=== PATIENT | male | born 1940 | race Two or more races ===

== ENCOUNTER 2018-06-25 01:53 | Inpatient (IN) | payer MEDICARE, BC ==
[~2018-06-25] VITALS: Ht 182.9 cm; Wt 141.5 kg
[2018-06-25] VITALS (30 sets, daily range): BP systolic 115–180; BP diastolic 64–97; PULSE 54–66; RESP 0–22; Ht 182.9 cm; Wt 141.5 kg
[2018-06-25] MEDS ORDERED: PROPOFOL 100 ML IV STA (02:12)
[2018-06-25] MEDS ORDERED: PROPOFOL 100 ML ONE (02:12)
[2018-06-25] MEDS ORDERED: VECURONIUM 100 MG in DEXTROSE 5% 100 ML IV ONE (02:12)
[2018-06-25] MEDS ORDERED: SODIUM CHLORIDE 0.9% 500 ML BAG IV* STA (02:12)
[2018-06-25] MEDS ORDERED: OCULAR LUBRICANT 3.5 GM OPH OINT BOTH EYES ONE (02:30)
[2018-06-25] MEDS ORDERED: NORepinephrine 8MG/250 ML (PMX 250 ML IV SCH (03:00)
[2018-06-25] MEDS ORDERED: SOD CHLORIDE 0.9% 1,000 ML IV ONE (03:00)
[2018-06-25] MEDS ORDERED: ACCU-CHEK XX SCH ×2 (04:30→06:00)
[2018-06-25] MEDS ORDERED: ACETAMINOPHEN 650MG/20.3ML CUP PO PRN (04:30)
[2018-06-25] MEDS ORDERED: MEPERIDINE 25 MG INJ IV PRN ×2 (04:30)
[2018-06-25] MEDS ORDERED: ACETAMINOPHEN 650 MG SUPP PR PRN (04:30)
[2018-06-25] MEDS ORDERED: DEXTROSE 50% 50 ML SYRINGE IV PRN ×4 (04:30→06:00)
[2018-06-25] MEDS ORDERED: IODIXANOL LOCM 100 ML BTL ONE (04:51)
[2018-06-25] MEDS ORDERED: SOD CHLORIDE 0.9% 100 ML ONE (04:51)
[2018-06-25] MEDS ORDERED: SOD CHLORIDE 0.9% 500 ML IV ONE (05:00)
--- NOTE | 2018-06-25 05:40 | ERD ---
ER Documentation Chief Complaint Chief Complaint MARY ANN,from home,initially c/o SOB,arrived as cardiac arrest HPI This is a very pleasant 78-year-old male initially brought in by rescue 90 from shortness of breath and chest pain. Upon arrival telemetric, the patient is 20 started in cardiac arrest. History is limited EMS run sheet as of the patient's been complaining of progressive shortness of breath and he refused BiPAP on r oute. After speaking with the family, the patient does have a history of hypertension but no previous cardiac stenting ROS All systems reviewed and are negative except as per history of present illness. Allergies Allergies: Coded Allergies: Unknown: Unable to obtain (Unverified , 06/25/18) Physical Exam Vitals Vital Signs Date Temp Pulse Resp B/P (MAP) Pulse Ox O2 O2 Flow FiO2 Time Delivery Rate 06/25/18 99.4 99 18 192/115 99 02:12 (140) Physical Exam Const: No acute distress Head: Atraumatic Eyes: Normal Conjunctiva ENT: Normal External Ears, Nose and Mouth. Neck: Full range of motion. No meningismus. Resp: Clear to auscultation bilaterally Cardio: Regular rate and rhythm, no murmurs Abd: Soft, non tender, non distended. Normal bowel sounds Skin: No petechiae or rashes Back: No midline or flank tenderness Ext: No cyanosis, or edema Neur: Obtunded Result Diagram: 06/25/18 0210 06/25/18 0210 Results 24 hrs Laboratory Tests Test 06/25/18 02:05 06/25/18 02:10 06/25/18 02:12 06/25/18 03:20 Bedside Glucose 268 mg/dL White Blood 20.8 10^3/ul Count Red Blood Count 5.41 10^6/ul Hemoglobin 15.1 g/dl Hematocrit 50.4 % Mean 93.2 fl Corpuscular Volume Mean 27.9 pg Corpuscular Hemoglobin Mean 30.0 g/dl Corpuscular Hemoglobin Conc ent Red Cell 14.4 % Distribution Width Platelet Count 244 10^3/UL Mean Platelet 11.6 fl Volume Immature 0.700 % Granulocytes % Neutrophils % 59.3 % Lymphocytes % 30.8 % Monocytes % 6.9 % Eosinophils % 1.8 % Basophils % 0.5 % Nucleated Red 0.0 /100WBC Blood Cells % Immature 0.140 10^3/ul Granulocytes # Neutrophils # 12.3 10^3/ul Lymphocytes # 6.4 10^3/ul Monocytes # 1.4 10^3/ul Eosinophils # 0.4 10^3/ul Basophils # 0.1 10^3/ul Nucleated Red 0.0 10^3/ul Blood Cells # Prothrombin 13.5 Sec Time Prothrombin 1.1 Time Ratio INR 1.02 International Normalized Rati o Activated 28.1 Sec Partial Thrombo plast Time Sodium Level 141 mmol/L Potassium Level 5.5 mmol/L Chloride Level 102 mmol/L Carbon Dioxide 23 mmol/L Level Anion Gap 16 Blood Urea 20 mg/dl Nitrogen Creatinine 1.41 mg/dl Est Glomerular mL/min Filtrat Rate mL/min Glucose Level 292 mg/dl Calcium Level 9.1 mg/dl Phosphorus 5.4 mg/dl Level Magnesium Level 2.0 mg/dl Total Bilirubin 0.3 mg/dl Direct 0.00 mg/dl Bilirubin Indirect 0.3 mg/dl Bilirubin Aspartate Amino 57 IU/L Transf (AST/SGO T) Alanine 42 IU/L Aminotransferas e (ALT/SGPT) Alkaline 78 IU/L Phosphatase Troponin I < 0.012 ng/ml Total Protein 7.7 g/dl Albumin 4.2 g/dl Globulin 3.50 g/dl Albumin/Globuli 1.20 n Ratio Blood Gas Blood arterial Specimen Source Arterial Blood 06/25/2018 3:02: Date Drawn 21 AM Arterial Blood 7.229 pH (Temp corrected ) Arterial Blood 60.7 mmhg pCO2 (Temp correct) Arterial Blood 145.2 mmHG pO2 (Temp corrected ) Arterial Blood 24.8 mmol/L HCO3 Arterial Blood -3.8 mmol/L Base Excess Arterial Blood 98.0 mmHG Oxygen Saturati on Darío Test ACCEPTAB Arterial Blood Right Radial Gas Puncture Site Arterial 0.3 % Blood Carboxyhe moglobin Arterial Blood 0.2 % Methemoglobin Blood Gas A-a 507.1 mmHg O2 Differential Oxyhemoglobin 97.5 % Percent Blood Gas 37.0 C Temperature Blood Gas 18.0 Respiration Rate Blood Gas 18 Actual Respiration Rat e Blood Gas VENT - AC Modality FiO2 100.0 % Blood Gas Tidal 650.0 mL Volume Blood Gas Low 5.0 cmH2O PEEP Setting Blood Gas 36.0 Inspiratory Pressure Blood Gas Drew ZAMBRANO MD Critical Value Read Back Blood Gas AA Notified Whom Blood Gas 06/25/2018 3:16: Notified Time 25 AM Urine Color YELLOW Urine Clarity SLIGHTLY CLOUDY Urine pH 6.0 Urine Specific 1.012 [place] Urine Ketones NEGATIVE mg/dL Urine Nitrite NEGATIVE mg/dL Urine Bilirubin NEGATIVE mg/dL Urine NEGATIVE mg/dL Urobilinogen Urine Leukocyte NEGATIVE Caroline/ul Esterase Urine 3 /HPF Microscopic RBC Urine 3 /HPF Microscopic WBC Urine Bacteria FEW /HPF Urine NEGATIVE mg/dL Hemoglobin Urine Glucose 1+ mg/dL Urine Total 3+ mg/dl Protein Current Medications Medications Dose Sig/[place] Start Time Status Last (Trade) Ordered Route PRN Stop Time Admin Dose Reason Admin Propofol 100 ml @ ud STK-MED 06/25/18 DC ONCE .ROUTE 02:12 06/25/18 02:13 Sodium 500 ml ONCE STAT 06/25/18 DC Chloride IV* 02:12 (NS) 06/25/18 02:18 Propofol 100 ml @ ONCE STAT 06/25/18 4.5 mls/hr IV 02:12 06/26/18 00:25 Eye 1 applic ONCE ONCE 06/25/18 DC Lubricant BOTH EYES 02:30 (Akwa Oint) 06/25/18 02:31 Vecuronium 100 ml @ 9 Q11H7M ONCE 06/25/18 06/25/18 Adrian 100 mls/hr IV 02:12 03:11 mg/ Dextrose 06/25/18 13:18 Sodium 1,000 ml @ Q1H ONCE 06/25/18 DC Chloride 1,000 mls/hr IV 03:00 06/25/18 03:59 250 ml @ TITRATE IV 06/25/18 06/25/18 Norepinephrin 1.875 mls/ 03:00 03:13 e hr Procedures/MDM EKG: Rate/Rhythm: [Normal Sinus Rhythm] QRS, ST, T-waves: Hyper acute T waves noted in V1 and V2 V3 V4 Impression: [No evidence of ischemia or arrhythmia] Chest X-ray 1V Interpreted by me: Soft Tissue: No acute abnormalities Bones: No acute abnormalities Mediastinum/Cardiac Silhouette/Lungs: ET tube and central line in good position Emergency department course: Patient was immediately started on ACLS. He was immediately intubated. Central line was placed. Intraosseous line was also p laced. He came back after ACLS. Started on hypothermia protocol. by Dr. interventional cardiology was called. He feels the patient was likely primarily respiratory noncardiac and will see the patient in the morning. Accepting Care Team: Current data and ongoing care discussed at time of admission. Primary: Dr. Vargas Consultin AM Outstanding Data: none Critical Care: Time: 45 minutes, independent of any separately billable procedural time Treatments/Evaluations: Close monitoring and treatment of unstable vital signs, cardiorespiratory, and neurologic status, while maintaining tight balance of fluid, respiratory, and cardiac interventions. Central Line Placement by me: Patient consented, sterilely draped, full prep, gown, glove, mask, time out performed. Anesthesia: 1% lidocaine locally Location: Left subclavian Device: Multiple lumen Technique: Seldinger technique. Secured with suture. Results: Venous return from all ports with easy saline flush. No complications. [XOXOXO]Guide wire retrieved and disposed of. [Chest X-ray 1V Interpreted by me: Central line in SVC, Normal soft tissue, No evidence of pneumothorax.] Endotracheal Intubation by me: Pre assessment performed. See preceding note for details. Pre-oxygenation performed with 100% oxygen RSI: Performed w/o complication or hypoxic events. Medications as ordered. Blade: [Mac 4] ET Tube: 8 cm Depth: 22 cm at the lip Intubation confirmed by colorimetric CO2, equal breath sounds, quiet over the stomach. Chest X-ray 1V Interpreted by me: 2 cm above the german ET tube. Normal soft tissue, No pneumothorax. Departure Diagnosis: Primary Impression: Cardiac arrest Condition: Critical ARABELLA ZAMBRANO Jun 25, 2018 05:40
[2018-06-25] MEDS ORDERED: ARTIFICIAL TEARS 15 ML OPH BOTH EYES SCH (06:00)
[2018-06-25] MEDS ORDERED: INSULIN HUMAN REGULAR 100 UNIT in SOD CHLORIDE 0.9% 99 ML IV SCH (06:00)
[2018-06-25] MEDS ORDERED: OCULAR LUBRICANT 3.5 GM OPH OINT BOTH EYES SCH (06:00)
[2018-06-25] MEDS: SOD CHLORIDE 0.9% 1,000 ML IV SCH ×2 (06:43→21:00)
--- NOTE | 2018-06-25 06:46 | HP ---
Date/Time of Note Date/Time of Note DATE: 06/25/18 TIME: 06:32 Assessment/Plan VTE Prophylaxis SCD applied (from Nsg): Yes Pharmacological prophylaxis: NA/contraindicated Pharm contraindication: low risk/ambulating Lines/Catheters IV Catheter Type (from Nrsg): Saline Lock Assessment/Plan Hospital Course This is a 78-year-old male being admitted to the ICU floor for: #1 cardiopulmonary arrest: Apparently was in PEA rhythm, will need to locate the rhythm strips to fully assess. Possibly respiratory in nature. At the current time as patient was not showing to be displaying any purposeful behavior will be initiated on hypothermia protocol once he obtains a CT of the brain and CT of the chest. Serial ABGs, CBC BMPs, serial troponins. IV fluid hydration. Consult cardiology. #2 Acute ventilatory dependent respiratory failure: hypercapnic on abg post ROSC. Vent management, serial ABGs. #3 hypertension: We will need to confirm patient's home medications with the family in the a.m. #4 abnormal chest x-ray: Questionable densities on x-ray however given patient's cardiac arrest/CPR this could an aspiration event. At the current time though given patient's condition we will start the patient on broad-spectrum antibiotics. #5 leukocytosis: Possibly secondary to underlying pneumonia versus secondary to stress reaction. Broad-spectrum antibiotics. #6 morbid obesity: We will check hemoglobin A1c, lipid panel, TSH #7 Acute kidney injury: Unknown baseline creatinine, monitor renal function. Avoid toxic agents. #8 hyperglycemia: We will check hemoglobin A1c, insulin GGT per hypothermia protocol. #9 DVT GI prophylaxis: SCDs, Protonix Further treatment strategy will be initiated as per the clinical course Greater than 45 minutes of critical care time was spent on the care and management of this patient. Result Diagram: 06/25/1820906/25/18 021 Results 24hrs Laboratory Tests Test 06/25/18 02:05 06/25/18 02:10 06/25/18 02:12 06/25/18 03:20 Bedside Glucose 268 H White Blood 20.8 H Count Red Blood Count 5.41 Hemoglobin 15.1 Hematocrit 50.4 Mean Corpuscular 93.2 Volume Mean Corpuscular 27.9 L Hemoglobin Mean Corpuscular 30.0 L Hemoglobin Noris nt Red Cell 14.4 Distribution Width Platelet Count 244 Mean Platelet 11.6 H Volume Immature 0.700 H Granulocytes % Neutrophils % 59.3 Lymphocytes % 30.8 Monocytes % 6.9 Eosinophils % 1.8 Basophils % 0.5 Nucleated Red 0.0 Blood Cells % Immature 0.140 H Granulocytes # Neutrophils # 12.3 H Lymphocytes # 6.4 H Monocytes # 1.4 H Eosinophils # 0.4 Basophils # 0.1 Nucleated Red 0.0 Blood Cells # Prothrombin Time 13.5 Prothrombin Time 1.1 Ratio INR 1.02 International Normalized Ratio Activated 28.1 Partial Thrombop last Time Sodium Level 141 Potassium Level 5.5 H Chloride Level 102 Carbon Dioxide 23 Level Anion Gap 16 H Blood Urea 20 Nitrogen Creatinine 1.41 H Est Glomerular Filtrat Rate mL/min Glucose Level 292 H Calcium Level 9.1 Phosphorus Level 5.4 H Magnesium Level 2.0 Total Bilirubin 0.3 Direct Bilirubin 0.00 Indirect 0.3 Bilirubin Aspartate Amino 57 H Transf (AST/SGOT ) Alanine 42 Aminotransferase (ALT/SGPT) Alkaline 78 Phosphatase Troponin I < 0.012 Total Protein 7.7 Albumin 4.2 Globulin 3.50 H Albumin/Globulin 1.20 Ratio Blood Gas Blood arterial Specimen Source Arterial Blood 06/25/2018 3:02: Date Drawn 21 AM Arterial Blood 7.229 *L pH (Temp corrected) Arterial Blood 60.7 H pCO2 (Temp correct) Arterial Blood 145.2 H pO2 (Temp corrected) Arterial Blood 24.8 HCO3 Arterial Blood -3.8 L Base Excess Arterial Blood 98.0 Oxygen Saturatio n Darío Test ACCEPTAB Arterial Blood Right Radial Gas Puncture Site Arterial 0.3 Blood Carboxyhem oglobin Arterial Blood 0.2 Methemoglobin Blood Gas A-a O2 507.1 H Differential Oxyhemoglobin 97.5 Percent Blood Gas 37.0 Temperature Blood Gas 18.0 Respiration Rate Blood Gas Actual 18 Respiration Rate Blood Gas VENT - AC Modality FiO2 100.0 Blood Gas Tidal 650.0 Volume Blood Gas Low 5.0 PEEP Setting Blood Gas 36.0 Inspiratory Pressure Blood Gas Drew ZAMBRANO MD Critical Value Read Back Blood Gas AA Notified Whom Blood Gas 06/25/2018 3:16: Notified Time 25 AM Urine Color YELLOW Urine Clarity SLIGHTLY CLOUDY A Urine pH 6.0 Urine Specific 1.012 [place] Urine Ketones NEGATIVE Urine Nitrite NEGATIVE Urine Bilirubin NEGATIVE Urine NEGATIVE Urobilinogen Urine Leukocyte NEGATIVE Esterase Urine 3 Microscopic RBC Urine 3 Microscopic WBC Urine Bacteria FEW A Urine Hemoglobin NEGATIVE Urine Glucose 1+ H Urine Total 3+ H Protein HPI/ROS Admit Date/Time Admit Date/Time Jun 25, 2018 at 04:04 Hx of Present Illness Chief complaint: Shortness of breath The following history was obtained from the ED physician documentation as well as from the RN as the patient is currently intubated unable to provide history. This is a 78-year-old male initially brought in by rescue 90 from shortness of breath and chest pain. Patient was noted to be in respiratory distress in the ambulance however patient refused BiPAP. Upon arrival to the ED the patient was noted to be in cardiac arrest. Patient had a high grade chest compressions performed in the ER with a possible rhythm of PEA however no medications were given apparently prior to the return of spontaneous circulation. Patient was not displaying any purposeful movements after rosc. patient at the current time is being prepared for hypothermia protocol which will be fully initiated once he obtains a CT of the brain and CTA of the chest. Apparently as per the ED physician the family stated that he had history of hypertension however I was not able to get in touch with family myself. Allergies: Unable to obtain Medications: Unknown ROS Subjective hx not possible: pt critical (Intubated) PMH/Family/Social Past Medical History Hypertension?, Unable to obtain given clinical condition Medications Current Medications Propofol 100 ml @ 4.5 mls/hr ONCE STAT IV ; Start 06/25/18 at 02:12; Stop 06/26/18 at 00:25 Vecuronium [place] 100 mg/ Dextrose 100 ml @ 9 mls/hr Q11H7M ONCE IV Last administered on 06/25/18at 03:11; Admin Dose 9 MLS/HR; Start 06/25/18 at 02:12; Stop 06/25/18 at 13:18 Norepinephrine 250 ml @ 1.875 mls/ hr TITRATE IV Last administered on 06/25/18at 03:13; Admin Dose 3.75 MLS/HR; Start 06/25/18 at 03:00 Sodium Chloride 1,000 ml @ 80 mls/hr [id number] IV ; Start 06/25/18 at 04:14 Acetaminophen (Tylenol Supp) 650 mg Q4H PRN ME TEMP > 37C; Start 06/25/18 at 04:30 Acetaminophen (Tylenol Liquid) 650 mg Q4H PRN PO TEMP > 37C; Start 06/25/18 at 04:30 Acetaminophen (Tylenol Supp) 500 mg Q6H ME ; Start 06/26/18 at 04:30 Acetaminophen (Tylenol Liquid) 500 mg Q6H PO ; Start 06/26/18 at 04:30 Meperidine HCl (Demerol) 12.5 mg Q4H PRN IV POST OPERATIVE SHIVERING; Start 06/25/18 at 04:30 Meperidine HCl (Demerol) 25 mg Q4H PRN IV POST OPERATIVE SHIVERING; Start 06/25/18 at 04:30 Eye Lubricant (Akwa Oint) 1 applic Q6 BOTH EYES ; Start 06/25/18 at 06:00 Eye Lubricant (Artificial Tears Oph) 2 drop Q6 BOTH EYES ; Start 06/25/18 at 06:00 Diagnostic Test (Pha) (Accu-Chek) 1 ea Q1H XX ; Start 06/25/18 at 04:30 Miscellaneous Information (* Miscellaneous Pharmacy Order) Treatment of Hypoglycemia: 1.BG 51... Per protocol XX ; Start 06/25/18 at 04:30 Dextrose (D50w Syringe) 25 ml Q15M PRN IV .DECREASED GLUCOSE; Start 06/25/18 at 04:30 Dextrose (D50w Syringe) 50 ml Q15M PRN IV .DECREASED GLUCOSE; Start 06/25/18 at 04:30 Diagnostic Test (Pha) (Accu-Chek) 1 ea Q1H XX ; Start 06/25/18 at 06:00 Insulin Human Regular 100 unit/ Sodium Chloride 100 ml @ 0 mls/hr PER PROTOCOL I V ; Start 06/25/18 at 06:00 Miscellaneous Information (* Miscellaneous Pharmacy Order) Treatment of Hypoglycemia: 1.BG 51... Per protocol XX ; Start 06/25/18 at 06:00 Dextrose (D50w Syringe) 25 ml Q15M PRN IV .DECREASED GLUCOSE; Start 06/25/18 at 06:00 Dextrose (D50w Syringe) 50 ml Q15M PRN IV .DECREASED GLUCOSE; Start 06/25/18 at 06:00 Coded Allergies: Unknown: Unable to obtain (Unverified , 06/25/18) Past Surgical History Unable to obtain given clinical condition Family History Significant Family History: other (Unable to obtain given clinical condition) Social History Unable to obtain given clinical condition Smoking Status: Never smoker Exam/Review of Systems Vital Signs Vitals Vital Signs Date Temp Pulse Resp B/P (MAP) Pulse Ox O2 O2 Flow FiO2 Time Delivery Rate 06/25/18 58 22 100 80 05:05 06/25/18 98.5 141/90 BIPAP 04:25 (107) Exam Exam General: Currently intubated, currently sedated, pupils sluggish bilaterally HEENT: . Pupils sluggish bilaterally, nasal packing in place in the left n ostril secondary to blood secondary to traumatic NG tube placement attempt, patient currently intubated with ET tube draining mild amount of scant blood Neck: Supple with full range of motion. No rigidity or meningismus Chest: Nontender Lungs: Clear to auscultation bilaterally no crackles rales or wheezing Heart: Normal S1-S2, Regular rhythm and rate. No murmur, S3, or S4 Abdomen: Obese, soft , nontender, nondistended , bowel sounds are present. No guarding no rebound tenderness , No masses or organomegaly. No costovertebral temporal angle mass Extremities: Normal to inspection, no edema no cyanosis Neurologic: Intubated, currently sedated prior to intubation. Patient was not displaying any purposeful movements. Additional Comments PROCEDURE: XR Chest. CLINICAL INDICATION: Hypothermia. ET tube placement. TECHNIQUE: AP Portable chest. COMPARISON: SD CR CHEST 11/03/2017; SD CR CHEST 10/28/2017; SD CR CHEST 12/06/2015 FINDINGS: The endotracheal tube and left central line are in satisfactory position. There is a defibrillator pad over the upper right chest. The cardiomediastinal silhouette is within normal limits .The aortic arch is calcified. There is interval increase bilateral interstitial and alveolar opacities, greater on the right. No definite pleural effusion or pneumothorax is identified. The osseous structures are intact. IMPRESSION: ET tube and left central line in place. Increase bilateral infiltrates and/or edema, greater on the right. [facility] Physician Tali Date Time Electronically viewed and signed by Scooby Castro Physician on 06/25/2018 03:23 CS/ CC: ARABELLA ZAMBRANO [id number] LILLY CLEMENS Jun 25, 2018 06:43
[2018-06-25] MEDS ORDERED: PROPOFOL 200 MG INJ ONE (07:00)
[2018-06-25] MEDS ORDERED: SUCCINYLCHOLINE CHLORIDE 100 MG/5 ML SYG IV ONE (07:00)
[2018-06-25] MEDS ORDERED: VANCOMYCIN IV PER PHARMACY XX SCH (07:00)
[2018-06-25] MEDS ORDERED: ETOMIDATE 20 MG INJ ONE (07:00)
[2018-06-25] MEDS: PIPER-TAZO 3.375 GM IV (PMX) 100 ML IVPB SCH ×3 (08:22→17:12)
[2018-06-25] MEDS: INSULIN ASPART [NOVOLOG] 3 ML PEN SC SCH ×4 (08:44→20:53)
--- NOTE | 2018-06-25 09:26 | RADRPT ---
Echocardiogram Report Patient Name: Sachi LOVE ID: [id number] : 1940 (78y )Study Date: 06/25/2018 7:51:29 AM Gender: MAccession #: [id number] Tech: [place] Location: Ref.Physician: LILLY CLEMENS Height(Cm): BSA: Weight(Kg): Quality: AdequateAccount #: Procedures: Echocardiographic Report: Transthoracic echocardiogram with complete 2D, M-Mode, and doppler examination. Indications: Cardiac Arrest. Measurements: 2D/M Mode Doppler Measurement Value Normal Range Measurement Value Normal Range LVIDd 2D 5.3 [ 4.2 - 5.8 ] cm AV Peak Brijesh 1.1 [ 100.0 - 170.0 ] cm/sec LVIDs 2D 4.0 [ 2.5 - 4.0 ] cm AV Peak PG 5.0 [ 2.0 - 9.0 ] mmHg LVPWd 2D 1.4 [ 0.6 - 1.0 ] cm LVOT Peak Brijesh 0.7 [ 70.0 - 110.0 ] cm/sec IVSd 2D 1.5 [ 0.6 - 1.0 ] cm LVOT Peak PG 2.0 [ 2.0 - 6.0 ] mmHg AoR Diam 2D 3.8 [ 2.6 - 3.4 ] cm MV E Peak Brijesh 0.6 [ 60.0 - 130.0 ] cm/sec EDV 2D 132.0 [ 62.0 - 150.0 ] ml MV A Peak Brijesh 0.5 [ 100.0 - 120.0 ] cm/sec ESV 2D 68.3 [ 21.0 - 61.0 ] ml MV E/A 1.3 [ 0.8 - 1.5 ] ratio EF 2D 48.3 [ 52.0 - 72.0 ] percent MV Decel Time 243 [ 104 - 258 ] msec LA Dimen 2D 3.3 [ 3.0 - 4.0 ] cm Lat E` Brijesh 0.1 [ 10.0 - 15.0 ] cm/sec Lateral E/E` 11.5 [ 1.0 - 2.0 ] ratio MV E/A 1.3 [ 0.8 - 1.5 ] ratio TR Peak Brijesh 2.3 [ 100.0 - 280.0 ] cm/sec TR Peak PG 21.0 mmHg RVSP 31.0 [ 10.0 - 36.0 ] mmHg RA Pressure 10.0 mmHg Findings: Left Ventricle: Normal left ventricular cavity size. Moderate concentric left ventricular hypertrophy. Moderate global left ventricular systolic dysfunction. Ejection fraction is visually estimated at 35 %. Abnormal Diastolic Function. Multiple segmental wall motion abnormalities. These segments of the LV are akinetic. Right Ventricle: Normal right ventricular size. Normal right ventricular systolic function. Left Atrium: The left atrium is normal in size. Right Atrium: The right atrium is normal in size. Mitral Valve: Mitral valve leaflets appear mildly thickened. Mild mitral annular calcification. Trace mitral regurgitation. Aortic Valve: No significant aortic stenosis or insufficiency. Aortic cusps appear mildly calcified. Tricuspid Valve: Normal appearance of the tricuspid valve. Estimated peak PA systolic pressure 31 mmHg. There is trace to mild tricuspid regurgitation. Pulmonic Valve: Normal pulmonic valve appearance. Pericardium: Normal pericardium with no significant pericardial effusion. Aorta: Normal aortic root. IVC: Dilated IVC without respiratory collapse, however, patient on ventilator. Conclusions: Normal left ventricular cavity size. Moderate concentric left ventricular hypertrophy. Moderate global left ventricular systolic dysfunction. Ejection fraction is visually estimated at 35 %. Abnormal Diastolic Function. Multiple segmental wall motion abnormalities. These segments of the LV are akinetic. No significant aortic stenosis or insufficiency. Aortic cusps appear mildly calcified. Mitral valve leaflets appear mildly thickened. Mild mitral annular calcification. Trace mitral regurgitation. Normal appearance of the tricuspid valve. Estimated peak PA systolic pressure 31 mmHg. There is trace to mild tricuspid regurgitation. Dilated IVC without respiratory collapse, however, patient on ventilator. Electronically Signed By: Johnathan Garcia 2018-06-25 09:25:29 PDT
--- NOTE | 2018-06-25 09:29 | CONS ---
Assessment/Plan Assessment/Plan Assessment/Plan (Daily) Chest x-ray showing bilateral pneumonia more pronounced in right lung. Ventilator setting; AC of 22, tidal volume 650, PEEP of 5, 80% FiO2. Assessment and recommendations; 1 patient admitted cardiac arrest likely hypercapnic in etiology 2. Bilateral pneumonia possibly aspiration, currently on appropriate antimicrobial regimen. 3. Apparent chronic renal insufficiency. 4. Mild thrombocytopenia. Continue current supportive care. Repeat ABG. Obtain follow-up chest x-ray 24 hours. Hold sedation to assess mental status. 40 minutes of critical care time was spent evaluating the patient. Consultation Date/Type/Reason Admit Date/Time Jun 25, 2018 at 04:04 Date of Consultation: Jun 25, 2018 Type of Consult Pulmonary/critical care Patient is a 78-year-old male who was brought into the hospital after sustaining a cardiac arrest event. CPR was done which was brief with revival of vital signs. Patient did not meet criteria for hypothermia protocol. By the time I saw him, patient is orally intubated and sedated. Patient however has remained hemodynamically stable. Past medical history; unknown. Medications; reviewed. Patient is currently on low-dose propofol at 3 mics per kilogram per minute. Allergies; none known. Family history, occupational history, social history is not available. Review of systems; unable to be obtained. General exam; elderly male, morbidly obese, orally intubated, sedated, currently in no distress. Date/Time of Note DATE: 06/25/18 TIME: 09:25 Past Medical History Medications Current Medications Propofol 100 ml @ 4.5 mls/hr ONCE STAT IV Last administered on 06/25/18at 06:43; Admin Dose 45 MLS/HR; Start 06/25/18 at 02:12; Stop 06/26/18 at 00:25 Norepinephrine 250 ml @ 1.875 mls/ hr TITRATE IV Last administered on 06/25/18at 03:13; Admin Dose 3.75 MLS/HR; Start 06/25/18 at 03:00 Sodium Chloride 1,000 ml @ 80 mls/hr [id number] IV Last administered on 06/25/18at 06:43; Admin Dose 80 MLS/HR; Start 06/25/18 at 04:14 Vancomycin HCl (Vanco Iv Per Pharmacy) VANCOMYCIN PER PHARMACY PER PROTOCOL XX ; Start 06/25/18 at 07:00 Piperacillin Sod/ Tazobactam Sod 100 ml @ 200 mls/hr Q6 IVPB Last administered on 06/25/18at 08:22; Admin Dose 200 MLS/HR; Start 06/25/18 at 08:00 Midazolam HCl 50 ml @ 1 mls/hr TITRATE IV ; Start 06/25/18 at 07:00 Insulin Aspart (Novolog Insulin Pen) NOVOLOG *MILD* ALGORI... Q4 SC Last administered on 06/25/18at 08:44; Admin Dose 2 UNIT; Start 06/25/18 at 09:00 Vancomycin HCl 2 gm/Sodium Chloride 500 ml @ 125 mls/hr ONCE ONCE IVPB ; Start 06/25/18 at 10:00; Stop 06/25/18 at 13:59 Vancomycin/Sodium Chloride 250 ml @ 125 mls/hr Q12H IVPB ; Start 06/25/18 at 22:00 Allergies: Coded Allergies: Unknown: Unable to obtain (Unverified , 06/25/18) Social History Smoking Status: Never smoker Exam/Review of Systems Exam Vitals Vital Signs Date Temp Pulse Resp B/P (MAP) Pulse Ox O2 O2 Flow FiO2 Time Delivery Rate 06/25/18 60 08:00 06/25/18 14 129/76 100 06:45 (93) 06/25/18 98.5 06:41 06/25/18 80 06:30 06/25/18 Mechanical 06:15 Ventilator Intake and Output 06/24/18 06/24/18 06/25/18 1515:00 23:00 07:00 IntakeIntake Total 125 ml OutputOutput Total 675 ml BalanceBalance -550 ml Exam H EENT exam; supple neck, no JVD. No lymphadenopathy. Midline trachea. No thyromegaly. There is clotted blood around nares. No active bleeding seen. Patient is edentulous. No neck masses. Pupils are small bilaterally. Orally intubated. Chest exam; diminished breath sounds bilaterally. S1-S2 audible, no murmurs. Regular rhythm. Abdomen exam; protuberant. No organomegaly. Obliquus is flat. Bowel sounds are sluggish. Extremity exam; trace edema. There are multiple well-healed scars involving the left knee. Pulses are feeble and lower extremities. PRODUCT DESIGNER exam; patient is sedated. Results Result Diagram: 06/25/18 0834 06/25/18 0834 Results 24hrs Laboratory Tests Test 06/25/18 02:05 06/25/18 02:10 06/25/18 02:12 06/25/18 03:20 Bedside Glucose 268 H White Blood 20.8 H Count Red Blood Count 5.41 Hemoglobin 15.1 Hematocrit 50.4 Mean Corpuscular 93.2 Volume Mean Corpuscular 27.9 L Hemoglobin Mean Corpuscular 30.0 L Hemoglobin Noris nt Red Cell 14.4 Distribution Width Platelet Count 244 Mean Platelet 11.6 H Volume Immature 0.700 H Granulocytes % Neutrophils % 59.3 Lymphocytes % 30.8 Monocytes % 6.9 Eosinophils % 1.8 Basophils % 0.5 Nucleated Red 0.0 Blood Cells % Immature 0.140 H Granulocytes # Neutrophils # 12.3 H Lymphocytes # 6.4 H Monocytes # 1.4 H Eosinophils # 0.4 Basophils # 0.1 Nucleated Red 0.0 Blood Cells # Prothrombin Time 13.5 Prothrombin Time 1.1 Ratio INR 1.02 International Normalized Ratio Activated 28.1 Partial Thrombop last Time Sodium Level 141 Potassium Level 5.5 H Chloride Level 102 Carbon Dioxide 23 Level Anion Gap 16 H Blood Urea 20 Nitrogen Creatinine 1.41 H Est Glomerular Filtrat Rate mL/min Glucose Level 292 H Calcium Level 9.1 Phosphorus Level 5.4 H Magnesium Level 2.0 Total Bilirubin 0.3 Direct Bilirubin 0.00 Indirect 0.3 Bilirubin Aspartate Amino 57 H Transf (AST/SGOT ) Alanine 42 Aminotransferase (ALT/SGPT) Alkaline 78 Phosphatase Troponin I < 0.012 Total Protein 7.7 Albumin 4.2 Globulin 3.50 H Albumin/Globulin 1.20 Ratio Blood Gas Blood arterial Specimen Source Arterial Blood 06/25/2018 3:02: Date Drawn 21 AM Arterial Blood 7.229 *L pH (Temp corrected) Arterial Blood 60.7 H pCO2 (Temp correct) Arterial Blood 145.2 H pO2 (Temp corrected) Arterial Blood 24.8 HCO3 Arterial Blood -3.8 L Base Excess Arterial Blood 98.0 Oxygen Saturatio n Darío Test ACCEPTAB Arterial Blood Right Radial Gas Puncture Site Arterial 0.3 Blood Carboxyhem oglobin Arterial Blood 0.2 Methemoglobin Blood Gas A-a O2 507.1 H Differential Oxyhemoglobin 97.5 Percent Blood Gas 37.0 Temperature Blood Gas 18.0 Respiration Rate Blood Gas Actual 18 Respiration Rate Blood Gas VENT - AC Modality FiO2 100.0 Blood Gas Tidal 650.0 Volume Blood Gas Low 5.0 PEEP Setting Blood Gas 36.0 Inspiratory Pressure Blood Gas Drew ZAMBRANO MD Critical Value Read Back Blood Gas AA Notified Whom Blood Gas 06/25/2018 3:16: Notified Time 25 AM Urine Color YELLOW Urine Clarity SLIGHTLY CLOUDY A Urine pH 6.0 Urine Specific 1.012 [place] Urine Ketones NEGATIVE Urine Nitrite NEGATIVE Urine Bilirubin NEGATIVE Urine NEGATIVE Urobilinogen Urine Leukocyte NEGATIVE Esterase Urine 3 Microscopic RBC Urine 3 Microscopic WBC Urine Bacteria FEW A Urine Hemoglobin NEGATIVE Urine Glucose 1+ H Urine Total 3+ H Protein Test 06/25/18 06:30 06/25/18 08:34 06/25/18 08:37 White Blood 10.8 # 10.1 Count Red Blood Count 4.34 L 4.29 L Hemoglobin 12.1 L 12.1 L Hematocrit 39.1 #L 37.8 L Mean Corpuscular 90.1 88.1 Volume Mean Corpuscular 27.9 L 28.2 L Hemoglobin Mean Corpuscular 30.9 L 32.0 Hemoglobin Noris nt Red Cell 14.2 14.5 Distribution Width Platelet Count 178 # 171 Mean Platelet 11.1 H 11.0 H Volume Immature 0.800 H 0.600 H Granulocytes % Neutrophils % 84.5 H 83.9 H Lymphocytes % 7.3 L 8.8 L Monocytes % 6.6 5.9 Eosinophils % 0.6 0.5 Basophils % 0.2 0.3 Nucleated Red 0.0 0.0 Blood Cells % Immature 0.090 H 0.060 H Granulocytes # Neutrophils # 9.2 H 8.5 H Lymphocytes # 0.8 0.9 Monocytes # 0.7 0.6 Eosinophils # 0.1 0.1 Basophils # 0.0 0.0 Nucleated Red 0.0 0.0 Blood Cells # Sodium Level 138 136 Potassium Level 4.7 4.3 Chloride Level 104 101 Carbon Dioxide 26 25 Level Anion Gap 8 # 10 Blood Urea 21 H 22 H Nitrogen Creatinine 1.38 H 1.38 H Est Glomerular Filtrat Rate mL/min Glucose Level 217 197 Calcium Level 8.4 8.3 L Magnesium Level 1.5 L Total Bilirubin 0.3 0.1 L Direct Bilirubin 0.00 0.00 Indirect 0.3 0.1 Bilirubin Aspartate Amino 63 H 52 H Transf (AST/SGOT ) Alanine 62 57 Aminotransferase (ALT/SGPT) Alkaline 61 49 Phosphatase Creatine Kinase 78 73 Creatine Kinase 2.0 Pending Index Creatinine 1.59 Pending Kinase MB (Mass) Troponin I 0.076 Pending Total Protein 5.9 #L 6.0 L Albumin 3.2 #L 3.2 L Globulin 2.70 2.80 Albumin/Globulin 1.18 1.14 Ratio Bedside Glucose 209 Medications Medication Current Medications Propofol 100 ml @ 4.5 mls/hr ONCE STAT IV Last administered on 06/25/18at 06:43; Admin Dose 45 MLS/HR; Start 06/25/18 at 02:12; Stop 06/26/18 at 00:25 Norepinephrine 250 ml @ 1.875 mls/ hr TITRATE IV Last administered on 06/25/18at 03:13; Admin Dose 3.75 MLS/HR; Start 06/25/18 at 03:00 Sodium Chloride 1,000 ml @ 80 mls/hr [id number] IV Last administered on 06/25/18at 06:43; Admin Dose 80 MLS/HR; Start 06/25/18 at 04:14 Vancomycin HCl (Vanco Iv Per Pharmacy) VANCOMYCIN PER PHARMACY PER PROTOCOL XX ; Start 06/25/18 at 07:00 Piperacillin Sod/ Tazobactam Sod 100 ml @ 200 mls/hr Q6 IVPB Last administered on 06/25/18 08:22; Admin Dose 200 MLS/HR; Start 06/25/18 at 08:00 Midazolam HCl 50 ml @ 1 mls/hr TITRATE IV ; Start 06/25/18 at 07:00 Insulin Aspart (Novolog Insulin Pen) NOVOLOG *MILD* ALGORI... Q4 SC Last administered on 06/25/18at 08:44; Admin Dose 2 UNIT; Start 06/25/18 at 09:00 Vancomycin HCl 2 gm/Sodium Chloride 500 ml @ 125 mls/hr ONCE ONCE IVPB ; Start 06/25/18 at 10:00; Stop 06/25/18 at 13:59 Vancomycin/Sodium Chloride 250 ml @ 125 mls/hr Q12H IVPB ; Start 06/25/18 at 22:00 NANCY CARMICHAEL Jun 25, 2018 09:29
[2018-06-25] MEDS ORDERED: VANCOMYCIN HCL 2 GM in SOD CHLORIDE 0.9% 500 ML IVPB ONE (10:00)
--- NOTE | 2018-06-25 10:04 | CONS ---
Assessment/Plan Assessment/Plan Hospital Course (Demo Recall) 1. Status post cardiopulmonary arrest appears to be mostly related to respiratory failure 2. Hypoxemic respiratory failure status post intubation vent dependent now 3. History of hypertension 4. Cardiomyopathy unclear acute versus chronic 5. Congestive heart failure probably acute on chronic secondary systolic heart failure 6. Renal insufficiency 7. Encephalopathy 8. Abnormal EKG with left bundle branch block 9. Incomplete data Recommendation: Cardiac enzyme will be repeated. Continue with vent support. Continue with ICU care Aspirin daily Diuresis as tolerated GI and DVT prophylaxis Antibiotics management will be deferred to internal medicine Thank you for his referral. We will continue to follow along with you MONIQUE SANDOVAL MD [facility] Consultation Date/Type/Reason Admit Date/Time Jun 25, 2018 at 04:04 Date of Consultation: Jun 25, 2018 Type of Consult Cardiology Reason for Consultation Cardiopulmonary arrest rule out STEMI Requesting Provider: ARABELLA ZAMBRANO Date/Time of Note DATE: 06/25/18 TIME: 09:56 Hx of Present Illness Interventional cardiology consultation note Chief complaint: Respiratory failure Reason for consult: Rule out ST elevation [place]. Cardiopulmonary arrest History of present illness: Thank you for this referral. History was a normal discussion multiple physicians and staff. Patient observed unable to provide any history to me. This is a unfortunate 78-year-old gentleman with history of probably hypertension who came to emergency room with increasing shortness of breath. Per report patient initially refused BiPAP. He has become more hypoxemic and had coded. In the emergency room was intubated. There was no report of any c hest pain or pressure. Initial EKG was reviewed by ER physician felt that he may have had "peaked T waves". It was discussed with me and EKG was reviewed. EKG was consistent with left bundle branch block. We decided to treat him medically for the time being up until more information is available. Initial troponin was negative. Subsequent troponin so far negative. patient initially was placed on hypothermia protocol but apparently has moved around and was felt that hypothermia protocol was being appropriate has been stopped Patient nonverbal on the vent Allergies: Unable to obtain so far Medications were reviewed as per medical reconciliation sheet Family history: Unknown at this point Social history: Unknown at this point Past medical history: As above Review of system: Patient denies all others except for above-mentioned Past Medical History Medications Current Medications Propofol 100 ml @ 4.5 mls/hr ONCE STAT IV Last administered on 06/25/18at 06:43; Admin Dose 45 MLS/HR; Start 06/25/18 at 02:12; Stop 06/26/18 at 00:25 Norepinephrine 250 ml @ 1.875 mls/ hr TITRATE IV Last administered on 06/25/18at 03:13; Admin Dose 3.75 MLS/HR; Start 06/25/18 at 03:00 Sodium Chloride 1,000 ml @ 80 mls/hr [id number] IV Last administered on 06/25/18at 06:43; Admin Dose 80 MLS/HR; Start 06/25/18 at 04:14 Vancomycin HCl (Vanco Iv Per Pharmacy) VANCOMYCIN PER PHARMACY PER PROTOCOL XX ; Start 06/25/18 at 07:00 Piperacillin Sod/ Tazobactam Sod 100 ml @ 200 mls/hr Q6 IVPB Last administered on 06/25/18at 08:22; Admin Dose 200 MLS/HR; Start 06/25/18 at 08:00 Midazolam HCl 50 ml @ 1 mls/hr TITRATE IV ; Start 06/25/18 at 07:00 Insulin Aspart (Novolog Insulin Pen) NOVOLOG *MILD* ALGORI... Q4 SC Last administered on 06/25/18at 08:44; Admin Dose 2 UNIT; Start 06/25/18 at 09:00 Vancomycin HCl 2 gm/Sodium Chloride 500 ml @ 125 mls/hr ONCE ONCE IVPB ; Start 06/25/18 at 10:00; Stop 06/25/18 at 13:59 Vancomycin/Sodium Chloride 250 ml @ 125 mls/hr Q12H IVPB ; Start 06/25/18 at 22:00 Allergies: Coded Allergies: Unknown: Unable to obtain (Unverified , 06/25/18) Social History Smoking Status: Never smoker Exam/Review of Systems Vital Signs Vitals Vital Signs Date Temp Pulse Resp B/P (MAP) Pulse Ox O2 O2 Flow FiO2 Time Delivery Rate 06/25/18 55 20 135/80 100 Mechanical 09:00 (98) Ventilator 06/25/18 98.4 08:00 06/25/18 80 06:30 Intake and Output 06/24/18 06/24/18 06/25/18 1515:00 23:00 07:00 IntakeIntake Total 125 ml OutputOutput Total 675 ml BalanceBalance -550 ml Exam Exam General: Obese gentleman status post intubation on the vent HEENT: NC/AT. . NECK: no stridor. CV: RRR. systolic murmur; no gallop or rubs. PULM: no wheezing. + rhonchi. GI: SOFT, NT, ND, no rebound or guarding Extremity: + B/L LE edema. no clubbing. neuro: Sedated now. Psych: calm rectal: deferred : normal EKG was personally reviewed showed normal sinus rhythm left bundle branch block Echocardiogram was personally reviewed which shows: Normal left ventricular cavity size. Moderate concentric left ventricular hypertrophy. Moderate global left ventricular systolic dysfunction. Ejection fraction is visually estimated at 35 %. Abnormal Diastolic Function. Multiple segmental wall motion abnormalities. These segments of the LV are akinetic. No significant aortic stenosis or insufficiency. Aortic cusps appear mildly calcified. Mitral valve leaflets appear mildly thickened. Mild mitral annular calcification. Trace mitral regurgitation. Normal appearance of the tricuspid valve. Estimated peak PA systolic pressure 31 mmHg. There is trace to mild tricuspid regurgitation. Dilated IVC without respiratory collapse, however, patient on ventilator. CT of the chest done in the emergency room shows: 1. No evidence of central pulmonary emboli. Prominent central pulmonary arteries and rule out pulmonary arterial hypertension. Reflux of contrast into the distal inferior vena cava and rule out mild right heart strain/failure. 2. Mild aneurysmal dilatation of the ascending aorta maximal transverse diameter 4.3 cm. 3. Mild cardiomegaly. 4. Bilateral lower lobe consolidations with central air bronchograms consistent with atelectasis though aspiration and pneumonia cannot be excluded. Additional diffuse inhomogeneous ground-glass opacities bilaterally as above consistent with pulmonary edema/pneumonitis. 5. Bilateral tiny pleural effusions. 6. Right paratracheal and prevascular space lymphadenopathy as above. Follow-up is recommended. 7. Mild lobulation of the anterior margin of the liver and may represent cirrhosis. Labs Result Diagram: 06/25/18 0834 06/25/18 0834 Results 24hrs Laboratory Tests Test 06/25/18 02:05 06/25/18 02:10 06/25/18 02:12 06/25/18 03:20 Bedside Glucose 268 H White Blood 20.8 H Count Red Blood Count 5.41 Hemoglobin 15.1 Hematocrit 50.4 Mean Corpuscular 93.2 Volume Mean Corpuscular 27.9 L Hemoglobin Mean Corpuscular 30.0 L Hemoglobin Noris nt Red Cell 14.4 Distribution Width Platelet Count 244 Mean Platelet 11.6 H Volume Immature 0.700 H Granulocytes % Neutrophils % 59.3 Lymphocytes % 30.8 Monocytes % 6.9 Eosinophils % 1.8 Basophils % 0.5 Nucleated Red 0.0 Blood Cells % Immature 0.140 H Granulocytes # Neutrophils # 12.3 H Lymphocytes # 6.4 H Monocytes # 1.4 H Eosinophils # 0.4 Basophils # 0.1 Nucleated Red 0.0 Blood Cells # Prothrombin Time 13.5 Prothrombin Time 1.1 Ratio INR 1.02 International Normalized Ratio Activated 28.1 Partial Thrombop last Time Sodium Level 141 Potassium Level 5.5 H Chloride Level 102 Carbon Dioxide 23 Level Anion Gap 16 H Blood Urea 20 Nitrogen Creatinine 1.41 H Est Glomerular Filtrat Rate mL/min Glucose Level 292 H Calcium Level 9.1 Phosphorus Level 5.4 H Magnesium Level 2.0 Total Bilirubin 0.3 Direct Bilirubin 0.00 Indirect 0.3 Bilirubin Aspartate Amino 57 H Transf (AST/SGOT ) Alanine 42 Aminotransferase (ALT/SGPT) Alkaline 78 Phosphatase Troponin I < 0.012 Total Protein 7.7 Albumin 4.2 Globulin 3.50 H Albumin/Globulin 1.20 Ratio Blood Gas Blood arterial Specimen Source Arterial Blood 06/25/2018 3:02: Date Drawn 21 AM Arterial Blood 7.229 *L pH (Temp corrected) Arterial Blood 60.7 H pCO2 (Temp correct) Arterial Blood 145.2 H pO2 (Temp corrected) Arterial Blood 24.8 HCO3 Arterial Blood -3.8 L Base Excess Arterial Blood 98.0 Oxygen Saturatio n Darío Test ACCEPTAB Arterial Blood Right Radial Gas Puncture Site Arterial 0.3 Blood Carboxyhem oglobin Arterial Blood 0.2 Methemoglobin Blood Gas A-a O2 507.1 H Differential Oxyhemoglobin 97.5 Percent Blood Gas 37.0 Temperature Blood Gas 18.0 Respiration Rate Blood Gas Actual 18 Respiration Rate Blood Gas VENT - AC Modality FiO2 100.0 Blood Gas Tidal 650.0 Volume Blood Gas Low 5.0 PEEP Setting Blood Gas 36.0 Inspiratory Pressure Blood Gas Drew ZAMBRANO MD Critical Value Read Back Blood Gas AA Notified Whom Blood Gas 06/25/2018 3:16: Notified Time 25 AM Urine Color YELLOW Urine Clarity SLIGHTLY CLOUDY A Urine pH 6.0 Urine Specific 1.012 [place] Urine Ketones NEGATIVE Urine Nitrite NEGATIVE Urine Bilirubin NEGATIVE Urine NEGATIVE Urobilinogen Urine Leukocyte NEGATIVE Esterase Urine 3 Microscopic RBC Urine 3 Microscopic WBC Urine Bacteria FEW A Urine Hemoglobin NEGATIVE Urine Glucose 1+ H Urine Total 3+ H Protein Test 06/25/18 06:30 06/25/18 08:34 06/25/18 08:37 White Blood 10.8 # 10.1 Count Red Blood Count 4.34 L 4.29 L Hemoglobin 12.1 L 12.1 L Hematocrit 39.1 #L 37.8 L Mean Corpuscular 90.1 88.1 Volume Mean Corpuscular 27.9 L 28.2 L Hemoglobin Mean Corpuscular 30.9 L 32.0 Hemoglobin Noris nt Red Cell 14.2 14.5 Distribution Width Platelet Count 178 # 171 Mean Platelet 11.1 H 11.0 H Volume Immature 0.800 H 0.600 H Granulocytes % Neutrophils % 84.5 H 83.9 H Lymphocytes % 7.3 L 8.8 L Monocytes % 6.6 5.9 Eosinophils % 0.6 0.5 Basophils % 0.2 0.3 Nucleated Red 0.0 0.0 Blood Cells % Immature 0.090 H 0.060 H Granulocytes # Neutrophils # 9.2 H 8.5 H Lymphocytes # 0.8 0.9 Monocytes # 0.7 0.6 Eosinophils # 0.1 0.1 Basophils # 0.0 0.0 Nucleated Red 0.0 0.0 Blood Cells # Sodium Level 138 136 Potassium Level 4.7 4.3 Chloride Level 104 101 Carbon Dioxide 26 25 Level Anion Gap 8 # 10 Blood Urea 21 H 22 H Nitrogen Creatinine 1.38 H 1.38 H Est Glomerular Filtrat Rate mL/min Glucose Level 217 197 Calcium Level 8.4 8.3 L Magnesium Level 1.5 L Total Bilirubin 0.3 0.1 L Direct Bilirubin 0.00 0.00 Indirect 0.3 0.1 Bilirubin Aspartate Amino 63 H 52 H Transf (AST/SGOT ) Alanine 62 57 Aminotransferase (ALT/SGPT) Alkaline 61 49 Phosphatase Creatine Kinase 78 73 Creatine Kinase 2.0 2.2 Index Creatinine 1.59 1.63 Kinase MB (Mass) Troponin I 0.076 0.091 Total Protein 5.9 #L 6.0 L Albumin 3.2 #L 3.2 L Globulin 2.70 2.80 Albumin/Globulin 1.18 1.14 Ratio Bedside Glucose 209 Medications Medications Current Medications Propofol 100 ml @ 4.5 mls/hr ONCE STAT IV Last administered on 06/25/18at 06:43; Admin Dose 45 MLS/HR; Start 06/25/18 at 02:12; Stop 06/26/18 at 00:25 Norepinephrine 250 ml @ 1.875 mls/ hr TITRATE IV Last administered on 06/25/18 at 03:13; Admin Dose 3.75 MLS/HR; Start 06/25/18 at 03:00 Sodium Chloride 1,000 ml @ 80 mls/hr [id number] IV Last administered on 06/25/18at 06:43; Admin Dose 80 MLS/HR; Start 06/25/18 at 04:14 Vancomycin HCl (Vanco Iv Per Pharmacy) VANCOMYCIN PER PHARMACY PER PROTOCOL XX ; Start 06/25/18 at 07:00 Piperacillin Sod/ Tazobactam Sod 100 ml @ 200 mls/hr Q6 IVPB Last administered on 06/25/18at 08:22; Admin Dose 200 MLS/HR; Start 06/25/18 at 08:00 Midazolam HCl 50 ml @ 1 mls/hr TITRATE IV ; Start 06/25/18 at 07:00 Insulin Aspart (Novolog Insulin Pen) NOVOLOG *MILD* ALGORI... Q4 SC Last administered on 06/25/18at 08:44; Admin Dose 2 UNIT; Start 06/25/18 at 09:00 Vancomycin HCl 2 gm/Sodium Chloride 500 ml @ 125 mls/hr ONCE ONCE IVPB ; Start 06/25/18 at 10:00; Stop 06/25/18 at 13:59 Vancomycin/Sodium Chloride 250 ml @ 125 mls/hr Q12H IVPB ; Start 06/25/18 at 22:00 MONIQUE SANDOVAL MD Jun 25, 2018 10:04
[2018-06-25] MEDS: PROPOFOL 100 ML IV SCH ×6 (10:40→20:19)
--- NOTE | 2018-06-25 11:44 | EN ---
Date/Time of Note Date/Time of Note DATE: 06/25/18 TIME: 11:33 Event Note Medicine Medicine Event Note Subjective: 78-year-old brought him by ambulance from home with complaints of shortness of breath and chest pain, with cardiac arrest in the emergency room thought to be secondary to acute respiratory arrest. Currently orotracheally intubated on Ventilator Support in the ICU. objective: GENERAL: Intubated and comfortably sedated HEENT: DELMI, Intubated, Vent settings noted , High o2 requirement LUNGS: diffusely diminished and coarse BS HEART: S1, S2. No murmur, gallops or rubs. Tachycardic ABDOMEN: Soft, non distended, Normoactive bowel sounds. GENITOURINARY: Normal male external genitalia, Mancia to bedside drainage EXTREMITIES: no edema NEUROLOGIC: The patient is currently sedated. SKIN: Otherwise, unremarkable. Assessment and plan: 1. Acute respiratory failure now ventilator dependent with hypercapnia, still requiring significant oxygen support 2. Status post cardiopulmonary arrest, apparently was PEA rhythm with ROSC 3. Bilateral pneumonia right greater than left suggestive of aspiration 4. Hypertensive urgency: Now well controlled 5. Chronic kidney disease rule out acute renal insufficiency 6. History of diabetes mellitus 7. History of dyslipidemia 8. Hypomagnesemia 9. Possible acute CVA on CT scan of the brain, will need MRI to confirm 10. Possible alcoholic cirrhosis 11. Ascending aortic aneurysm 4.3 cm 12. Pulmonary hypertension 13. Cardiomyopathy with ejection fraction of 35% with moderate left ventricular systolic dysfunction 14. Morbid obesity 15. Rule out previous tobacco use 16. Congestive heart failure, acute, systolic Plan: Continue ICU care and support Continue empiric antibiotics, ACS has been ruled out Continue ventilator support Replete magnesium levels Continue serial labs and intervene as indicated Gentle diuresis as indicated Further interventions per course Care time >35mins DAMION KUMAR Jun 25, 2018 11:44
[2018-06-25] MEDS ORDERED: MAGNESIUM SULFATE 2 GM/50 ML 50 ML IVPB ONE (12:00)
[2018-06-25] MEDS: ASPIRIN 300 MG SUPP PR SCH (13:00)
--- NOTE | 2018-06-25 17:33 | RADRPT ---
Vent Rate: 59 bpm RR Interval: 0 msec [place] Interval: 188 msec QRS Duration: 152 msec QT Interval: 516 msec QTC Interval: 510 msec P-R-T [place]: 50 - 66 - 70 degrees Sinus bradycardia with premature atrial complexes Left bundle branch block Abnormal ECG Electronically Signed By: Oleg Mack
[2018-06-25] MEDS: VANCOMYCIN 750 MG (PMX) 250 ML IVPB SCH (21:00)
[2018-06-26] VITALS (46 sets, daily range): BP systolic 97–187; BP diastolic 55–109; PULSE 63–130; RESP 0–26
[2018-06-26] MEDS: PIPER-TAZO 3.375 GM IV (PMX) 100 ML IVPB SCH ×4 (00:03→17:40)
[2018-06-26] MEDS: INSULIN ASPART [NOVOLOG] 3 ML PEN SC SCH ×6 (00:10→21:00)
[2018-06-26] MEDS: PROPOFOL 100 ML IV SCH ×6 (03:29→21:48)
[2018-06-26] MEDS ORDERED: ACETAMINOPHEN 650MG/20.3ML CUP PO SCH (04:30)
[2018-06-26] MEDS ORDERED: ACETAMINOPHEN 650 MG SUPP PR SCH (04:30)
[2018-06-26] MEDS: SOD CHLORIDE 0.9% 1,000 ML IV SCH ×2 (07:00→17:31)
--- NOTE | 2018-06-26 07:57 | CONS ---
Consult Date/Type/Reason Admit Date/Time Jun 25, 2018 at 04:04 Initial Consult Date 06/25/18 Requesting Provider: ARABELLA ZAMBRANO Date/Time of Note DATE: 06/26/18 TIME: 07:52 Subjective Interventional cardiology follow-up progress note/critical care note Subjective: Discussed with the staff and telemetry was reviewed. Patient has remained sinus rhythm. Blood pressure has been stable to high now. There is associated with an NG tube or OG tube in place to be able to give oral medication Neurologically he appear to be improving and follows commands now. No report of any chest pain or pressure Discussed with the staff patient still has moderate secretions Objective: General: Obese gentleman status post intubation on the vent HEENT: NC/AT. . Pupils are equal round reactive to light NECK: no stridor. CV: RRR. systolic murmur; no gallop or rubs. PULM: no wheezing. + rhonchi. GI: SOFT, NT, ND, no rebound or guarding Extremity: + B/L LE edema. no clubbing. neuro: Opens his eyes follows commands. Psych: calm rectal: deferred : normal EKG was personally reviewed showed normal sinus rhythm left bundle branch block Echocardiogram was personally reviewed which shows: Normal left ventricular cavity size. Moderate concentric left ventricular hypertrophy. Moderate global left ventricular systolic dysfunction. Ejection fraction is visually estimated at 35 %. Abnormal Diastolic Function. Multiple segmental wall motion abnormalities. These segments of the LV are akinetic. No significant aortic stenosis or insufficiency. Aortic cusps appear mildly calcified. Mitral valve leaflets appear mildly thickened. Mild mitral annular calcificatio n. Trace mitral regurgitation. Normal appearance of the tricuspid valve. Estimated peak PA systolic pressure 31 mmHg. There is trace to mild tricuspid regurgitation. Dilated IVC without respiratory collapse, however, patient on ventilator. CT of the chest done in the emergency room shows: 1. No evidence of central pulmonary emboli. Prominent central pulmonary arteries and rule out pulmonary arterial hypertension. Reflux of contrast into the distal inferior vena cava and rule out mild right heart strain/failure. 2. Mild aneurysmal dilatation of the ascending aorta maximal transverse diameter 4.3 cm. 3. Mild cardiomegaly. 4. Bilateral lower lobe consolidations with central air bronchograms consistent with atelectasis though aspiration and pneumonia cannot be excluded. Additional diffuse inhomogeneous ground-glass opacities bilaterally as above consistent with pulmonary edema/pneumonitis. 5. Bilateral tiny pleural effusions. 6. Right paratracheal and prevascular space lymphadenopathy as above. Follow-up is recommended. 7. Mild lobulation of the anterior margin of the liver and may represent cirrhosis. Objective Vitals Vital Signs Date Temp Pulse Resp B/P (MAP) Pulse Ox O2 O2 Flow FiO2 Time Delivery Rate 06/26/18 67 18 95 35 05:00 06/26/18 133/78 Mechan[employer] 03:00 (96) l Ventilato r 06/26/18 100.0 00:00 Intake and Output 06/25/18 06/25/18 06/26/18 1414:59 22:59 06:59 IntakeIntake Total 1478.9 ml 829.9 ml 1092.5 ml OutputOutput Total 1083 ml 548 ml 170 ml BalanceBalance 395.9 ml 281.9 ml 922.5 ml Results/Medications Result Diagram: 06/26/18 0447 06/26/18 0447 Results 24 hrs Laboratory Tests Test 06/25/18 08:34 06/25/18 08:37 06/25/18 09:24 06/25/18 13:36 White Blood Count 10.1 Red Blood Count 4.29 L Hemoglobin 12.1 L Hematocrit 37.8 L Mean Corpuscular 88.1 Volume Mean Corpuscular 28.2 L Hemoglobin Mean Corpuscular 32.0 Hemoglobin Concen t Red Cell 14.5 Distribution Width Platelet Count 171 Mean Platelet 11.0 H Volume Immature 0.600 H Granulocytes % Neutrophils % 83.9 H Lymphocytes % 8.8 L Monocytes % 5.9 Eosinophils % 0.5 Basophils % 0.3 Nucleated Red 0.0 Blood Cells % Immature 0.060 H Granulocytes # Neutrophils # 8.5 H Lymphocytes # 0.9 Monocytes # 0.6 Eosinophils # 0.1 Basophils # 0.0 Nucleated Red 0.0 Blood Cells # Sodium Level 136 Potassium Level 4.3 Chloride Level 101 Carbon Dioxide 25 Level Anion Gap 10 Blood Urea 22 H Nitrogen Creatinine 1.38 H Est Glomerular Filtrat Rate mL/min Glucose Level 197 Calcium Level 8.3 L Magnesium Level 1.5 L Total Bilirubin 0.1 L Direct Bilirubin 0.00 Indirect 0.1 Bilirubin Aspartate Amino 52 H Transf (AST/SGOT) Alanine 57 Aminotransferase (ALT/SGPT) Alkaline 49 Phosphatase Creatine Kinase 73 Creatine Kinase 2.2 Index Creatinine Kinase 1.63 MB (Mass) Troponin I 0.091 B-Type 2490 H Natriuretic Peptide Total Protein 6.0 L Albumin 3.2 L Globulin 2.80 Albumin/Globulin 1.14 Ratio Bedside Glucose 209 148 Blood Gas Blood arterial Specimen Source Arterial Blood 06/25/2018 9:53:3 Date Drawn 5 AM Arterial Blood pH 7.446 (Temp corrected) Arterial Blood 34.9 L pCO2 (Temp correct) Arterial Blood 137.5 H pO2 (Temp corrected) Arterial Blood 23.5 HCO3 Arterial Blood -0.1 Base Excess Arterial Blood 98.5 Oxygen Saturation Darío Test ACCEPTAB Arterial Blood Right Radial Gas Puncture Site Arterial 0.3 Blood Carboxyhemo globin Arterial Blood 0.1 Methemoglobin Blood Gas A-a O2 396.3 H Differential Oxyhemoglobin 98.1 Percent Blood Gas 37.0 Temperature Blood Gas 22.0 Respiration Rate Blood Gas Actual 22 Respiration Rate Blood Gas VENT - AC Modality FiO2 80.0 Blood Gas Tidal 650.0 Volume Blood Gas Low 5.0 PEEP Setting Blood Gas 25.0 Inspiratory Pressure Blood Gas TM Notified Whom Blood Gas 06/25/2018 10:27: Notified Time 37 AM Test 06/25/18 17:11 06/25/18 20:48 06/25/18 22:34 06/26/18 00:04 Bedside Glucose 121 153 159 Creatine Kinase 56 56 Creatine Kinase 2.2 1.7 Index Creatinine Kinase 1.25 0.96 MB (Mass) Troponin I 0.053 0.056 Test 06/26/18 04:47 06/26/18 05:12 White Blood Count 9.0 Red Blood Count 4.06 L Hemoglobin 11.3 L Hematocrit 36.1 L Mean Corpuscular 88.9 Volume Mean Corpuscular 27.8 L Hemoglobin Mean Corpuscular 31.3 L Hemoglobin Concen t Red Cell 14.4 Distribution Width Platelet Count 152 Mean Platelet 11.5 H Volume Immature 0.400 Granulocytes % Neutrophils % 84.1 H Lymphocytes % 7.8 L Monocytes % 5.4 Eosinophils % 1.9 Basophils % 0.4 Nucleated Red 0.0 Blood Cells % Immature 0.040 H Granulocytes # Neutrophils # 7.5 Lymphocytes # 0.7 L Monocytes # 0.5 Eosinophils # 0.2 Basophils # 0.0 Nucleated Red 0.0 Blood Cells # Prothrombin Time 14.7 Prothrombin Time 1.1 Ratio INR International 1.14 Normalized Ratio Sodium Level 140 Potassium Level 4.0 Chloride Level 104 Carbon Dioxide 26 Level Anion Gap 10 Blood Urea 21 H Nitrogen Creatinine 1.61 H Est Glomerular Filtrat Rate mL/min Glucose Level 147 # Hemoglobin A1c 7.4 H Calcium Level 7.9 L Magnesium Level 1.9 Total Bilirubin 0.2 Direct Bilirubin 0.00 Indirect 0.2 Bilirubin Aspartate Amino 27 Transf (AST/SGOT) Alanine 46 Aminotransferase (ALT/SGPT) Alkaline 41 L Phosphatase Creatine Kinase 44 Creatine Kinase 1.1 Index Creatinine Kinase 0.47 MB (Mass) Troponin I 0.044 B-Type 1320 H Natriuretic Peptide Total Protein 5.8 L Albumin 3.0 L Globulin 2.80 Albumin/Globulin 1.07 Ratio Triglycerides 472 H Level Cholesterol Level 163 LDL Cholesterol, 49 Calculated HDL Cholesterol 20 L Cholesterol/HDL 8.1 Ratio Thyroid 1.550 Stimulating Hormone (TSH) Free Thyroxine 1.00 Bedside Glucose 161 Medications Current Medications Norepinephrine 250 ml @ 1.875 mls/ hr TITRATE IV Last administered on at 03:13; Admin Dose 3.75 MLS/HR; Start 06/25/18 at 03:00 Sodium Chloride 1,000 ml @ 80 mls/hr [id number] IV Last administered on 06/25/18at 21:00; Admin Dose 80 MLS/HR; Start 06/25/18 at 04:14 Vancomycin HCl (Vanco Iv Per Pharmacy) VANCOMYCIN PER PHARMACY PER PROTOCOL XX ; Start 06/25/18 at 07:00 Piperacillin Sod/ Tazobactam Sod 100 ml @ 200 mls/hr Q6 IVPB Last administered on 06/26/18at 05:10; Admin Dose 200 MLS/HR; Start 06/25/18 at 08:00 Midazolam HCl 50 ml @ 1 mls/hr TITRATE IV ; Start 06/25/18 at 07:00 Insulin Aspart (Novolog Insulin Pen) NOVOLOG *MILD* ALGORI... Q4 SC Last administered on 06/26/18at 05:15; Admin Dose 1 UNIT; Start 06/25/18 at 09:00 Vancomycin/Sodium Chloride 250 ml @ 125 mls/hr Q12H IVPB Last administered on 06/25/18at 21:00; Admin Dose 125 MLS/HR; Start 06/25/18 at 22:00 Aspirin (Aspirin) 300 mg DAILY LA Last administered on 06/25/18at 13:00; Admin Dose 300 MG; Start 06/25/18 at 10:30 Propofol 100 ml @ 5.1 mls/hr Q12H IV Last administered on 06/26/18at 07:49; Admin Dose 40.8 MLS/HR; Start 06/25/18 at 10:30 Assessment/Plan Hospital Course (Demo Recall) 1. Status post cardiopulmonary arrest appears to be mostly related to respiratory failure 2. Hypoxemic respiratory failure status post intubation vent dependent now 3. History of hypertension 4. Cardiomyopathy unclear acute versus chronic 5. Congestive heart failure probably acute on chronic secondary systolic heart failure 6. Renal insufficiency: Acute kidney injury now 7. Encephalopathy 8. Abnormal EKG with left bundle branch block 9. Incomplete data 10. Pneumonia Recommendation: Cardiac enzyme has been repeated and myocardial infarction was ruled out Continue with vent support. To be managed as per pulmonary recommendations Aspirin daily. Patient is was started on rectal aspirin for now since there is no oral axis Diuresis as tolerated GI and DVT prophylaxis Antibiotics management will be deferred to internal medicine We will start the patient on Coreg once able to take any p.o. medications Continue with ICU care More than 38 minutes of critical care time was for management treatment is critically ill patient excluding any procedures Thank you for his referral. We will continue to follow along with you MONIQUE SANDOVAL MD [facility] MONIQUE SANDOVAL MD Jun 26, 2018 07:57
[2018-06-26] MEDS: ASPIRIN 300 MG SUPP PR SCH (09:00)
--- NOTE | 2018-06-26 09:22 | CONS ---
Assessment/Plan Assessment/Plan Assessment/Plan (Daily) Chest x-ray was reviewed from today which is showing bilateral pneumonia more pronounced in the left lung. There is mild pulmonary vascular congestion present as well. Ventilator setting; Assist control of 18, tidal volume 650, PEEP of 5, 35% FiO2. Patient is on propofol at 10 mics per kilogram per minute. Off Levophed. Assessment and recommendations; 1. Patient admitted with cardiac arrest requiring very brief CPR and not meeting criteria for hypothermia protocol. Patient has remained hemodynamically stable. Etiology likely his acute hypercapnia. 2. Bilateral pneumonia 3. Anemia and thrombocytopenia 4. Likely underlying chronic mild renal insufficiency. 5. History of hypertension. Hold sedation. Once patient is completely off sedation he will be evaluated on CPAP mode and an ABG will be performed to assess for possible weaning from ventilator. Meanwhile continue current supportive care. Obtain follow-up chest x-ray 24 hours. If the patient is not able to be extubated today, I would recommend starting tube feeding. 35 minutes of critical care time was spent evaluating the patient. Consultation Date/Type/Reason Admit Date/Time Jun 25, 2018 at 04:04 Initial Consult Date 06/25/18 Type of Consult Pulmonary/critical care Patient is a 78-year-old male who was brought into the hospital after sustaining a cardiac arrest event. CPR was done which was brief with revival of vital signs. Patient did not meet criteria for hypothermia protocol. By the time I saw him, patient is orally intubated and sedated. Patient however has remained hemodynamically stable. Past medical history; unknown. Medications; reviewed. Patient is currently on low-dose propofol at 3 mics per kilogram per minute. Allergies; none known. Family history, occupational history, social history is not available. Review of systems; unable to be obtained. General exam; elderly male, morbidly obese, orally intubated, sedated, currently in no distress. Requesting Provider: ARABELLA ZAMBRANO Date/Time of Note DATE: 06/26/18 TIME: : 24 HR Interval Summary Free Text/Dictation Patient's condition remains critical but stable. Despite being on low-dose propofol, patient is completely awake and alert. Has remained hemodynamically stable. General exam; elderly male, morbidly obese, orally intubated, awake and alert. Currently in no distress. Exam/Review of Systems Exam Vitals Vital Signs Date Temp Pulse Resp B/P (MAP) Pulse Ox O2 O2 Flow FiO2 Time Delivery Rate 06/26/18 70 18 123/65 95 08:30 (84) 06/26/18 100.9 Mechanica 08:00 l Ventilato r 06/26/18 35 05:00 Intake and Output 06/25/18 06/25/18 06/26/18 1515:00 23:00 07:00 IntakeIntake Total 1354.8 ml 1139.5 ml 942.5 ml OutputOutput Total 564 ml 432 ml 300 ml BalanceBalance 790.8 ml 707.5 ml 642.5 ml Exam H EENT exam; supple neck, no JVD. No lymphadenopathy. Midline trachea. No thyromegaly. Patient is edentulous. No neck masses. Orally intubated. Chest exam; diminished but clear breath sounds. S1-S2 audible, no murmurs. Regular rhythm. Abdomen exam; soft, no organomegaly. Bowel sounds audible. Mildly protuberant. Extremity exam; no peripheral edema. Multiple well-healed scars are present around the left knee. REGISTERED NURSE PRACTITIONER exam; no focal deficit. Results Result Diagram: 06/26/18 0447 06/26/18 0447 Results 24hrs Laboratory Tests Test 06/25/18 09:24 06/25/18 13:36 06/25/18 17:11 06/25/18 20:48 Blood Gas Blood arterial Specimen Source Arterial Blood 06/25/2018 9:53:3 Date Drawn 5 AM Arterial Blood pH 7.446 (Temp corrected) Arterial Blood 34.9 L pCO2 (Temp correct) Arterial Blood 137.5 H pO2 (Temp corrected) Arterial Blood 23.5 HCO3 Arterial Blood -0.1 Base Excess Arterial Blood 98.5 Oxygen Saturation Darío Test ACCEPTAB Arterial Blood Right Radial Gas Puncture Site Arterial 0.3 Blood Carboxyhemo globin Arterial Blood 0.1 Methemoglobin Blood Gas A-a O2 396.3 H Differential Oxyhemoglobin 98.1 Percent Blood Gas 37.0 Temperature Blood Gas 22.0 Respiration Rate Blood Gas Actual 22 Respiration Rate Blood Gas VENT - AC Modality FiO2 80.0 Blood Gas Tidal 650.0 Volume Blood Gas Low 5.0 PEEP Setting Blood Gas 25.0 Inspiratory Pressure Blood Gas TM Notified Whom Blood Gas 06/25/2018 10:27: Notified Time 37 AM Bedside Glucose 148 121 153 Creatine Kinase 56 Creatine Kinase 2.2 Index Creatinine Kinase 1.25 MB (Mass) Troponin I 0.053 Test 06/25/18 22:34 06/26/18 00:04 06/26/18 04:47 06/26/18 05:12 Creatine Kinase 56 44 Creatine Kinase 1.7 1.1 Index Creatinine Kinase 0.96 0.47 MB (Mass) Troponin I 0.056 0.044 Bedside Glucose 159 161 White Blood Count 9.0 Red Blood Count 4.06 L Hemoglobin 11.3 L Hematocrit 36.1 L Mean Corpuscular 88.9 Volume Mean Corpuscular 27.8 L Hemoglobin Mean Corpuscular 31.3 L Hemoglobin Concen t Red Cell 14.4 Distribution Width Platelet Count 152 Mean Platelet 11.5 H Volume Immature 0.400 Granulocytes % Neutrophils % 84.1 H Lymphocytes % 7.8 L Monocytes % 5.4 Eosinophils % 1.9 Basophils % 0.4 Nucleated Red 0.0 Blood Cells % Immature 0.040 H Granulocytes # Neutrophils # 7.5 Lymphocytes # 0.7 L Monocytes # 0.5 Eosinophils # 0.2 Basophils # 0.0 Nucleated Red 0.0 Blood Cells # Prothrombin Time 14.7 Prothrombin Time 1.1 Ratio INR International 1.14 Normalized Ratio Sodium Level 140 Potassium Level 4.0 Chloride Level 104 Carbon Dioxide 26 Level Anion Gap 10 Blood Urea 21 H Nitrogen Creatinine 1.61 H Est Glomerular Filtrat Rate mL/min Glucose Level 147 # Hemoglobin A1c 7.4 H Calcium Level 7.9 L Magnesium Level 1.9 Total Bilirubin 0.2 Direct Bilirubin 0.00 Indirect 0.2 Bilirubin Aspartate Amino 27 Transf (AST/SGOT) Alanine 46 Aminotransferase (ALT/SGPT) Alkaline 41 L Phosphatase B-Type 1320 H Natriuretic Peptide Total Protein 5.8 L Albumin 3.0 L Globulin 2.80 Albumin/Globulin 1.07 Ratio Triglycerides 472 H Level Cholesterol Level 163 LDL Cholesterol, 49 Calculated HDL Cholesterol 20 L Cholesterol/HDL 8.1 Ratio Thyroid 1.550 Stimulating Hormone (TSH) Free Thyroxine 1.00 Medications Medication Current Medications Norepinephrine 250 ml @ 1.875 mls/ hr TITRATE IV Last administered on 06/25/18at 03:13; Admin Dose 3.75 MLS/HR; Start 06/25/18 at 03:00 Sodium Chloride 1,000 ml @ 80 mls/hr [id number] IV Last administered on 06/25/18at 21:00; Admin Dose 80 MLS/HR; Start 06/25/18 at 04:14 Vancomycin HCl (Vanco Iv Per Pharmacy) VANCOMYCIN PER PHARMACY PER PROTOCOL XX ; Start 06/25/18 at 07:00 Piperacillin Sod/ Tazobactam Sod 100 ml @ 200 mls/hr Q6 IVPB Last administered on 06/26/18at 05:10; Admin Dose 200 MLS/HR; Start 06/25/18 at 08:00 Midazolam HCl 50 ml @ 1 mls/hr TITRATE IV ; Start 06/25/18 at 07:00 Insulin Aspart (Novolog Insulin Pen) NOVOLOG *MILD* ALGORI... Q4 SC Last administered on 06/26/18 05:15; Admin Dose 1 UNIT; Start 06/25/18 at 09:00 Vancomycin/Sodium Chloride 250 ml @ 125 mls/hr Q12H IVPB Last administered on 06/25/18at 21:00; Admin Dose 125 MLS/HR; Start 06/25/18 at 22:00 Aspirin (Aspirin) 300 mg DAILY AL Last administered on 06/25/18at 13:00; Admin Dose 300 MG; Start 06/25/18 at 10:30 Propofol 100 ml @ 5.1 mls/hr Q12H IV Last administered on 06/26/18at 07:49; Admin Dose 40.8 MLS/HR; Start 06/25/18 at 10:30 Carvedilol (Coreg) 3.125 mg BID PO ; Start 06/26/18 at 09:00 Atorvastatin Calcium (Lipitor) 40 mg HS PO ; Start 06/26/18 at 21:00 NANCY CARMICHAEL Jun 26, 2018 09:22
[2018-06-26] MEDS: VANCOMYCIN 750 MG (PMX) 250 ML IVPB SCH ×2 (09:35→22:53)
[2018-06-26] MEDS: FAMOTIDINE 20 MG INJ IV SCH (11:40)
[2018-06-26] MEDS: ENOXAPARIN 40 MG/0.4 ML SYG SC SCH (11:58)
[2018-06-26] MEDS ORDERED: ROCURONIUM 50 MG INJ ONE (12:00)
[2018-06-26] MEDS ORDERED: ETOMIDATE 20 MG INJ ONE (12:00)
[2018-06-26] MEDS ORDERED: ASPIRIN 81 MG TAB NGT SCH (13:30)
[2018-06-26] MEDS ORDERED: LEVALBUTEROL (NEB) 0.63 MG/3 ML AMP HHN SCH (14:00)
[2018-06-26] MEDS: ACETAMINOPHEN 650MG/20.3ML CUP NGT PRN ×2 (14:12→18:36)
--- NOTE | 2018-06-26 17:40 | PN ---
Date/Time of Note Date/Time of Note DATE: 06/26/18 TIME: 17:39 Assessment/Plan VTE Prophylaxis Risk score (from Nsg)>0 risk: 11 SCD applied (from Nsg): Yes Pharmacological prophylaxis: LMWH Lines/Catheters IV Catheter Type (from Nrsg): Saline Lock Urinary Cath still in place: Yes Reason Cath still needed: other (indicate) Assessment/Plan Hospital Course Subjective: alert, on CPAP trials, son and at bedside, communicative, anxious vs confused, but still intubated objective: GENERAL: communicative, anxious vs confused, but still intubated HEENT: DELMI, Intubated, Vent settings noted LUNGS: diffusely diminished HEART: S1, S2. No murmur, gallops or rubs. ABDOMEN: Soft, non distended, Normoactive bowel sounds. GENITOURINARY: Normal male external genitalia, Mancia to bedside drainage EXTREMITIES: no edema NEUROLOGIC: moves all extremities, requiring restraints bilaterally, communicating with gestures SKIN: Otherwise, unremarkable. Assessment and plan: 78-year-old brought him by ambulance from home with complaints of shortness of breath and chest pain, with cardiac arrest in the emergency room thought to be secondary to acute respiratory arrest. Currently orotracheally intubated on Ventilator Support in the ICU. 1. Acute respiratory failure, ventilator dependent with hypercapnia, -much improved, on CPAP trials, will likely be extubated later 2. Status post cardiopulmonary arrest, apparently was PEA rhythm with ROSC 3. Bilateral pneumonia right greater than left suggestive of aspiration 4. Hypertensive urgency: BP improved 5. RICKI r/o Chronic kidney disease 6. History of diabetes mellitus 7. History of dyslipidemia 8. Congestive heart failure, acute, systolic 9. Possible acute CVA on CT scan of the brain, will need MRI to confirm 10. Possible alcoholic cirrhosis 11. Ascending aortic aneurysm 4.3 cm 12. Pulmonary hypertension 13. Cardiomyopathy with ejection fraction of 35% with moderate left ventricular systolic dysfunction 14. Morbid obesity Plan: Continue ventilator weaning and possible extubation later Continue empiric antibiotics and send resp cultures ACS has been ruled out, May require Nephrology consultation if renal function continues to worsen , renally dose all meds and avoid nephrotoxins Continue serial labs and intervene as indicated Gentle diuresis as indicated If extubated, will need PT/ST eval and may require insulin therapy if cleared for a diet Will need MRI to confirm CVA once more stable, also consider Neurology consult Further interventions per course Care time >35mins Result Diagram: 06/26/18 0447 06/26/18 0447 Results 24hrs Laboratory Tests Test 06/25/18 20:48 06/25/18 22:34 06/26/18 00:04 06/26/18 04:47 Bedside Glucose 153 159 Creatine Kinase 56 44 Creatine Kinase 1.7 1.1 Index Creatinine 0.96 0.47 Kinase MB (Mass) Troponin I 0.056 0.044 White Blood 9.0 Count Red Blood Count 4.06 L Hemoglobin 11.3 L Hematocrit 36.1 L Mean Corpuscular 88.9 Volume Mean Corpuscular 27.8 L Hemoglobin Mean Corpuscular 31.3 L Hemoglobin Noris nt Red Cell 14.4 Distribution Width Platelet Count 152 Mean Platelet 11.5 H Volume Immature 0.400 Granulocytes % Neutrophils % 84.1 H Lymphocytes % 7.8 L Monocytes % 5.4 Eosinophils % 1.9 Basophils % 0.4 Nucleated Red 0.0 Blood Cells % Immature 0.040 H Granulocytes # Neutrophils # 7.5 Lymphocytes # 0.7 L Monocytes # 0.5 Eosinophils # 0.2 Basophils # 0.0 Nucleated Red 0.0 Blood Cells # Prothrombin Time 14.7 Prothrombin Time 1.1 Ratio INR 1.14 International Normalized Ratio Sodium Level 140 Potassium Level 4.0 Chloride Level 104 Carbon Dioxide 26 Level Anion Gap 10 Blood Urea 21 H Nitrogen Creatinine 1.61 H Est Glomerular Filtrat Rate mL/min Glucose Level 147 # Hemoglobin A1c 7.4 H Calcium Level 7.9 L Magnesium Level 1.9 Total Bilirubin 0.2 Direct Bilirubin 0.00 Indirect 0.2 Bilirubin Aspartate Amino 27 Transf (AST/SGOT ) Alanine 46 Aminotransferase (ALT/SGPT) Alkaline 41 L Phosphatase B-Type 1320 H Natriuretic Peptide Total Protein 5.8 L Albumin 3.0 L Globulin 2.80 Albumin/Globulin 1.07 Ratio Triglycerides 472 H Level Cholesterol 163 Level LDL Cholesterol, 49 Calculated HDL Cholesterol 20 L Cholesterol/HDL 8.1 Ratio Thyroid 1.550 Stimulating Hormone (TSH) Free Thyroxine 1.00 Test 06/26/18 05:12 06/26/18 09:22 06/26/18 10:00 06/26/18 13:15 Bedside Glucose 161 154 Blood Gas Blood arterial Blood arterial Specimen Source Arterial Blood 06/26/2018 10:00 06/26/2018 1:25: Date Drawn :49 AM 57 PM Arterial Blood 7.381 7.221 *L pH (Temp corrected) Arterial Blood 42.4 57.0 H pCO2 (Temp correct) Arterial Blood 75.8 L 91.5 H pO2 (Temp corrected) Arterial Blood 24.6 22.9 HCO3 Arterial Blood -0.6 -5.5 L Base Excess Arterial Blood 94.2 L 95.2 Oxygen Saturatio n Darío Test ACCEPTAB ACCEPTAB Arterial Blood Right Radial Right Radial Gas Puncture Site Arterial 0.3 0.3 Blood Carboxyhem oglobin Arterial Blood 0.2 0.2 Methemoglobin Blood Gas A-a O2 88.3 H 564.5 H Differential Oxyhemoglobin 93.7 94.7 Percent Blood Gas 37.0 37.0 Temperature Blood Gas Actual 20 18 Respiration Rate Blood Gas VENT - CPAP VENT - AC Modality FiO2 30.0 100.0 Blood Gas Low 5.0 5.0 PEEP Setting Blood Gas 10 Pressure Support Blood Gas Jm CASTILLO RN Critical Value Read Back Blood Gas RDIX TM Notified Whom Blood Gas 06/26/2018 10:18 06/26/2018 1:54: Notified Time :58 AM 40 PM Blood Gas 18.0 Respiration Rate Blood Gas Tidal 650.0 Volume Test 06/26/18 13:32 06/26/18 17:37 Bedside Glucose 203 133 Exam/Review of Systems Exam Vitals Vital Signs Date Temp Pulse Resp B/P (MAP) Pulse Ox O2 O2 Flow FiO2 Time Delivery Rate 06/26/18 67 22 98 100 17:10 06/26/18 105/61 15:30 (76) 06/26/18 100.1 Mechan[place] 15:00 l Ventilato r 06/26/18 4.0 12:00 Intake and Output 06/25/18 06/25/18 06/26/18 1515:00 23:00 07:00 IntakeIntake Total 1354.8 ml 1139.5 ml 942.5 ml OutputOutput Total 564 ml 432 ml 300 ml BalanceBalance 790.8 ml 707.5 ml 642.5 ml Results Results 24hrs Laboratory Tests Test 06/25/18 20:48 06/25/18 22:34 06/26/18 00:04 06/26/18 04:47 Bedside Glucose 153 159 Creatine Kinase 56 44 Creatine Kinase 1.7 1.1 Index Creatinine 0.96 0.47 Kinase MB (Mass) Troponin I 0.056 0.044 White Blood 9.0 Count Red Blood Count 4.06 L Hemoglobin 11.3 L Hematocrit 36.1 L Mean Corpuscular 88.9 Volume Mean Corpuscular 27.8 L Hemoglobin Mean Corpuscular 31.3 L Hemoglobin Noris nt Red Cell 14.4 Distribution Width Platelet Count 152 Mean Platelet 11.5 H Volume Immature 0.400 Granulocytes % Neutrophils % 84.1 H Lymphocytes % 7.8 L Monocytes % 5.4 Eosinophils % 1.9 Basophils % 0.4 Nucleated Red 0.0 Blood Cells % Immature 0.040 H Granulocytes # Neutrophils # 7.5 Lymphocytes # 0.7 L Monocytes # 0.5 Eosinophils # 0.2 Basophils # 0.0 Nucleated Red 0.0 Blood Cells # Prothrombin Time 14.7 Prothrombin Time 1.1 Ratio INR 1.14 International Normalized Ratio Sodium Level 140 Potassium Level 4.0 Chloride Level 104 Carbon Dioxide 26 Level Anion Gap 10 Blood Urea 21 H Nitrogen Creatinine 1.61 H Est Glomerular Filtrat Rate mL/min Glucose Level 147 # Hemoglobin A1c 7.4 H Calcium Level 7.9 L Magnesium Level 1.9 Total Bilirubin 0.2 Direct Bilirubin 0.00 Indirect 0.2 Bilirubin Aspartate Amino 27 Transf (AST/SGOT ) Alanine 46 Aminotransferase (ALT/SGPT) Alkaline 41 L Phosphatase B-Type 1320 H Natriuretic Peptide Total Protein 5.8 L Albumin 3.0 L Globulin 2.80 Albumin/Globulin 1.07 Ratio Triglycerides 472 H Level Cholesterol 163 Level LDL Cholesterol, 49 Calculated HDL Cholesterol 20 L Cholesterol/HDL 8.1 Ratio Thyroid 1.550 Stimulating Hormone (TSH) Free Thyroxine 1.00 Test 06/26/18 05:12 06/26/18 09:22 06/26/18 10:00 06/26/18 13:15 Bedside Glucose 161 154 Blood Gas Blood arterial Blood arterial Specimen Source Arterial Blood 06/26/2018 10:00 06/26/2018 1:25: Date Drawn :49 AM 57 PM Arterial Blood 7.381 7.221 *L pH (Temp corrected) Arterial Blood 42.4 57.0 H pCO2 (Temp correct) Arterial Blood 75.8 L 91.5 H pO2 (Temp corrected) Arterial Blood 24.6 22.9 HCO3 Arterial Blood -0.6 -5.5 L Base Excess Arterial Blood 94.2 L 95.2 Oxygen Saturatio n Darío Test ACCEPTAB ACCEPTAB Arterial Blood Right Radial Right Radial Gas Puncture Site Arterial 0.3 0.3 Blood Carboxyhem oglobin Arterial Blood 0.2 0.2 Methemoglobin Blood Gas A-a O2 88.3 H 564.5 H Differential Oxyhemoglobin 93.7 94.7 Percent Blood Gas 37.0 37.0 Temperature Blood Gas Actual 20 18 Respiration Rate Blood Gas VENT - CPAP VENT - AC Modality FiO2 30.0 100.0 Blood Gas Low 5.0 5.0 PEEP Setting Blood Gas 10 Pressure Support Blood Gas Jm CASTILLO RN Critical Value Read Back Blood Gas RDIX TM Notified Whom Blood Gas 06/26/2018 10:18 06/26/2018 1:54: Notified Time :58 AM 40 PM Blood Gas 18.0 Respiration Rate Blood Gas Tidal 650.0 Volume Test 06/26/18 13:32 06/26/18 17:37 Bedside Glucose 203 133 Medications Medication Current Medications Norepinephrine 250 ml @ 1.875 mls/ hr TITRATE IV Last administered on 06/25/18at 03:13; Admin Dose 3.75 MLS/HR; Start 06/25/18 at 03:00 Sodium Chloride 1,000 ml @ 80 mls/hr [id number] IV Last administered on 06/26/18at 17:31; Admin Dose 80 MLS/HR; Start 06/25/18 at 04:14 Vancomycin HCl (Vanco Iv Per Pharmacy) VANCOMYCIN PER PHARMACY PER PROTOCOL XX ; Start 06/25/18 at 07:00 Piperacillin Sod/ Tazobactam Sod 100 ml @ 200 mls/hr Q6 IVPB Last administered on 06/26/18at 11:40; Admin Dose 200 MLS/HR; Start 06/25/18 at 08:00 Midazolam HCl 50 ml @ 1 mls/hr TITRATE IV ; Start 06/25/18 at 07:00 Insulin Aspart (Novolog Insulin Pen) NOVOLOG *MILD* ALGORI... Q4 SC Last ad ministered on 06/26/18at 13:35; Admin Dose 2 UNIT; Start 06/25/18 at 09:00 Vancomycin/Sodium Chloride 250 ml @ 125 mls/hr Q12H IVPB Last administered on 06/26/18at 09:35; Admin Dose 125 MLS/HR; Start 06/25/18 at 22:00 Propofol 100 ml @ 5.1 mls/hr Q12H IV Last administered on 06/26/18at 15:01; Admin Dose 30.6 MLS/HR; Start 06/25/18 at 10:30 Enoxaparin Sodium (Lovenox) 40 mg DAILY SC Last administered on 06/26/18at 11:58; Admin Dose 40 MG; Start 06/26/18 at 10:30 Famotidine (Pepcid Iv) 20 mg DAILY IV Last administered on 06/26/18at 11:40; Admin Dose 20 MG; Start 06/26/18 at 10:30 Miscellaneous Information (*Rx Drug Level Order Reminder*) VANCOMYCIN TROUGH AT 2100 2100 XX ; Start 06/26/18 at 21:00; Stop 06/26/18 at 21:01 Atorvastatin Calcium (Lipitor) 40 mg HS NGT ; Start 06/26/18 at 21:00 Carvedilol (Coreg) 3.125 mg BID NGT ; Start 06/26/18 at 21:00 Acetaminophen (Tylenol Liquid) 650 mg Q4H PRN NGT MILD PAIN(1-3)OR ELEVATED TEMP Last administered on 06/26/18at 14:12; Admin Dose 650 MG; Start 06/26/18 at 13:30 Aspirin (Aspirin) 81 mg DAILY NGT Last administered on 06/26/18at 14:11; Admin Dose 81 MG; Start 06/26/18 at 13:30 Albuterol (Ventolin Hfa) 4 puff Q6H RESP THERAPY INH ; Start 06/26/18 at 20:00 DAMION KUMAR Jun 26, 2018 17:40
[2018-06-26] MEDS: ALBUTEROL HFA 8 GM INHALER INH SCH (20:09)
[2018-06-26] MEDS ORDERED: ATORVASTATIN 40 MG TAB PO SCH (21:00)
[2018-06-26] MEDS: ATORVASTATIN 40 MG TAB NGT SCH (21:49)
[2018-06-27] VITALS (76 sets, daily range): BP systolic 114–226; BP diastolic 60–147; PULSE 65–102; RESP 14–30
[2018-06-27] MEDS: PIPER-TAZO 3.375 GM IV (PMX) 100 ML IVPB SCH ×4 (00:25→22:46)
[2018-06-27] MEDS: INSULIN ASPART [NOVOLOG] 3 ML PEN SC SCH ×6 (00:32→21:00)
--- NOTE | 2018-06-27 00:50 | EN ---
Date/Time of Note Date/Time of Note DATE: 06/27/18 TIME: 00:49 ER Progress Note I was called to intubate patient by ICU for hypoxia. History limited 2/2 acuity of condition, but patient had recent cardiac arrest, extubated today and was unable to tolerate. On my arrival patient was being bagged. Noted to be morbidly obese. Endotracheal Intubation by me: Pre assessment performed. Pre-oxygenation performed with 100% oxygen RSI: Performed w/o complication or hypoxic events. Medications as ordered. Blade: [Mac 4] ET Tube: 8 cm Depth: 23 cm at the lip Intubation confirmed by colorimetric CO2, equal breath sounds, quiet over the stomach. Chest X-ray 1V Interpreted by me: 5 cm above the german ET tube. Normal soft tissue, No pneumothorax. [place] CHILD MD Jun 27, 2018 00:49
[2018-06-27] MEDS: MIDAZOLAM (DRIP) 50 mg/50 mL 50 ML IV SCH ×6 (00:58→22:53)
[2018-06-27] MEDS: PROPOFOL 100 ML IV SCH ×2 (01:04→09:10)
[2018-06-27] MEDS: ALBUTEROL HFA 8 GM INHALER INH SCH ×4 (01:35→20:15)
[2018-06-27] MEDS: SOD CHLORIDE 0.9% 1,000 ML IV SCH (05:24)
--- NOTE | 2018-06-27 07:56 | CONS ---
Consult Date/Type/Reason Admit Date/Time Jun 25, 2018 at 04:04 Initial Consult Date 06/25/18 Type of Consultation: cv Requesting Provider: ARABELLA ZAMBRANO Date/Time of Note DATE: 06/27/18 TIME: 07:53 Subjective Interventional cardiology follow-up progress note/critical care note Subjective: Discussed with the staff and telemetry was reviewed. Patient has remained sinus rhythm. Blood pressure has been stable /high now. No report of any chest pain or pressure + bleeding with NG insertion events noted. 06/26: pt extubated but had to be reintubated same day for resp distress. Objective: General: Obese gentleman status post intubation on the vent HEENT: NC/AT. . Pupils are equal round reactive to light. s/p NG tube in place NECK: no stridor. CV: RRR. systolic murmur; no gallop or rubs. PULM: no wheezing. + rhonchi. GI: SOFT, NT, ND, no rebound or guarding Extremity: + B/L LE edema. no clubbing. neuro: Opens his eyes. follows commands. Psych: calm rectal: deferred : normal EKG was personally reviewed showed normal sinus rhythm left bundle branch block Echocardiogram was personally reviewed which shows: Normal left ventricular cavity size. Moderate concentric left ventricular hypertrophy. Moderate global left ventricular systolic dysfunction. Ejection fraction is visually estimated at 35 %. Abnormal Diastolic Function. Multiple segmental wall motion abnormalities. These segments of the LV are akinetic. No significant aortic stenosis or insufficiency. Aortic cusps appear mildly calcified. Mitral valve leaflets appear mildly thickened. Mild mitral annular calcification. Trace mitral regurgitation. Normal appearance of the tricuspid valve. Estimated peak PA systolic pressure 31 mmHg. There is trace to mild tricuspid regurgitation. Dilated IVC without respiratory collapse, however, patient on ventilator. CT of the chest done in the emergency room shows: 1. No evidence of central pulmonary emboli. Prominent central pulmonary arteries and rule out pulmonary arterial hypertension. Reflux of contrast into the distal inferior vena cava and rule out mild right heart strain/failure. 2. Mild aneurysmal dilatation of the ascending aorta maximal transverse diameter 4.3 cm. 3. Mild cardiomegaly. 4. Bilateral lower lobe consolidations with central air bronchograms consistent with atelectasis though aspiration and pneumonia cannot be excluded. Additional diffuse inhomogeneous ground-glass opacities bilaterally as above consistent with pulmonary edema/pneumonitis. 5. Bilateral tiny pleural effusions. 6. Right paratracheal and prevascular space lymphadenopathy as above. Follow-up is recommended. 7. Mild lobulation of the anterior margin of the liver and may represent cirr hosis. Objective Vitals Vital Signs Date Temp Pulse Resp B/P (MAP) Pulse Ox O2 O2 Flow FiO2 Time Delivery Rate 06/27/18 73 22 136/75 97 Mechanical 06:00 (95) Ventilator 06/27/18 70 05:30 06/27/18 99.6 04:00 06/26/18 6.0 12:00 Intake and Output 06/26/18 06/26/18 06/27/18 1515:00 23:00 07:00 IntakeIntake Total 1171.954 ml 981.74 ml 1355.2 ml OutputOutput Total 426 ml 229 ml 424 ml BalanceBalance 745.954 ml 752.74 ml 931.2 ml Results/Medications Result Diagram: 06/27/18 0504 06/27/18 0504 Results 24 hrs Laboratory Tests Test 06/26/18 09:22 06/26/18 10:00 06/26/18 13:15 06/26/18 13:32 Bedside Glucose 154 203 Blood Gas Blood arterial Blood arterial Specimen Source Arterial Blood 06/26/2018 10:00 06/26/2018 1:25: Date Drawn :49 AM 57 PM Arterial Blood 7.381 7.221 *L pH (Temp corrected) Arterial Blood 42.4 57.0 H pCO2 (Temp correct) Arterial Blood 75.8 L 91.5 H pO2 (Temp corrected) Arterial Blood 24.6 22.9 HCO3 Arterial Blood -0.6 -5.5 L Base Excess Arterial Blood 94.2 L 95.2 Oxygen Saturatio n Darío Test ACCEPTAB ACCEPTAB Arterial Blood Right Radial Right Radial Gas Puncture Site Arterial 0.3 0.3 Blood Carboxyhem oglobin Arterial Blood 0.2 0.2 Methemoglobin Blood Gas A-a O2 88.3 H 564.5 H Differential Oxyhemoglobin 93.7 94.7 Percent Blood Gas 37.0 37.0 Temperature Blood Gas Actual 20 18 Respiration Rate Blood Gas VENT - CPAP VENT - AC Modality FiO2 30.0 100.0 Blood Gas Low 5.0 5.0 PEEP Setting Blood Gas 10 Pressure Support Blood Gas Jm CASTILLO RN Critical Value Read Back Blood Gas RDIX TM Notified Whom Blood Gas 06/26/2018 10:18 06/26/2018 1:54: Notified Time :58 AM 40 PM Blood Gas 18.0 Respiration Rate Blood Gas Tidal 650.0 Volume Test 06/26/18 17:37 06/26/18 21:46 06/26/18 22:06 06/27/18 00:31 Bedside Glucose 133 126 137 Vancomycin Level 14.3 Trough Test 06/27/18 05:04 06/27/18 05:10 White Blood 7.4 Count Red Blood Count 3.67 L Hemoglobin 10.4 L Hematocrit 32.9 L Mean Corpuscular 89.6 Volume Mean Corpuscular 28.3 L Hemoglobin Mean Corpuscular 31.6 L Hemoglobin Noris nt Red Cell 14.8 H Distribution Width Platelet Count 149 Mean Platelet 12.1 H Volume Immature 0.400 Granulocytes % Neutrophils % 79.1 H Lymphocytes % 11.7 L Monocytes % 6.1 Eosinophils % 2.2 Basophils % 0.5 Nucleated Red 0.0 Blood Cells % Immature 0.030 Granulocytes # Neutrophils # 5.8 Lymphocytes # 0.9 Monocytes # 0.5 Eosinophils # 0.2 Basophils # 0.0 Nucleated Red 0.0 Blood Cells # Sodium Level 142 Potassium Level 3.7 Chloride Level 107 Carbon Dioxide 22 Level Anion Gap 13 Blood Urea 23 H Nitrogen Creatinine 2.16 H Est Glomerular Filtrat Rate mL/min Glucose Level 134 Calcium Level 7.5 L Magnesium Level 1.8 Total Bilirubin 0.2 Direct Bilirubin 0.00 Indirect 0.2 Bilirubin Aspartate Amino 18 Transf (AST/SGOT ) Alanine 29 Aminotransferase (ALT/SGPT) Alkaline 34 L Phosphatase Creatine Kinase 45 Creatine Kinase 0.6 Index Creatinine 0.27 Kinase MB (Mass) Troponin I 0.046 B-Type 2780 H Natriuretic Peptide Total Protein 5.1 L Albumin 2.7 L Globulin 2.40 Albumin/Globulin 1.12 Ratio Bedside Glucose 133 Medications Current Medications Norepinephrine 250 ml @ 1.875 mls/ hr TITRATE IV Last administered on 06/25/18at 03:13; Admin Dose 3.75 MLS/HR; Start 06/25/18 at 03:00 Sodium Chloride 1,000 ml @ 80 mls/hr [id number] IV Last administered on 06/27/18at 05:24; Admin Dose 80 MLS/HR; Start 06/25/18 at 04:14 Vancomycin HCl (Vanco Iv Per Pharmacy) VANCOMYCIN PER PHARMACY PER PROTOCOL XX ; Start 06/25/18 at 07:00 Piperacillin Sod/ Tazobactam Sod 100 ml @ 200 mls/hr Q6 IVPB Last administered on 06/27/18 05:22; Admin Dose 200 MLS/HR; Start 06/25/18 at 08:00 Midazolam HCl 50 ml @ 1 mls/hr TITRATE IV Last administered on 06/27/18 00:58; Admin Dose 1 MLS/HR; Start 06/25/18 at 07:00 Insulin Aspart (Novolog Insulin Pen) NOVOLOG *MILD* ALGORI... Q4 SC Last administered on 06/26/18 13:35; Admin Dose 2 UNIT; Start 06/25/18 at 09:00 Vancomycin/Sodium Chloride 250 ml @ 125 mls/hr Q12H IVPB Last administered on 06/26/18 22:53; Admin Dose 125 MLS/HR; Start 06/25/18 at 22:00 Propofol 100 ml @ 5.1 mls/hr Q12H IV Last administered on 06/27/18 01:04; Admin Dose 20.4 MLS/HR; Start 06/25/18 at 10:30 Enoxaparin Sodium (Lovenox) 40 mg DAILY SC Last administered on 06/26/18 11:58; Admin Dose 40 MG; Start 06/26/18 at 10:30 Famotidine (Pepcid Iv) 20 mg DAILY IV Last administered on 06/26/18 11:40; Admin Dose 20 MG; Start 06/26/18 at 10:30 Atorvastatin Calcium (Lipitor) 40 mg HS NGT Last administered on 06/26/18 21:49; Admin Dose 40 MG; Start 06/26/18 at 21:00 Carvedilol (Coreg) 3.125 mg BID NGT Last administered on 06/26/18 21:49; Admin Dose 3.125 MG; Start 06/26/18 at 21:00 Acetaminophen (Tylenol Liquid) 650 mg Q4H PRN NGT MILD PAIN(1-3)OR ELEVATED TEMP Last administered on 06/26/18 18:36; Admin Dose 650 MG; Start 06/26/18 at 13:30 Aspirin (Aspirin) 81 mg DAILY NGT Last administered on 06/26/18at 14:11; Admin Dose 81 MG; Start 06/26/18 at 13:30 Albuterol (Ventolin Hfa) 4 puff Q6H RESP THERAPY INH Last administered on 06/27/18at 01:35; Admin Dose 4 PUFF; Start 06/26/18 at 20:00 Assessment/Plan Hospital Course (Demo Recall) 1. Status post cardiopulmonary arrest appears to be mostly related to respiratory failure 2. Hypoxemic respiratory failure status post intubation vent dependent now 3. hypertension 4. Cardiomyopathy :unclear acute versus chronic 5. Congestive heart failure probably acute on chronic secondary systolic heart failure 6. Renal insufficiency: Acute kidney injury now 7. Encephalopathy 8. Abnormal EKG with left bundle branch block 9. Incomplete data 10. Pneumonia Recommendation: Cardiac enzyme has been repeated and myocardial infarction was ruled out Continue with vent support. To be managed as per pulmonary recommendations Aspirin daily. Diuresis as tolerated. CONSIDER RENAL CONSULT. WILL CHECK CVP to better assess intravascular volume GI and DVT prophylaxis Antibiotics management will be deferred to internal medicine We will start the patient on Coreg now that we have NG tube hold off on ARB./ DENNIS due to RICKI Continue with ICU care More than 32 minutes of critical care time was for management treatment is critically ill patient excluding any procedures Thank you for his referral. We will continue to follow along with you OMNIQUE SANDOVAL MD MERGED WITH [facility] MONIQUE SANDOVAL MD Jun 27, 2018 07:56
[2018-06-27] MEDS: ASPIRIN 81 MG TAB NGT SCH (09:04)
[2018-06-27] MEDS: FAMOTIDINE 20 MG INJ IV SCH (09:05)
[2018-06-27] MEDS: ENOXAPARIN 40 MG/0.4 ML SYG SC SCH (09:07)
[2018-06-27] MEDS ORDERED: ALTEPLASE (CATHFLO) 2 MG INJ CATHETER PRN (09:30)
--- NOTE | 2018-06-27 09:53 | CONS ---
Consult Date/Type/Reason Admit Date/Time Jun 25, 2018 at 04:04 Initial Consult Date 06/25/18 Type of Consult Pulmonary Requesting Provider: ARABELLA ZAMBRANO Date/Time of Note DATE: 06/27/18 TIME: 09:51 Subjective Patient extubated yesterday had immediate respiratory distress requiring reintubation. Objective Vital Signs Date Temp Pulse Resp B/P (MAP) Pulse Ox O2 O2 Flow FiO2 Time Delivery Rate 06/27/18 74 143/79 98 09:15 (100) 06/27/18 22 [place] 09:00 l Ventilato r 06/27/18 100.5 08:00 06/27/18 70 08:00 06/26/18 6.0 12:00 Intake and Output 06/26/18 06/26/18 06/27/18 1515:00 23:00 07:00 IntakeIntake Total 1171.954 ml 981.74 ml 1444.3 ml OutputOutput Total 426 ml 229 ml 500 ml BalanceBalance 745.954 ml 752.74 ml 944.3 ml Exam GENERAL: Elderly obese [place]er gentleman orally intubated VITAL SIGNS: per chart NECK: Supple. No JVD or lymphadenopathy. CARDIAC EXAM: S1, S2. No added sounds or murmurs. CHEST: Diminished air entry bilaterally with rales ABDOMEN: Soft, nontender. No guarding or rebound. EXTREMITIES: No cyanosis, clubbing edema +1 NEUROLOGIC: Generalized weakness. No focal deficits. Vent Setting Ventilator Support Mode: AC Fraction of Inspired Oxygen pe: 70 Positive End Expiratory Pressu: 5.0 Results/Medications Result Diagram: 06/27/18 0504 06/27/18 0504 Results 24 hrs Laboratory Tests Test 06/26/18 10:00 06/26/18 13:15 06/26/18 13:32 06/26/18 17:37 Blood Gas Blood arterial Blood arterial Specimen Source Arterial Blood 06/26/2018 10:00 06/26/2018 1:25: Date Drawn :49 AM 57 PM Arterial Blood 7.381 7.221 *L pH (Temp corrected) Arterial Blood 42.4 57.0 H pCO2 (Temp correct) Arterial Blood 75.8 L 91.5 H pO2 (Temp corrected) Arterial Blood 24.6 22.9 HCO3 Arterial Blood -0.6 -5.5 L Base Excess Arterial Blood 94.2 L 95.2 Oxygen Saturatio n Darío Test ACCEPTAB ACCEPTAB Arterial Blood Right Radial Right Radial Gas Puncture Site Arterial 0.3 0.3 Blood Carboxyhem oglobin Arterial Blood 0.2 0.2 Methemoglobin Blood Gas A-a O2 88.3 H 564.5 H Differential Oxyhemoglobin 93.7 94.7 Percent Blood Gas 37.0 37.0 Temperature Blood Gas Actual 20 18 Respiration Rate Blood Gas VENT - CPAP VENT - AC Modality FiO2 30.0 100.0 Blood Gas Low 5.0 5.0 PEEP Setting Blood Gas 10 Pressure Support Blood Gas Jm CASTILLO RN Critical Value Read Back Blood Gas RDIX TM Notified Whom Blood Gas 06/26/2018 10:18 06/26/2018 1:54: Notified Time :58 AM 40 PM Blood Gas 18.0 Respiration Rate Blood Gas Tidal 650.0 Volume Bedside Glucose 203 133 Test 06/26/18 21:46 06/26/18 22:06 06/27/18 00:31 06/27/18 05:04 Bedside Glucose 126 137 Vancomycin Level 14.3 Trough White Blood 7.4 Count Red Blood Count 3.67 L Hemoglobin 10.4 L Hematocrit 32.9 L Mean Corpuscular 89.6 Volume Mean Corpuscular 28.3 L Hemoglobin Mean Corpuscular 31.6 L Hemoglobin Noris nt Red Cell 14.8 H Distribution Width Platelet Count 149 Mean Platelet 12.1 H Volume Immature 0.400 Granulocytes % Neutrophils % 79.1 H Lymphocytes % 11.7 L Monocytes % 6.1 Eosinophils % 2.2 Basophils % 0.5 Nucleated Red 0.0 Blood Cells % Immature 0.030 Granulocytes # Neutrophils # 5.8 Lymphocytes # 0.9 Monocytes # 0.5 Eosinophils # 0.2 Basophils # 0.0 Nucleated Red 0.0 Blood Cells # Sodium Level 142 Potassium Level 3.7 Chloride Level 107 Carbon Dioxide 22 Level Anion Gap 13 Blood Urea 23 H Nitrogen Creatinine 2.16 H Est Glomerular Filtrat Rate mL/min Glucose Level 134 Calcium Level 7.5 L Magnesium Level 1.8 Total Bilirubin 0.2 Direct Bilirubin 0.00 Indirect 0.2 Bilirubin Aspartate Amino 18 Transf (AST/SGOT ) Alanine 29 Aminotransferase (ALT/SGPT) Alkaline 34 L Phosphatase Creatine Kinase 45 Creatine Kinase 0.6 Index Creatinine 0.27 Kinase MB (Mass) Troponin I 0.046 B-Type 2780 H Natriuretic Peptide Total Protein 5.1 L Albumin 2.7 L Globulin 2.40 Albumin/Globulin 1.12 Ratio Test 06/27/18 05:10 06/27/18 09:03 Bedside Glucose 133 137 Medications Current Medications Norepinephrine 250 ml @ 1.875 mls/ hr TITRATE IV Last administered on 06/25/18at 03:13; Admin Dose 3.75 MLS/HR; Start 06/25/18 at 03:00 Sodium Chloride 1,000 ml @ 80 mls/hr [id number] IV Last administered on 06/27/18 05:24; Admin Dose 80 MLS/HR; Start 06/25/18 at 04:14 Vancomycin HCl (Vanco Iv Per Pharmacy) VANCOMYCIN PER PHARMACY PER PROTOCOL XX ; Start 06/25/18 at 07:00 Piperacillin Sod/ Tazobactam Sod 100 ml @ 200 mls/hr Q6 IVPB Last administered on 06/27/18 05:22; Admin Dose 200 MLS/HR; Start 06/25/18 at 08:00 Midazolam HCl 50 ml @ 1 mls/hr TITRATE IV Last administered on 06/27/18at 00:58; Admin Dose 1 MLS/HR; Start 06/25/18 at 07:00 Insulin Aspart (Novolog Insulin Pen) NOVOLOG *MILD* ALGORI... Q4 SC Last administered on 06/26/18 13:35; Admin Dose 2 UNIT; Start 06/25/18 at 09:00 Vancomycin/Sodium Chloride 250 ml @ 125 mls/hr Q12H IVPB Last administered on 06/26/18at 22:53; Admin Dose 125 MLS/HR; Start 06/25/18 at 22:00 Propofol 100 ml @ 5.1 mls/hr Q12H IV Last administered on 06/27/18at 09:10; Admin Dose 15.3 MLS/HR; Start 06/25/18 at 10:30 Enoxaparin Sodium (Lovenox) 40 mg DAILY SC Last administered on 06/27/18 09:07; Admin Dose 40 MG; Start 06/26/18 at 10:30 Famotidine (Pepcid Iv) 20 mg DAILY IV Last administered on 06/27/18 09:05; Admin Dose 20 MG; Start 06/26/18 at 10:30 Atorvastatin Calcium (Lipitor) 40 mg HS NGT Last administered on 06/26/18 21:49; Admin Dose 40 MG; Start 06/26/18 at 21:00 Carvedilol (Coreg) 3.125 mg BID NGT Last administered on 06/27/18 09:05; Admin Dose 3.125 MG; Start 06/26/18 at 21:00 Acetaminophen (Tylenol Liquid) 650 mg Q4H PRN NGT MILD PAIN(1-3)OR ELEVATED TEMP Last administered on 06/26/18at 18:36; Admin Dose 650 MG; Start 06/26/18 at 13:30 Albuterol (Ventolin Hfa) 4 puff Q6H RESP THERAPY INH Last administered on 06/27/18 08:39; Admin Dose 4 PUFF; Start 06/26/18 at 20:00 Aspirin (Aspirin) 81 mg DAILY NGT Last administered on 06/27/18 09:04; Admin Dose 81 MG; Start 06/27/18 at 09:00 Alteplase, Recombinant (Cathflo (Activase)) 2 mg MAY REPEAT X1 PRN CATHETER IF CATHETER REMAINS OCCULUDED; Start 06/27/18 at 09:30 Assessment/Plan Hospital Course (Demo Recall) Assessment 1. Acute hypoxemic respiratory failure likely secondary to congestive cardiac failure. 2. Renal insufficiency 3. Probable underlying obstructive sleep apnea 4. Bilateral pneumonia probable community acquired Plan 1. Continue bronchodilators 2. Continue mechanical ventilation, FiO2 currently at 70% 3. Trial of fentanyl for pain control 4. Decrease sedation as tolerated 5. Initiate tube feeding Critical care time 40 minutes YARIEL DUTTA MD, [facility] Jun 27, 2018 09:53
[2018-06-27] MEDS: VANCOMYCIN 750 MG (PMX) 250 ML IVPB SCH (10:10)
[2018-06-27] MEDS: FUROSEMIDE 40 MG INJ IV SCH (10:17)
[2018-06-27] MEDS ORDERED: FUROSEMIDE 40 MG INJ IV SCH (10:30)
--- NOTE | 2018-06-27 10:47 | PN ---
Date/Time of Note Date/Time of Note DATE: 06/27/18 TIME: 10:47 Assessment/Plan VTE Prophylaxis Risk score (from Ns)>0 risk: 10 SCD applied (from [facility] [place]): Yes Pharmacological prophylaxis: LMWH (full dose ?) Lines/Catheters IV Catheter Type (from [facility]): Central Line Central line still needed: Yes Urinary Cath still in place: Yes Reason Cath still needed: other (indicate) Assessment/Plan Hospital Course Subjective: remains intubated and sedated, no pressor support,now with low grade fever objective: GENERAL: Intubated and comfortably sedated HEENT: DELMI, Intubated, Vent settings noted , High o2 requirement LUNGS: diffusely diminished and coarse BS HEART: S1, S2. No murmur, gallops or rubs. ABDOMEN: Soft, non distended, Normoactive bowel sounds. GENITOURINARY: Normal male external genitalia, Mancia to bedside drainage EXTREMITIES: no edema NEUROLOGIC: The patient is currently sedated. SKIN: Otherwise, unremarkable. Assessment and plan: 78-year-old brought him by ambulance from home with complaints of shortness of breath and chest pain, with cardiac arrest in the emergency room thought to be secondary to acute respiratory arrest. Currently orotracheally intubated on Ventilator Support in the ICU. 1. Acute respiratory failure, ventilator dependent with hypercapnia, still requiring significant oxygen support -was extubated 06/26/18 but had to be re-intubated a few hours later 2. Status post cardiopulmonary arrest, apparently was PEA rhythm with ROSC 3. Bilateral pneumonia right greater than left suggestive of aspiration 4. Hypertensive urgency: BP improved 5. RICKI on Chronic kidney disease 6. History of diabetes mellitus 7. History of dyslipidemia 8. Congestive heart failure, acute, systolic 9. Possible acute CVA on CT scan of the brain, will need MRI to confirm 10. Possible alcoholic cirrhosis 11. Ascending aortic aneurysm 4.3 cm 12. Pulmonary hypertension 13. Cardiomyopathy with ejection fraction of 35% with moderate left ventricular systolic dysfunction 14. Morbid obesity Plan: Continue ICU care and support Continue empiric antibiotics, repeat blood and urine cultures, f/u resp cultures as well ACS has been ruled out, patient on full dose anticoagulation per Pulm, concern for PE? Continue ventilator support Nephrology consultation for worsening renal function, renally dose all meds and avoid nephrotoxins Continue serial labs and intervene as indicated Gentle diuresis as indicated Tube feeding to be commenced today, may require supplemental insulin Will need MRI to confirm CVA once more stable, also get Neurology consult Further interventions per course Care time >35mins Result Diagram: 06/27/18 0504 06/27/18 0504 Results 24hrs Laboratory Tests Test 06/26/18 13:15 06/26/18 13:32 06/26/18 17:37 06/26/18 21:46 Blood Gas Blood arterial Specimen Source Arterial Blood 06/26/2018 1:25:5 Date Drawn 7 PM Arterial Blood pH 7.221 *L (Temp corrected) Arterial Blood 57.0 H pCO2 (Temp correct) Arterial Blood 91.5 H pO2 (Temp corrected) Arterial Blood 22.9 HCO3 Arterial Blood -5.5 L Base Excess Arterial Blood 95.2 Oxygen Saturation Darío Test ACCEPTAB Arterial Blood Right Radial Gas Puncture Site Arterial 0.3 Blood Carboxyhemo globin Arterial Blood 0.2 Methemoglobin Blood Gas A-a O2 564.5 H Differential Oxyhemoglobin 94.7 Percent Blood Gas 37.0 Temperature Blood Gas 18.0 Respiration Rate Blood Gas Actual 18 Respiration Rate Blood Gas VENT - AC Modality FiO2 100.0 Blood Gas Tidal 650.0 Volume Blood Gas Low 5.0 PEEP Setting Blood Gas ANNA SPIVEY Critical Value Read Back Blood Gas TM Notified Whom Blood Gas 06/26/2018 1:54:4 Notified Time 0 PM Bedside Glucose 203 133 126 Test 06/26/18 22:06 06/27/18 00:31 06/27/18 05:04 06/27/18 05:10 Vancomycin Level 14.3 Trough Bedside Glucose 137 133 White Blood Count 7.4 Red Blood Count 3.67 L Hemoglobin 10.4 L Hematocrit 32.9 L Mean Corpuscular 89.6 Volume Mean Corpuscular 28.3 L Hemoglobin Mean Corpuscular 31.6 L Hemoglobin Concen t Red Cell 14.8 H Distribution Width Platelet Count 149 Mean Platelet 12.1 H Volume Immature 0.400 Granulocytes % Neutrophils % 79.1 H Lymphocytes % 11.7 L Monocytes % 6.1 Eosinophils % 2.2 Basophils % 0.5 Nucleated Red 0.0 Blood Cells % Immature 0.030 Granulocytes # Neutrophils # 5.8 Lymphocytes # 0.9 Monocytes # 0.5 Eosinophils # 0.2 Basophils # 0.0 Nucleated Red 0.0 Blood Cells # Sodium Level 142 Potassium Level 3.7 Chloride Level 107 Carbon Dioxide 22 Level Anion Gap 13 Blood Urea 23 H Nitrogen Creatinine 2.16 H Est Glomerular Filtrat Rate mL/min Glucose Level 134 Calcium Level 7.5 L Magnesium Level 1.8 Total Bilirubin 0.2 Direct Bilirubin 0.00 Indirect 0.2 Bilirubin Aspartate Amino 18 Transf (AST/SGOT) Alanine 29 Aminotransferase (ALT/SGPT) Alkaline 34 L Phosphatase Creatine Kinase 45 Creatine Kinase 0.6 Index Creatinine Kinase 0.27 MB (Mass) Troponin I 0.046 B-Type 2780 H Natriuretic Peptide Total Protein 5.1 L Albumin 2.7 L Globulin 2.40 Albumin/Globulin 1.12 Ratio Test 06/27/18 09:03 Bedside Glucose 137 Exam/Review of Systems Exam Vitals Vital Signs Date Temp Pulse Resp B/P (MAP) Pulse Ox O2 O2 Flow FiO2 Time Delivery Rate 06/27/18 74 143/79 98 09:15 (100) 06/27/18 22 [place] 09:00 l Ventilato r 06/27/18 100.5 08:00 06/27/18 70 08:00 06/26/18 6.0 12:00 Intake and Output 06/26/18 06/26/18 06/27/18 1515:00 23:00 07:00 IntakeIntake Total 1171.954 ml 981.74 ml 1444.3 ml OutputOutput Total 426 ml 229 ml 500 ml BalanceBalance 745.954 ml 752.74 ml 944.3 ml Results Results 24hrs Laboratory Tests Test 06/26/18 13:15 06/26/18 13:32 06/26/18 17:37 06/26/18 21:46 Blood Gas Blood arterial Specimen Source Arterial Blood 06/26/2018 1:25:5 Date Drawn 7 PM Arterial Blood pH 7.221 *L (Temp corrected) Arterial Blood 57.0 H pCO2 (Temp correct) Arterial Blood 91.5 H pO2 (Temp corrected) Arterial Blood 22.9 HCO3 Arterial Blood -5.5 L Base Excess Arterial Blood 95.2 Oxygen Saturation Darío Test ACCEPTAB Arterial Blood Right Radial Gas Puncture Site Arterial 0.3 Blood Carboxyhemo globin Arterial Blood 0.2 Methemoglobin Blood Gas A-a O2 564.5 H Differential Oxyhemoglobin 94.7 Percent Blood Gas 37.0 Temperature Blood Gas 18.0 Respiration Rate Blood Gas Actual 18 Respiration Rate Blood Gas VENT - AC Modality FiO2 100.0 Blood Gas Tidal 650.0 Volume Blood Gas Low 5.0 PEEP Setting Blood Gas ANNA SPIVEY Critical Value Read Back Blood Gas TM Notified Whom Blood Gas 06/26/2018 1:54:4 Notified Time 0 PM Bedside Glucose 203 133 126 Test 06/26/18 22:06 06/27/18 00:31 06/27/18 05:04 06/27/18 05:10 Vancomycin Level 14.3 Trough Bedside Glucose 137 133 White Blood Count 7.4 Red Blood Count 3.67 L Hemoglobin 10.4 L Hematocrit 32.9 L Mean Corpuscular 89.6 Volume Mean Corpuscular 28.3 L Hemoglobin Mean Corpuscular 31.6 L Hemoglobin Concen t Red Cell 14.8 H Distribution Width Platelet Count 149 Mean Platelet 12.1 H Volume Immature 0.400 Granulocytes % Neutrophils % 79.1 H Lymphocytes % 11.7 L Monocytes % 6.1 Eosinophils % 2.2 Basophils % 0.5 Nucleated Red 0.0 Blood Cells % Immature 0.030 Granulocytes # Neutrophils # 5.8 Lymphocytes # 0.9 Monocytes # 0.5 Eosinophils # 0.2 Basophils # 0.0 Nucleated Red 0.0 Blood Cells # Sodium Level 142 Potassium Level 3.7 Chloride Level 107 Carbon Dioxide 22 Level Anion Gap 13 Blood Urea 23 H Nitrogen Creatinine 2.16 H Est Glomerular Filtrat Rate mL/min Glucose Level 134 Calcium Level 7.5 L Magnesium Level 1.8 Total Bilirubin 0.2 Direct Bilirubin 0.00 Indirect 0.2 Bilirubin Aspartate Amino 18 Transf (AST/SGOT) Alanine 29 Aminotransferase (ALT/SGPT) Alkaline 34 L Phosphatase Creatine Kinase 45 Creatine Kinase 0.6 Index Creatinine Kinase 0.27 MB (Mass) Troponin I 0.046 B-Type 2780 H Natriuretic Peptide Total Protein 5.1 L Albumin 2.7 L Globulin 2.40 Albumin/Globulin 1.12 Ratio Test 06/27/18 09:03 Bedside Glucose 137 Imaging Imaging PROCEDURE: XR Chest. CLINICAL INDICATION: Shortness of breath, pneumonia TECHNIQUE: Single frontal radiograph of the chest. COMPARISON: CHEST 06/26/2018; REJI FARIA CHEST 11/03/2017; REJI FARIA CHEST 10/28/2017; ERJI FARIA CHEST 12/06/2015 FINDINGS: Endotracheal tube and nasogastric tube in satisfactory position. Mixed interstitial and alveolar infiltrates possibly representing edema, atypical pneumonia, or pneumonitis are mildly improved. Small pleural effusions are unchanged. No pneumothorax. Cardiomegaly unchanged. Vascular calcifications of the aorta are present compatible with atherosclerosis. IMPRESSION: Mixed interstitial and alveolar infiltrates possibly representing edema, atypical pneumonia, or pneumonitis are mildly improved. RPTAT: AADD .Gordon Prieto MD, MD Date Time Electronically viewed and signed by .Gordon Prieto MD, on 06/27/2018 08:10 .B/ CC: AMOLNANCY [id number] Medications Medication Current Medications Norepinephrine 250 ml @ 1.875 mls/ hr TITRATE IV Last administered on 06/25/18at 03:13; Admin Dose 3.75 MLS/HR; Start 06/25/18 at 03:00 Vancomycin HCl (Vanco Iv Per Pharmacy) VANCOMYCIN PER PHARMACY PER PROTOCOL XX ; Start 06/25/18 at 07:00 Piperacillin Sod/ Tazobactam Sod 100 ml @ 200 mls/hr Q6 IVPB Last administered on 06/27/18at 05:22; Admin Dose 200 MLS/HR; Start 06/25/18 at 08:00 Midazolam HCl 50 ml @ 1 mls/hr TITRATE IV Last administered on 06/27/18at 00:58; Admin Dose 1 MLS/HR; Start 06/25/18 at 07:00 Insulin Aspart (Novolog Insulin Pen) NOVOLOG *MILD* ALGORI... Q4 SC Last administered on 06/26/18at 13:35; Admin Dose 2 UNIT; Start 06/25/18 at 09:00 Vancomycin/Sodium Chloride 250 ml @ 125 mls/hr Q12H IVPB Last administered on 06/27/18at 10:10; Admin Dose 125 MLS/HR; Start 06/25/18 at 22:00 Propofol 100 ml @ 5.1 mls/hr Q12H IV Last administered on 06/27/18at 09:10; Admin Dose 15.3 MLS/HR; Start 06/25/18 at 10:30 Famotidine (Pepcid Iv) 20 mg DAILY IV Last administered on 06/27/18 09:05; Admin Dose 20 MG; Start 06/26/18 at 10:30 Atorvastatin Calcium (Lipitor) 40 mg HS NGT Last administered on 06/26/18 21:49; Admin Dose 40 MG; Start 06/26/18 at 21:00 Carvedilol (Coreg) 3.125 mg BID NGT Last administered on 06/27/18 09:05; Admin Dose 3.125 MG; Start 06/26/18 at 21:00 Acetaminophen (Tylenol Liquid) 650 mg Q4H PRN NGT MILD PAIN(1-3)OR ELEVATED TEMP Last administered on 06/26/18 18:36; Admin Dose 650 MG; Start 06/26/18 at 13:30 Albuterol (Ventolin Hfa) 4 puff Q6H RESP THERAPY INH Last administered on 08:39; Admin Dose 4 PUFF; Start 06/26/18 at 20:00 Aspirin (Aspirin) 81 mg DAILY NGT Last administered on 06/27/18 09:04; Admin Dose 81 MG; Start 06/27/18 at 09:00 Alteplase, Recombinant (Cathflo (Activase)) 2 mg MAY REPEAT X1 PRN CATHETER IF CATHETER REMAINS OCCULUDED; Start 06/27/18 at 09:30 Fentanyl 100 ml @ 2.5 mls/hr TITRATE IV ; Start 06/27/18 at 11:00 Furosemide (Lasix) 40 mg DAILY IV Last administered on 06/27/18at 10:17; Admin Dose 40 MG; Start 06/27/18 at 10:30 Enoxaparin Sodium (Lovenox) 60 mg DAILY SC ; Start 06/28/18 at 09:00 DAMION KUMAR Jun 27, 2018 10:47
[2018-06-27] MEDS ORDERED: FENTAnyl (DRIP) 1000 mcg/100mL 100 ML IV SCH (11:00)
[2018-06-27] MEDS: FENTAnyl (DRIP) 1000 mcg/100mL 100 ML IV PRN ×2 (12:15→22:42)
--- NOTE | 2018-06-27 13:27 | CONS ---
Assessment/Plan Assessment/Plan Hospital Course 78 yo M with multiple cerebrovascular risk factors who presents to ICU following a cardiac arrest. CTH was obtained, and notable for multifocal hypodensities concerning for stroke... for which neurology is consulted. His exam is presently limited by chemical sedation, however he is able to awaken and move his limbs spontaneously, without obvious acute focal deficits. Recent echo is notable for depressed LV function with EF 35% and wall motion abnormalities NOS. P: Agree with MRI brain w/o contrast for further characterization, when medically able Agree w/ ASA daily for stroke prevention for now; LDL is at goal. Limit sedating medications where possible Other medical management and supportive care per primary WiIl follow clinically Consultation Date/Type/Reason Admit Date/Time Jun 25, 2018 at 04:04 Type of Consult Neurology Reason for Consultation eval for stroke Requesting Provider: DAMION KUMAR Date/Time of Note DATE: 06/27/18 TIME: 13:25 Hx of Present Illness The pt is currently unable to contribute a hx. He was reportedly extubated yesterday and reintubated shortly thereafter for respiratory failure. He is currently intubated, on versed and fentanyl gtts. It is elsewhere noted: Hx of Present Illness Chief complaint: Shortness of breath The following history was obtained from the ED physician documentation as well as from the RN as the patient is currently intubated unable to provide history. This is a 78-year-old male initially brought in by rescue 90 from shortness of breath and chest pain. Patient was noted to be in respiratory distress in the ambulance however patient refused BiPAP. Upon arrival to the ED the patient was noted to be in cardiac arrest. Patient had a high grade chest compressions performed in the ER with a possible rhythm of PEA however no medications were given apparently prior to the return of spontaneous circulation. Patient was not displaying any purposeful movements after rosc. patient at the current time is being prepared for hypothermia protocol which will be fully initiated once he obtains a CT of the brain and CTA of the chest. Apparently as per the ED ph ysician the family stated that he had history of hypertension however I was not able to get in touch with family myself. Subjective hx not possible: pt non-verbal, pt critical, pt critical status Exam/Review of Systems Exam Vitals Vital Signs Date Temp Pulse Resp B/P (MAP) Pulse Ox O2 O2 Flow FiO2 Time Delivery Rate 06/27/18 68 22 159/88 99 12:45 (111) 06/27/18 100.3 [place] 12:00 l Ventilato r 06/27/18 70 08:00 06/26/18 6.0 12:00 Intake and Output 06/26/18 06/26/18 06/27/18 1515:00 23:00 07:00 IntakeIntake Total 1171.954 ml 981.74 ml 1444.3 ml OutputOutput Total 426 ml 229 ml 500 ml BalanceBalance 745.954 ml 752.74 ml 944.3 ml Exam PE: Gen Appearance: No Apparent Distress; obese HEENT: Intubated Cardiovascular: Regular rate Abdomen: Soft Extremities: Dry NE: The patient was sedated and nonverbal. Once sedation was held, the pt was awake and opening eyes spontaneously but was not able to track or follow commands. Cranial nerve examination was limited by mental status. Pupils were equal and reactive to light. There was no afferent pupillary defect. Funduscopic examination was limited. Face was grossly symmetric, w/ present corneal and cough reflexes. Tone was normal. Muscle bulk was normal. I did not see fasciculations. The patient had spontaneous movements of his extremities. Coordination and gait testing was limited by mental status. Arm and leg reflexes were within normal limits and symmetric. Gonzalez's sign was absent. Plantar responses were flexor. Results Result Diagram: 06/27/18 0504 06/27/18 0504 Results 24hrs Laboratory Tests Test 06/26/18 13:32 06/26/18 17:37 06/26/18 21:46 06/26/18 22:06 Bedside Glucose 203 133 126 Vancomycin Level 14.3 Trough Test 06/27/18 00:31 06/27/18 05:04 06/27/18 05:10 06/27/18 09:03 Bedside Glucose 137 133 137 White Blood Count 7.4 Red Blood Count 3.67 L Hemoglobin 10.4 L Hematocrit 32.9 L Mean Corpuscular 89.6 Volume Mean Corpuscular 28.3 L Hemoglobin Mean Corpuscular 31.6 L Hemoglobin Concent Red Cell 14.8 H Distribution Width Platelet Count 149 Mean Platelet Volume 12.1 H Immature 0.400 Granulocytes % Neutrophils % 79.1 H Lymphocytes % 11.7 L Monocytes % 6.1 Eosinophils % 2.2 Basophils % 0.5 Nucleated Red Blood 0.0 Cells % Immature 0.030 Granulocytes # Neutrophils # 5.8 Lymphocytes # 0.9 Monocytes # 0.5 Eosinophils # 0.2 Basophils # 0.0 Nucleated Red Blood 0.0 Cells # Sodium Level 142 Potassium Level 3.7 Chloride Level 107 Carbon Dioxide Level 22 Anion Gap 13 Blood Urea Nitrogen 23 H Creatinine 2.16 H Est Glomerular Filtrat Rate mL/min Glucose Level 134 Calcium Level 7.5 L Magnesium Level 1.8 Total Bilirubin 0.2 Direct Bilirubin 0.00 Indirect Bilirubin 0.2 Aspartate Amino 18 Transf (AST/SGOT) Alanine 29 Aminotransferase (AL T/SGPT) Alkaline Phosphatase 34 L Creatine Kinase 45 Creatine Kinase 0.6 Index Creatinine Kinase MB 0.27 (Mass) Troponin I 0.046 B-Type Natriuretic 2780 H Peptide Total Protein 5.1 L Albumin 2.7 L Globulin 2.40 Albumin/Globulin 1.12 Ratio Test 06/27/18 12:28 Bedside Glucose 141 Medications Medication Current Medications Norepinephrine 250 ml @ 1.875 mls/ hr TITRATE IV Last administered on 06/25/18at 03:13; Admin Dose 3.75 MLS/HR; Start 06/25/18 at 03:00 Vancomycin HCl (Vanco Iv Per Pharmacy) VANCOMYCIN PER PHARMACY PER PROTOCOL XX ; Start 06/25/18 at 07:00 Midazolam HCl 50 ml @ 1 mls/hr TITRATE IV Last administered on 06/27/18at 12:15; Admin Dose 10 MLS/HR; Start 06/25/18 at 07:00 Insulin Aspart (Novolog Insulin Pen) NOVOLOG *MILD* ALGORI... Q4 SC Last administered on 06/26/18at 13:35; Admin Dose 2 UNIT; Start 06/25/18 at 09:00 Propofol 100 ml @ 5.1 mls/hr Q12H IV Last administered on 06/27/18 09:10; Admin Dose 15.3 MLS/HR; Start 06/25/18 at 10:30 Famotidine (Pepcid Iv) 20 mg DAILY IV Last administered on 06/27/18 09:05; Admin Dose 20 MG; Start 06/26/18 at 10:30 Atorvastatin Calcium (Lipitor) 40 mg HS NGT Last administered on 06/26/18at 21:49; Admin Dose 40 MG; Start 06/26/18 at 21:00 Carvedilol (Coreg) 3.125 mg BID NGT Last administered on 06/27/18 09:05; Admin Dose 3.125 MG; Start 06/26/18 at 21:00 Acetaminophen (Tylenol Liquid) 650 mg Q4H PRN NGT MILD PAIN(1-3)OR ELEVATED TEMP Last administered on 06/26/18at 18:36; Admin Dose 650 MG; Start 06/26/18 at 13:30 Albuterol (Ventolin Hfa) 4 puff Q6H RESP THERAPY INH Last administered on 06/27/18at 08:39; Admin Dose 4 PUFF; Start 06/26/18 at 20:00 Aspirin (Aspirin) 81 mg DAILY NGT Last administered on 06/27/18at 09:04; Admin Dose 81 MG; Start 06/27/18 at 09:00 Alteplase, Recombinant (Cathflo (Activase)) 2 mg MAY REPEAT X1 PRN CATHETER IF CATHETER REMAINS OCCULUDED; Start 06/27/18 at 09:30 Furosemide (Lasix) 40 mg DAILY IV Last administered on 06/27/18at 10:17; Admin Dose 40 MG; Start 06/27/18 at 10:30 Enoxaparin Sodium (Lovenox) 60 mg DAILY SC ; Start 06/28/18 at 09:00 Fentanyl 100 ml @ 2.5 mls/hr TITRATE PRN IV PAIN Last administered on 06/27/18at 12:15; Admin Dose 2.5 MLS/HR; Start 06/27/18 at 11:30 Piperacillin Sod/ Tazobactam Sod 100 ml @ 200 mls/hr Q8 IVPB Last administered on 06/27/18at 13:20; Admin Dose 200 MLS/HR; Start 06/27/18 at 14:00 Vancomycin HCl 1.25 gm/Sodium Chloride 250 ml @ 83.333 mls/ hr Q24H IVPB ; Start 06/27/18 at 23:00 Past Medical History reviewed Medications Current Medications Norepinephrine 250 ml @ 1.875 mls/ hr TITRATE IV Last administered on 06/25/18at 03:13; Admin Dose 3.75 MLS/HR; Start 06/25/18 at 03:00 Vancomycin HCl (Vanco Iv Per Pharmacy) VANCOMYCIN PER PHARMACY PER PROTOCOL XX ; Start 06/25/18 at 07:00 Midazolam HCl 50 ml @ 1 mls/hr TITRATE IV Last administered on 06/27/18 12:15; Admin Dose 10 MLS/HR; Start 06/25/18 at 07:00 Insulin Aspart (Novolog Insulin Pen) NOVOLOG *MILD* ALGORI... Q4 SC Last adm inistered on 06/26/18 13:35; Admin Dose 2 UNIT; Start 06/25/18 at 09:00 Propofol 100 ml @ 5.1 mls/hr Q12H IV Last administered on 06/27/18 09:10; Admin Dose 15.3 MLS/HR; Start 06/25/18 at 10:30 Famotidine (Pepcid Iv) 20 mg DAILY IV Last administered on 06/27/18 09:05; Admin Dose 20 MG; Start 06/26/18 at 10:30 Atorvastatin Calcium (Lipitor) 40 mg HS NGT Last administered on 06/26/18 21:49; Admin Dose 40 MG; Start 06/26/18 at 21:00 Carvedilol (Coreg) 3.125 mg BID NGT Last administered on 06/27/18 09:05; Admin Dose 3.125 MG; Start 06/26/18 at 21:00 Acetaminophen (Tylenol Liquid) 650 mg Q4H PRN NGT MILD PAIN(1-3)OR ELEVATED TEMP Last administered on 06/26/18 18:36; Admin Dose 650 MG; Start 06/26/18 at 13:30 Albuterol (Ventolin Hfa) 4 puff Q6H RESP THERAPY INH Last administered on 06/27/18 08:39; Admin Dose 4 PUFF; Start 06/26/18 at 20:00 Aspirin (Aspirin) 81 mg DAILY NGT Last administered on 06/27/18 09:04; Admin Dose 81 MG; Start 06/27/18 at 09:00 Alteplase, Recombinant (Cathflo (Activase)) 2 mg MAY REPEAT X1 PRN CATHETER IF CATHETER REMAINS OCCULUDED; Start 06/27/18 at 09:30 Furosemide (Lasix) 40 mg DAILY IV Last administered on 06/27/18 10:17; Admin Dose 40 MG; Start 06/27/18 at 10:30 Enoxaparin Sodium (Lovenox) 60 mg DAILY SC ; Start 06/28/18 at 09:00 Fentanyl 100 ml @ 2.5 mls/hr TITRATE PRN IV PAIN Last administered on 06/27/18at 12:15; Admin Dose 2.5 MLS/HR; Start 06/27/18 at 11:30 Piperacillin Sod/ Tazobactam Sod 100 ml @ 200 mls/hr Q8 IVPB Last administered on 06/27/18at 13:20; Admin Dose 200 MLS/HR; Start 06/27/18 at 14:00 Vancomycin HCl 1.25 gm/Sodium Chloride 250 ml @ 83.333 mls/ hr Q24H IVPB ; Start 06/27/18 at 23:00 Allergies: Coded Allergies: Unknown: Unable to obtain (Unverified , 06/25/18) Past Surgical History reviewed Social History reviewed Smoking Status: Never smoker DESTINY ANDERSEN NP Jun 27, 2018 13:27 FROILAN CORREA Jun 27, 2018 14:35
--- NOTE | 2018-06-27 14:13 | CONS ---
DATE OF ADMISSION: 06/25/2018 DATE OF CONSULTATION: TYPE OF CONSULTATION: Nephrology. REASON FOR CONSULTATION: Acute kidney injury. PHYSICIANS REQUESTING CONSULT: Dr. Alfaro, Dr. Mcclain. HISTORY OF PRESENT ILLNESS: This is a 78-year-old male with a past medical history of obesity, histo ry of hypertension, who presents to [facility] for the chest pain, shortness of olesya ath. The patient was noted to be in respiratory distress. EMS services were called. The patient wa s brought into the Emergency Room. In the ED, patient was noted to be in cardiac distress. The ladi ent had chest compressions, was noted to have PA rhythm. The patient had spontaneous return of circu lation. The patient was then admitted to the intensive care unit. Imaging studies including a CT angio was obtained which showed no evidence of pulmonary embolism. Th e patient noted to have lobulation, possible cirrhosis and pneumonia. The patient was started on ant ibiotic therapy. The patient was then subsequently extubated but had to be reintubated due to respir atory distress. In terms of patient's renal history, the patient's baseline renal function is unknown. On admission, the patient had a creatinine 1.41 mg/dL which is increased to 2.16 mg/dL. During this time, the pat ient did receive contrast study, the patient has had hemodynamic fluctuations. There have been no re ports of any hemoptysis, hematemesis or hematochezia. PAST MEDICAL HISTORY: History of obesity, presumed history of hypertension. PAST SURGICAL HISTORY: Unknown. ALLERGIES: Unknown. FAMILY HISTORY: Unknown. SOCIAL HISTORY: Unknown. MEDICATIONS: Unknown. REVIEW OF SYSTEMS: Unable to do adequate review of systems as patient is obtunded. Pertinent positi ves as obtained by reviewing medical records, speaking to hospital staff, stated in HPI, otherwise ne gative. PHYSICAL EXAMINATION: VITAL SIGNS: Blood pressure is 143/79, respiration 22, pulse 74, temperature 100.5. HEENT: Head is normocephalic. Pupils are reactive to light. HEART: Regular rate. LUNGS: Show diminished breath sounds at the base. ABDOMEN: Soft, nontender to palpation. No rebound or guarding. EXTREMITIES: Negative for clubbing, cyanosis. Positive edema. DERMATOLOGIC: No rashes. MUSCULOSKELETAL: No joint effusion. NEUROLOGIC: No change in exam. LABORATORY DATA: Reviewed. IMAGING STUDIES: Reviewed. ASSESSMENT AND PLAN: 1. Nonoliguric acute kidney injury with unknown baseline creatinine. Etiology of acute kidney injur y is likely multifactorial secondary to hemodynamics, acute tubular necrosis, possible contrast-assoc iated nephropathy. The patient's initial urinalysis was bland, no active sediment. Therefore, low s uspicion for acute glomerulonephritis or vasculitis. RECOMMENDATIONS: 1. At this point is to continue medical management. Continue to renally dose meds, avoid nephrotoxi ns. The patient will be initiated on diuretic therapy as he is volume overloaded. Will monitor elec trolytes and renal function closely. Would consider adjusting antibiotics, and if possible discontin uing vancomycin in the setting of acute kidney injury. Otherwise, will continue to monitor closely. No immediate need for renal replacement therapy at this time. 2. Volume overload. The patient has noted lower extremity edema and pulmonary congestion. Will sta rt the patient on diuretic therapy, monitor closely. 3. Anemia. Monitor hemoglobin and hematocrit levels. 4. Mineral bone disorder, monitor calcium and phosphorus levels. 5. Acute respiratory failure secondary to pneumonia. The patient is status post intubation and extu bation and reintubation. The patient's vent settings and ABG was reviewed. Continue to monitor. 6. Status post cardiopulmonary arrest. Continue to monitor. Follow up with cardiology. 7. Sepsis secondary to pneumonia. Continue current antibiotic regimen. 8. Hypertension. Continue current blood pressure regimen. 9. Dyslipidemia. Continue statin therapy. 10. Diabetes. Continue Accu-Cheks, insulin sliding scale. 11. Question possible cerebrovascular accident. Continue medical management. 12. Possible ETOH cirrhosis. Continue to monitor. 13. Cardiomyopathy, ejection fraction 35%. Continue to monitor. Continue medical management. Cont inue diuretic therapy. 14. Morbid obesity. Thank you, Dr. Mcclain and Dr. Alfaro, for this interesting consult. It will be a pleasure to follow pat iechasity with you throughout the hospital course. Dictated By: ENA VIVAR DO NR/NTS Conf#: [id number] DID#: [id number] CC: LILLY CLEMENS MD;*EndCC*
[2018-06-27] MEDS: ACETAMINOPHEN 650MG/20.3ML CUP NGT PRN (14:23)
[2018-06-27] MEDS: ATORVASTATIN 40 MG TAB NGT SCH (20:40)
[2018-06-27] MEDS ORDERED: hydrALAzine 20 MG INJ ONE (21:05)
[2018-06-27] MEDS: hydrALAzine 20 MG INJ IV PRN (21:34)
[2018-06-27] MEDS: VANCOMYCIN HCL 1.25 GM in SOD CHLORIDE 0.9% 250 ML IVPB SCH (22:47)
[2018-06-27] MEDS ORDERED: LABETALOL HCL 20MG INJ IV ONE (23:00)
[2018-06-28] VITALS (64 sets, daily range): BP systolic 135–206; BP diastolic 63–107; PULSE 65–87; RESP 0–22
[2018-06-28] MEDS: INSULIN ASPART [NOVOLOG] 3 ML PEN SC SCH ×6 (00:49→21:00)
[2018-06-28] MEDS: ACETAMINOPHEN 650MG/20.3ML CUP NGT PRN (00:51)
[2018-06-28] MEDS: ALBUTEROL HFA 8 GM INHALER INH SCH ×4 (01:23→20:32)
[2018-06-28] MEDS: hydrALAzine 20 MG INJ IV PRN ×3 (01:36→23:35)
[2018-06-28] MEDS: LORAZEPAM 2 MG INJ IV PRN ×2 (01:36→06:46)
[2018-06-28] MEDS: PIPER-TAZO 3.375 GM IV (PMX) 100 ML IVPB SCH ×3 (06:42→21:15)
[2018-06-28] MEDS ORDERED: POTASSIUM CHLORIDE 20 MEQ POWDER FOR ORAL SOLN GTB ONE (08:30)
[2018-06-28] MEDS: ASPIRIN 81 MG TAB NGT SCH (08:32)
[2018-06-28] MEDS: FAMOTIDINE 20 MG INJ IV SCH (08:32)
[2018-06-28] MEDS: FUROSEMIDE 40 MG INJ IV SCH (08:33)
--- NOTE | 2018-06-28 08:39 | PN ---
DATE: 06/28/2018 SUBJECTIVE: The patient is critically ill on full ventilatory support. The patient had adequate uri nary output. No other acute events noted. No hemoptysis, hematemesis or hematochezia. OBJECTIVE: VITAL SIGNS: Blood pressure is 144/86, respirations 22, pulse 69, temperature 98.6. HEENT: Head is normocephalic. NECK: Supple. HEART: Regular rate. LUNGS: Show diminished breath sounds at the base. ABDOMEN: Soft, nontender to palpation without rebound or guarding. EXTREMITIES: Negative for clubbing, cyanosis. Trace edema. DERMATOLOGIC: No rashes. MUSCULOSKELETAL: No joint effusion. NEUROLOGIC: No change in exam. MEDICATIONS: Reviewed. LABORATORY DATA: Shows sodium 143, potassium 3.3, chloride 109, BUN 23, creatinine 2.25. White coun t 6.9, hemoglobin 10.4, platelet count is 155. Urinalysis was reviewed. Urine electrolytes were rev iewed. IMAGING STUDIEs: Renal ultrasound was reviewed, unremarkable, no evidence of obstruction. ASSESSMENT AND PLAN: 1. Nonoliguric acute kidney injury with unknown baseline creatinine. Etiology of acute kidney injur y is multifactorial secondary to acute tubular necrosis due to hemodynamics, possible contrast-associ ated nephropathy. The patient's repeat urinalysis was reviewed. Urine electrolytes were reviewed. The patient appears to be in injury phase of acute kidney injury. At this point, we would continue c urrent treatment plan, supportive care, renally dose all medicines, continue intermittent diuretic th erapy as needed to maintain euvolemic status. Additionally, we would consider adjusting antibiotic t herapy. Discontinue vancomycin in the setting of acute kidney injury. 2. Volume overload. The patient is currently on diuretic therapy with good urinary output. We will continue to monitor electrolytes and renal function closely. 3. Anemia. Monitor hemoglobin and hematocrit levels. 4. Mineral bone disorder. Monitor calcium and phosphorus levels. 5. Hypokalemia, replete with potassium chloride. 6. Ventilator-dependent respiratory failure, etiology is secondary to pneumonia. The patient's vent settings and ABG was reviewed. Continue to monitor. 7. Status post cardiopulmonary arrest. Continue to monitor. Follow up with Cardiology. 8. Sepsis secondary to pneumonia. Continue current antibiotic regimen. 9. Hypertension. Continue current blood pressure regimen. 10. Dyslipidemia. Continue statin therapy. 11. Diabetes. Continue current insulin regimen. 12. History of ETOH cirrhosis. Continue to monitor. 13. Cardiomyopathy with decompensation. Continue medical management. Continue diuretic therapy. 14. Morbid obesity. 15. Possible cerebrovascular accident. Continue current treatment plan. Please note I spent over 30 minutes of critical care time with this patient. Dictated By: ENA VIVAR DO NR/NTS Conf#: [id number] DID#: [id number] CC: YARIEL DUTTA MD; DAMION KUMAR MD; LILLY CLEMENS MD;*EndCC*
[2018-06-28] MEDS ORDERED: ENOXAPARIN 60 MG/0.6 ML SYG SC SCH (09:00)
[2018-06-28] MEDS: MIDAZOLAM (DRIP) 50 mg/50 mL 50 ML IV SCH ×3 (09:44→19:56)
--- NOTE | 2018-06-28 09:58 | CONS ---
Consult Date/Type/Reason Admit Date/Time Jun 25, 2018 at 04:04 Initial Consult Date 06/25/18 Type of Consult Pulmonary Requesting Provider: DAMION KUMAR Date/Time of Note DATE: 06/28/18 TIME: 09:55 Subjective Continues mechanical ventilation FiO2 50% no vasopressors this morning. Chest x-ray shows ongoing pulmonary edema versus infiltrates. Objective Vital Signs Date Temp Pulse Resp B/P (MAP) Pulse Ox O2 O2 Flow FiO2 Time Delivery Rate 06/28/18 68 22 194/92 98 Mechanical 09:00 (126) Ventilator 06/28/18 60 08:04 06/28/18 98.8 08:00 06/26/18 6.0 12:00 Intake and Output 06/27/18 06/27/18 06/28/18 1515:00 23:00 07:00 IntakeIntake Total 484.5 ml 270.0 ml 879.5 ml OutputOutput Total 2042 ml 1541 ml 1000 ml BalanceBalance -1557.5 ml -1271.0 ml -120.5 ml Exam GENERAL: Elderly obese Romanian gentleman orally intubated VITAL SIGNS: per chart NECK: Supple. No JVD or lymphadenopathy. CARDIAC EXAM: S1, S2. No added sounds or murmurs. CHEST: Diminished air entry bilaterally with rales ABDOMEN: Soft, nontender. No guarding or rebound. EXTREMITIES: No cyanosis, clubbing edema +1 NEUROLOGIC: Generalized weakness. No focal deficits. Vent Setting Ventilator Support Mode: AC Fraction of Inspired Oxygen pe: 60 Positive End Expiratory Pressu: 5.0 Results/Medications Result Diagram: 06/28/18 0500 06/28/18 0500 Results 24 hrs Laboratory Tests Test 06/27/18 12:28 06/27/18 13:27 06/27/18 14:10 06/27/18 16:26 Bedside Glucose 141 120 124 Urine Color STRAW Urine Clarity CLEAR Urine pH 5 Urine Specific 1.010 [place] Urine Ketones NEGATIVE Urine Nitrite NEGATIVE Urine Bilirubin NEGATIVE Urine Urobilinogen NEGATIVE Urine Leukocyte 1+ H Esterase Urine Microscopic 76 H RBC Urine Microscopic 15 H WBC Urine Amorphous FEW A Crystals Urine Hemoglobin 2+ H Urine Random 31.59 Creatinine Urine Random Sodium 127 H Urine Glucose NEGATIVE Urine Total Protein 38.0 H Test 06/28/18 00:39 06/28/18 05:00 06/28/18 05:51 06/28/18 08:48 Bedside Glucose 171 178 161 White Blood Count 6.9 Red Blood Count 3.66 L Hemoglobin 10.4 L Hematocrit 32.9 L Mean Corpuscular 89.9 Volume Mean Corpuscular 28.4 L Hemoglobin Mean Corpuscular 31.6 L Hemoglobin Concent Red Cell 14.8 H Distribution Width Platelet Count 155 Mean Platelet Volume 11.6 H Immature 0.600 H Granulocytes % Neutrophils % 75.7 Lymphocytes % 13.3 L Monocytes % 6.4 Eosinophils % 3.6 Basophils % 0.4 Nucleated Red Blood 0.0 Cells % Immature 0.040 H Granulocytes # Neutrophils # 5.2 Lymphocytes # 0.9 Monocytes # 0.4 Eosinophils # 0.3 Basophils # 0.0 Nucleated Red Blood 0.0 Cells # Sodium Level 143 Potassium Level 3.3 L Chloride Level 109 Carbon Dioxide Level 25 Anion Gap 9 Blood Urea Nitrogen 23 H Creatinine 2.25 H Est Glomerular Filtrat Rate mL/min Glucose Level 157 Calcium Level 8.1 L Phosphorus Level 3.3 Magnesium Level 1.9 Total Bilirubin 0.3 Direct Bilirubin 0.00 Indirect Bilirubin 0.3 Aspartate Amino 18 Transf (AST/SGOT) Alanine 24 Aminotransferase (AL T/SGPT) Alkaline Phosphatase 39 L B-Type Natriuretic 3290 H Peptide Total Protein 6.0 L Albumin 3.0 L Globulin 3.00 Albumin/Globulin 1.00 Ratio Medications Current Medications Norepinephrine 250 ml @ 1.875 mls/ hr TITRATE IV Last administered on 06/25/18at 03:13; Admin Dose 3.75 MLS/HR; Start 06/25/18 at 03:00 Vancomycin HCl (Vanco Iv Per Pharmacy) VANCOMYCIN PER PHARMACY PER PROTOCOL XX ; Start 06/25/18 at 07:00 Midazolam HCl 50 ml @ 1 mls/hr TITRATE IV Last administered on 06/28/18at 09:44; Admin Dose 4 MLS/HR; Start 06/25/18 at 07:00 Insulin Aspart (Novolog Insulin Pen) NOVOLOG *MILD* ALGORI... Q4 SC Last administered on 06/28/18at 08:51; Admin Dose 1 UNIT; Start 06/25/18 at 09:00 Propofol 100 ml @ 5.1 mls/hr Q12H IV Last administered on 06/27/18at 09:10; Admin Dose 15.3 MLS/HR; Start 06/25/18 at 10:30 Famotidine (Pepcid Iv) 20 mg DAILY IV Last administered on 06/28/18 08:32; Admin Dose 20 MG; Start 06/26/18 at 10:30 Atorvastatin Calcium (Lipitor) 40 mg HS NGT Last administered on 06/27/18 20:40; Admin Dose 40 MG; Start 06/26/18 at 21:00 Carvedilol (Coreg) 3.125 mg BID NGT Last administered on 06/28/18 08:32; Admin Dose 3.125 MG; Start 06/26/18 at 21:00 Acetaminophen (Tylenol Liquid) 650 mg Q4H PRN NGT MILD PAIN(1-3)OR ELEVATED TEMP Last administered on 06/28/18 00:51; Admin Dose 650 MG; Start 06/26/18 at 13:30 Albuterol (Ventolin Hfa) 4 puff Q6H RESP THERAPY INH Last administered on 06/28/18 01:23; Admin Dose 4 PUFF; Start 06/26/18 at 20:00 Aspirin (Aspirin) 81 mg DAILY NGT Last administered on 06/28/18 08:32; Admin Dose 81 MG; Start 06/27/18 at 09:00 Alteplase, Recombinant (Cathflo (Activase)) 2 mg MAY REPEAT X1 PRN CATHETER IF CATHETER REMAINS OCCULUDED; Start 06/27/18 at 09:30 Furosemide (Lasix) 40 mg DAILY IV Last administered on 06/28/18 08:33; Admin Dose 40 MG; Start 06/27/18 at 10:30 Enoxaparin Sodium (Lovenox) 60 mg DAILY SC Last administered on 06/28/18 08:34; Admin Dose 60 MG; Start 06/28/18 at 09:00 Fentanyl 100 ml @ 2.5 mls/hr TITRATE PRN IV PAIN Last administered on 06/27/18 22:42; Admin Dose 5 MLS/HR; Start 06/27/18 at 11:30 Piperacillin Sod/ Tazobactam Sod 100 ml @ 200 mls/hr Q8 IVPB Last administered on 06/28/18 06:42; Admin Dose 200 MLS/HR; Start 06/27/18 at 14:00 Vancomycin HCl 1.25 gm/Sodium Chloride 250 ml @ 83.333 mls/ hr Q24H IVPB Last administered on 06/27/18at 22:47; Admin Dose 83.333 MLS/HR; Start 06/27/18 at 23:00 Hydralazine HCl (Apresoline) 10 mg Q4H PRN IV ELEVATED BLOOD PRESSURE Last administered on 06/28/18at 09:08; Admin Dose 10 MG; Start 06/27/18 at 20:30 Lorazepam (Ativan) 2 mg Q2H PRN IV AGITATION/ANXIETY Last administered on 06/28/18at 06:46; Admin Dose 2 MG; Start 06/27/18 at 23:00 Assessment/Plan Hospital Course (Demo Recall) Assessment 1. Acute hypoxemic respiratory failure likely secondary to congestive cardiac failure. 2. Renal insufficiency 3. Probable underlying obstructive sleep apnea 4. Bilateral pneumonia probable community acquired Plan 1. Continue bronchodilators 2. Continue mechanical ventilation, FiO2 currently at 50% 3. Trial of fentanyl for pain control 4. Decrease sedation as tolerated 5. Continue tube feeding Critical care time 40 minutes YARIEL DUTTA MD, [facility] Jun 28, 2018 09:58
[2018-06-28] MEDS ORDERED: hydrALAzine 20 MG INJ IV ONE (10:00)
[2018-06-28] MEDS: PROPOFOL 100 ML IV SCH ×2 (10:09→21:58)
--- NOTE | 2018-06-28 11:15 | CONS ---
Assessment/Plan Assessment/Plan Hospital Course 78 yo M with multiple cerebrovascular risk factors who presents to ICU following a cardiac arrest. CTH was obtained, and notable for multifocal hypodensities concerning for stroke... for which neurology is consulted. His exam is presently limited by chemical sedation, however he is able to awaken and move his limbs spontaneously, without obvious acute focal deficits. Recent echo is notable for depressed LV function with EF 35% and wall motion abnormalities NOS. P: MRI brain w/o contrast for further characterization, when medically able Agree w/ ASA daily for stroke prevention for now; LDL is at goal. Limit sedating medications where possible Other medical management and supportive care per primary WiIl follow clinically Consultation Date/Type/Reason Admit Date/Time Jun 25, 2018 at 04:04 Type of Consult Neurology Reason for Consultation eval for stroke Requesting Provider: DAMION KUMAR Date/Time of Note DATE: 06/28/18 TIME: 11:14 24 HR Interval Summary Free Text/Dictation Continues critical care. No events or changes in pt condition reported. Remains on versed/fentanyl gtt. Subjective hx not possible: pt non-verbal, pt critical Exam Vital Signs Vitals Vital Signs Date Temp Pulse Resp B/P (MAP) Pulse Ox O2 O2 Flow FiO2 Time Delivery Rate 06/28/18 87 22 205/90 96 Mechanical 10:30 (128) Ventilator 06/28/18 60 08:04 06/28/18 98.8 08:00 06/26/18 6.0 12:00 Intake and Output 06/27/18 06/27/18 06/28/18 1515:00 23:00 07:00 IntakeIntake Total 484.5 ml 270.0 ml 879.5 ml OutputOutput Total 2042 ml 1541 ml 1000 ml BalanceBalance -1557.5 ml -1271.0 ml -120.5 ml Exam PE: Gen Appearance: No Apparent Distress; obese HEENT: Intubated Cardiovascular: Regular rate Abdomen: Soft Extremities: Dry NE: The patient was sedated and nonverbal. Once sedation was held, the pt was awake and opening eyes spontaneously but was not able to track or follow commands. Cranial nerve examination was limited by mental status. Pupils were equal and reactive to light. There was no afferent pupillary defect. Funduscopic examination was limited. Face was grossly symmetric, w/ present corneal and cough reflexes. Tone was normal. Muscle bulk was normal. I did not see fasciculations. The patient had spontaneous movements of his extremities. Coordination and gait testing was limited by mental status. Arm and leg reflexes were within normal limits and symmetric. Gonzalez's sign was absent. Plantar responses were flexor. DESTINY ANDERSEN NP Jun 28, 2018 11:15
[2018-06-28] MEDS: ASCORBIC ACID 500 MG TAB NGT SCH (11:31)
[2018-06-28] MEDS: ZINC SULFATE 220 MG CAP NGT SCH (11:31)
--- NOTE | 2018-06-28 11:35 | CONS ---
Consult Date/Type/Reason Admit Date/Time Jun 25, 2018 at 04:04 Initial Consult Date 06/25/18 Type of Consultation: cv Requesting Provider: DAMION KUMAR Date/Time of Note DATE: 06/28/18 TIME: 11:25 Subjective Interventional cardiology follow-up progress note Subjective: Discussed with the staff and telemetry was reviewed. Patient has remained sinus rhythm. Blood pressure has been stable /high now. No report of any chest pain or pressure no more bleeding with NG insertion pt has been hypertensive and is now sedated. d/w and son. according to pt was at [facility] last year with "weak/ slow heart " and work up was "negative" events noted. 06/26: pt extubated but had to be reintubated same day for resp distress. Objective: General: Obese gentleman status post intubation on the vent HEENT: NC/AT. . Pupils are equal round reactive to light. s/p NG tube in place NECK: no stridor. CV: RRR. systolic murmur; no gallop or rubs. PULM: no wheezing. + rhonchi. GI: SOFT, NT, ND, no rebound or guarding Extremity: + B/L LE edema. no clubbing. neuro: Opens his eyes. follows commands. Psych: calm rectal: deferred : normal EKG was personally reviewed showed normal sinus rhythm left bundle branch block Echocardiogram was personally reviewed which shows: Normal left ventricular cavity size. Moderate concentric left ventricular hypertrophy. Moderate global left ventricular systolic dysfunction. Ejection fraction is visually estimated at 35 %. Abnormal Diastolic Function. Multiple segmental wall motion abnormalities. These segments of the LV are akinetic. No significant aortic stenosis or insufficiency. Aortic cusps appear mildly calcified. Mitral valve leaflets appear mildly thickened. Mild mitral annular calcification. Trace mitral regurgitation. Normal appearance of the tricuspid valve. Estimated peak PA systolic pressure 31 mmHg. There is trace to mild tricuspid regurgitation. Dilated IVC without respiratory collapse, however, patient on ventilator. CT of the chest done in the emergency room shows: 1. No evidence of central pulmonary emboli. Prominent central pulmonary arteries and rule out pulmonary arterial hypertension. Reflux of contrast into the distal inferior vena cava and rule out mild right heart strain/failure. 2. Mild aneurysmal dilatation of the ascending aorta maximal transverse diameter 4.3 cm. 3. Mild cardiomegaly. 4. Bilateral lower lobe consolidations with central air bronchograms consistent with atelectasis though aspiration and pneumonia cannot be excluded. Additional diffuse inhomogeneous ground-glass opacities bilaterally as above consistent with pulmonary edema/pneumonitis. 5. Bilateral tiny pleural effusions. 6. Right paratracheal and prevascular space lymphadenopathy as above. Follow-up is recommended. 7. Mild lobulation of the anterior margin of the liver and may represent cirrhosis. Objective Vitals Vital Signs Date Temp Pulse Resp B/P (MAP) Pulse Ox O2 O2 Flow FiO2 Time Delivery Rate 06/28/18 87 22 205/90 96 Mechanical 10:30 (128) Ventilator 06/28/18 60 08:04 06/28/18 98.8 08:00 06/26/18 6.0 12:00 Intake and Output 06/27/18 06/27/18 06/28/18 1515:00 23:00 07:00 IntakeIntake Total 484.5 ml 270.0 ml 879.5 ml OutputOutput Total 2042 ml 1541 ml 1000 ml BalanceBalance -1557.5 ml -1271.0 ml -120.5 ml Results/Medications Result Diagram: 06/28/18 0500 06/28/18 0500 Results 24 hrs Laboratory Tests Test 06/27/18 12:28 06/27/18 13:27 06/27/18 14:10 06/27/18 16:26 Bedside Glucose 141 120 124 Urine Color STRAW Urine Clarity CLEAR Urine pH 5 Urine Specific 1.010 [place] Urine Ketones NEGATIVE Urine Nitrite NEGATIVE Urine Bilirubin NEGATIVE Urine Urobilinogen NEGATIVE Urine Leukocyte 1+ H Esterase Urine Microscopic 76 H RBC Urine Microscopic 15 H WBC Urine Amorphous FEW A Crystals Urine Hemoglobin 2+ H Urine Random 31.59 Creatinine Urine Random Sodium 127 H Urine Glucose NEGATIVE Urine Total Protein 38.0 H Test 06/28/18 00:39 06/28/18 05:00 06/28/18 05:51 06/28/18 08:48 Bedside Glucose 171 178 161 White Blood Count 6.9 Red Blood Count 3.66 L Hemoglobin 10.4 L Hematocrit 32.9 L Mean Corpuscular 89.9 Volume Mean Corpuscular 28.4 L Hemoglobin Mean Corpuscular 31.6 L Hemoglobin Concent Red Cell 14.8 H Distribution Width Platelet Count 155 Mean Platelet Volume 11.6 H Immature 0.600 H Granulocytes % Neutrophils % 75.7 Lymphocytes % 13.3 L Monocytes % 6.4 Eosinophils % 3.6 Basophils % 0.4 Nucleated Red Blood 0.0 Cells % Immature 0.040 H Granulocytes # Neutrophils # 5.2 Lymphocytes # 0.9 Monocytes # 0.4 Eosinophils # 0.3 Basophils # 0.0 Nucleated Red Blood 0.0 Cells # Sodium Level 143 Potassium Level 3.3 L Chloride Level 109 Carbon Dioxide Level 25 Anion Gap 9 Blood Urea Nitrogen 23 H Creatinine 2.25 H Est Glomerular Filtrat Rate mL/min Glucose Level 157 Calcium Level 8.1 L Phosphorus Level 3.3 Magnesium Level 1.9 Total Bilirubin 0.3 Direct Bilirubin 0.00 Indirect Bilirubin 0.3 Aspartate Amino 18 Transf (AST/SGOT) Alanine 24 Aminotransferase (AL T/SGPT) Alkaline Phosphatase 39 L B-Type Natriuretic 3290 H Peptide Total Protein 6.0 L Albumin 3.0 L Globulin 3.00 Albumin/Globulin 1.00 Ratio Medications Current Medications Norepinephrine 250 ml @ 1.875 mls/ hr TITRATE IV Last administered on 06/25/18at 03:13; Admin Dose 3.75 MLS/HR; Start 06/25/18 at 03:00 Vancomycin HCl (Vanco Iv Per Pharmacy) VANCOMYCIN PER PHARMACY PER PROTOCOL XX ; Start 06/25/18 at 07:00 Midazolam HCl 50 ml @ 1 mls/hr TITRATE IV Last administered on 06/28/18 09:44; Admin Dose 4 MLS/HR; Start 06/25/18 at 07:00 Insulin Aspart (Novolog Insulin Pen) NOVOLOG *MILD* ALGORI... Q4 SC Last administered on 06/28/18 08:51; Admin Dose 1 UNIT; Start 06/25/18 at 09:00 Propofol 100 ml @ 5.1 mls/hr Q12H IV Last administered on 06/27/18 09:10; Admin Dose 15.3 MLS/HR; Start 06/25/18 at 10:30 Famotidine (Pepcid Iv) 20 mg DAILY IV Last administered on 06/28/18 08:32; Admin Dose 20 MG; Start 06/26/18 at 10:30 Atorvastatin Calcium (Lipitor) 40 mg HS NGT Last administered on 06/27/18at 20:40; Admin Dose 40 MG; Start 06/26/18 at 21:00 Carvedilol (Coreg) 3.125 mg BID NGT Last administered on 06/28/18 08:32; Admin Dose 3.125 MG; Start 06/26/18 at 21:00 Acetaminophen (Tylenol Liquid) 650 mg Q4H PRN NGT MILD PAIN(1-3)OR ELEVATED TEMP Last administered on 06/28/18 00:51; Admin Dose 650 MG; Start 06/26/18 at 13:30 Albuterol (Ventolin Hfa) 4 puff Q6H RESP THERAPY INH Last administered on 06/28/18 09:55; Admin Dose 4 PUFF; Start 06/26/18 at 20:00 Aspirin (Aspirin) 81 mg DAILY NGT Last administered on 06/28/18 08:32; Admin Dose 81 MG; Start 06/27/18 at 09:00 Alteplase, Recombinant (Cathflo (Activase)) 2 mg MAY REPEAT X1 PRN CATHETER IF CATHETER REMAINS OCCULUDED; Start 06/27/18 at 09:30 Furosemide (Lasix) 40 mg DAILY IV Last administered on 06/28/18 08:33; Admin Dose 40 MG; Start 06/27/18 at 10:30 Enoxaparin Sodium (Lovenox) 60 mg DAILY SC Last administered on 06/28/18 08:34; Admin Dose 60 MG; Start 06/28/18 at 09:00 Fentanyl 100 ml @ 2.5 mls/hr TITRATE PRN IV PAIN Last administered on 06/27/18 22:42; Admin Dose 5 MLS/HR; Start 06/27/18 at 11:30 Piperacillin Sod/ Tazobactam Sod 100 ml @ 200 mls/hr Q8 IVPB Last administered on 06/28/18 06:42; Admin Dose 200 MLS/HR; Start 06/27/18 at 14:00 Vancomycin HCl 1.25 gm/Sodium Chloride 250 ml @ 83.333 mls/ hr Q24H IVPB Last administered on 06/27/18 22:47; Admin Dose 83.333 MLS/HR; Start 06/27/18 at 23:00 Hydralazine HCl (Apresoline) 10 mg Q4H PRN IV ELEVATED BLOOD PRESSURE Last administered on 06/28/18 09:08; Admin Dose 10 MG; Start 06/27/18 at 20:30 Lorazepam (Ativan) 2 mg Q2H PRN IV AGITATION/ANXIETY Last administered on 06/28/18at 06:46; Admin Dose 2 MG; Start 06/27/18 at 23:00 Zinc Sulfate (Zinc Sulfate) 220 mg DAILY NGT ; Start 06/28/18 at 11:30 Ascorbic Acid (Vitamin C) 500 mg DAILY NGT ; Start 06/28/18 at 11:30 Assessment/Plan Hospital Course (Demo Recall) 1. Status post cardiopulmonary arrest appears to be mostly related to respiratory failure 2. Hypoxemic respiratory failure status post intubation vent dependent now 3. hypertension 4. Cardiomyopathy :unclear acute versus chronic 5. Congestive heart failure probably acute on chronic secondary systolic heart failure 6. Renal insufficiency: Acute kidney injury now 7. Encephalopathy 8. Abnormal EKG with left bundle branch block 9. Incomplete data 10. Pneumonia Recommendation: Cardiac enzyme has been repeated and myocardial infarction was ruled out Continue with vent support. To be managed as per pulmonary recommendations Aspirin daily. Diuresis as tolerated. Follow with RENAL CONSULT . Continue to monitor CVP and adjust diuretics as needed GI and DVT prophylaxis Antibiotics management will be deferred to internal medicine Increase Coreg We will add hydralazine/Isordil combination. 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 We will continue to follow along with you MONIQUE SANDOVAL MD [facility] MONIQUE SANDOVAL MD Jun 28, 2018 11:35
[2018-06-28] MEDS: FENTAnyl (DRIP) 1000 mcg/100mL 100 ML IV PRN ×2 (11:39→22:15)
--- NOTE | 2018-06-28 13:04 | PN ---
Date/Time of Note Date/Time of Note DATE: 06/28/18 TIME: 13:04 Assessment/Plan VTE Prophylaxis Risk score (from Nsg)>0 risk: 7 SCD applied (from Nsg): Yes Pharmacological prophylaxis: LMWH Lines/Catheters IV Catheter Type (from Nrsg): Central Line Central line still needed: Yes Urinary Cath still in place: Yes Reason Cath still needed: other (indicate) Assessment/Plan Hospital Course Subjective: remains intubated and sedated objective: GENERAL: intubated and comfortably sedated HEENT: DELMI, Intubated, Vent settings noted LUNGS: diffusely diminished HEART: S1, S2. No murmur, gallops or rubs. ABDOMEN: Soft, non distended, Normoactive bowel sounds. GENITOURINARY: Normal male external genitalia, Mancia to bedside drainage EXTREMITIES: no edema NEUROLOGIC: requiring amauri UE restraints, SKIN: Otherwise, unremarkable. Assessment and plan: 78-year-old brought him by ambulance from home with complaints of shortness of breath and chest pain, with cardiac arrest in the emergency room thought to be secondary to acute respiratory arrest. Currently orotracheally intubated on Ventilator Support in the ICU. 1. Acute respiratory failure, ventilator dependent with hypercapnia, -much improved, on CPAP trials, will likely be extubated later 2. Status post cardiopulmonary arrest, apparently was PEA rhythm with ROSC 3. Bilateral pneumonia right greater than left suggestive of aspiration 4. Hypertensive urgency: BP improved 5. RICKI r/o Chronic kidney disease 6. diabetes mellitus HB a1c 7.4 7. History of dyslipidemia 8. Congestive heart failure, acute, systolic 9. Possible acute CVA on CT scan of the brain, will need MRI to confirm 10. Possible alcoholic cirrhosis 11. Ascending aortic aneurysm 4.3 cm 12. Pulmonary hypertension 13. Cardiomyopathy with ejection fraction of 35% with moderate left ventricular systolic dysfunction 14. Morbid obesity Plan: Continue ventilator weaning and send resp cultures ACS has been ruled out, Resp cultures growing GNR, blood and urine cultures remain negative so far creatinine continues to trend up, likely still in injury phase of ATN, continue to renally dose all meds Continue diuresis per renal Will need MRI to confirm CVA once more stable, also consider Neurology consult Begin low dose Lantus FEN: tube feeding with replete per nutrition at 40cc/hr with free water 50ml q6h Further interventions per course Care time >35mins Result Diagram: 06/28/18 0500 06/28/18 0500 Results 24hrs Laboratory Tests Test 06/27/18 13:27 06/27/18 14:10 06/27/18 16:26 06/28/18 00:39 Bedside Glucose 120 124 171 Urine Color STRAW Urine Clarity CLEAR Urine pH 5 Urine Specific 1.010 [place] Urine Ketones NEGATIVE Urine Nitrite NEGATIVE Urine Bilirubin NEGATIVE Urine Urobilinogen NEGATIVE Urine Leukocyte 1+ H Esterase Urine Microscopic 76 H RBC Urine Microscopic 15 H WBC Urine Amorphous FEW A Crystals Urine Hemoglobin 2+ H Urine Random 31.59 Creatinine Urine Random Sodium 127 H Urine Glucose NEGATIVE Urine Total Protein 38.0 H Test 06/28/18 05:00 06/28/18 05:51 06/28/18 08:48 06/28/18 12:41 White Blood Count 6.9 Red Blood Count 3.66 L Hemoglobin 10.4 L Hematocrit 32.9 L Mean Corpuscular 89.9 Volume Mean Corpuscular 28.4 L Hemoglobin Mean Corpuscular 31.6 L Hemoglobin Concent Red Cell 14.8 H Distribution Width Platelet Count 155 Mean Platelet Volume 11.6 H Immature 0.600 H Granulocytes % Neutrophils % 75.7 Lymphocytes % 13.3 L Monocytes % 6.4 Eosinophils % 3.6 Basophils % 0.4 Nucleated Red Blood 0.0 Cells % Immature 0.040 H Granulocytes # Neutrophils # 5.2 Lymphocytes # 0.9 Monocytes # 0.4 Eosinophils # 0.3 Basophils # 0.0 Nucleated Red Blood 0.0 Cells # Sodium Level 143 Potassium Level 3.3 L Chloride Level 109 Carbon Dioxide Level 25 Anion Gap 9 Blood Urea Nitrogen 23 H Creatinine 2.25 H Est Glomerular Filtrat Rate mL/min Glucose Level 157 Calcium Level 8.1 L Phosphorus Level 3.3 Magnesium Level 1.9 Total Bilirubin 0.3 Direct Bilirubin 0.00 Indirect Bilirubin 0.3 Aspartate Amino 18 Transf (AST/SGOT) Alanine 24 Aminotransferase (AL T/SGPT) Alkaline Phosphatase 39 L B-Type Natriuretic 3290 H Peptide Total Protein 6.0 L Albumin 3.0 L Globulin 3.00 Albumin/Globulin 1.00 Ratio Bedside Glucose 178 161 205 Exam/Review of Systems Exam Vitals Vital Signs Date Temp Pulse Resp B/P (MAP) Pulse Ox O2 O2 Flow FiO2 Time Delivery Rate 06/28/18 98.8 80 22 166/81 93 Mechanical 12:00 (109) Ventilator 06/28/18 40 12:00 06/26/18 6.0 12:00 Intake and Output 06/27/18 06/27/18 06/28/18 1515:00 23:00 07:00 IntakeIntake Total 484.5 ml 270.0 ml 879.5 ml OutputOutput Total 2042 ml 1541 ml 1000 ml BalanceBalance -1557.5 ml -1271.0 ml -120.5 ml Results Results 24hrs Laboratory Tests Test 06/27/18 13:27 06/27/18 14:10 06/27/18 16:26 06/28/18 00:39 Bedside Glucose 120 124 171 Urine Color STRAW Urine Clarity CLEAR Urine pH 5 Urine Specific 1.010 [place] Urine Ketones NEGATIVE Urine Nitrite NEGATIVE Urine Bilirubin NEGATIVE Urine Urobilinogen NEGATIVE Urine Leukocyte 1+ H Esterase Urine Microscopic 76 H RBC Urine Microscopic 15 H WBC Urine Amorphous FEW A Crystals Urine Hemoglobin 2+ H Urine Random 31.59 Creatinine Urine Random Sodium 127 H Urine Glucose NEGATIVE Urine Total Protein 38.0 H Test 06/28/18 05:00 06/28/18 05:51 06/28/18 08:48 06/28/18 12:41 White Blood Count 6.9 Red Blood Count 3.66 L Hemoglobin 10.4 L Hematocrit 32.9 L Mean Corpuscular 89.9 Volume Mean Corpuscular 28.4 L Hemoglobin Mean Corpuscular 31.6 L Hemoglobin Concent Red Cell 14.8 H Distribution Width Platelet Count 155 Mean Platelet Volume 11.6 H Immature 0.600 H Granulocytes % Neutrophils % 75.7 Lymphocytes % 13.3 L Monocytes % 6.4 Eosinophils % 3.6 Basophils % 0.4 Nucleated Red Blood 0.0 Cells % Immature 0.040 H Granulocytes # Neutrophils # 5.2 Lymphocytes # 0.9 Monocytes # 0.4 Eosinophils # 0.3 Basophils # 0.0 Nucleated Red Blood 0.0 Cells # Sodium Level 143 Potassium Level 3.3 L Chloride Level 109 Carbon Dioxide Level 25 Anion Gap 9 Blood Urea Nitrogen 23 H Creatinine 2.25 H Est Glomerular Filtrat Rate mL/min Glucose Level 157 Calcium Level 8.1 L Phosphorus Level 3.3 Magnesium Level 1.9 Total Bilirubin 0.3 Direct Bilirubin 0.00 Indirect Bilirubin 0.3 Aspartate Amino 18 Transf (AST/SGOT) Alanine 24 Aminotransferase (AL T/SGPT) Alkaline Phosphatase 39 L B-Type Natriuretic 3290 H Peptide Total Protein 6.0 L Albumin 3.0 L Globulin 3.00 Albumin/Globulin 1.00 Ratio Bedside Glucose 178 161 205 Medications Medication Current Medications Norepinephrine 250 ml @ 1.875 mls/ hr TITRATE IV Last administered on 06/25/18 03:13; Admin Dose 3.75 MLS/HR; Start 06/25/18 at 03:00 Vancomycin HCl (Vanco Iv Per Pharmacy) VANCOMYCIN PER PHARMACY PER PROTOCOL XX ; Start 06/25/18 at 07:00 Midazolam HCl 50 ml @ 1 mls/hr TITRATE IV Last administered on 06/28/18 09:44; Admin Dose 4 MLS/HR; Start 06/25/18 at 07:00 Insulin Aspart (Novolog Insulin Pen) NOVOLOG *MILD* ALGORI... Q4 SC Last administered on 06/28/18 12:45; Admin Dose 2 UNIT; Start 06/25/18 at 09:00 Propofol 100 ml @ 5.1 mls/hr Q12H IV Last administered on 06/27/18 09:10; Admin Dose 15.3 MLS/HR; Start 06/25/18 at 10:30 Famotidine (Pepcid Iv) 20 mg DAILY IV Last administered on 06/28/18 08:32; Admin Dose 20 MG; Start 06/26/18 at 10:30 Atorvastatin Calcium (Lipitor) 40 mg HS NGT Last administered on 06/27/18 20:40; Admin Dose 40 MG; Start 06/26/18 at 21:00 Acetaminophen (Tylenol Liquid) 650 mg Q4H PRN NGT MILD PAIN(1-3)OR ELEVATED TEMP Last administered on 06/28/18 00:51; Admin Dose 650 MG; Start 06/26/18 at 13:30 Albuterol (Ventolin Hfa) 4 puff Q6H RESP THERAPY INH Last administered on 06/28/18 09:55; Admin Dose 4 PUFF; Start 06/26/18 at 20:00 Aspirin (Aspirin) 81 mg DAILY NGT Last administered on 06/28/18 08:32; Admin Dose 81 MG; Start 06/27/18 at 09:00 Alteplase, Recombinant (Cathflo (Activase)) 2 mg MAY REPEAT X1 PRN CATHETER IF CATHETER REMAINS OCCULUDED; Start 06/27/18 at 09:30 Furosemide (Lasix) 40 mg DAILY IV Last administered on 06/28/18 08:33; Admin Dose 40 MG; Start 06/27/18 at 10:30 Enoxaparin Sodium (Lovenox) 60 mg DAILY SC Last administered on 06/28/18 08:34; Admin Dose 60 MG; Start 06/28/18 at 09:00 Fentanyl 100 ml @ 2.5 mls/hr TITRATE PRN IV PAIN Last administered on 06/28/18 11:39; Admin Dose 10 MLS/HR; Start 06/27/18 at 11:30 Piperacillin Sod/ Tazobactam Sod 100 ml @ 200 mls/hr Q8 IVPB Last administered on 06/28/18 06:42; Admin Dose 200 MLS/HR; Start 06/27/18 at 14:00 Vancomycin HCl 1.25 gm/Sodium Chloride 250 ml @ 83.333 mls/ hr Q24H IVPB Last administered on 06/27/18 22:47; Admin Dose 83.333 MLS/HR; Start 06/27/18 at 23:00 Hydralazine HCl (Apresoline) 10 mg Q4H PRN IV ELEVATED BLOOD PRESSURE Last ad ministered on 06/28/18 09:08; Admin Dose 10 MG; Start 06/27/18 at 20:30 Lorazepam (Ativan) 2 mg Q2H PRN IV AGITATION/ANXIETY Last administered on 06/28/18 06:46; Admin Dose 2 MG; Start 06/27/18 at 23:00 Zinc Sulfate (Zinc Sulfate) 220 mg DAILY NGT Last administered on 06/28/18 11:31; Admin Dose 220 MG; Start 06/28/18 at 11:30 Ascorbic Acid (Vitamin C) 500 mg DAILY NGT Last administered on 06/28/18 11:31; Admin Dose 500 MG; Start 06/28/18 at 11:30 Carvedilol (Coreg) 3.125 mg QID NGT ; Start 06/28/18 at 13:30 Hydralazine HCl (Apresoline) 50 mg QID GTB ; Start 06/28/18 at 13:30 Isosorbide Dinitrate (Isordil) 20 mg TID NGT ; Start 06/28/18 at 14:00 DAMION KUMAR Jun 28, 2018 13:04
[2018-06-28] MEDS ORDERED: POTASSIUM CHLORIDE 100 ML IVPB SCH (13:30)
[2018-06-28] MEDS ORDERED: POTASSIUM CHLORIDE 20 MEQ POWDER FOR ORAL SOLN NGT ONE (13:30)
[2018-06-28] MEDS: ISOSORBIDE DINITRATE 20 MG TAB NGT SCH ×2 (14:23→21:14)
[2018-06-28] MEDS: INSULIN GLARGINE [LANTus] (100 UNITS/ML) SYG SC SCH (18:48)
[2018-06-28] MEDS: ATORVASTATIN 40 MG TAB NGT SCH (21:14)
[2018-06-28] MEDS: BALSAM PERU/CASTOR OIL 60 GM TUBE TOP SCH (21:17)
[2018-06-28] MEDS: VANCOMYCIN HCL 1.25 GM in SOD CHLORIDE 0.9% 250 ML IVPB SCH (22:16)
[2018-06-29] VITALS (40 sets, daily range): BP systolic 109–183; BP diastolic 65–117; PULSE 67–86; RESP 15–24
[2018-06-29] MEDS: INSULIN ASPART [NOVOLOG] 3 ML PEN SC SCH ×6 (01:09→21:04)
[2018-06-29] MEDS: ALBUTEROL HFA 8 GM INHALER INH SCH ×4 (01:41→19:43)
[2018-06-29] MEDS: MIDAZOLAM (DRIP) 50 mg/50 mL 50 ML IV SCH ×2 (02:09→11:52)
[2018-06-29] MEDS ORDERED: ALTEPLASE (CATHFLO) 2 MG INJ CATHETER PRN (04:30)
[2018-06-29] MEDS: PIPER-TAZO 3.375 GM IV (PMX) 100 ML IVPB SCH ×3 (05:02→21:02)
[2018-06-29] MEDS ORDERED: POTASSIUM CHLORIDE (SR) 20 MEQ TAB PO STA (08:30)
--- NOTE | 2018-06-29 08:40 | PN ---
Date/Time of Note Date/Time of Note DATE: 06/29/18 TIME: 08:34 Assessment/Plan VTE Prophylaxis Risk score (from [facility] [place]0 risk: 9 SCD applied (from [facility] [place]): No SCD contraindicated: other Pharmacological prophylaxis: LMWH Lines/Catheters IV Catheter Type (from [facility]): Central Line Central line still needed: Yes Urinary Cath still in place: Yes Reason Cath still needed: skin wounds contaminated by urine Assessment/Plan Problems: (1) Cardiopulmonary arrest with successful resuscitation Onset Date: ~ 06/25/2018 Status: Acute Comment: He was successfully resuscitated in the emergency room. However his status is complicated by bilateral pneumonia which is quite possibly aspiration. Continue with aggressive supportive care (2) Aspiration pneumonia of both lungs Status: Acute Comment: On aggressive antibiotics. We will repeat sputum culture, and continue supportive treatment. Please note that he had required a second intubation after extubation a few days ago Qualifiers: Aspiration pneumonia type: unspecified Lung location: lower lobe of lung Qualified Codes: J69.0 - Pneumonitis due to inhalation of food and vomit (3) Essential hypertension Status: Chronic Comment: There is room to go up on his medications which would allow us to use more medicines for his heart failure. Will adjust dosing. Please note were not using chava inhibitors or angiotensin II receptor blockers due to the acute renal insufficiency. (4) Grade II diastolic dysfunction Status: Chronic Comment: Noted and attempting to get the blood pressure under better control (5) Concentric left ventricular hypertrophy Status: Chronic Comment: As above (6) Systolic dysfunction with acute on chronic heart failure Status: Acute Comment: Continue treatment as current with dose adjustments as tolerated (7) Acute kidney injury superimposed on chronic kidney disease Status: Acute Comment: This worsened after IV contrast. Continue supportive care with the guidance and support from nephrology. (8) Acute respiratory failure with hypercapnia Onset Date: ~ 06/27/2018 Status: Acute Comment: Pulmonary assistance appreciated. Still not wean able from the ventilator today (9) Diabetes mellitus type 2 in obese Status: Chronic Comment: Adequate control on an insulin based protocol. (10) Acute hypokalemia Status: Acute Comment: Correcting. (11) Morbid obesity due to excess calories Status: Chronic Comment: Please note that this is undoubtedly led to his diabetes. In addition he may have some degree of cirrhosis. I will try and check an abdominal ultrasound. Result Diagram: 06/29/18 0507 06/29/18 0507 Results 24hrs Laboratory Tests Test 06/28/18 08:48 06/28/18 12:41 06/28/18 18:46 06/28/18 21:13 Bedside Glucose 161 205 139 128 Test 06/29/18 01:06 06/29/18 05:02 06/29/18 05:07 06/29/18 06:00 Bedside Glucose 152 144 White Blood Count 5.9 Red Blood Count 3.88 L Hemoglobin 10.8 L Hematocrit 34.8 L Mean Corpuscular 89.7 Volume Mean Corpuscular 27.8 L Hemoglobin Mean Corpuscular 31.0 L Hemoglobin Concen t Red Cell 14.9 H Distribution Width Platelet Count 184 Mean Platelet 11.4 H Volume Immature 0.300 Granulocytes % Neutrophils % 73.1 Lymphocytes % 13.8 L Monocytes % 7.0 Eosinophils % 5.5 Basophils % 0.3 Nucleated Red 0.0 Blood Cells % Immature 0.020 Granulocytes # Neutrophils # 4.3 Lymphocytes # 0.8 Monocytes # 0.4 Eosinophils # 0.3 Basophils # 0.0 Nucleated Red 0.0 Blood Cells # Sodium Level 145 H Potassium Level 3.7 Chloride Level 111 H Carbon Dioxide 22 Level Anion Gap 12 Blood Urea 27 H Nitrogen Creatinine 2.09 H Est Glomerular Filtrat Rate mL/min Glucose Level 165 Calcium Level 8.2 L Phosphorus Level 3.1 Magnesium Level 1.9 Blood Gas Blood arterial Specimen Source Arterial Blood 06/29/2018 5:31:2 Date Drawn 8 AM Arterial Blood pH 7.479 H (Temp corrected) Arterial Blood 32.7 L pCO2 (Temp correct) Arterial Blood 70.1 L pO2 (Temp corrected) Arterial Blood 23.8 HCO3 Arterial Blood 0.7 Base Excess Arterial Blood 93.6 L Oxygen Saturation Darío Test ACCEPTAB Arterial Blood Right Radial Gas Puncture Site Arterial 0.3 Blood Carboxyhemo globin Arterial Blood 0 Methemoglobin Blood Gas A-a O2 177.5 H Differential Oxyhemoglobin 93.3 Percent Blood Gas 37.0 Temperature Blood Gas 22.0 Respiration Rate Blood Gas Actual 22 Respiration Rate Blood Gas VENT - AC Modality FiO2 40.0 Blood Gas Tidal 650.0 Volume Blood Gas Mean 14 Airway Pressure Blood Gas Low 5.0 PEEP Setting Blood Gas 33.0 Inspiratory Pressure Blood Gas SCOTT RODRIGUEZ Notified Whom Blood Gas 06/29/2018 5:43:1 Notified Time 7 AM Subjective 24 Hr Interval Summary Free Text/Dictation Older Arabic gentleman in soft restraints and sedated. He is intubated. Subjective hx not possible: pt non-verbal, pt critical Exam/Review of Systems Exam Vitals Vital Signs Date Temp Pulse Resp B/P (MAP) Pulse Ox O2 O2 Flow FiO2 Time Delivery Rate 06/29/18 71 08:00 06/29/18 22 146/84 94 Mechanical 06:00 (104) Ventilator 06/29/18 40 05:08 06/29/18 97.9 04:00 06/26/18 6.0 12:00 Intake and Output 06/28/18 06/28/18 06/29/18 1414:59 22:59 06:59 IntakeIntake Total 563.0 ml 570 ml 920 ml OutputOutput Total 3225 ml 650 ml 450 ml BalanceBalance -2662.0 ml -80 ml 470 ml Constitutional: non-verbal ENMT: intubated, other (NG tube in place) Respiratory: normal air movement, crackles/rales (Basilar crackles right greater than left) Cardiovascular: regular rate and rhythm, nl pulses Gastrointestinal: soft, nl liver, spleen (I do not appreciate an enlarged spleen), non-tender Extremities: normal pulses Results Results 24hrs Laboratory Tests Test 06/28/18 08:48 06/28/18 12:41 06/28/18 18:46 06/28/18 21:13 Bedside Glucose 161 205 139 128 Test 06/29/18 01:06 06/29/18 05:02 06/29/18 05:07 06/29/18 06:00 Bedside Glucose 152 144 White Blood Count 5.9 Red Blood Count 3.88 L Hemoglobin 10.8 L Hematocrit 34.8 L Mean Corpuscular 89.7 Volume Mean Corpuscular 27.8 L Hemoglobin Mean Corpuscular 31.0 L Hemoglobin Concen t Red Cell 14.9 H Distribution Width Platelet Count 184 Mean Platelet 11.4 H Volume Immature 0.300 Granulocytes % Neutrophils % 73.1 Lymphocytes % 13.8 L Monocytes % 7.0 Eosinophils % 5.5 Basophils % 0.3 Nucleated Red 0.0 Blood Cells % Immature 0.020 Granulocytes # Neutrophils # 4.3 Lymphocytes # 0.8 Monocytes # 0.4 Eosinophils # 0.3 Basophils # 0.0 Nucleated Red 0.0 Blood Cells # Sodium Level 145 H Potassium Level 3.7 Chloride Level 111 H Carbon Dioxide 22 Level Anion Gap 12 Blood Urea 27 H Nitrogen Creatinine 2.09 H Est Glomerular Filtrat Rate mL/min Glucose Level 165 Calcium Level 8.2 L Phosphorus Level 3.1 Magnesium Level 1.9 Blood Gas Blood arterial Specimen Source Arterial Blood 06/29/2018 5:31:2 Date Drawn 8 AM Arterial Blood pH 7.479 H (Temp corrected) Arterial Blood 32.7 L pCO2 (Temp correct) Arterial Blood 70.1 L pO2 (Temp corrected) Arterial Blood 23.8 HCO3 Arterial Blood 0.7 Base Excess Arterial Blood 93.6 L Oxygen Saturation Darío Test ACCEPTAB Arterial Blood Right Radial Gas Puncture Site Arterial 0.3 Blood Carboxyhemo globin Arterial Blood 0 Methemoglobin Blood Gas A-a O2 177.5 H Differential Oxyhemoglobin 93.3 Percent Blood Gas 37.0 Temperature Blood Gas 22.0 Respiration Rate Blood Gas Actual 22 Respiration Rate Blood Gas VENT - AC Modality FiO2 40.0 Blood Gas Tidal 650.0 Volume Blood Gas Mean 14 Airway Pressure Blood Gas Low 5.0 PEEP Setting Blood Gas 33.0 Inspiratory Pressure Blood Gas [employer] Notified Whom Blood Gas 06/29/2018 5:43:1 Notified Time 7 AM Medications Medication Current Medications Norepinephrine 250 ml @ 1.875 mls/ hr TITRATE IV Last administered on 06/25at 03:13; Admin Dose 3.75 MLS/HR; Start 06/25/18 at 03:00 Vancomycin HCl (Vanco Iv Per Pharmacy) VANCOMYCIN PER PHARMACY PER PROTOCOL XX ; Start 06/25/18 at 07:00 Midazolam HCl 50 ml @ 1 mls/hr TITRATE IV Last administered on 06/29/18at 02:09; Admin Dose 10 MLS/HR; Start 06/25/18 at 07:00 Insulin Aspart (Novolog Insulin Pen) NOVOLOG *MILD* ALGORI... Q4 SC Last administered on 06/29/18at 05:04; Admin Dose 1 UNIT; Start 06/25/18 at 09:00 Propofol 100 ml @ 5.1 mls/hr Q12H IV Last administered on 06/27/18at 09:10; Admin Dose 15.3 MLS/HR; Start 06/25/18 at 10:30 Famotidine (Pepcid Iv) 20 mg DAILY IV Last administered on 06/28/18 08:32; Admin Dose 20 MG; Start 06/26/18 at 10:30 Atorvastatin Calcium (Lipitor) 40 mg HS NGT Last administered on 06/28/18 21:14; Admin Dose 40 MG; Start 06/26/18 at 21:00 Acetaminophen (Tylenol Liquid) 650 mg Q4H PRN NGT MILD PAIN(1-3)OR ELEVATED TEMP Last administered on 06/28/18 00:51; Admin Dose 650 MG; Start 06/26/18 at 13:30 Albuterol (Ventolin Hfa) 4 puff Q6H RESP THERAPY INH Last administered on 06/29/18 01:41; Admin Dose 4 PUFF; Start 06/26/18 at 20:00 Aspirin (Aspirin) 81 mg DAILY NGT Last administered on 06/28/18 08:32; Admin Dose 81 MG; Start 06/27/18 at 09:00 Alteplase, Recombinant (Cathflo (Activase)) 2 mg MAY REPEAT X1 PRN CATHETER IF CATHETER REMAINS OCCULUDED; Start 06/27/18 at 09:30 Furosemide (Lasix) 40 mg DAILY IV Last administered on 06/28/18 08:33; Admin Dose 40 MG; Start 06/27/18 at 10:30 Fentanyl 100 ml @ 2.5 mls/hr TITRATE PRN IV PAIN Last administered on 06/28/18 22:15; Admin Dose 10 MLS/HR; Start 06/27/18 at 11:30 Piperacillin Sod/ Tazobactam Sod 100 ml @ 200 mls/hr Q8 IVPB Last administered on 06/29/18 05:02; Admin Dose 200 MLS/HR; Start 06/27/18 at 14:00 Vancomycin HCl 1.25 gm/Sodium Chloride 250 ml @ 83.333 mls/ hr Q24H IVPB Last administered on 06/28/18 22:16; Admin Dose 83.333 MLS/HR; Start 06/27/18 at 23:00 Hydralazine HCl (Apresoline) 10 mg Q4H PRN IV ELEVATED BLOOD PRESSURE Last administered on 06/28/18 23:35; Admin Dose 10 MG; Start 06/27/18 at 20:30 Lorazepam (Ativan) 2 mg Q2H PRN IV AGITATION/ANXIETY Last administered on 06/28/18 06:46; Admin Dose 2 MG; Start 06/27/18 at 23:00 Zinc Sulfate (Zinc Sulfate) 220 mg DAILY NGT Last administered on 06/28/18 11:31; Admin Dose 220 MG; Start 06/28/18 at 11:30 Ascorbic Acid (Vitamin C) 500 mg DAILY NGT Last administered on 06/28/18 11:31; Admin Dose 500 MG; Start 06/28/18 at 11:30 Carvedilol (Coreg) 3.125 mg QID NGT Last administered on 06/28/18 21:14; Admin Dose 3.125 MG; Start 06/28/18 at 13:30 Hydralazine HCl (Apresoline) 50 mg QID GTB Last administered on 06/28/18 21:14; Admin Dose 50 MG; Start 06/28/18 at 13:30 Isosorbide Dinitrate (Isordil) 20 mg TID NGT Last administered on 06/28/18 21:14; Admin Dose 20 MG; Start 06/28/18 at 14:00 Insulin Glargine (Lantus) 15 units DAILY@0800 SC Last administered on 06/28/18 18:48; Admin Dose 15 UNITS; Start 06/28/18 at 14:00 Enoxaparin Sodium (Lovenox) 30 mg DAILY SC ; Start 06/29/18 at 09:00 Alteplase, Recombinant (Cathflo (Activase)) 2 mg MAY REPEAT X1 PRN CATHETER IF CATHETER REMAINS OCCULUDED; Start 06/29/18 at 04:30 JOSHUA YANG MD Jun 29, 2018 08:40
[2018-06-29] MEDS ORDERED: POTASSIUM CHLORIDE 20 MEQ POWDER FOR ORAL SOLN PO ONE (09:30)
[2018-06-29] MEDS: INSULIN GLARGINE [LANTus] (100 UNITS/ML) SYG SC SCH (09:50)
[2018-06-29] MEDS: BALSAM PERU/CASTOR OIL 60 GM TUBE TOP SCH ×2 (09:51→20:16)
[2018-06-29] MEDS: ISOSORBIDE DINITRATE 20 MG TAB NGT SCH ×3 (09:52→20:16)
[2018-06-29] MEDS: ASPIRIN 81 MG TAB NGT SCH (09:52)
[2018-06-29] MEDS: ASCORBIC ACID 500 MG TAB NGT SCH (09:52)
[2018-06-29] MEDS: ZINC SULFATE 220 MG CAP NGT SCH (09:53)
[2018-06-29] MEDS: FISH OIL 1,000 MG CAP PO SCH ×2 (09:53→20:14)
[2018-06-29] MEDS: ACETAMINOPHEN 650MG/20.3ML CUP NGT PRN (09:54)
[2018-06-29] MEDS: ENOXAPARIN 30 MG/0.3 ML SYG SC SCH (09:57)
--- NOTE | 2018-06-29 10:01 | CONS ---
Consult Date/Type/Reason Admit Date/Time Jun 25, 2018 at 04:04 Initial Consult Date 06/25/18 Type of Consult Pulmonary Requesting Provider: DAMION KUMAR Date/Time of Note DATE: 06/29/18 TIME: 10:00 Subjective Continues mechanical ventilation remains somnolent off sedation. Moderate secretions. Chest x-ray demonstrates pulmonary edema. Objective Vital Signs Date Temp Pulse Resp B/P (MAP) Pulse Ox O2 O2 Flow FiO2 Time Delivery Rate 06/29/18 100.4 09:54 06/29/18 71 08:00 06/29/18 22 146/84 94 [place] 06:00 (104) l Ventilato r 06/29/18 40 05:08 06/26/18 6.0 12:00 Intake and Output 06/28/18 06/28/18 06/29/18 1414:59 22:59 06:59 IntakeIntake Total 563.0 ml 570 ml 920 ml OutputOutput Total 3225 ml 650 ml 450 ml BalanceBalance -2662.0 ml -80 ml 470 ml Exam GENERAL: Elderly obese Bengali gentleman orally intubated VITAL SIGNS: per chart NECK: Supple. No JVD or lymphadenopathy. CARDIAC EXAM: S1, S2. No added sounds or murmurs. CHEST: Diminished air entry bilaterally with rales ABDOMEN: Soft, nontender. No guarding or rebound. EXTREMITIES: No cyanosis, clubbing edema +1 NEUROLOGIC: Generalized weakness. No focal deficits. Vent Setting Ventilator Support Mode: AC Fraction of Inspired Oxygen pe: 40 Positive End Expiratory Pressu: 5.0 Results/Medications Result Diagram: 06/29/18 0507 06/29/18 0507 Results 24 hrs Laboratory Tests Test 06/28/18 12:41 06/28/18 18:46 06/28/18 21:13 06/29/18 01:06 Bedside Glucose 205 139 128 152 Test 06/29/18 05:02 06/29/18 05:07 06/29/18 05:09 06/29/18 06:00 Bedside Glucose 144 White Blood Count 5.9 Red Blood Count 3.88 L Hemoglobin 10.8 L Hematocrit 34.8 L Mean Corpuscular 89.7 Volume Mean Corpuscular 27.8 L Hemoglobin Mean Corpuscular 31.0 L Hemoglobin Concen t Red Cell 14.9 H Distribution Width Platelet Count 184 Mean Platelet 11.4 H Volume Immature 0.300 Granulocytes % Neutrophils % 73.1 Lymphocytes % 13.8 L Monocytes % 7.0 Eosinophils % 5.5 Basophils % 0.3 Nucleated Red 0.0 Blood Cells % Immature 0.020 Granulocytes # Neutrophils # 4.3 Lymphocytes # 0.8 Monocytes # 0.4 Eosinophils # 0.3 Basophils # 0.0 Nucleated Red 0.0 Blood Cells # Sodium Level 145 H Potassium Level 3.7 Chloride Level 111 H Carbon Dioxide 22 Level Anion Gap 12 Blood Urea 27 H Nitrogen Creatinine 2.09 H Est Glomerular Filtrat Rate mL/min Glucose Level 165 Calcium Level 8.2 L Phosphorus Level 3.1 Magnesium Level 1.9 Iron Level 12 L Total Iron 245 Binding Capacity Percent Iron 5 L Saturation Blood Gas Blood arterial Specimen Source Arterial Blood 06/29/2018 5:31:2 Date Drawn 8 AM Arterial Blood pH 7.479 H (Temp corrected) Arterial Blood 32.7 L pCO2 (Temp correct) Arterial Blood 70.1 L pO2 (Temp corrected) Arterial Blood 23.8 HCO3 Arterial Blood 0.7 Base Excess Arterial Blood 93.6 L Oxygen Saturation Darío Test ACCEPTAB Arterial Blood Right Radial Gas Puncture Site Arterial 0.3 Blood Carboxyhemo globin Arterial Blood 0 Methemoglobin Blood Gas A-a O2 177.5 H Differential Oxyhemoglobin 93.3 Percent Blood Gas 37.0 Temperature Blood Gas 22.0 Respiration Rate Blood Gas Actual 22 Respiration Rate Blood Gas VENT - AC Modality FiO2 40.0 Blood Gas Tidal 650.0 Volume Blood Gas Mean 14 Airway Pressure Blood Gas Low 5.0 PEEP Setting Blood Gas 33.0 Inspiratory Pressure Blood Gas SCOTT RODRIGUEZ Notified Whom Blood Gas 06/29/2018 5:43:1 Notified Time 7 AM Test 06/29/18 09:46 Bedside Glucose 160 Medications Current Medications Norepinephrine 250 ml @ 1.875 mls/ hr TITRATE IV Last administered on 06/25/18at 03:13; Admin Dose 3.75 MLS/HR; Start 06/25/18 at 03:00 Vancomycin HCl (Vanco Iv Per Pharmacy) VANCOMYCIN PER PHARMACY PER PROTOCOL XX ; Start 06/25/18 at 07:00 Midazolam HCl 50 ml @ 1 mls/hr TITRATE IV Last administered on 06/29/18at 02:09; Admin Dose 10 MLS/HR; Start 06/25/18 at 07:00 Insulin Aspart (Novolog Insulin Pen) NOVOLOG *MILD* ALGORI... Q4 SC Last administered on 06/29/18 09:49; Admin Dose 1 UNIT; Start 06/25/18 at 09:00 Propofol 100 ml @ 5.1 mls/hr Q12H IV Last administered on 06/27/18 09:10; Admin Dose 15.3 MLS/HR; Start 06/25/18 at 10:30 Famotidine (Pepcid Iv) 20 mg DAILY IV Last administered on 06/28/18 08:32; Admin Dose 20 MG; Start 06/26/18 at 10:30 Atorvastatin Calcium (Lipitor) 40 mg HS NGT Last administered on 06/28/18 21:14; Admin Dose 40 MG; Start 06/26/18 at 21:00 Acetaminophen (Tylenol Liquid) 650 mg Q4H PRN NGT MILD PAIN(1-3)OR ELEVATED TEMP Last administered on 06/29/18 09:54; Admin Dose 650 MG; Start 06/26/18 at 13:30 Albuterol (Ventolin Hfa) 4 puff Q6H RESP THERAPY INH Last administered on 06/29/18 08:36; Admin Dose 4 PUFF; Start 06/26/18 at 20:00 Aspirin (Aspirin) 81 mg DAILY NGT Last administered on 06/29/18 09:52; Admin Dose 81 MG; Start 06/27/18 at 09:00 Alteplase, Recombinant (Cathflo (Activase)) 2 mg MAY REPEAT X1 PRN CATHETER IF CATHETER REMAINS OCCULUDED; Start 06/27/18 at 09:30 Furosemide (Lasix) 40 mg DAILY IV Last administered on 06/28/18 08:33; Admin Dose 40 MG; Start 06/27/18 at 10:30 Fentanyl 100 ml @ 2.5 mls/hr TITRATE PRN IV PAIN Last administered on 06/28/18 22:15; Admin Dose 10 MLS/HR; Start 06/27/18 at 11:30 Piperacillin Sod/ Tazobactam Sod 100 ml @ 200 mls/hr Q8 IVPB Last administered on 06/29/18 05:02; Admin Dose 200 MLS/HR; Start 06/27/18 at 14:00 Vancomycin HCl 1.25 gm/Sodium Chloride 250 ml @ 83.333 mls/ hr Q24H IVPB Last administered on 06/28/18 22:16; Admin Dose 83.333 MLS/HR; Start 06/27/18 at 23:00 Hydralazine HCl (Apresoline) 10 mg Q4H PRN IV ELEVATED BLOOD PRESSURE Last administered on 06/28/18 23:35; Admin Dose 10 MG; Start 06/27/18 at 20:30 Lorazepam (Ativan) 2 mg Q2H PRN IV AGITATION/ANXIETY Last administered on 06/28/18 06:46; Admin Dose 2 MG; Start 06/27/18 at 23:00 Zinc Sulfate (Zinc Sulfate) 220 mg DAILY NGT Last administered on 06/29/18 09:53; Admin Dose 220 MG; Start 06/28/18 at 11:30 Ascorbic Acid (Vitamin C) 500 mg DAILY NGT Last administered on 06/29/18 09: 52; Admin Dose 500 MG; Start 06/28/18 at 11:30 Isosorbide Dinitrate (Isordil) 20 mg TID NGT Last administered on 06/29/18 09:52; Admin Dose 20 MG; Start 06/28/18 at 14:00 Insulin Glargine (Lantus) 15 units DAILY@0800 SC Last administered on 06/29/18 09:50; Admin Dose 15 UNITS; Start 06/28/18 at 14:00 Enoxaparin Sodium (Lovenox) 30 mg DAILY SC Last administered on 06/29/18 09:57; Admin Dose 30 MG; Start 06/29/18 at 09:00 Alteplase, Recombinant (Cathflo (Activase)) 2 mg MAY REPEAT X1 PRN CATHETER IF CATHETER REMAINS OCCULUDED; Start 06/29/18 at 04:30 Carvedilol (Coreg) 9.375 mg BID NGT Last administered on 06/29/18 09:52; Admin Dose 9.375 MG; Start 06/29/18 at 09:00 Hydralazine HCl (Apresoline) 100 mg TID GTB Last administered on 06/29/18 09:53; Admin Dose 100 MG; Start 06/29/18 at 09:00 Fish Oil (Fish Oil) 2,000 mg BID PO Last administered on 06/29/18at 09:53; Admin Dose 2,000 MG; Start 06/29/18 at 09:00 Assessment/Plan Hospital Course (Demo Recall) Assessment 1. Acute hypoxemic respiratory failure likely secondary to congestive cardiac failure. 2. Renal insufficiency 3. Probable underlying obstructive sleep apnea 4. Bilateral pneumonia probable community acquired Plan 1. Continue bronchodilators 2. Continue mechanical ventilation, FiO2 currently at 50%. Not stable for weaning yet. 3. Trial of fentanyl for pain control 4. Decrease sedation as tolerated 5. Continue tube feeding Critical care time 40 minutes [facility] Jun 29, 2018 10:01
[2018-06-29] MEDS: FAMOTIDINE 20 MG INJ IV SCH (10:03)
[2018-06-29] MEDS: FUROSEMIDE 40 MG INJ IV SCH (10:04)
--- NOTE | 2018-06-29 10:13 | CONS ---
Assessment/Plan Assessment/Plan Assessment/Plan (Daily) 1. Nonoliguric acute kidney injury with unknown baseline creatinine. Etiology of acute kidney injury is multifactorial secondary to acute tubular necrosis due to hemodynamics, possible contrast-associated nephropathy. The patient's repeat urinalysis was reviewed. Urine electrolytes were reviewed. The patient appears to be in injury phase of acute kidney injury. At this point, we would continue current treatment plan, supportive care, renally dose all medicines, continue intermittent diuretic therapy as needed to maintain euvolemic status. 2. Volume overload. The patient is currently on diuretic therapy with good urinary output. We will continue to monitor electrolytes and renal function closely. 3. Anemia. Monitor hemoglobin and hematocrit levels. 4. Mineral bone disorder. Monitor calcium and phosphorus levels. 5. Hypokalemia, replete with potassium chloride. 6. Ventilator-dependent respiratory failure, etiology is secondary to pneumonia. The patient's vent settings and ABG was reviewed. Continue to monitor. 7. Status post cardiopulmonary arrest. Continue to monitor. Follow up with Cardiology. 8. Sepsis secondary to pneumonia. Continue current antibiotic regimen. 9. Hypertension. Continue current blood pressure regimen. 10. Dyslipidemia. Continue statin therapy. 11. Diabetes. Continue current insulin regimen. 12. History of ETOH cirrhosis. Continue to monitor. 13. Cardiomyopathy with decompensation. Continue medical management. Continue diuretic therapy. 14. Morbid obesity. 15. Possible cerebrovascular accident. Continue current treatment plan. Consultation Date/Type/Reason Admit Date/Time Jun 25, 2018 at 04:04 Initial Consult Date 06/25/18 Requesting Provider: DAMION KUMAR Date/Time of Note DATE: 06/29/18 TIME: 10:12 24 HR Interval Summary Free Text/Dictation remains intubated tolerating tf adequate urine output d/w rn gen intubated cv rrr pulm coarse bs abd soft, nd, nt +bs ext: no edema Exam/Review of Systems Exam Vitals Vital Signs Date Temp Pulse Resp B/P (MAP) Pulse Ox O2 O2 Flow FiO2 Time Delivery Rate 06/29/18 100.4 09:54 06/29/18 71 08:00 06/29/18 22 95 40 07:43 06/29/18 146/84 [place] 06:00 (104) l Ventilato r 06/26/18 6.0 12:00 Intake and Output 06/28/18 06/28/1806/29/19 1515:00 23:00 07:00 IntakeIntake Total 576.5 ml 570 ml 860 ml OutputOutput Total 3175 ml 600 ml 400 ml BalanceBalance -2598.5 ml -30 ml 460 ml Results Result Diagram: 06/29/18 0507 06/29/18 0507 Results 24hrs Laboratory Tests Test 06/28/18 12:41 06/28/18 18:46 06/28/18 21:13 06/29/18 01:06 Bedside Glucose 205 139 128 152 Test 06/29/18 05:02 06/29/18 05:07 06/29/18 05:09 06/29/18 06:00 Bedside Glucose 144 White Blood Count 5.9 Red Blood Count 3.88 L Hemoglobin 10.8 L Hematocrit 34.8 L Mean Corpuscular 89.7 Volume Mean Corpuscular 27.8 L Hemoglobin Mean Corpuscular 31.0 L Hemoglobin Concen t Red Cell 14.9 H Distribution Width Platelet Count 184 Mean Platelet 11.4 H Volume Immature 0.300 Granulocytes % Neutrophils % 73.1 Lymphocytes % 13.8 L Monocytes % 7.0 Eosinophils % 5.5 Basophils % 0.3 Nucleated Red 0.0 Blood Cells % Immature 0.020 Granulocytes # Neutrophils # 4.3 Lymphocytes # 0.8 Monocytes # 0.4 Eosinophils # 0.3 Basophils # 0.0 Nucleated Red 0.0 Blood Cells # Sodium Level 145 H Potassium Level 3.7 Chloride Level 111 H Carbon Dioxide 22 Level Anion Gap 12 Blood Urea 27 H Nitrogen Creatinine 2.09 H Est Glomerular Filtrat Rate mL/min Glucose Level 165 Calcium Level 8.2 L Phosphorus Level 3.1 Magnesium Level 1.9 Iron Level 12 L Total Iron 245 Binding Capacity Percent Iron 5 L Saturation Blood Gas Blood arterial Specimen Source Arterial Blood 06/29/2018 5:31:2 Date Drawn 8 AM Arterial Blood pH 7.479 H (Temp corrected) Arterial Blood 32.7 L pCO2 (Temp correct) Arterial Blood 70.1 L pO2 (Temp corrected) Arterial Blood 23.8 HCO3 Arterial Blood 0.7 Base Excess Arterial Blood 93.6 L Oxygen Saturation Darío Test ACCEPTAB Arterial Blood Right Radial Gas Puncture Site Arterial 0.3 Blood Carboxyhemo globin Arterial Blood 0 Methemoglobin Blood Gas A-a O2 177.5 H Differential Oxyhemoglobin 93.3 Percent Blood Gas 37.0 Temperature Blood Gas 22.0 Respiration Rate Blood Gas Actual 22 Respiration Rate Blood Gas VENT - AC Modality FiO2 40.0 Blood Gas Tidal 650.0 Volume Blood Gas Mean 14 Airway Pressure Blood Gas Low 5.0 PEEP Setting Blood Gas 33.0 Inspiratory Pressure Blood Gas SCOTT RODRIGUEZ Notified Whom Blood Gas 06/29/2018 5:43:1 Notified Time 7 AM Test 06/29/18 09:46 Bedside Glucose 160 Medications Medication Current Medications Norepinephrine 250 ml @ 1.875 mls/ hr TITRATE IV Last administered on 06/25/18 03:13; Admin Dose 3.75 MLS/HR; Start 06/25/18 at 03:00 Vancomycin HCl (Vanco Iv Per Pharmacy) VANCOMYCIN PER PHARMACY PER PROTOCOL XX ; Start 06/25/18 at 07:00 Midazolam HCl 50 ml @ 1 mls/hr TITRATE IV Last administered on 06/29/18 02:09; Admin Dose 10 MLS/HR; Start 06/25/18 at 07:00 Insulin Aspart (Novolog Insulin Pen) NOVOLOG *MILD* ALGORI... Q4 SC Last administered on 06/29/18 09:49; Admin Dose 1 UNIT; Start 06/25/18 at 09:00 Propofol 100 ml @ 5.1 mls/hr Q12H IV Last administered on 06/27/18 09:10; Admin Dose 15.3 MLS/HR; Start 06/25/18 at 10:30 Famotidine (Pepcid Iv) 20 mg DAILY IV Last administered on 06/29/18 10:03; Admin Dose 20 MG; Start 06/26/18 at 10:30 Atorvastatin Calcium (Lipitor) 40 mg HS NGT Last administered on 06/28/18 21:14; Admin Dose 40 MG; Start 06/26/18 at 21:00 Acetaminophen (Tylenol Liquid) 650 mg Q4H PRN NGT MILD PAIN(1-3)OR ELEVATED TEMP Last administered on 06/29/18 09:54; Admin Dose 650 MG; Start 06/26/18 at 13:30 Albuterol (Ventolin Hfa) 4 puff Q6H RESP THERAPY INH Last administered on 06/29/18 08:36; Admin Dose 4 PUFF; Start 06/26/18 at 20:00 Aspirin (Aspirin) 81 mg DAILY NGT Last administered on 06/29/18 09:52; Admin Dose 81 MG; Start 06/27/18 at 09:00 Alteplase, Recombinant (Cathflo (Activase)) 2 mg MAY REPEAT X1 PRN CATHETER IF CATHETER REMAINS OCCULUDED; Start 06/27/18 at 09:30 Furosemide (Lasix) 40 mg DAILY IV Last administered on 06/29/18 10:04; Admin Dose 40 MG; Start 06/27/18 at 10:30 Fentanyl 100 ml @ 2.5 mls/hr TITRATE PRN IV PAIN Last administered on 06/28/18 22:15; Admin Dose 10 MLS/HR; Start 06/27/18 at 11:30 Piperacillin Sod/ Tazobactam Sod 100 ml @ 200 mls/hr Q8 IVPB Last administered on 06/29/18 05:02; Admin Dose 200 MLS/HR; Start 06/27/18 at 14:00 Vancomycin HCl 1.25 gm/Sodium Chloride 250 ml @ 83.333 mls/ hr Q24H IVPB Last administered on 06/28/18 22:16; Admin Dose 83.333 MLS/HR; Start 06/27/18 at 23:00 Hydralazine HCl (Apresoline) 10 mg Q4H PRN IV ELEVATED BLOOD PRESSURE Last administered on 06/28/18 23:35; Admin Dose 10 MG; Start 06/27/18 at 20:30 Lorazepam (Ativan) 2 mg Q2H PRN IV AGITATION/ANXIETY Last administered on 06/28/18 06:46; Admin Dose 2 MG; Start 06/27/18 at 23:00 Zinc Sulfate (Zinc Sulfate) 220 mg DAILY NGT Last administered on 06/29/18 09:53; Admin Dose 220 MG; Start 06/28/18 at 11:30 Ascorbic Acid (Vitamin C) 500 mg DAILY NGT Last administered on 06/29/18 09:52; Admin Dose 500 MG; Start 06/28/18 at 11:30 Isosorbide Dinitrate (Isordil) 20 mg TID NGT Last administered on 06/29/18 09:52; Admin Dose 20 MG; Start 06/28/18 at 14:00 Insulin Glargine (Lantus) 15 units DAILY@0800 SC Last administered on 06/29/18 09:50; Admin Dose 15 UNITS; Start 06/28/18 at 14:00 Enoxaparin Sodium (Lovenox) 30 mg DAILY SC Last administered on 06/29/18 09:57; Admin Dose 30 MG; Start 06/29/18 at 09:00 Alteplase, Recombinant (Cathflo (Activase)) 2 mg MAY REPEAT X1 PRN CATHETER IF CATHETER REMAINS OCCULUDED; Start 06/29/18 at 04:30 Carvedilol (Coreg) 9.375 mg BID NGT Last administered on 06/29/18 09:52; Admin Dose 9.375 MG; Start 06/29/18 at 09:00 Hydralazine HCl (Apresoline) 100 mg TID GTB Last administered on 06/29/18 09:53; Admin Dose 100 MG; Start 06/29/18 at 09:00 Fish Oil (Fish Oil) 2,000 mg BID PO Last administered on 06/29/18 09:53; Admin Dose 2,000 MG; Start 06/29/18 at 09:00 BE MARIN MD Jun 29, 2018 10:13
[2018-06-29] MEDS: PROPOFOL 100 ML IV SCH ×2 (10:30→21:31)
[2018-06-29] MEDS: FENTAnyl (DRIP) 1000 mcg/100mL 100 ML IV PRN (11:51)
[2018-06-29] MEDS: LORAZEPAM 2 MG INJ IV PRN (14:46)
--- NOTE | 2018-06-29 14:57 | CONS ---
Assessment/Plan Assessment/Plan Hospital Course (Demo Recall) Impression: Status post cardiopulmonary arrest appears to be mostly related to respiratory failure Hypoxemic respiratory failure status post intubation vent dependent now Hypertension, with fair control Cardiomyopathy :unclear acute versus chronic Congestive heart failure probably acute on chronic secondary systolic heart failure Acute renal insufficiency Encephalopathy LBBB Pneumonia Recommendation: Increase carvedilol to 12.5 mg po bid No DENNIS/ARB due to renal insufficiency Continue isordil/hydralazine Diuresis Ventilator management and antibiotics 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 Subjective hx not possible: pt non-verbal Exam/Review of Systems Vital Signs Vitals Vital Signs Date Temp Pulse Resp B/P (MAP) Pulse Ox O2 O2 Flow FiO2 Time Delivery Rate 06/29/18 86 22 97 40 13:56 06/29/18 136/75 Mechanical 13:00 (95) Ventilator 06/29/18 99.3 12:00 06/26/18 6.0 12:00 Intake and Output 06/28/18 06/28/18 06/29/18 1515:00 23:00 07:00 IntakeIntake Total 576.5 ml 570 ml 920 ml OutputOutput Total 3175 ml 600 ml 460 ml BalanceBalance -2598.5 ml -30 ml 460 ml Exam Constitutional: other (obese) Head: normocephalic, atraumatic Eyes: nl lids ENMT: intubated Neck: No bruits Respiratory: clear to auscultation (anteriorly), normal air movement Cardiovascular: regular rate and rhythm; No murmurs/extra sounds Gastrointestinal: soft, nl liver, spleen, non-tender Musculoskeletal: nl extremities to inspection Extremities: No edema Skin: nl turgor Labs Result Diagram: 06/29/18 0507 06/29/18 0507 Results 24hrs Laboratory Tests Test 06/28/18 18:46 06/28/18 21:13 06/29/18 01:06 06/29/18 05:02 Bedside Glucose 139 128 152 144 Test 06/29/18 05:07 06/29/18 05:09 06/29/18 06:00 06/29/18 09:46 White Blood Count 5.9 Red Blood Count 3.88 L Hemoglobin 10.8 L Hematocrit 34.8 L Mean Corpuscular 89.7 Volume Mean Corpuscular 27.8 L Hemoglobin Mean Corpuscular 31.0 L Hemoglobin Concen t Red Cell 14.9 H Distribution Width Platelet Count 184 Mean Platelet 11.4 H Volume Immature 0.300 Granulocytes % Neutrophils % 73.1 Lymphocytes % 13.8 L Monocytes % 7.0 Eosinophils % 5.5 Basophils % 0.3 Nucleated Red 0.0 Blood Cells % Immature 0.020 Granulocytes # Neutrophils # 4.3 Lymphocytes # 0.8 Monocytes # 0.4 Eosinophils # 0.3 Basophils # 0.0 Nucleated Red 0.0 Blood Cells # Sodium Level 145 H Potassium Level 3.7 Chloride Level 111 H Carbon Dioxide 22 Level Anion Gap 12 Blood Urea 27 H Nitrogen Creatinine 2.09 H Est Glomerular Filtrat Rate mL/min Glucose Level 165 Calcium Level 8.2 L Phosphorus Level 3.1 Magnesium Level 1.9 Iron Level 12 L Total Iron 245 Binding Capacity Percent Iron 5 L Saturation Blood Gas Blood arterial Specimen Source Arterial Blood 06/29/2018 5:31:2 Date Drawn 8 AM Arterial Blood pH 7.479 H (Temp corrected) Arterial Blood 32.7 L pCO2 (Temp correct) Arterial Blood 70.1 L pO2 (Temp corrected) Arterial Blood 23.8 HCO3 Arterial Blood 0.7 Base Excess Arterial Blood 93.6 L Oxygen Saturation Darío Test ACCEPTAB Arterial Blood Right Radial Gas Puncture Site Arterial 0.3 Blood Carboxyhemo globin Arterial Blood 0 Methemoglobin Blood Gas A-a O2 177.5 H Differential Oxyhemoglobin 93.3 Percent Blood Gas 37.0 Temperature Blood Gas 22.0 Respiration Rate Blood Gas Actual 22 Respiration Rate Blood Gas VENT - AC Modality FiO2 40.0 Blood Gas Tidal 650.0 Volume Blood Gas Mean 14 Airway Pressure Blood Gas Low 5.0 PEEP Setting Blood Gas 33.0 Inspiratory Pressure Blood Gas SCOTT RODRIGUEZ Notified Whom Blood Gas 06/29/2018 5:43:1 Notified Time 7 AM Bedside Glucose 160 Test 06/29/18 12:51 Bedside Glucose 168 Medications Medications Current Medications Norepinephrine 250 ml @ 1.875 mls/ hr TITRATE IV Last administered on 06/25/18 03:13; Admin Dose 3.75 MLS/HR; Start 06/25/18 at 03:00 Vancomycin HCl (Vanco Iv Per Pharmacy) VANCOMYCIN PER PHARMACY PER PROTOCOL XX ; Start 06/25/18 at 07:00 Midazolam HCl 50 ml @ 1 mls/hr TITRATE IV Last administered on 06/29/18 11:52; Admin Dose 5 MLS/HR; Start 06/25/18 at 07:00 Insulin Aspart (Novolog Insulin Pen) NOVOLOG *MILD* ALGORI... Q4 SC Last administered on 06/29/18 12:54; Admin Dose 1 UNIT; Start 06/25/18 at 09:00 Propofol 100 ml @ 5.1 mls/hr Q12H IV Last administered on 06/27/18 09:10; Admin Dose 15.3 MLS/HR; Start 06/25/18 at 10:30 Famotidine (Pepcid Iv) 20 mg DAILY IV Last administered on 06/29/18 10:03; Admin Dose 20 MG; Start 06/26/18 at 10:30 Atorvastatin Calcium (Lipitor) 40 mg HS NGT Last administered on 06/28/18 21:14; Admin Dose 40 MG; Start 06/26/18 at 21:00 Acetaminophen (Tylenol Liquid) 650 mg Q4H PRN NGT MILD PAIN(1-3)OR ELEVATED TEMP Last administered on 06/29/18 09:54; Admin Dose 650 MG; Start 06/26/18 at 13:30 Albuterol (Ventolin Hfa) 4 puff Q6H RESP THERAPY INH Last administered on 06/29/18 14:14; Admin Dose 4 PUFF; Start 06/26/18 at 20:00 Aspirin (Aspirin) 81 mg DAILY NGT Last administered on 06/29/18 09:52; Admin Dose 81 MG; Start 06/27/18 at 09:00 Alteplase, Recombinant (Cathflo (Activase)) 2 mg MAY REPEAT X1 PRN CATHETER IF CATHETER REMAINS OCCULUDED; Start 06/27/18 at 09:30 Furosemide (Lasix) 40 mg DAILY IV Last administered on 06/29/18 10:04; Admin Dose 40 MG; Start 06/27/18 at 10:30 Fentanyl 100 ml @ 2.5 mls/hr TITRATE PRN IV PAIN Last administered on 06/29/18 11:51; Admin Dose 5 MLS/HR; Start 06/27/18 at 11:30 Piperacillin Sod/ Tazobactam Sod 100 ml @ 200 mls/hr Q8 IVPB Last administered on 06/29/18 13:29; Admin Dose 200 MLS/HR; Start 06/27/18 at 14:00 Vancomycin HCl 1.25 gm/Sodium Chloride 250 ml @ 83.333 mls/ hr Q24H IVPB Last administered on 06/28/18 22:16; Admin Dose 83.333 MLS/HR; Start 06/27/18 at 23:00 Hydralazine HCl (Apresoline) 10 mg Q4H PRN IV ELEVATED BLOOD PRESSURE Last administered on 06/28/18 23:35; Admin Dose 10 MG; Start 06/27/18 at 20:30 Lorazepam (Ativan) 2 mg Q2H PRN IV AGITATION/ANXIETY Last administered on 06/28/18 06:46; Admin Dose 2 MG; Start 06/27/18 at 23:00 Zinc Sulfate (Zinc Sulfate) 220 mg DAILY NGT Last administered on 06/29/18 09:53; Admin Dose 220 MG; Start 06/28/18 at 11:30 Ascorbic Acid (Vitamin C) 500 mg DAILY NGT Last administered on 06/29/18 09:52; Admin Dose 500 MG; Start 06/28/18 at 11:30 Isosorbide Dinitrate (Isordil) 20 mg TID NGT Last administered on 06/29/18 12:47; Admin Dose 20 MG; Start 06/28/18 at 14:00 Insulin Glargine (Lantus) 15 units DAILY@0800 SC Last administered on 06/29/18 09:50; Admin Dose 15 UNITS; Start 06/28/18 at 14:00 Enoxaparin Sodium (Lovenox) 30 mg DAILY SC Last administered on 06/29/18 09:57; Admin Dose 30 MG; Start 06/29/18 at 09:00 Alteplase, Recombinant (Cathflo (Activase)) 2 mg MAY REPEAT X1 PRN CATHETER IF CATHETER REMAINS OCCULUDED; Start 06/29/18 at 04:30 Carvedilol (Coreg) 9.375 mg BID NGT Last administered on 06/29/18at 09:52; Admin Dose 9.375 MG; Start 06/29/18 at 09:00 Hydralazine HCl (Apresoline) 100 mg TID GTB Last administered on 06/29/18at 12:47; Admin Dose 100 MG; Start 06/29/18 at 09:00 Fish Oil (Fish Oil) 2,000 mg BID PO Last administered on 06/29/18at 09:53; Admin Dose 2,000 MG; Start 06/29/18 at 09:00 KETAN REGAN Jun 29, 2018 14:57
[2018-06-29] MEDS ORDERED: SOD FERRIC GLUC COMPLX 125 MG in SOD CHLORIDE 0.9% 100 ML IVPB ONE (17:30)
[2018-06-29] MEDS: ATORVASTATIN 40 MG TAB NGT SCH (20:14)
[2018-06-29] MEDS: VANCOMYCIN HCL 1.25 GM in SOD CHLORIDE 0.9% 250 ML IVPB SCH (22:29)
[2018-06-30] VITALS (36 sets, daily range): BP systolic 109–184; BP diastolic 56–92; PULSE 71–91; RESP 18–23
[2018-06-30] MEDS: MIDAZOLAM (DRIP) 50 mg/50 mL 50 ML IV SCH (01:00)
[2018-06-30] MEDS: INSULIN ASPART [NOVOLOG] 3 ML PEN SC SCH ×6 (01:00→20:33)
[2018-06-30] MEDS: ALBUTEROL HFA 8 GM INHALER INH SCH ×4 (01:05→19:20)
[2018-06-30] MEDS: PIPER-TAZO 3.375 GM IV (PMX) 100 ML IVPB SCH (05:06)
--- NOTE | 2018-06-30 07:27 | PN ---
Date/Time of Note Date/Time of Note DATE: 06/30/18 TIME: 07:24 Assessment/Plan VTE Pro[place]axis [place] [facility] [place]: 9 [place]CD [place] [facility] [place] SCD contraindicated: bilateral LE trauma Pharmacological prophylaxis: LMWH Lines/Catheters IV Catheter Type (from [facility]): Central Line Central line still needed: Yes Urinary Cath still in place: Yes Reason Cath still needed: skin wounds contaminated by urine Assessment/Plan Problems: (1) Cardiopulmonary arrest with successful resuscitation Onset Date: ~ 06/25/2018 Status: Acute Comment: Holding relatively stable at this time. Start decreasing sedation with the hope that we can get him off the ventilator. (2) Aspiration pneumonia of both lungs Status: Acute Comment: On antibiotic therapy and apparently doing relatively better. Qualifiers: Aspiration pneumonia type: unspecified Lung location: lower lobe of lung Qualified Codes: J69.0 - Pneumonitis due to inhalation of food and vomit (3) Acute respiratory failure with hypercapnia Onset Date: ~ 06/27/2018 Status: Acute Comment: To begin evaluation for the possibility of weaning and extubation from the ventilator (4) Systolic dysfunction with acute on chronic heart failure Status: Acute Comment: Tolerating adjustment in medications and increase in blood pressure medicines designed for heart failure systolic and diastolic (5) Grade II diastolic dysfunction Status: Chronic Comment: As above. (6) Essential hypertension Status: Chronic Comment: As above. Titrate up on medications (7) Hyperlipidemia Status: Chronic Comment: Continue statin therapy Qualifiers: Hyperlipidemia type: pure hypercholesterolemia Qualified Codes: E78.00 - Pure hypercholesterolemia, unspecified (8) Hepatosplenomegaly Status: Chronic Comment: Based on the evaluation I suspect this gentleman has a bit of cirrhosis. Type is not presently identified (9) Acute kidney injury superimposed on chronic kidney disease Status: Acute Comment: Continue with careful management of fluids and medications (10) Diabetes mellitus type 2 in obese Status: Chronic Comment: Adequate glycemic control Result Diagram: 06/30/18 0400 06/30/18 0400 Results 24hrs Laboratory Tests Test 06/29/18 09:46 06/29/18 12:51 06/29/18 16:22 06/29/18 21:02 Bedside Glucose 160 168 145 145 Test 06/30/18 01:02 06/30/18 04:00 06/30/18 05:04 Bedside Glucose 138 148 White Blood Count 5.6 Red Blood Count 3.73 L Hemoglobin 10.3 L Hematocrit 33.2 L Mean Corpuscular 89.0 Volume Mean Corpuscular 27.6 L Hemoglobin Mean Corpuscular 31.0 L Hemoglobin Concent Red Cell 15.1 H Distribution Width Platelet Count 192 Mean Platelet Volume 11.6 H Immature 0.500 H Granulocytes % Neutrophils % 69.5 Lymphocytes % 15.6 Monocytes % 8.6 Eosinophils % 5.4 Basophils % 0.4 Nucleated Red Blood 0.0 Cells % Immature 0.030 Granulocytes # Neutrophils # 3.9 Lymphocytes # 0.9 Monocytes # 0.5 Eosinophils # 0.3 Basophils # 0.0 Nucleated Red Blood 0.0 Cells # Sodium Level 147 H Potassium Level 3.7 Chloride Level 110 Carbon Dioxide Level 25 Anion Gap 12 Blood Urea Nitrogen 31 H Creatinine 2.25 H Est Glomerular Filtrat Rate mL/min Glucose Level 160 Calcium Level 8.5 Phosphorus Level 3.5 Magnesium Level 2.0 Total Bilirubin 0.3 Direct Bilirubin 0.00 Indirect Bilirubin 0.3 Aspartate Amino 20 Transf (AST/SGOT) Alanine 19 Aminotransferase (AL T/SGPT) Alkaline Phosphatase 43 Total Protein 6.1 Albumin 3.2 L Globulin 2.90 Albumin/Globulin 1.10 Ratio Subjective 24 Hr Interval Summary Free Text/Dictation Presently sedated on fentanyl and Versed. Those drips are being turned off to evaluate for his ability to come through the weaning process Subjective hx not possible: pt non-verbal (Intubated), pt critical status Exam/Review of Systems Exam Vitals Vital Signs Date Temp Pulse Resp B/P (MAP) Pulse Ox O2 O2 Flow FiO2 Time Delivery Rate 06/30/18 74 160/83 94 Mechanical 06:00 (108) Ventilator 06/30/18 22 05:00 06/30/18 40 04:55 06/30/18 99.0 04:00 06/26/18 6.0 12:00 Intake and Output 06/29/18 06/29/18 06/30/18 1515:00 23:00 07:00 IntakeIntake Total 426.5 ml 541.66 ml 539.993 ml OutputOutput Total 1440 ml 750 ml 550 ml BalanceBalance -1013.5 ml -208.34 ml -10.007 ml Constitutional: non-verbal ENMT: intubated, other (Is a gastric feeding tube in place) Respiratory: clear to auscultation, normal air movement Cardiovascular: regular rate and rhythm, nl pulses Gastrointestinal: soft, nl liver, spleen, non-tender Results Results 24hrs Laboratory Tests Test 06/29/18 09:46 06/29/18 12:51 06/29/18 16:22 06/29/18 21:02 Bedside Glucose 160 168 145 145 Test 06/30/18 01:02 06/30/18 04:00 06/30/18 05:04 Bedside Glucose 138 148 White Blood Count 5.6 Red Blood Count 3.73 L Hemoglobin 10.3 L Hematocrit 33.2 L Mean Corpuscular 89.0 Volume Mean Corpuscular 27.6 L Hemoglobin Mean Corpuscular 31.0 L Hemoglobin Concent Red Cell 15.1 H Distribution Width Platelet Count 192 Mean Platelet Volume 11.6 H Immature 0.500 H Granulocytes % Neutrophils % 69.5 Lymphocytes % 15.6 Monocytes % 8.6 Eosinophils % 5.4 Basophils % 0.4 Nucleated Red Blood 0.0 Cells % Immature 0.030 Granulocytes # Neutrophils # 3.9 Lymphocytes # 0.9 Monocytes # 0.5 Eosinophils # 0.3 Basophils # 0.0 Nucleated Red Blood 0.0 Cells # Sodium Level 147 H Potassium Level 3.7 Chloride Level 110 Carbon Dioxide Level 25 Anion Gap 12 Blood Urea Nitrogen 31 H Creatinine 2.25 H Est Glomerular Filtrat Rate mL/min Glucose Level 160 Calcium Level 8.5 Phosphorus Level 3.5 Magnesium Level 2.0 Total Bilirubin 0.3 Direct Bilirubin 0.00 Indirect Bilirubin 0.3 Aspartate Amino 20 Transf (AST/SGOT) Alanine 19 Aminotransferase (AL T/SGPT) Alkaline Phosphatase 43 Total Protein 6.1 Albumin 3.2 L Globulin 2.90 Albumin/Globulin 1.10 Ratio Medications Medication Current Medications Norepinephrine 250 ml @ 1.875 mls/ hr TITRATE IV Last administered on 06/25/18at 03:13; Admin Dose 3.75 MLS/HR; Start 06/25/18 at 03:00 Vancomycin HCl (Vanco Iv Per Pharmacy) VANCOMYCIN PER PHARMACY PER PROTOCOL XX ; Start 06/25/18 at 07:00 Midazolam HCl 50 ml @ 1 mls/hr TITRATE IV Last administered on 06/30/18at 01:00; Admin Dose 5 MLS/HR; Start 06/25/18 at 07:00 Insulin Aspart (Novolog Insulin Pen) NOVOLOG *MILD* ALGORI... Q4 SC Last administered on 06/30/18 05:07; Admin Dose 1 UNIT; Start 06/25/18 at 09:00 Propofol 100 ml @ 5.1 mls/hr Q12H IV Last administered on 06/27/18 09:10; Admin Dose 15.3 MLS/HR; Start 06/25/18 at 10:30 Famotidine (Pepcid Iv) 20 mg DAILY IV Last administered on 06/29/18 10:03; Admin Dose 20 MG; Start 06/26/18 at 10:30 Atorvastatin Calcium (Lipitor) 40 mg HS NGT Last administered on 06/29/18 20:14; Admin Dose 40 MG; Start 06/26/18 at 21:00 Acetaminophen (Tylenol Liquid) 650 mg Q4H PRN NGT MILD PAIN(1-3)OR ELEVATED TEMP Last administered on 06/29/18 09:54; Admin Dose 650 MG; Start 06/26/18 at 13:30 Albuterol (Ventolin Hfa) 4 puff Q6H RESP THERAPY INH Last administered on 06/30/18 01:05; Admin Dose 4 PUFF; Start 06/26/18 at 20:00 Aspirin (Aspirin) 81 mg DAILY NGT Last administered on 06/29/18 09:52; Admin Dose 81 MG; Start 06/27/18 at 09:00 Alteplase, Recombinant (Cathflo (Activase)) 2 mg MAY REPEAT X1 PRN CATHETER IF CATHETER REMAINS OCCULUDED; Start 06/27/18 at 09:30 Furosemide (Lasix) 40 mg DAILY IV Last administered on 06/29/18 10:04; Admin Dose 40 MG; Start 06/27/18 at 10:30 Fentanyl 100 ml @ 2.5 mls/hr TITRATE PRN IV PAIN Last administered on 06/29/18 11:51; Admin Dose 5 MLS/HR; Start 06/27/18 at 11:30 Piperacillin Sod/ Tazobactam Sod 100 ml @ 200 mls/hr Q8 IVPB Last administered on 06/30/18 05:06; Admin Dose 200 MLS/HR; Start 06/27/18 at 14:00 Vancomycin HCl 1.25 gm/Sodium Chloride 250 ml @ 83.333 mls/ hr Q24H IVPB Last administered on 06/29/18 22:29; Admin Dose 83.333 MLS/HR; Start 06/27/18 at 23:00 Hydralazine HCl (Apresoline) 10 mg Q4H PRN IV ELEVATED BLOOD PRESSURE Last administered on 06/28/18 23:35; Admin Dose 10 MG; Start 06/27/18 at 20:30 Lorazepam (Ativan) 2 mg Q2H PRN IV AGITATION/ANXIETY Last administered on 06/29/18 14:46; Admin Dose 2 MG; Start 06/27/18 at 23:00 Zinc Sulfate (Zinc Sulfate) 220 mg DAILY NGT Last administered on 06/29/18 09:53; Admin Dose 220 MG; Start 06/28/18 at 11:30 Ascorbic Acid (Vitamin C) 500 mg DAILY NGT Last administered on 06/29/18 09:52; Admin Dose 500 MG; Start 06/28/18 at 11:30 Isosorbide Dinitrate (Isordil) 20 mg TID NGT Last administered on 06/29/18 20:16; Admin Dose 20 MG; Start 06/28/18 at 14:00 Insulin Glargine (Lantus) 15 units DAILY@0800 SC Last administered on 06/29/18 09:50; Admin Dose 15 UNITS; Start 06/28/18 at 14:00 Enoxaparin Sodium (Lovenox) 30 mg DAILY SC Last administered on 06/29/18 09:57; Admin Dose 30 MG; Start 06/29/18 at 09:00 Alteplase, Recombinant (Cathflo (Activase)) 2 mg MAY REPEAT X1 PRN CATHETER IF CATHETER REMAINS OCCULUDED; Start 06/29/18 at 04:30 Hydralazine HCl (Apresoline) 100 mg TID GTB Last administered on 06/29/18 20:14; Admin Dose 100 MG; Start 06/29/18 at 09:00 Fish Oil (Fish Oil) 2,000 mg BID PO Last administered on 06/29/18 20:14; Admin Dose 2,000 MG; Start 06/29/18 at 09:00 Ferric Sodium Gluconate Complex 125 mg/Sodium Chloride 100 ml @ 100 mls/hr DAILY@1300 IVPB ; Start 06/30/18 at 13:00; Stop 07/02/18 at 13:59 Carvedilol (Coreg) 18.75 mg BID NGT ; Start 06/30/18 at 09:00; Status JOSHUA FERNÁNDEZ MD Jun 30, 2018 07:27
--- NOTE | 2018-06-30 09:09 | CONS ---
Consult Date/Type/Reason Admit Date/Time Jun 25, 2018 at 04:04 Initial Consult Date 06/25/18 Type of Consult Pulmonary Requesting Provider: DAMION KUMAR Date/Time of Note DATE: 06/30/18 TIME: 09:07 Subjective Patient appears comfortable this morning. Intubated sedated on mechanical ventilation no respiratory distress. Objective Vital Signs Date Temp Pulse Resp B/P (MAP) Pulse Ox O2 O2 Flow FiO2 Time Delivery Rate 06/30/18 71 08:00 06/30/18 160/83 94 Mechanical 06:00 (108) Ventilator 06/30/18 22 05:00 06/30/18 40 04:55 06/30/18 99.0 04:00 06/26/18 6.0 12:00 Intake and Output 06/29/18 06/29/18 06/30/18 1515:00 23:00 07:00 IntakeIntake Total 426.5 ml 541.66 ml 539.993 ml OutputOutput Total 1440 ml 750 ml 550 ml BalanceBalance -1013.5 ml -208.34 ml -10.007 ml Exam GENERAL: Elderly obese [place] gentleman orally intubated VITAL SIGNS: per chart NECK: Supple. No JVD or lymphadenopathy. CARDIAC EXAM: S1, S2. No added sounds or murmurs. CHEST: Diminished air entry bilaterally with rales ABDOMEN: Soft, nontender. No guarding or rebound. EXTREMITIES: No cyanosis, clubbing edema +1 NEUROLOGIC: Generalized weakness. No focal deficits. Vent Setting Ventilator Support Mode: AC, VC plus Fraction of Inspired Oxygen pe: 40 Positive End Expiratory Pressu: 5.0 Results/Medications Result Diagram: 06/30/18 0400 06/30/18 0400 Results 24 hrs Laboratory Tests Test 06/29/18 09:46 06/29/18 12:51 06/29/18 16:22 06/29/18 21:02 Bedside Glucose 160 168 145 145 Test 06/30/18 01:02 06/30/18 04:00 06/30/18 05:04 06/30/18 07:00 Bedside Glucose 138 148 White Blood Count 5.6 Red Blood Count 3.73 L Hemoglobin 10.3 L Hematocrit 33.2 L Mean Corpuscular 89.0 Volume Mean Corpuscular 27.6 L Hemoglobin Mean Corpuscular 31.0 L Hemoglobin Concen t Red Cell 15.1 H Distribution Width Platelet Count 192 Mean Platelet 11.6 H Volume Immature 0.500 H Granulocytes % Neutrophils % 69.5 Lymphocytes % 15.6 Monocytes % 8.6 Eosinophils % 5.4 Basophils % 0.4 Nucleated Red 0.0 Blood Cells % Immature 0.030 Granulocytes # Neutrophils # 3.9 Lymphocytes # 0.9 Monocytes # 0.5 Eosinophils # 0.3 Basophils # 0.0 Nucleated Red 0.0 Blood Cells # Sodium Level 147 H Potassium Level 3.7 Chloride Level 110 Carbon Dioxide 25 Level Anion Gap 12 Blood Urea 31 H Nitrogen Creatinine 2.25 H Est Glomerular Filtrat Rate mL/min Glucose Level 160 Calcium Level 8.5 Phosphorus Level 3.5 Magnesium Level 2.0 Total Bilirubin 0.3 Direct Bilirubin 0.00 Indirect 0.3 Bilirubin Aspartate Amino 20 Transf (AST/SGOT) Alanine 19 Aminotransferase (ALT/SGPT) Alkaline 43 Phosphatase Total Protein 6.1 Albumin 3.2 L Globulin 2.90 Albumin/Globulin 1.10 Ratio Blood Gas Blood arterial Specimen Source Arterial Blood 06/30/2018 8:25:0 Date Drawn 4 AM Arterial Blood pH 7.497 H (Temp corrected) Arterial Blood 30.9 L pCO2 (Temp correct) Arterial Blood 72.6 L pO2 (Temp corrected) Arterial Blood 23.4 HCO3 Arterial Blood 0.9 Base Excess Arterial Blood 94.9 L Oxygen Saturation Darío Test ACCEPTAB Arterial Blood Right Radial Gas Puncture Site Arterial 0.1 Blood Carboxyhemo globin Arterial Blood 0.3 Methemoglobin Blood Gas A-a O2 177.1 H Differential Oxyhemoglobin 94.5 Percent Blood Gas 37.0 Temperature Blood Gas 22.0 Respiration Rate Blood Gas Actual 24 Respiration Rate Blood Gas VENT - AC Modality FiO2 40.0 Blood Gas Tidal 650.0 Volume Blood Gas Low 5.0 PEEP Setting Blood Gas DT Notified Whom Blood Gas 06/30/2018 8:47:4 Notified Time 5 AM Test 06/30/18 08:20 Bedside Glucose 159 Medications Current Medications Norepinephrine 250 ml @ 1.875 mls/ hr TITRATE IV Last administered on 06/25/18at 03:13; Admin Dose 3.75 MLS/HR; Start 06/25/18 at 03:00 Vancomycin HCl (Vanco Iv Per Pharmacy) VANCOMYCIN PER PHARMACY PER PROTOCOL XX ; Start 06/25/18 at 07:00 Insulin Aspart (Novolog Insulin Pen) NOVOLOG *MILD* ALGORI... Q4 SC Last admini stered on 06/30/18 05:07; Admin Dose 1 UNIT; Start 06/25/18 at 09:00 Propofol 100 ml @ 5.1 mls/hr Q12H IV Last administered on 06/27/18 09:10; Admin Dose 15.3 MLS/HR; Start 06/25/18 at 10:30 Famotidine (Pepcid Iv) 20 mg DAILY IV Last administered on 06/29/18 10:03; Admin Dose 20 MG; Start 06/26/18 at 10:30 Atorvastatin Calcium (Lipitor) 40 mg HS NGT Last administered on 06/29/18 20:14; Admin Dose 40 MG; Start 06/26/18 at 21:00 Acetaminophen (Tylenol Liquid) 650 mg Q4H PRN NGT MILD PAIN(1-3)OR ELEVATED TEMP Last administered on 06/29/18 09:54; Admin Dose 650 MG; Start 06/26/18 at 13:30 Albuterol (Ventolin Hfa) 4 puff Q6H RESP THERAPY INH Last administered on 06/30/18 08:11; Admin Dose 4 PUFF; Start 06/26/18 at 20:00 Aspirin (Aspirin) 81 mg DAILY NGT Last administered on 06/29/18 09:52; Admin Dose 81 MG; Start 06/27/18 at 09:00 Alteplase, Recombinant (Cathflo (Activase)) 2 mg MAY REPEAT X1 PRN CATHETER IF CATHETER REMAINS OCCULUDED; Start 06/27/18 at 09:30 Furosemide (Lasix) 40 mg DAILY IV Last administered on 06/29/18 10:04; Admin Dose 40 MG; Start 06/27/18 at 10:30 Fentanyl 100 ml @ 2.5 mls/hr TITRATE PRN IV PAIN Last administered on 06/29/18 11:51; Admin Dose 5 MLS/HR; Start 06/27/18 at 11:30 Piperacillin Sod/ Tazobactam Sod 100 ml @ 200 mls/hr Q8 IVPB Last administered on 06/30/18 05:06; Admin Dose 200 MLS/HR; Start 06/27/18 at 14:00 Vancomycin HCl 1.25 gm/Sodium Chloride 250 ml @ 83.333 mls/ hr Q24H IVPB Last administered on 06/29/18 22:29; Admin Dose 83.333 MLS/HR; Start 06/27/18 at 23:00 Hydralazine HCl (Apresoline) 10 mg Q4H PRN IV ELEVATED BLOOD PRESSURE Last administered on 06/28/18 23:35; Admin Dose 10 MG; Start 06/27/18 at 20:30 Lorazepam (Ativan) 2 mg Q2H PRN IV AGITATION/ANXIETY Last administered on 06/29/18 14:46; Admin Dose 2 MG; Start 06/27/18 at 23:00 Zinc Sulfate (Zinc Sulfate) 220 mg DAILY NGT Last administered on 06/29/18 09:53; Admin Dose 220 MG; Start 06/28/18 at 11:30 Ascorbic Acid (Vitamin C) 500 mg DAILY NGT Last administered on 06/29/18 09:52; Admin Dose 500 MG; Start 06/28/18 at 11:30 Isosorbide Dinitrate (Isordil) 20 mg TID NGT Last administered on 06/29/18 20:16; Admin Dose 20 MG; Start 06/28/18 at 14:00 Insulin Glargine (Lantus) 15 units DAILY@0800 SC Last administered on 06/29/18 09:50; Admin Dose 15 UNITS; Start 06/28/18 at 14:00 Enoxaparin Sodium (Lovenox) 30 mg DAILY SC Last administered on 06/29/18 09:57; Admin Dose 30 MG; Start 06/29/18 at 09:00 Alteplase, Recombinant (Cathflo (Activase)) 2 mg MAY REPEAT X1 PRN CATHETER IF CATHETER REMAINS OCCULUDED; Start 06/29/18 at 04:30 Hydralazine HCl (Apresoline) 100 mg TID GTB Last administered on 06/29/18 20:14; Admin Dose 100 MG; Start 06/29/18 at 09:00 Fish Oil (Fish Oil) 2,000 mg BID PO Last administered on 06/29/18 20:14; Admin Dose 2,000 MG; Start 06/29/18 at 09:00 Ferric Sodium Gluconate Complex 125 mg/Sodium Chloride 100 ml @ 100 mls/hr DAILY@1300 IVPB ; Start 06/30/18 at 13:00; Stop 07/02/18 at 13:59 Carvedilol (Coreg) 18.75 mg BID NGT ; Start 06/30/18 at 09:00 Dexmedetomidine HCl 200 mcg/ Sodium Chloride 50 ml @ 7.08 mls/hr TITRATE IV ; Start 06/30/18 at 09:00 Assessment/Plan Hospital Course (Demo Recall) assessment 1. Acute hypoxemic respiratory failure likely secondary to congestive cardiac failure. Chest x-ray demonstrates right side greater than left infiltrate 2. Renal insufficiency 3. Probable underlying obstructive sleep apnea 4. Bilateral pneumonia probable community acquired Plan 1. Continue bronchodilators 2. Continue mechanical ventilation, FiO2 currently at 50%. Not stable for weaning yet. 3. Transition to Precedex DC Versed. Attempt weaning trial tomorrow. 4. DVT GI prophylaxis 5. Continue tube feeding Critical care time 40 minutes [facility] DUTTA [facility] Jun 30, 2018 09:09
[2018-06-30] MEDS: FUROSEMIDE 40 MG INJ IV SCH (09:19)
[2018-06-30] MEDS: FAMOTIDINE 20 MG INJ IV SCH (09:22)
[2018-06-30] MEDS: ASCORBIC ACID 500 MG TAB NGT SCH (09:23)
[2018-06-30] MEDS: ASPIRIN 81 MG TAB NGT SCH (09:23)
[2018-06-30] MEDS: ISOSORBIDE DINITRATE 20 MG TAB NGT SCH ×3 (09:23→20:23)
[2018-06-30] MEDS: ZINC SULFATE 220 MG CAP NGT SCH (09:23)
[2018-06-30] MEDS: FISH OIL 1,000 MG CAP PO SCH ×2 (09:24→20:25)
[2018-06-30] MEDS: ENOXAPARIN 30 MG/0.3 ML SYG SC SCH (09:25)
[2018-06-30] MEDS: INSULIN GLARGINE [LANTus] (100 UNITS/ML) SYG SC SCH (09:32)
[2018-06-30] MEDS: BALSAM PERU/CASTOR OIL 60 GM TUBE TOP SCH ×2 (09:33→20:25)
[2018-06-30] MEDS: DEXMEDETOMIDINE HCL 200 MCG in SOD CHLORIDE 0.9% 48 ML IV SCH ×3 (09:43→23:36)
[2018-06-30] MEDS: PROPOFOL 100 ML IV SCH ×2 (10:30→20:26)
--- NOTE | 2018-06-30 11:28 | CONS ---
Assessment/Plan Assessment/Plan Assessment/Plan (Daily) 1. Nonoliguric acute kidney injury with unknown baseline creatinine. Etiology of acute kidney injury is multifactorial secondary to acute tubular necrosis due to hemodynamics, possible contrast-associated nephropathy. The patient's repeat urinalysis was reviewed. Urine electrolytes were reviewed. The patient appears to be in injury phase of acute kidney injury. will continue lasix for now. 2. Volume overload. The patient is currently on diuretic therapy with good urinary output. We will continue to monitor electrolytes and renal function closely. 3. Anemia. Monitor hemoglobin and hematocrit levels. 4. Mineral bone disorder. Monitor calcium and phosphorus levels. 5. Hypokalemia, replaced 6. Ventilator-dependent respiratory failure, etiology is secondary to pneumonia. cont vent support per pulm 7. Status post cardiopulmonary arrest. Continue to monitor. Follow up with Cardiology. 8. Sepsis secondary to pneumonia. Continue current antibiotic regimen. 9. Hypertension. Continue current blood pressure regimen. 10. Dyslipidemia. Continue statin therapy. 11. Diabetes. Continue current insulin regimen. 12. History of ETOH cirrhosis. Continue to monitor. 13. Cardiomyopathy with decompensation. Continue medical management. Continue diuretic therapy. 14. Morbid obesity. 15. Possible cerebrovascular accident. Continue current treatment plan. Consultation Date/Type/Reason Admit Date/Time Jun 25, 2018 at 04:04 Initial Consult Date 06/25/18 Requesting Provider: DAMION KUMAR Date/Time of Note DATE: 06/30/18 TIME: 11:25 24 HR Interval Summary Free Text/Dictation denies shortness of breath, f/c or n/v d/w rn gen nad cv rrr pulm fine bibasilar rales abd soft, nd, nt +bs ext: no edema Exam/Review of Systems Exam Vitals Vital Signs Date Temp Pulse Resp B/P (MAP) Pulse Ox O2 O2 Flow FiO2 Time Delivery Rate 06/30/18 80 22 96 40 10:24 06/30/18 137/64 Mechanical 10:00 (88) Ventilator 06/30/18 99.9 08:00 06/26/18 6.0 12:00 Intake and Output 06/29/18 06/29/18 06/30/18 1515:00 23:00 07:00 IntakeIntake Total 426.5 ml 541.66 ml 689.993 ml OutputOutput Total 1440 ml 750 ml 625 ml BalanceBalance -1013.5 ml -208.34 ml 64.993 ml Results Result Diagram: 06/30/18 0400 06/30/18 0400 Results 24hrs Laboratory Tests Test 06/29/18 12:51 06/29/18 16:22 06/29/18 21:02 06/30/18 01:02 Bedside Glucose 168 145 145 138 Test 06/30/18 04:00 06/30/18 05:04 06/30/18 07:00 06/30/18 08:20 White Blood Count 5.6 Red Blood Count 3.73 L Hemoglobin 10.3 L Hematocrit 33.2 L Mean Corpuscular 89.0 Volume Mean Corpuscular 27.6 L Hemoglobin Mean Corpuscular 31.0 L Hemoglobin Concen t Red Cell 15.1 H Distribution Width Platelet Count 192 Mean Platelet 11.6 H Volume Immature 0.500 H Granulocytes % Neutrophils % 69.5 Lymphocytes % 15.6 Monocytes % 8.6 Eosinophils % 5.4 Basophils % 0.4 Nucleated Red 0.0 Blood Cells % Immature 0.030 Granulocytes # Neutrophils # 3.9 Lymphocytes # 0.9 Monocytes # 0.5 Eosinophils # 0.3 Basophils # 0.0 Nucleated Red 0.0 Blood Cells # Sodium Level 147 H Potassium Level 3.7 Chloride Level 110 Carbon Dioxide 25 Level Anion Gap 12 Blood Urea 31 H Nitrogen Creatinine 2.25 H Est Glomerular Filtrat Rate mL/min Glucose Level 160 Calcium Level 8.5 Phosphorus Level 3.5 Magnesium Level 2.0 Total Bilirubin 0.3 Direct Bilirubin 0.00 Indirect 0.3 Bilirubin Aspartate Amino 20 Transf (AST/SGOT) Alanine 19 Aminotransferase (ALT/SGPT) Alkaline 43 Phosphatase Total Protein 6.1 Albumin 3.2 L Globulin 2.90 Albumin/Globulin 1.10 Ratio Bedside Glucose 148 159 Blood Gas Blood arterial Specimen Source Arterial Blood 06/30/2018 8:25:0 Date Drawn 4 AM Arterial Blood pH 7.497 H (Temp corrected) Arterial Blood 30.9 L pCO2 (Temp correct) Arterial Blood 72.6 L pO2 (Temp corrected) Arterial Blood 23.4 HCO3 Arterial Blood 0.9 Base Excess Arterial Blood 94.9 L Oxygen Saturation Darío Test ACCEPTAB Arterial Blood Right Radial Gas Puncture Site Arterial 0.1 Blood Carboxyhemo globin Arterial Blood 0.3 Methemoglobin Blood Gas A-a O2 177.1 H Differential Oxyhemoglobin 94.5 Percent Blood Gas 37.0 Temperature Blood Gas 22.0 Respiration Rate Blood Gas Actual 24 Respiration Rate Blood Gas VENT - AC Modality FiO2 40.0 Blood Gas Tidal 650.0 Volume Blood Gas Low 5.0 PEEP Setting Blood Gas DT Notified Whom Blood Gas 06/30/2018 8:47:4 Notified Time 5 AM Medications Medication Current Medications Norepinephrine 250 ml @ 1.875 mls/ hr TITRATE IV Last administered on 03:13; Admin Dose 3.75 MLS/HR; Start 06/25/18 at 03:00 Vancomycin HCl (Vanco Iv Per Pharmacy) VANCOMYCIN PER PHARMACY PER PROTOCOL XX ; Start 06/25/18 at 07:00 Insulin Aspart (Novolog Insulin Pen) NOVOLOG *MILD* ALGORI... Q4 SC Last administered on 06/30/18 09:30; Admin Dose 1 UNIT; Start 06/25/18 at 09:00 Propofol 100 ml @ 5.1 mls/hr Q12H IV Last administered on 06/27/18 09:10; Admin Dose 15.3 MLS/HR; Start 06/25/18 at 10:30 Famotidine (Pepcid Iv) 20 mg DAILY IV Last administered on 06/30/18 09:22; Admin Dose 20 MG; Start 06/26/18 at 10:30 Atorvastatin Calcium (Lipitor) 40 mg HS NGT Last administered on 06/29/18 20:14; Admin Dose 40 MG; Start 06/26/18 at 21:00 Acetaminophen (Tylenol Liquid) 650 mg Q4H PRN NGT MILD PAIN(1-3)OR ELEVATED TEMP Last administered on 06/29/18 09:54; Admin Dose 650 MG; Start 06/26/18 at 13:30 Albuterol (Ventolin Hfa) 4 puff Q6H RESP THERAPY INH Last administered on 06/30/18 08:11; Admin Dose 4 PUFF; Start 06/26/18 at 20:00 Aspirin (Aspirin) 81 mg DAILY NGT Last administered on 06/30/18 09:23; Admin Dose 81 MG; Start 06/27/18 at 09:00 Alteplase, Recombinant (Cathflo (Activase)) 2 mg MAY REPEAT X1 PRN CATHETER IF CATHETER REMAINS OCCULUDED; Start 06/27/18 at 09:30 Furosemide (Lasix) 40 mg DAILY IV Last administered on 06/30/18 09:19; Admin Dose 40 MG; Start 06/27/18 at 10:30 Fentanyl 100 ml @ 2.5 mls/hr TITRATE PRN IV PAIN Last administered on 06/29/18 11:51; Admin Dose 5 MLS/HR; Start 06/27/18 at 11:30 Piperacillin Sod/ Tazobactam Sod 100 ml @ 200 mls/hr Q8 IVPB Last administered on 06/30/18 05:06; Admin Dose 200 MLS/HR; Start 06/27/18 at 14:00 Vancomycin HCl 1.25 gm/Sodium Chloride 250 ml @ 83.333 mls/ hr Q24H IVPB Last administered on 06/29/18 22:29; Admin Dose 83.333 MLS/HR; Start 06/27/18 at 23:00 Hydralazine HCl (Apresoline) 10 mg Q4H PRN IV ELEVATED BLOOD PRESSURE Last administered on 06/28/18 23:35; Admin Dose 10 MG; Start 06/27/18 at 20:30 Lorazepam (Ativan) 2 mg Q2H PRN IV AGITATION/ANXIETY Last administered on 06/29/18 14:46; Admin Dose 2 MG; Start 06/27/18 at 23:00 Zinc Sulfate (Zinc Sulfate) 220 mg DAILY NGT Last administered on 06/30/18 09:23; Admin Dose 220 MG; Start 06/28/18 at 11:30 Ascorbic Acid (Vitamin C) 500 mg DAILY NGT Last administered on 06/30/18 09:23; Admin Dose 500 MG; Start 06/28/18 at 11:30 Isosorbide Dinitrate (Isordil) 20 mg TID NGT Last administered on 06/30/18 09:23; Admin Dose 20 MG; Start 06/28/18 at 14:00 Insulin Glargine (Lantus) 15 units DAILY@0800 SC Last administered on 06/30/18 09:32; Admin Dose 15 UNITS; Start 06/28/18 at 14:00 Enoxaparin Sodium (Lovenox) 30 mg DAILY SC Last administered on 06/30/18 09:25; Admin Dose 30 MG; Start 06/29/18 at 09:00 Alteplase, Recombinant (Cathflo (Activase)) 2 mg MAY REPEAT X1 PRN CATHETER IF CATHETER REMAINS OCCULUDED; Start 06/29/18 at 04:30 Hydralazine HCl (Apresoline) 100 mg TID GTB Last administered on 06/30/18at 09:22; Admin Dose 100 MG; Start 06/29/18 at 09:00 Fish Oil (Fish Oil) 2,000 mg BID PO Last administered on 06/30/18at 09:24; Admin Dose 2,000 MG; Start 06/29/18 at 09:00 Ferric Sodium Gluconate Complex 125 mg/Sodium Chloride 100 ml @ 100 mls/hr DAILY@1300 IVPB ; Start 06/30/18 at 13:00; Stop 07/02/18 at 13:59 Carvedilol (Coreg) 18.75 mg BID NGT Last administered on 06/30/18at 09:23; Admin Dose 18.75 MG; Start 06/30/18 at 09:00 Dexmedetomidine HCl 200 mcg/ Sodium Chloride 50 ml @ 7.08 mls/hr TITRATE IV Last administered on 06/30/18at 09:43; Admin Dose 7.08 MLS/HR; Start 06/30/18 at 09:00 BE MARIN MD Jun 30, 2018 11:27
[2018-06-30] MEDS ORDERED: LEVOFLOXACIN 250 MG TAB NGT ONE (12:00)
[2018-06-30] MEDS: SOD FERRIC GLUC COMPLX 125 MG in SOD CHLORIDE 0.9% 100 ML IVPB SCH (13:06)
[2018-06-30] MEDS: FENTAnyl (DRIP) 1000 mcg/100mL 100 ML IV PRN (13:10)
[2018-06-30] MEDS: CLINDAMYCIN 300 MG/D5W (PMX) 50 ML IVPB SCH ×3 (14:44→23:37)
--- NOTE | 2018-06-30 17:13 | CONS ---
Assessment/Plan Assessment/Plan Hospital Course (Demo Recall) Impression: Wide complex tachycardia, probably an SVT given morphology of QRS same as the [place] QRS Hypokalemia Status post cardiopulmonary arrest appears to be mostly related to respiratory failure Hypoxemic respiratory failure status post intubation, vent dependent now Hypertension, with fair control Cardiomyopathy, unclear acute versus chronic Congestive heart failure probably acute on chronic secondary systolic heart failure Acute renal insufficiency Encephalopathy LBBB Pneumonia Recommendation: Increase carvedilol to 25 mg po bid Replete potassium IV No DENNIS/ARB due to renal insufficiency Continue isordil/hydralazine Diuresis Ventilator management and antibiotics per 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 Freed notified of patient admission to [facility] Consultation Date/Type/Reason Admit Date/Time Jun 25, 2018 at 04:04 Initial Consult Date 06/25/18 Type of Consult Cardiology Requesting Provider: DAMION KUMAR Date/Time of Note DATE: 06/30/18 TIME: 17:08 24 HR Interval Summary Free Text/Dictation Patient remains intubated and sedated. Patient had wide complex tachycardia runs on telemetry, they appear to have the same QRS morphology as his sinus beats, and are more likely SVT. At present he is in NSR. Exam/Review of Systems Vital Signs Vitals Vital Signs Date Temp Pulse Resp B/P (MAP) Pulse Ox O2 O2 Flow FiO2 Time Delivery Rate 06/30/18 84 22 97 40 16:49 06/30/18 99.6 163/79 Mechanical 16:00 (107) Ventilator 06/26/18 6.0 12:00 Intake and Output 06/29/18 06/29/18 06/30/18 1414:59 22:59 06:59 IntakeIntake Total 476.5 ml 460 ml 631.653 ml OutputOutput Total 1425 ml 725 ml 650 ml BalanceBalance -948.5 ml -265 ml -18.347 ml Exam Constitutional: other (sedated, obese) Head: normocephalic, atraumatic Eyes: nl lids ENMT: nl external ears & nose, intubated Neck: No bruits Respiratory: clear to auscultation Cardiovascular: regular rate and rhythm; No murmurs/extra sounds Gastrointestinal: soft, non-tender, other (obese) Musculoskeletal: nl extremities to inspection Extremities: pitting pedal edema Neurological: unresponsive Skin: nl turgor Labs Result Diagram: 06/30/18 0400 06/30/18 0400 Results 24hrs Laboratory Tests Test 06/29/18 21:02 06/30/18 01:02 06/30/18 04:00 06/30/18 05:04 Bedside Glucose 145 138 148 White Blood Count 5.6 Red Blood Count 3.73 L Hemoglobin 10.3 L Hematocrit 33.2 L Mean Corpuscular 89.0 Volume Mean Corpuscular 27.6 L Hemoglobin Mean Corpuscular 31.0 L Hemoglobin Concen t Red Cell 15.1 H Distribution Width Platelet Count 192 Mean Platelet 11.6 H Volume Immature 0.500 H Granulocytes % Neutrophils % 69.5 Lymphocytes % 15.6 Monocytes % 8.6 Eosinophils % 5.4 Basophils % 0.4 Nucleated Red 0.0 Blood Cells % Immature 0.030 Granulocytes # Neutrophils # 3.9 Lymphocytes # 0.9 Monocytes # 0.5 Eosinophils # 0.3 Basophils # 0.0 Nucleated Red 0.0 Blood Cells # Sodium Level 147 H Potassium Level 3.7 Chloride Level 110 Carbon Dioxide 25 Level Anion Gap 12 Blood Urea 31 H Nitrogen Creatinine 2.25 H Est Glomerular Filtrat Rate mL/min Glucose Level 160 Calcium Level 8.5 Phosphorus Level 3.5 Magnesium Level 2.0 Total Bilirubin 0.3 Direct Bilirubin 0.00 Indirect 0.3 Bilirubin Aspartate Amino 20 Transf (AST/SGOT) Alanine 19 Aminotransferase (ALT/SGPT) Alkaline 43 Phosphatase Total Protein 6.1 Albumin 3.2 L Globulin 2.90 Albumin/Globulin 1.10 Ratio Test 06/30/18 07:00 06/30/18 08:20 06/30/18 13:25 Blood Gas Blood arterial Specimen Source Arterial Blood 06/30/2018 8:25:0 Date Drawn 4 AM Arterial Blood pH 7.497 H (Temp corrected) Arterial Blood 30.9 L pCO2 (Temp correct) Arterial Blood 72.6 L pO2 (Temp corrected) Arterial Blood 23.4 HCO3 Arterial Blood 0.9 Base Excess Arterial Blood 94.9 L Oxygen Saturation Darío Test ACCEPTAB Arterial Blood Right Radial Gas Puncture Site Arterial 0.1 Blood Carboxyhemo globin Arterial Blood 0.3 Methemoglobin Blood Gas A-a O2 177.1 H Differential Oxyhemoglobin 94.5 Percent Blood Gas 37.0 Temperature Blood Gas 22.0 Respiration Rate Blood Gas Actual 24 Respiration Rate Blood Gas VENT - AC Modality FiO2 40.0 Blood Gas Tidal 650.0 Volume Blood Gas Low 5.0 PEEP Setting Blood Gas DT Notified Whom Blood Gas 06/30/2018 8:47:4 Notified Time 5 AM Bedside Glucose 159 190 Medications Medications Current Medications Norepinephrine 250 ml @ 1.875 mls/ hr TITRATE IV Last administered on 06/25/18 03:13; Admin Dose 3.75 MLS/HR; Start 06/25/18 at 03:00 Vancomycin HCl (Vanco Iv Per Pharmacy) VANCOMYCIN PER PHARMACY PER PROTOCOL XX ; Start 06/25/18 at 07:00 Insulin Aspart (Novolog Insulin Pen) NOVOLOG *MILD* ALGORI... Q4 SC Last administered on 06/30/18 13:34; Admin Dose 2 UNIT; Start 06/25/18 at 09:00 Propofol 100 ml @ 5.1 mls/hr Q12H IV Last administered on 06/27/18 09:10; Admin Dose 15.3 MLS/HR; Start 06/25/18 at 10:30 Famotidine (Pepcid Iv) 20 mg DAILY IV Last administered on 06/30/18 09:22; Admin Dose 20 MG; Start 06/26/18 at 10:30 Atorvastatin Calcium (Lipitor) 40 mg HS NGT Last administered on 06/29/18 20:14; Admin Dose 40 MG; Start 06/26/18 at 21:00 Acetaminophen (Tylenol Liquid) 650 mg Q4H PRN NGT MILD PAIN(1-3)OR ELEVATED TEMP Last administered on 06/29/18 09:54; Admin Dose 650 MG; Start 06/26/18 at 13:30 Albuterol (Ventolin Hfa) 4 puff Q6H RESP THERAPY INH Last administered on 06/11 15:12; Admin Dose 4 PUFF; Start 06/26/18 at 20:00 Aspirin (Aspirin) 81 mg DAILY NGT Last administered on 06/30/18 09:23; Admin Dose 81 MG; Start 06/27/18 at 09:00 Alteplase, Recombinant (Cathflo (Activase)) 2 mg MAY REPEAT X1 PRN CATHETER IF CATHETER REMAINS OCCULUDED; Start 06/27/18 at 09:30 Furosemide (Lasix) 40 mg DAILY IV Last administered on 06/30/18 09:19; Admin Dose 40 MG; Start 06/27/18 at 10:30 Fentanyl 100 ml @ 2.5 mls/hr TITRATE PRN IV PAIN Last administered on 06/30/18 13:10; Admin Dose 5 MLS/HR; Start 06/27/18 at 11:30 Vancomycin HCl 1.25 gm/Sodium Chloride 250 ml @ 83.333 mls/ hr Q24H IVPB Last administered on 06/29/18 22:29; Admin Dose 83.333 MLS/HR; Start 06/27/18 at 23:00 Hydralazine HCl (Apresoline) 10 mg Q4H PRN IV ELEVATED BLOOD PRESSURE Last administered on 06/28/18 23:35; Admin Dose 10 MG; Start 06/27/18 at 20:30 Lorazepam (Ativan) 2 mg Q2H PRN IV AGITATION/ANXIETY Last administered on 06/29/18 14:46; Admin Dose 2 MG; Start 06/27/18 at 23:00 Zinc Sulfate (Zinc Sulfate) 220 mg DAILY NGT Last administered on 06/30/18 09:23; Admin Dose 220 MG; Start 06/28/18 at 11:30 Ascorbic Acid (Vitamin C) 500 mg DAILY NGT Last administered on 06/30/18 09:23; Admin Dose 500 MG; Start 06/28/18 at 11:30 Isosorbide Dinitrate (Isordil) 20 mg TID NGT Last administered on 06/30/18 13:08; Admin Dose 20 MG; Start 06/28/18 at 14:00 Insulin Glargine (Lantus) 15 units DAILY@0800 SC Last administered on 06/30/18 09:32; Admin Dose 15 UNITS; Start 06/28/18 at 14:00 Enoxaparin Sodium (Lovenox) 30 mg DAILY SC Last administered on 06/30/18 09:25; Admin Dose 30 MG; Start 06/29/18 at 09:00 Alteplase, Recombinant (Cathflo (Activase)) 2 mg MAY REPEAT X1 PRN CATHETER IF CATHETER REMAINS OCCULUDED; Start 06/29/18 at 04:30 Hydralazine HCl (Apresoline) 100 mg TID GTB Last administered on 4/21/19at 13:08; Admin Dose 100 MG; Start 06/29/18 at 09:00 Fish Oil (Fish Oil) 2,000 mg BID PO Last administered on 06/30/18at 09:24; Admin Dose 2,000 MG; Start 06/29/18 at 09:00 Ferric Sodium Gluconate Complex 125 mg/Sodium Chloride 100 ml @ 100 mls/hr DAILY@1300 IVPB Last administered on 06/30/18at 13:06; Admin Dose 100 MLS/HR; Start 06/30/18 at 13:00; Stop 07/02/18 at 13:59 Dexmedetomidine HCl 200 mcg/ Sodium Chloride 50 ml @ 7.08 mls/hr TITRATE IV Last administered on 06/30/18at 16:20; Admin Dose 7.08 MLS/HR; Start 06/30/18 at 09:00 Levofloxacin (Levaquin) 250 mg DAILY@06 NGT ; Start 07/01/18 at 06:00; Stop 07/08/18 at 05:59 Clindamycin HCl/ Dextrose 50 ml @ 100 mls/hr Q6 IVPB Last administered on 06/30/18at 14:44; Admin Dose 100 MLS/HR; Start 06/30/18 at 13:30 Miscellaneous Information (*Rx Drug Level Order Reminder*) VANCO TROUGH ON 06/11... 2100 ONCE XX ; Start 06/30/18 at 21:00; Stop 06/30/18 at 21:01 Carvedilol (Coreg) 25 mg BID NGT ; Start 06/30/18 at 21:00 Potassium Chloride 100 ml @ 50 mls/hr ONCE ONCE IVPB ; Start 06/30/18 at 17:30; Stop 06/30/18 at 19:29; Status UNKETAN LYONS Jun 30, 2018 17:13
[2018-06-30] MEDS ORDERED: POTASSIUM CHLORIDE 100 ML IVPB ONE (17:30)
[2018-06-30] MEDS: ATORVASTATIN 40 MG TAB NGT SCH (20:23)
[2018-06-30] MEDS: ACETAMINOPHEN 650MG/20.3ML CUP NGT PRN (21:36)
[2018-06-30] MEDS: VANCOMYCIN HCL 1.25 GM in SOD CHLORIDE 0.9% 250 ML IVPB SCH (23:37)
[2018-07-01] VITALS (48 sets, daily range): BP systolic 108–170; BP diastolic 54–84; PULSE 73–89; RESP 22–29
[2018-07-01] MEDS: ALBUTEROL HFA 8 GM INHALER INH SCH ×4 (01:17→19:55)
[2018-07-01] MEDS: INSULIN ASPART [NOVOLOG] 3 ML PEN SC SCH ×7 (01:45→23:46)
[2018-07-01] MEDS: hydrALAzine 20 MG INJ IV PRN (03:34)
[2018-07-01] MEDS: CLINDAMYCIN 300 MG/D5W (PMX) 50 ML IVPB SCH ×4 (05:07→23:07)
[2018-07-01] MEDS: LEVOFLOXACIN 250 MG TAB NGT SCH (05:08)
[2018-07-01] MEDS: ACETAMINOPHEN 650MG/20.3ML CUP NGT PRN (06:58)
[2018-07-01] MEDS: FENTAnyl (DRIP) 1000 mcg/100mL 100 ML IV PRN (07:07)
--- NOTE | 2018-07-01 08:33 | PN ---
DATE: 07/01/2018 SUBJECTIVE: The patient is critically ill on full ventilatory support. The patient is off pressors. Urinary output has been adequate. No other acute events noted. No hemoptysis, hematemesis or miguel tochezia. OBJECTIVE: VITAL SIGNS: Blood pressure is 152/73, respirations 22, temperature 100.4. HEENT: Head is normocephalic. NECK: Supple. HEART: Regular rate. LUNGS: Show diminished breath sounds at the base. ABDOMEN: Soft, nontender to palpation. No rebound or guarding. EXTREMITIES: Negative for clubbing, cyanosis, no edema. DERMATOLOGIC: No rashes. MUSCULOSKELETAL: No joint effusion. NEUROLOGIC: No change in exam. MEDICATIONS: The patient's medications have been reviewed. LABORATORY DATA: From 07/01/2018 been reviewed. ABGs were reviewed from 06/30/2018. IMAGING STUDIES: Reviewed. MICROBIOLOGY: Reviewed. ASSESSMENT AND PLAN: 1. Nonoliguric acute kidney injury with unknown baseline creatinine. Etiology of acute kidney injur y is secondary to acute tubular necrosis, hemodynamics, questionable contrast-associated nephropathy. The patient's renal function has been fluctuating. At this point, continue current treatment plan, supportive care, renally dose all medicines. We will hold diuretic therapy. 2. Volume overload. The patient appears to be clinically improving, appears near euvolemic. We bandar l hold diuretic therapy and monitor renal function and electrolytes closely. 3. Anemia. Monitor hemoglobin and hematocrit levels. 4. Mineral bone disorder, monitor calcium and phosphorus levels. 5. Hypokalemia. Continue to monitor and replete. 6. Ventilator-dependent respiratory failure. Vent settings and ABG has been reviewed. Continue to monitor. Follow up with pulmonary. 7. Status post cardiopulmonary arrest. Continue to monitor. Follow up with Cardiology. 8. Sepsis secondary to pneumonia. Continue current antibiotic regimen. 9. Hypertension. Continue current blood pressure regimen. 10. Dyslipidemia. Continue statin therapy. 11. Diabetes. Continue current insulin regimen. 12. History of ETOH cirrhosis. Continue to monitor. 13. Cardiomyopathy. Continue medical management. 14. Possible cerebrovascular accident. Continue current treatment plan. 15. Hypernatremia. We will start the patient on free water flushes 200 mL hours. Dictated By: ENA CARTWRIGHT/RUTH Conf#: [id number] DID#: [id number] CC: DAMION KUMAR MD; YARIEL DUTTA MD; LILLY CLEMENS MD;*[facility]*
[2018-07-01] MEDS: INSULIN GLARGINE [LANTus] (100 UNITS/ML) SYG SC SCH (08:36)
[2018-07-01] MEDS: ENOXAPARIN 30 MG/0.3 ML SYG SC SCH (08:37)
[2018-07-01] MEDS: ASPIRIN 81 MG TAB NGT SCH (08:39)
[2018-07-01] MEDS: ASCORBIC ACID 500 MG TAB NGT SCH (08:39)
[2018-07-01] MEDS: ISOSORBIDE DINITRATE 20 MG TAB NGT SCH ×3 (08:40→20:25)
[2018-07-01] MEDS: ZINC SULFATE 220 MG CAP NGT SCH (08:40)
[2018-07-01] MEDS: BALSAM PERU/CASTOR OIL 60 GM TUBE TOP SCH ×2 (08:41→20:26)
[2018-07-01] MEDS: FISH OIL 1,000 MG CAP PO SCH ×2 (08:41→20:25)
[2018-07-01] MEDS: FAMOTIDINE 20 MG INJ IV SCH (08:45)
--- NOTE | 2018-07-01 09:49 | CONS ---
Consult Date/Type/Reason Admit Date/Time Jun 25, 2018 at 04:04 Initial Consult Date 06/25/18 Type of Consult Pulmonary Requesting Provider: DAMION KUMAR Date/Time of Note DATE: 07/01/18 TIME: 09:48 Subjective Opens eyes but not following commands. Currently hemodynamically stable. Minimal secretions. Continues mechanical ventilation. Objective Vital Signs Date Temp Pulse Resp B/P (MAP) Pulse Ox O2 O2 Flow FiO2 Time Delivery Rate 07/01/18 86 23 92 09:15 07/01/18 40 09:10 07/01/18 137/72 09:00 (93) 07/01/18 100.4 [employer] 07:30 l Ventilato r Intake and Output 06/30/18 06/30/18 07/01/18 1515:00 23:00 07:00 IntakeIntake Total 762.40 ml 566.64 ml 854.56 ml OutputOutput Total 1250 ml 535 ml 335 ml BalanceBalance -487.60 ml 31.64 ml 519.56 ml Exam GENERAL: Elderly obese Palestinian gentleman orally intubated VITAL SIGNS: per chart NECK: Supple. No JVD or lymphadenopathy. CARDIAC EXAM: S1, S2. No added sounds or murmurs. CHEST: Diminished air entry bilaterally with rales ABDOMEN: Soft, nontender. No guarding or rebound. EXTREMITIES: No cyanosis, clubbing edema +1 NEUROLOGIC: Generalized weakness. No focal deficits. Vent Setting Ventilator Support Mode: CPAP, PS Fraction of Inspired Oxygen pe: 40 Positive End Expiratory Pressu: 5.0 Results/Medications Result Diagram: 07/01/18 0400 07/01/18 0400 Results 24 hrs Laboratory Tests Test 06/30/18 13:25 06/30/18 18:02 06/30/18 20:22 06/30/18 20:59 Bedside Glucose 190 205 166 Vancomycin Level 16.2 Trough Test 07/01/18 01:15 07/01/18 04:00 07/01/18 05:12 07/01/18 08:31 Bedside Glucose 164 200 204 White Blood Count 6.5 Red Blood Count 3.75 L Hemoglobin 10.3 L Hematocrit 34.0 L Mean Corpuscular 90.7 Volume Mean Corpuscular 27.5 L Hemoglobin Mean Corpuscular 30.3 L Hemoglobin Concent Red Cell 15.2 H Distribution Width Platelet Count 208 Mean Platelet Volume 11.6 H Immature 0.600 H Granulocytes % Neutrophils % 65.8 Lymphocytes % 18.0 Monocytes % 10.6 Eosinophils % 4.5 Basophils % 0.5 Nucleated Red Blood 0.0 Cells % Immature 0.040 H Granulocytes # Neutrophils # 4.3 Lymphocytes # 1.2 Monocytes # 0.7 Eosinophils # 0.3 Basophils # 0.0 Nucleated Red Blood 0.0 Cells # Sodium Level 147 H Potassium Level 3.8 Chloride Level 114 H Carbon Dioxide Level 25 Anion Gap 8 Blood Urea Nitrogen 37 H Creatinine 2.56 H Est Glomerular Filtrat Rate mL/min Glucose Level 195 Calcium Level 9.1 Phosphorus Level 3.5 Magnesium Level 2.3 Medications Current Medications Norepinephrine 250 ml @ 1.875 mls/ hr TITRATE IV Last administered on 06/25/18 03:13; Admin Dose 3.75 MLS/HR; Start 06/25/18 at 03:00 Vancomycin HCl (Vanco Iv Per Pharmacy) VANCOMYCIN PER PHARMACY PER PROTOCOL XX ; Start 06/25/18 at 07:00 Insulin Aspart (Novolog Insulin Pen) NOVOLOG *MILD* ALGORI... Q4 SC Last administered on 07/01/18 08:36; Admin Dose 2 UNIT; Start 06/25/18 at 09:00 Propofol 100 ml @ 5.1 mls/hr Q12H IV Last administered on 06/27/18 09:10; Admin Dose 15.3 MLS/HR; Start 06/25/18 at 10:30 Famotidine (Pepcid Iv) 20 mg DAILY IV Last administered on 07/01/18 08:45; Admin Dose 20 MG; Start 06/26/18 at 10:30 Atorvastatin Calcium (Lipitor) 40 mg HS NGT Last administered on 06/30/18 20:23; Admin Dose 40 MG; Start 06/26/18 at 21:00 Acetaminophen (Tylenol Liquid) 650 mg Q4H PRN NGT MILD PAIN(1-3)OR ELEVATED TEMP Last administered on 07/01/18 06:58; Admin Dose 650 MG; Start 06/26/18 at 13:30 Albuterol (Ventolin Hfa) 4 puff Q6H RESP THERAPY INH Last administered on 07/01/18 07:58; Admin Dose 4 PUFF; Start 06/26/18 at 20:00 Aspirin (Aspirin) 81 mg DAILY NGT Last administered on 07/01/18 08:39; Admin Dose 81 MG; Start 06/27/18 at 09:00 Alteplase, Recombinant (Cathflo (Activase)) 2 mg MAY REPEAT X1 PRN CATHETER IF CATHETER REMAINS OCCULUDED; Start 06/27/18 at 09:30 Furosemide (Lasix) 40 mg DAILY IV Last administered on 06/30/18 09:19; Admin Dose 40 MG; Start 06/27/18 at 10:30; Status Hold Fentanyl 100 ml @ 2.5 mls/hr TITRATE PRN IV PAIN Last administered on 07/01/18 07:07; Admin Dose 5 MLS/HR; Start 06/27/18 at 11:30 Hydralazine HCl (Apresoline) 10 mg Q4H PRN IV ELEVATED BLOOD PRESSURE Last administered on 07/01/18 03:34; Admin Dose 10 MG; Start 06/27/18 at 20:30 Lorazepam (Ativan) 2 mg Q2H PRN IV AGITATION/ANXIETY Last administered on 06/29/18 14:46; Admin Dose 2 MG; Start 06/27/18 at 23:00 Zinc Sulfate (Zinc Sulfate) 220 mg DAILY NGT Last administered on 07/01/18 08:40; Admin Dose 220 MG; Start 06/28/18 at 11:30 Ascorbic Acid (Vitamin C) 500 mg DAILY NGT Last administered on 07/01/18 08:39; Admin Dose 500 MG; Start 06/28/18 at 11:30 Isosorbide Dinitrate (Isordil) 20 mg TID NGT Last administered on 07/01/18 08:40; Admin Dose 20 MG; Start 06/28/18 at 14:00 Insulin Glargine (Lantus) 15 units DAILY@0800 SC Last administered on 07/01/18 08:36; Admin Dose 15 UNITS; Start 06/28/18 at 14:00 Enoxaparin Sodium (Lovenox) 30 mg DAILY SC Last administered on 07/01/18 08:37; Admin Dose 30 MG; Start 06/29/18 at 09:00 Alteplase, Recombinant (Cathflo (Activase)) 2 mg MAY REPEAT X1 PRN CATHETER IF CATHETER REMAINS OCCULUDED; Start 06/29/18 at 04:30 Hydralazine HCl (Apresoline) 100 mg TID GTB Last administered on 07/01/18at 08:45; Admin Dose 100 MG; Start 06/29/18 at 09:00 Fish Oil (Fish Oil) 2,000 mg BID PO Last administered on 07/01/18at 08:41; Admin Dose 2,000 MG; Start 06/29/18 at 09:00 Ferric Sodium Gluconate Complex 125 mg/Sodium Chloride 100 ml @ 100 mls/hr DAILY@1300 IVPB Last administered on 06/30/18at 13:06; Admin Dose 100 MLS/HR; Start 06/30/18 at 13:00; Stop 07/02/18 at 13:59 Dexmedetomidine HCl 200 mcg/ Sodium Chloride 50 ml @ 7.08 mls/hr TITRATE IV Last administered on 06/30/18at 23:36; Admin Dose 7.08 MLS/HR; Start 06/30/18 at 09:00 Levofloxacin (Levaquin) 250 mg DAILY@06 NGT Last administered on 07/01/18at 05:08; Admin Dose 250 MG; Start 07/01/18 at 06:00; Stop 07/08/18 at 05:59 Clindamycin HCl/ Dextrose 50 ml @ 100 mls/hr Q6 IVPB Last administered on 07/01/18at 05:07; Admin Dose 100 MLS/HR; Start 06/30/18 at 13:30 Carvedilol (Coreg) 25 mg BID NGT Last administered on 07/01/18at 08:40; Admin Dose 25 MG; Start 06/30/18 at 21:00 Vancomycin HCl 250 ml @ 125 mls/hr Q24H IVPB ; Start 07/01/18 at 23:00 Assessment/Plan Hospital Course (Demo Recall) assessment 1. Acute hypoxemic respiratory failure likely secondary to congestive cardiac failure. Chest x-ray demonstrates right side greater than left infiltrate 2. Renal insufficiency 3. Probable underlying obstructive sleep apnea 4. Bilateral pneumonia probable community acquired Plan 1. Continue bronchodilators 2. Continue mechanical ventilation, will attempt weaning if more alert. 3. Transition to Precedex DC Versed. 4. DVT GI prophylaxis 5. Continue tube feeding Critical care time 40 minutes YARIEL DUTTA MD, [facility] Jul 01, 2018 09:49
[2018-07-01] MEDS: PROPOFOL 100 ML IV SCH ×2 (10:30→22:30)
[2018-07-01] MEDS: SOD FERRIC GLUC COMPLX 125 MG in SOD CHLORIDE 0.9% 100 ML IVPB SCH (13:48)
[2018-07-01] MEDS ORDERED: METO-336 PO (14:12)
[2018-07-01] MEDS ORDERED: NIFE60TA2 PO (14:13)
[2018-07-01] MEDS ORDERED: SITA1TAB5 PO (14:14)
[2018-07-01] MEDS ORDERED: DOXA4TAB2 PO (14:14)
[2018-07-01] MEDS ORDERED: LEVO75TA65 PO (14:15)
[2018-07-01] MEDS ORDERED: GLIM4TAB55 PO (14:15)
[2018-07-01] MEDS ORDERED: SOTA80TA53 PO (14:16)
[2018-07-01] MEDS ORDERED: TAMS-14 PO (14:16)
--- NOTE | 2018-07-01 14:30 | CONS ---
Assessment/Plan Assessment/Plan Hospital Course 78 yo M with multiple cerebrovascular risk factors who presents to ICU following a cardiac arrest. CTH was obtained, and notable for multifocal hypodensities concerning for stroke... for which neurology is consulted. MRI brain is presently unable to be performed d/t morbid obesity. His exam is stable, as he is able to awaken and move his limbs spontaneously, without obvious acute focal deficits. Recent echo is notable for depressed LV function with EF 35% and wall motion abnormalities NOS. P: Agree w/ ASA daily for stroke prevention for now; LDL is at goal. Cont to limit sedating medications where possible Other medical management and supportive care per primary WiIl follow clinically Consultation Date/Type/Reason Admit Date/Time Jun 25, 2018 at 04:04 Type of Consult Neurology Reason for Consultation eval for stroke Requesting Provider: DAMION KUMAR Date/Time of Note DATE: 07/01/18 TIME: 14:29 24 HR Interval Summary Free Text/Dictation Continues acute care. Off sedation since ~0700. Subjective hx not possible: pt non-verbal, pt critical Exam Vital Signs Vitals Vital Signs Date Temp Pulse Resp B/P (MAP) Pulse Ox O2 O2 Flow FiO2 Time Delivery Rate 07/01/18 80 22 96 40 13:34 07/01/18 132/62 [employer] 12:00 (85) l Ventilato r 07/01/18 100.3 11:00 Intake and Output 06/30/18 06/30/18 07/01/18 1515:00 23:00 07:00 IntakeIntake Total 762.40 ml 566.64 ml 854.56 ml OutputOutput Total 1250 ml 535 ml 335 ml BalanceBalance -487.60 ml 31.64 ml 519.56 ml Exam PE: Gen Appearance: No Apparent Distress; obese HEENT: Intubated Cardiovascular: Regular rate Abdomen: Soft Extremities: Dry NE: The patient was asleep, though easily arousable to voice. Able to track. Unable to follow simple commands. Cranial nerve examination was limited by mental status. Pupils were equal and reactive to light. There was no afferent pupillary defect. Funduscopic examination was limited. Face was grossly symmetric, w/ present corneal and cough reflexes. Tone was normal. Muscle bulk was normal. I did not see fasciculations. The patient spontaneously moved his UE; withdrew his lowers to noxious stimuli. Coordination and gait testing was limited by mental status. Arm and leg reflexes were within normal limits and symmetric. Gonzalez's sign was absent. Plantar responses were flexor. DESTINY ANDERSEN NP Jul 01, 2018 14:30 FROILAN CORREA Jul 01, 2018 19:09
--- NOTE | 2018-07-01 14:40 | CONS ---
Consult Date/Type/Reason Admit Date/Time Jun 25, 2018 at 04:04 Initial Consult Date 06/25/18 Type of Consultation: cv Requesting Provider: DAMION KUMAR Date/Time of Note DATE: 07/01/18 TIME: 14:35 Subjective Interventional cardiology follow-up progress note Subjective: Discussed with the staff and telemetry was reviewed. Patient has remained sinus rhythm. Blood pressure has been stable. No report of any chest pain or pressure no more bleeding with NG insertion his records from [facility] was reviewed. events noted. 06/26: pt extubated but had to be reintubated same day for resp distress. Objective: General: Obese gentleman status post intubation on the vent HEENT: NC/AT. . Pupils are equal round reactive to light. s/p NG tube in place NECK: no stridor. CV: RRR. systolic murmur; no gallop or rubs. PULM: no wheezing. + rhonchi. GI: SOFT, NT, ND, no rebound or guarding Extremity: + B/L LE edema. no clubbing. neuro: Opens his eyes. does not follow commands. Psych: calm rectal: deferred : normal EKG was personally reviewed showed normal sinus rhythm left bundle branch block Echocardiogram was personally reviewed which shows: Normal left ventricular cavity size. Moderate concentric left ventricular hypertrophy. Moderate global left ventricular systolic dysfunction. Ejection fraction is visually estimated at 35 %. Abnormal Diastolic Function. Multiple segmental wall motion abnormalities. These segments of the LV are akinetic. No significant aortic stenosis or insufficiency. Aortic cusps appear mildly calcified. Mitral valve leaflets appear mildly thickened. Mild mitral annular calcificati on. Trace mitral regurgitation. Normal appearance of the tricuspid valve. Estimated peak PA systolic pressure 31 mmHg. There is trace to mild tricuspid regurgitation. Dilated IVC without respiratory collapse, however, patient on ventilator. CT of the chest done in the emergency room shows: 1. No evidence of central pulmonary emboli. Prominent central pulmonary arteries and rule out pulmonary arterial hypertension. Reflux of contrast into the distal inferior vena cava and rule out mild right heart strain/failure. 2. Mild aneurysmal dilatation of the ascending aorta maximal transverse diameter 4.3 cm. 3. Mild cardiomegaly. 4. Bilateral lower lobe consolidations with central air bronchograms consistent with atelectasis though aspiration and pneumonia cannot be excluded. Additional diffuse inhomogeneous ground-glass opacities bilaterally as above consistent with pulmonary edema/pneumonitis. 5. Bilateral tiny pleural effusions. 6. Right paratracheal and prevascular space lymphadenopathy as above. Follow-up is recommended. 7. Mild lobulation of the anterior margin of the liver and may represent cirrhosis. Objective Vitals Vital Signs Date Temp Pulse Resp B/P (MAP) Pulse Ox O2 O2 Flow FiO2 Time Delivery Rate 07/01/18 80 22 96 40 13:34 07/01/18 132/62 [employer] 12:00 (85) l Ventilato r 07/01/18 100.3 11:00 Intake and Output 06/30/18 06/30/18 07/01/18 1515:00 23:00 07:00 IntakeIntake Total 762.40 ml 566.64 ml 854.56 ml OutputOutput Total 1250 ml 535 ml 335 ml BalanceBalance -487.60 ml 31.64 ml 519.56 ml Results/Medications Result Diagram: 07/01/18 0400 07/01/18 0400 Results 24 hrs Laboratory Tests Test 06/30/18 18:02 06/30/18 20:22 06/30/18 20:59 07/01/18 01:15 Bedside Glucose 205 166 164 Vancomycin Level 16.2 Trough Test 07/01/18 04:00 07/01/18 05:12 07/01/18 08:31 07/01/18 13:23 White Blood Count 6.5 Red Blood Count 3.75 L Hemoglobin 10.3 L Hematocrit 34.0 L Mean Corpuscular 90.7 Volume Mean Corpuscular 27.5 L Hemoglobin Mean Corpuscular 30.3 L Hemoglobin Concent Red Cell 15.2 H Distribution Width Platelet Count 208 Mean Platelet Volume 11.6 H Immature 0.600 H Granulocytes % Neutrophils % 65.8 Lymphocytes % 18.0 Monocytes % 10.6 Eosinophils % 4.5 Basophils % 0.5 Nucleated Red Blood 0.0 Cells % Immature 0.040 H Granulocytes # Neutrophils # 4.3 Lymphocytes # 1.2 Monocytes # 0.7 Eosinophils # 0.3 Basophils # 0.0 Nucleated Red Blood 0.0 Cells # Sodium Level 147 H Potassium Level 3.8 Chloride Level 114 H Carbon Dioxide Level 25 Anion Gap 8 Blood Urea Nitrogen 37 H Creatinine 2.56 H Est Glomerular Filtrat Rate mL/min Glucose Level 195 Calcium Level 9.1 Phosphorus Level 3.5 Magnesium Level 2.3 Bedside Glucose 200 204 193 Home Meds Reported Medications Tamsulosin Hcl* (Flomax*) 0.4 Mg Cap.er.24h, 0.4 MG PO DAILY, CAP 07/01/18 Sotalol Hcl* (Betapace*) 80 Mg Tab, 80 MG PO BID, TAB 07/01/18 Levothyroxine Sodium* (Levoxyl*) 75 Mcg Tablet, 75 MCG PO BEFORE BREAKFAST, #30 TAB 07/01/18 Glimepiride* (Amaryl*) 4 Mg Tablet, 4 MG PO WITH BREAKFAST DINNE, TAB 07/01/18 Sitagliptin Phos/Metformin HCl (Janumet 50-1,000 mg Tablet) 1 Each Tablet, 1 EACH PO BID, TAB 07/01/18 Doxazosin Mesylate* (Cardura*) 4 Mg Tablet, 4 MG PO BID, #60 TAB 07/01/18 Nifedipine (Procardia Xl) 60 Mg Tab.er.24, 60 MG PO DAILY, TAB 07/01/18 Metoprolol Succinate* (Toprol XL*) 100 Mg Tab.sr.24h, 100 MG PO BID, #30 TAB 07/01/18 Medications Current Medications Norepinephrine 250 ml @ 1.875 mls/ hr TITRATE IV Last administered on 06/25/18at 03:13; Admin Dose 3.75 MLS/HR; Start 06/25/18 at 03:00 Vancomycin HCl (Vanco Iv Per Pharmacy) VANCOMYCIN PER PHARMACY PER PROTOCOL XX ; Start 06/25/18 at 07:00 Insulin Aspart (Novolog Insulin Pen) NOVOLOG *MILD* ALGORI... Q4 SC Last administered on 07/01/18at 13:25; Admin Dose 2 UNIT; Start 06/25/18 at 09:00 Propofol 100 ml @ 5.1 mls/hr Q12H IV Last administered on 06/27/18at 09:10; Adm in Dose 15.3 MLS/HR; Start 06/25/18 at 10:30 Famotidine (Pepcid Iv) 20 mg DAILY IV Last administered on 07/01/18at 08:45; Admin Dose 20 MG; Start 06/26/18 at 10:30 Atorvastatin Calcium (Lipitor) 40 mg HS NGT Last administered on 06/30/18at 20:23; Admin Dose 40 MG; Start 06/26/18 at 21:00 Acetaminophen (Tylenol Liquid) 650 mg Q4H PRN NGT MILD PAIN(1-3)OR ELEVATED TEMP Last administered on 07/01/18 06:58; Admin Dose 650 MG; Start 06/26/18 at 13:30 Albuterol (Ventolin Hfa) 4 puff Q6H RESP THERAPY INH Last administered on 07/01/18 13:40; Admin Dose 4 PUFF; Start 06/26/18 at 20:00 Aspirin (Aspirin) 81 mg DAILY NGT Last administered on 07/01/18 08:39; Admin Dose 81 MG; Start 06/27/18 at 09:00 Alteplase, Recombinant (Cathflo (Activase)) 2 mg MAY REPEAT X1 PRN CATHETER IF CATHETER REMAINS OCCULUDED; Start 06/27/18 at 09:30 Furosemide (Lasix) 40 mg DAILY IV Last administered on 06/30/18 09:19; Admin Dose 40 MG; Start 06/27/18 at 10:30; Status Hold Fentanyl 100 ml @ 2.5 mls/hr TITRATE PRN IV PAIN Last administered on 07/01/18 07:07; Admin Dose 5 MLS/HR; Start 06/27/18 at 11:30 Hydralazine HCl (Apresoline) 10 mg Q4H PRN IV ELEVATED BLOOD PRESSURE Last administered on 07/01/18 03:34; Admin Dose 10 MG; Start 06/27/18 at 20:30 Lorazepam (Ativan) 2 mg Q2H PRN IV AGITATION/ANXIETY Last administered on 06/29/18 14:46; Admin Dose 2 MG; Start 06/27/18 at 23:00 Zinc Sulfate (Zinc Sulfate) 220 mg DAILY NGT Last administered on 07/01/18 08:40; Admin Dose 220 MG; Start 06/28/18 at 11:30 Ascorbic Acid (Vitamin C) 500 mg DAILY NGT Last administered on 07/01/18 08:39; Admin Dose 500 MG; Start 06/28/18 at 11:30 Isosorbide Dinitrate (Isordil) 20 mg TID NGT Last administered on 07/01/18 13:24; Admin Dose 20 MG; Start 06/28/18 at 14:00 Insulin Glargine (Lantus) 15 units DAILY@0800 SC Last administered on 07/01/18at 08:36; Admin Dose 15 UNITS; Start 06/28/18 at 14:00 Enoxaparin Sodium (Lovenox) 30 mg DAILY SC Last administered on 07/01/18at 08:37; Admin Dose 30 MG; Start 06/29/18 at 09:00 Alteplase, Recombinant (Cathflo (Activase)) 2 mg MAY REPEAT X1 PRN CATHETER IF CATHETER REMAINS OCCULUDED; Start 06/29/18 at 04:30 Hydralazine HCl (Apresoline) 100 mg TID GTB Last administered on 07/01/18at 13:24; Admin Dose 100 MG; Start 06/29/18 at 09:00 Fish Oil (Fish Oil) 2,000 mg BID PO Last administered on 07/01/18 08:41; Admin Dose 2,000 MG; Start 06/29/18 at 09:00 Ferric Sodium Gluconate Complex 125 mg/Sodium Chloride 100 ml @ 100 mls/hr DAILY@1300 IVPB Last administered on 07/01/18at 13:48; Admin Dose 100 MLS/HR; Start 06/30/18 at 13:00; Stop 07/02/18 at 13:59 Dexmedetomidine HCl 200 mcg/ Sodium Chloride 50 ml @ 7.08 mls/hr TITRATE IV Last administered on 06/30/18at 23:36; Admin Dose 7.08 MLS/HR; Start 06/30/18 at 09:00 Levofloxacin (Levaquin) 250 mg DAILY@06 NGT Last administered on 07/01/18at 05:08; Admin Dose 250 MG; Start 07/01/18 at 06:00; Stop 07/08/18 at 05:59 Clindamycin HCl/ Dextrose 50 ml @ 100 mls/hr Q6 IVPB Last administered on 07/01/18at 11:32; Admin Dose 100 MLS/HR; Start 06/30/18 at 13:30 Carvedilol (Coreg) 25 mg BID NGT Last administered on 07/01/18 08:40; Admin Dose 25 MG; Start 06/30/18 at 21:00 Vancomycin HCl 250 ml @ 125 mls/hr Q24H IVPB ; Start 07/01/18 at 23:00 Assessment/Plan Hospital Course (Demo Recall) 1. Status post cardiopulmonary arrest appears to be mostly related to respiratory failure 2. Hypoxemic respiratory failure status post intubation vent dependent now 3. hypertension 4. Cardiomyopathy :unclear acute versus chronic 5. Congestive heart failure probably acute on chronic secondary systolic heart failure 6. Renal insufficiency: Acute kidney injury now 7. Encephalopathy 8. Abnormal EKG with left bundle branch block 9. Incomplete data 10. Pneumonia Recommendation: Cardiac enzyme has been repeated and myocardial infarction was ruled out Continue with vent support. To be managed as per pulmonary recommendations Aspirin daily. Diuresis as per renal rec. Follow with RENAL CONSULT . GI and DVT prophylaxis Antibiotics management will be deferred to internal medicine cont Coreg We will cont hydralazine/Isordil combination. hold off on ARB./ DENNIS due to RICKI Continue with ICU care old records result was reviewed. Patient has had a coronary angiogram in [facility] 2015 which showed mild coronary artery disease with normal left ventricular systolic function. Review of the old study again shows that patient has had an abnormal stress test on prior to the angiogram on June 07, 2015 which showed ejection fraction of 47% and reversible inferior wall ischemia Thank you for his referral. We will continue to follow along with you MONIQUE SANDOVAL MD [facility] MONIQUE SANDOVAL MD Jul 01, 2018 14:40
--- NOTE | 2018-07-01 17:15 | PN ---
Date/Time of Note Date/Time of Note DATE: 07/01/18 TIME: 17:11 Assessment/Plan VTE Prophylaxis Risk score (from Ns)>0 risk: 12 SCD applied (from [facility] [place]): No SCD contraindicated: low risk/ambulating Pharmacological prophylaxis: LMWH Lines/Catheters IV Catheter Type (from Nrs): Central Line Central line still needed: Yes Urinary Cath still in place: Yes Reason Cath still needed: terminal illness/intractable pain Assessment/Plan Hospital Course Assessment and plan 1. Cardiopulmonary arrest w rosc, guarded prognosis, continue supportive care 2. Ac Respiratory failure/multiorgan failure, continue vent. Probably wont benefit from trach 3. Suspected anoxic injury 4. Acute encephalopathy 5. Acute renal failure possibly cardiogenic in origin 6. Suspected CAD dz status post outpatient stress cath EF worse 7. Morbid obesity 8. Suspected KONG 9. PEA 10. Chronic hypertension 11. Chronic dyslipidemia 12. Pneumonia possibly aspiration vs community-acquired possibly severe sepsis 13. Aortic aneurysm 4.3 on surveillance 14. Past tobacco? 15. Early cirrhosis/cryptogenic? S: Remains vent dependent opens eyes but otherwise poor interaction O: Remains on vent PE No pallor JVD droop ETT c/d/i Regular no m/r/g Clear mech Bs diminished obese No edema Result Diagram: 07/01/18 0400 07/01/18 0400 Results 24hrs Laboratory Tests Test 06/30/18 18:02 06/30/18 20:22 06/30/18 20:59 07/01/18 01:15 Bedside Glucose 205 166 164 Vancomycin Level 16.2 Trough Test 07/01/18 04:00 07/01/18 05:12 07/01/18 08:31 07/01/18 13:23 White Blood Count 6.5 Red Blood Count 3.75 L Hemoglobin 10.3 L Hematocrit 34.0 L Mean Corpuscular 90.7 Volume Mean Corpuscular 27.5 L Hemoglobin Mean Corpuscular 30.3 L Hemoglobin Concent Red Cell 15.2 H Distribution Width Platelet Count 208 Mean Platelet Volume 11.6 H Immature 0.600 H Granulocytes % Neutrophils % 65.8 Lymphocytes % 18.0 Monocytes % 10.6 Eosinophils % 4.5 Basophils % 0.5 Nucleated Red Blood 0.0 Cells % Immature 0.040 H Granulocytes # Neutrophils # 4.3 Lymphocytes # 1.2 Monocytes # 0.7 Eosinophils # 0.3 Basophils # 0.0 Nucleated Red Blood 0.0 Cells # Sodium Level 147 H Potassium Level 3.8 Chloride Level 114 H Carbon Dioxide Level 25 Anion Gap 8 Blood Urea Nitrogen 37 H Creatinine 2.56 H Est Glomerular Filtrat Rate mL/min Glucose Level 195 Calcium Level 9.1 Phosphorus Level 3.5 Magnesium Level 2.3 Bedside Glucose 200 204 193 Test 07/01/18 16:54 Bedside Glucose 193 Exam/Review of Systems Exam Vitals Vital Signs Date Temp Pulse Resp B/P (MAP) Pulse Ox O2 O2 Flow FiO2 Time Delivery Rate 07/01/18 99.7 81 22 124/65 94 Mechanical 16:00 (84) Ventilator 07/01/18 40 15:33 Intake and Output 06/30/18 06/30/18 07/01/18 1515:00 23:00 07:00 IntakeIntake Total 762.40 ml 566.64 ml 854.56 ml OutputOutput Total 1250 ml 535 ml 335 ml BalanceBalance -487.60 ml 31.64 ml 519.56 ml Results Results 24hrs Laboratory Tests Test 06/30/18 18:02 06/30/18 20:22 06/30/18 20:59 07/01/18 01:15 Bedside Glucose 205 166 164 Vancomycin Level 16.2 Trough Test 07/01/18 04:00 07/01/18 05:12 07/01/18 08:31 07/01/18 13:23 White Blood Count 6.5 Red Blood Count 3.75 L Hemoglobin 10.3 L Hematocrit 34.0 L Mean Corpuscular 90.7 Volume Mean Corpuscular 27.5 L Hemoglobin Mean Corpuscular 30.3 L Hemoglobin Concent Red Cell 15.2 H Distribution Width Platelet Count 208 Mean Platelet Volume 11.6 H Immature 0.600 H Granulocytes % Neutrophils % 65.8 Lymphocytes % 18.0 Monocytes % 10.6 Eosinophils % 4.5 Basophils % 0.5 Nucleated Red Blood 0.0 Cells % Immature 0.040 H Granulocytes # Neutrophils # 4.3 Lymphocytes # 1.2 Monocytes # 0.7 Eosinophils # 0.3 Basophils # 0.0 Nucleated Red Blood 0.0 Cells # Sodium Level 147 H Potassium Level 3.8 Chloride Level 114 H Carbon Dioxide Level 25 Anion Gap 8 Blood Urea Nitrogen 37 H Creatinine 2.56 H Est Glomerular Filtrat Rate mL/min Glucose Level 195 Calcium Level 9.1 Phosphorus Level 3.5 Magnesium Level 2.3 Bedside Glucose 200 204 193 Test 07/01/18 16:54 Bedside Glucose 193 Medications Medication Current Medications Norepinephrine 250 ml @ 1.875 mls/ hr TITRATE IV Last administered on 06/25/18 03:13; Admin Dose 3.75 MLS/HR; Start 06/25/18 at 03:00 Vancomycin HCl (Vanco Iv Per Pharmacy) VANCOMYCIN PER PHARMACY PER PROTOCOL XX ; Start 06/25/18 at 07:00 Insulin Aspart (Novolog Insulin Pen) NOVOLOG *MILD* ALGORI... Q4 SC Last administered on 07/01/18 16:58; Admin Dose 2 UNIT; Start 06/25/18 at 09:00 Propofol 100 ml @ 5.1 mls/hr Q12H IV Last administered on 06/27/18 09:10; Admin Dose 15.3 MLS/HR; Start 06/25/18 at 10:30 Famotidine (Pepcid Iv) 20 mg DAILY IV Last administered on 07/01/18 08:45; Admin Dose 20 MG; Start 06/26/18 at 10:30 Atorvastatin Calcium (Lipitor) 40 mg HS NGT Last administered on 06/30/18 20:23; Admin Dose 40 MG; Start 06/26/18 at 21:00 Acetaminophen (Tylenol Liquid) 650 mg Q4H PRN NGT MILD PAIN(1-3)OR ELEVATED TEMP Last administered on 07/01/18 06:58; Admin Dose 650 MG; Start 06/26/18 at 13:30 Albuterol (Ventolin Hfa) 4 puff Q6H RESP THERAPY INH Last administered on 07/01/18 13:40; Admin Dose 4 PUFF; Start 06/26/18 at 20:00 Aspirin (Aspirin) 81 mg DAILY NGT Last administered on 07/01/18 08:39; Admin Dose 81 MG; Start 06/27/18 at 09:00 Alteplase, Recombinant (Cathflo (Activase)) 2 mg MAY REPEAT X1 PRN CATHETER IF CATHETER REMAINS OCCULUDED; Start 06/27/18 at 09:30 Furosemide (Lasix) 40 mg DAILY IV Last administered on 06/30/18 09:19; Admin Dose 40 MG; Start 06/27/18 at 10:30; Status Hold Fentanyl 100 ml @ 2.5 mls/hr TITRATE PRN IV PAIN Last administered on 07/01/18 07:07; Admin Dose 5 MLS/HR; Start 06/27/18 at 11:30 Hydralazine HCl (Apresoline) 10 mg Q4H PRN IV ELEVATED BLOOD PRESSURE Last administered on 07/01/18 03:34; Admin Dose 10 MG; Start 06/27/18 at 20:30 Lorazepam (Ativan) 2 mg Q2H PRN IV AGITATION/ANXIETY Last administered on 14:46; Admin Dose 2 MG; Start 06/27/18 at 23:00 Zinc Sulfate (Zinc Sulfate) 220 mg DAILY NGT Last administered on 07/01/18 08:40; Admin Dose 220 MG; Start 06/28/18 at 11:30 Ascorbic Acid (Vitamin C) 500 mg DAILY NGT Last administered on 07/01/18 08:39; Admin Dose 500 MG; Start 06/28/18 at 11:30 Isosorbide Dinitrate (Isordil) 20 mg TID NGT Last administered on 07/01/18 13:24; Admin Dose 20 MG; Start 06/28/18 at 14:00 Insulin Glargine (Lantus) 15 units DAILY@0800 SC Last administered on 07/01/18 08:36; Admin Dose 15 UNITS; Start 06/28/18 at 14:00 Enoxaparin Sodium (Lovenox) 30 mg DAILY SC Last administered on 07/01/18 08:37; Admin Dose 30 MG; Start 06/29/18 at 09:00 Alteplase, Recombinant (Cathflo (Activase)) 2 mg MAY REPEAT X1 PRN CATHETER IF CATHETER REMAINS OCCULUDED; Start 06/29/18 at 04:30 Hydralazine HCl (Apresoline) 100 mg TID GTB Last administered on 07/01/18 13:24; Admin Dose 100 MG; Start 06/29/18 at 09:00 Fish Oil (Fish Oil) 2,000 mg BID PO Last administered on 07/01/18 08:41; Admin Dose 2,000 MG; Start 06/29/18 at 09:00 Ferric Sodium Gluconate Complex 125 mg/Sodium Chloride 100 ml @ 100 mls/hr DAILY@1300 IVPB Last administered on 07/01/18at 13:48; Admin Dose 100 MLS/HR; Start 06/30/18 at 13:00; Stop 07/02/18 at 13:59 Dexmedetomidine HCl 200 mcg/ Sodium Chloride 50 ml @ 7.08 mls/hr TITRATE IV Last administered on 06/30/18at 23:36; Admin Dose 7.08 MLS/HR; Start 06/30/18 at 09:00 Levofloxacin (Levaquin) 250 mg DAILY@06 NGT Last administered on 07/01/18at 05:08; Admin Dose 250 MG; Start 07/01/18 at 06:00; Stop 07/08/18 at 05:59 Clindamycin HCl/ Dextrose 50 ml @ 100 mls/hr Q6 IVPB Last administered on 07/01/18at 17:03; Admin Dose 100 MLS/HR; Start 06/30/18 at 13:30 Carvedilol (Coreg) 25 mg BID NGT Last administered on 07/01/18at 08:40; Admin D ose 25 MG; Start 06/30/18 at 21:00 Vancomycin HCl 250 ml @ 125 mls/hr Q24H IVPB ; Start 07/01/18 at 23:00 YAHAIRA ABREU MD Jul 01, 2018 17:15
[2018-07-01] MEDS: DEXMEDETOMIDINE HCL 200 MCG in SOD CHLORIDE 0.9% 48 ML IV SCH (17:34)
[2018-07-01] MEDS: ATORVASTATIN 40 MG TAB NGT SCH (20:25)
[2018-07-01] MEDS: VANCOMYCIN 1 GM 250 ML IVPB SCH (23:40)
[2018-07-02] VITALS (34 sets, daily range): BP systolic 120–169; BP diastolic 58–86; PULSE 64–80; RESP 1–27
[2018-07-02] MEDS: DEXMEDETOMIDINE HCL 200 MCG in SOD CHLORIDE 0.9% 48 ML IV SCH ×4 (00:45→20:23)
[2018-07-02] MEDS: ALBUTEROL HFA 8 GM INHALER INH SCH ×4 (02:45→20:01)
[2018-07-02] MEDS: CLINDAMYCIN 300 MG/D5W (PMX) 50 ML IVPB SCH ×3 (05:47→18:02)
[2018-07-02] MEDS: LEVOFLOXACIN 250 MG TAB NGT SCH (05:50)
[2018-07-02] MEDS: INSULIN ASPART [NOVOLOG] 3 ML PEN SC SCH ×5 (05:51→20:19)
[2018-07-02] MEDS: FENTAnyl (DRIP) 1000 mcg/100mL 100 ML IV PRN (05:52)
[2018-07-02] MEDS: ACETAMINOPHEN 650MG/20.3ML CUP NGT PRN (06:23)
[2018-07-02] MEDS: ZINC SULFATE 220 MG CAP NGT SCH (08:17)
[2018-07-02] MEDS: FISH OIL 1,000 MG CAP PO SCH ×2 (08:17→20:15)
[2018-07-02] MEDS: ASPIRIN 81 MG TAB NGT SCH (08:17)
[2018-07-02] MEDS: ISOSORBIDE DINITRATE 20 MG TAB NGT SCH ×3 (08:17→20:15)
[2018-07-02] MEDS: ASCORBIC ACID 500 MG TAB NGT SCH (08:17)
[2018-07-02] MEDS: FAMOTIDINE 20 MG INJ IV SCH (08:17)
[2018-07-02] MEDS: BALSAM PERU/CASTOR OIL 60 GM TUBE TOP SCH ×2 (08:18→20:25)
[2018-07-02] MEDS: ENOXAPARIN 30 MG/0.3 ML SYG SC SCH (08:19)
[2018-07-02] MEDS: INSULIN GLARGINE [LANTus] (100 UNITS/ML) SYG SC SCH (08:19)
--- NOTE | 2018-07-02 08:26 | PN ---
DATE: 07/02/2018 SUBJECTIVE: The patient is in serious, but stable condition. The patient is on full ventilatory sup port. No other acute events noted. OBJECTIVE: VITAL SIGNS: Blood pressure is 158/82, pulse 75, respirations 22, temperature 100.9. HEENT: Head is normocephalic. NECK: Supple. HEART: Regular rate. LUNGS: Show diminished breath sounds at the base. ABDOMEN: Soft, nontender to palpation without rebound or guarding. EXTREMITIES: Negative for clubbing, cyanosis, no edema. DERMATOLOGIC: No rashes. MUSCULOSKELETAL: No joint effusion. NEUROLOGIC: No change in exam. MEDICATIONS: Reviewed. LABORATORY DATA: Reviewed. IMAGING STUDIES: Chest x-ray has been reviewed. ASSESSMENT AND PLAN: 1. Nonoliguric acute kidney injury with unknown baseline creatinine. Etiology of acute kidney injur y is secondary to acute tubular necrosis, hemodynamics, questionable contrast-associated nephropathy. The patient's renal function has been fluctuating likely due to diuretic therapy. Renal function i s improved in the last 24 hours. At this point, continue current treatment plans, supportive care, r enally dose all medicines. Monitor renal function closely on diuretic therapy. 2. Volume overload. The patient appears euvolemic on exam. Chest x-ray suggested possible pulmonar y congestion. Continue to monitor. We will give intermittent diuretic therapy as needed. 3. Anemia. Continue to monitor hemoglobin and hematocrit levels. 4. Mineral bone disorder. Monitor calcium and phosphorus levels. 5. Hypokalemia. Continue to monitor and replete. 6. Hypernatremia. The patient's sodium levels remain elevated. We will increase free water flushes 300 mL q.4h. 7. Ventilator-dependent respiratory failure. Vent settings and ABG was reviewed. Continue to monit or. Continue weaning per pulmonary. 8. Status post cardiopulmonary arrest. Continue to monitor. 9. Sepsis secondary to pneumonia. Continue current antibiotic regimen. 10. Hypertension. Continue current blood pressure regimen. 11. Dyslipidemia. Continue statin therapy. 12. Diabetes. Continue current insulin regimen. 13. History of ETOH cirrhosis. 14. Cardiomyopathy. 15. Possible cerebrovascular accident. Continue to monitor. Dictated By: ENA VIVAR DO NR/NTS Conf#: [id number] DID#: [id number] CC: YARIEL DUTTA MD; LILLY CLEMENS MD; YAHAIRA ABREU MD;*EndCC*
[2018-07-02] MEDS ORDERED: METOLAZONE 5 MG TAB PO ONE (08:30)
[2018-07-02] MEDS: PROPOFOL 100 ML IV SCH ×2 (09:50→20:25)
--- NOTE | 2018-07-02 09:52 | CONS ---
Consult Date/Type/Reason Admit Date/Time Jun 25, 2018 at 04:04 Initial Consult Date 06/25/18 Type of Consult Pulmonary Requesting Provider: DAMION KUMAR Date/Time of Note DATE: 07/02/18 TIME: 09:51 Subjective Remains somnolent on mechanical ventilation. Opens eyes and now beginning to not to questions. Chest x-ray shows right infiltrate versus effusion. Objective Vital Signs Date Temp Pulse Resp B/P (MAP) Pulse Ox O2 O2 Flow FiO2 Time Delivery Rate 07/02/18 73 22 148/68 93 [employer] 09:00 (94) l Ventilato r 07/02/18 40 08:00 07/02/18 100.9 07:49 Intake and Output 07/01/18 07/01/18 07/02/18 1515:00 23:00 07:00 IntakeIntake Total 480 ml 757.48 ml 1241.99 ml OutputOutput Total 785 ml 465 ml 720 ml BalanceBalance -305 ml 292.48 ml 521.99 ml Exam GENERAL: Elderly obese [place] gentleman orally intubated VITAL SIGNS: per chart NECK: Supple. No JVD or lymphadenopathy. CARDIAC EXAM: S1, S2. No added sounds or murmurs. CHEST: Diminished air entry bilaterally with rales ABDOMEN: Soft, nontender. No guarding or rebound. EXTREMITIES: No cyanosis, clubbing edema +1 NEUROLOGIC: Generalized weakness. No focal deficits. Vent Setting Ventilator Support Mode: AC Fraction of Inspired Oxygen pe: 40 Positive End Expiratory Pressu: 5.0 Results/Medications Result Diagram: 07/02/18 0400 07/02/18 0400 Results 24 hrs Laboratory Tests Test 07/01/18 13:23 07/01/18 16:54 07/01/18 20:28 07/01/18 23:43 Bedside Glucose 193 193 199 233 H Test 07/02/18 04:00 07/02/18 05:25 07/02/18 08:16 White Blood Count 8.0 # Red Blood Count 3.72 L Hemoglobin 10.3 L Hematocrit 33.8 L Mean Corpuscular 90.9 Volume Mean Corpuscular 27.7 L Hemoglobin Mean Corpuscular 30.5 L Hemoglobin Concent Red Cell 15.1 H Distribution Width Platelet Count 216 Mean Platelet Volume 11.4 H Immature 0.600 H Granulocytes % Neutrophils % 73.2 Lymphocytes % 14.4 L Monocytes % 8.4 Eosinophils % 3.1 Basophils % 0.3 Nucleated Red Blood 0.0 Cells % Immature 0.050 H Granulocytes # Neutrophils # 5.8 Lymphocytes # 1.2 Monocytes # 0.7 Eosinophils # 0.3 Basophils # 0.0 Nucleated Red Blood 0.0 Cells # Sodium Level 149 H Potassium Level 4.1 Chloride Level 114 H Carbon Dioxide Level 25 Anion Gap 10 Blood Urea Nitrogen 42 H Creatinine 2.27 H Est Glomerular Filtrat Rate mL/min Glucose Level 205 Calcium Level 9.0 Phosphorus Level 4.2 Magnesium Level 2.3 Bedside Glucose 216 232 H Medications Current Medications Norepinephrine 250 ml @ 1.875 mls/ hr TITRATE IV Last administered on 06/25/18 03:13; Admin Dose 3.75 MLS/HR; Start 06/25/18 at 03:00 Vancomycin HCl (Vanco Iv Per Pharmacy) VANCOMYCIN PER PHARMACY PER PROTOCOL XX ; Start 06/25/18 at 07:00 Insulin Aspart (Novolog Insulin Pen) NOVOLOG *MILD* ALGORI... Q4 SC Last administered on 07/02/18 08:20; Admin Dose 3 UNIT; Start 06/25/18 at 09:00 Propofol 100 ml @ 5.1 mls/hr Q12H IV Last administered on 06/27/18 09:10; Admin Dose 15.3 MLS/HR; Start 06/25/18 at 10:30 Famotidine (Pepcid Iv) 20 mg DAILY IV Last administered on 07/02/18 08:17; Admin Dose 20 MG; Start 06/26/18 at 10:30 Atorvastatin Calcium (Lipitor) 40 mg HS NGT Last administered on 07/01/18 20:25; Admin Dose 40 MG; Start 06/26/18 at 21:00 Acetaminophen (Tylenol Liquid) 650 mg Q4H PRN NGT MILD PAIN(1-3)OR ELEVATED TEMP Last administered on 07/02/18 06:23; Admin Dose 650 MG; Start 06/26/18 at 13:30 Albuterol (Ventolin Hfa) 4 puff Q6H RESP THERAPY INH Last administered on 07/02/18 08:02; Admin Dose 4 PUFF; Start 06/26/18 at 20:00 Aspirin (Aspirin) 81 mg DAILY NGT Last administered on 07/02/18 08:17; Admin Dose 81 MG; Start 06/27/18 at 09:00 Alteplase, Recombinant (Cathflo (Activase)) 2 mg MAY REPEAT X1 PRN CATHETER IF CATHETER REMAINS OCCULUDED; Start 06/27/18 at 09:30 Furosemide (Lasix) 40 mg DAILY IV Last administered on 06/30/18 09:19; Admin Dose 40 MG; Start 06/27/18 at 10:30; Status Hold Fentanyl 100 ml @ 2.5 mls/hr TITRATE PRN IV PAIN Last administered on 07/02/18 05:52; Admin Dose 5 MLS/HR; Start 06/27/18 at 11:30 Hydralazine HCl (Apresoline) 10 mg Q4H PRN IV ELEVATED BLOOD PRESSURE Last administered on 07/01/18 03:34; Admin Dose 10 MG; Start 06/27/18 at 20:30 Lorazepam (Ativan) 2 mg Q2H PRN IV AGITATION/ANXIETY Last administered on 06/29/18 14:46; Admin Dose 2 MG; Start 06/27/18 at 23:00 Zinc Sulfate (Zinc Sulfate) 220 mg DAILY NGT Last administered on 07/02/18 08:17; Admin Dose 220 MG; Start 06/28/18 at 11:30 Ascorbic Acid (Vitamin C) 500 mg DAILY NGT Last administered on 07/02/18 08:17; Admin Dose 500 MG; Start 06/28/18 at 11:30 Isosorbide Dinitrate (Isordil) 20 mg TID NGT Last administered on 07/02/18 08:17; Admin Dose 20 MG; Start 06/28/18 at 14:00 Insulin Glargine (Lantus) 15 units DAILY@0800 SC Last administered on 07/02/18 08:19; Admin Dose 15 UNITS; Start 06/28/18 at 14:00 Enoxaparin Sodium (Lovenox) 30 mg DAILY SC Last administered on 07/02/18 08:19; Admin Dose 30 MG; Start 06/29/18 at 09:00 Alteplase, Recombinant (Cathflo (Activase)) 2 mg MAY REPEAT X1 PRN CATHETER IF CATHETER REMAINS OCCULUDED; Start 06/29/18 at 04:30 Hydralazine HCl (Apresoline) 100 mg TID GTB Last administered on 07/02/18at 08:18; Admin Dose 100 MG; Start 06/29/18 at 09:00 Fish Oil (Fish Oil) 2,000 mg BID PO Last administered on 07/02/18at 08:17; Admin Dose 2,000 MG; Start 06/29/18 at 09:00 Ferric Sodium Gluconate Complex 125 mg/Sodium Chloride 100 ml @ 100 mls/hr DAILY@1300 IVPB Last administered on 07/01/18at 13:48; Admin Dose 100 MLS/HR; Start 06/30/18 at 13:00; Stop 07/02/18 at 13:59 Dexmedetomidine HCl 200 mcg/ Sodium Chloride 50 ml @ 7.08 mls/hr TITRATE IV Last administered on 07/02/18at 09:48; Admin Dose 14.15 MLS/HR; Start 06/30/18 at 09:00 Levofloxacin (Levaquin) 250 mg DAILY@06 NGT Last administered on 07/02/18at 05:50; Admin Dose 250 MG; Start 07/01/18 at 06:00; Stop 07/08/18 at 05:59 Clindamycin HCl/ Dextrose 50 ml @ 100 mls/hr Q6 IVPB Last administered on 07/02/18at 05:47; Admin Dose 100 MLS/HR; Start 06/30/18 at 13:30 Carvedilol (Coreg) 25 mg BID NGT Last administered on 07/02/18at 08:18; Admin Dose 25 MG; Start 06/30/18 at 21:00 Vancomycin HCl 250 ml @ 125 mls/hr Q24H IVPB Last administered on 07/01/18at 23:40; Admin Dose 125 MLS/HR; Start 07/01/18 at 23:00 Assessment/Plan Hospital Course (Demo Recall) assessment 1. Acute hypoxemic respiratory failure likely secondary to congestive cardiac failure. Chest x-ray demonstrates right side greater than left infiltrate 2. Renal insufficiency 3. Probable underlying obstructive sleep apnea 4. Bilateral pneumonia probable community acquired Plan 1. Continue bronchodilators 2. Continue mechanical ventilation, thoracentesis right lung. 3. Transition to Precedex DC Versed. 4. DVT GI prophylaxis 5. Continue tube feeding Critical care time 40 minutes YARIEL DUTTA MD, [facility] Jul 02, 2018 09:52
[2018-07-02] MEDS: SOD FERRIC GLUC COMPLX 125 MG in SOD CHLORIDE 0.9% 100 ML IVPB SCH (12:31)
--- NOTE | 2018-07-02 14:33 | CONS ---
Assessment/Plan Assessment/Plan Hospital Course 78 yo M with multiple cerebrovascular risk factors who presents to ICU following a cardiac arrest. CTH was obtained, and notable for multifocal hypodensities concerning for stroke... for which neurology is consulted. MRI brain is presently unable to be performed d/t morbid obesity. On neurologic examination, he awakens and moves his limbs spontaneously, without obvious focal deficit. Recent echo is notable for depressed LV function with EF 35% and wall motion abnormalities NOS. P: Agree w/ ASA daily for stroke prevention for now; LDL is at goal. Cont to limit sedating medications where possible Other medical management and supportive care per primary WiIl follow clinically Consultation Date/Type/Reason Admit Date/Time Jun 25, 2018 at 04:04 Type of Consult Neurology Reason for Consultation eval for stroke Requesting Provider: DAMION KUMAR Date/Time of Note DATE: 07/02/18 TIME: 14:33 24 HR Interval Summary Free Text/Dictation Continues critical care. Exam Vital Signs Vitals Vital Signs Date Temp Pulse Resp B/P (MAP) Pulse Ox O2 O2 Flow FiO2 Time Delivery Rate 07/02/18 74 1 148/74 96 Mechanical 13:00 (98) Ventilator 07/02/18 99.9 12:00 07/02/18 40 10:55 Intake and Output 07/01/18 07/01/18 07/02/18 1515:00 23:00 07:00 IntakeIntake Total 480 ml 757.48 ml 1241.99 ml OutputOutput Total 785 ml 465 ml 720 ml BalanceBalance -305 ml 292.48 ml 521.99 ml Exam PE: Gen Appearance: No Apparent Distress; obese HEENT: Intubated Cardiovascular: Regular rate Abdomen: Soft Extremities: Dry NE: The patient was awake and alert, though nonverbal d/t ETT. Able to track and nod appropriately to questions. Able to follow simple axial and appendicular commands. Cranial nerve examination was limited by mental status. Pupils were equal and reactive to light. There was no afferent pupillary defect. Funduscopic examination was limited. Face was grossly symmetric, w/ present corneal and cough reflexes. Tone was normal. Muscle bulk was normal. I did not see fasciculations. The patient spontaneously moved all extremities. Coordination and gait testing was limited by mental status. Arm and leg reflexes were within normal limits and symmetric. Gonzalez's sign was absent. Plantar responses were flexor. DESTINY ANDERSEN NP Jul 02, 2018 14:33 FROILAN CORREA Jul 02, 2018 17:37
--- NOTE | 2018-07-02 16:05 | CONS ---
Consult Date/Type/Reason Admit Date/Time Jun 25, 2018 at 04:04 Initial Consult Date 06/25/18 Type of Consultation: cv Requesting Provider: DAMION KUMAR Date/Time of Note DATE: 07/02/18 TIME: 16:03 Subjective Interventional cardiology follow-up progress note Subjective: Discussed with the staff and telemetry was reviewed. Patient has remained sinus rhythm. Blood pressure has been stable. No report of any chest pain or pressure no more bleeding is reported his records from [facility] was reviewed. dw . events noted. 06/26: pt extubated but had to be reintubated same day for resp distress. Objective: General: Obese gentleman status post intubation on the vent HEENT: NC/AT. . Pupils are equal round reactive to light. s/p NG tube in place NECK: no stridor. CV: RRR. systolic murmur; no gallop or rubs. PULM: no wheezing. + rhonchi. GI: SOFT, NT, ND, no rebound or guarding Extremity: + B/L LE edema. no clubbing. neuro: awake and follows commands. Psych: calm rectal: deferred : normal EKG was personally reviewed showed normal sinus rhythm left bundle branch block Echocardiogram was personally reviewed which shows: Normal left ventricular cavity size. Moderate concentric left ventricular hyper trophy. Moderate global left ventricular systolic dysfunction. Ejection fraction is visually estimated at 35 %. Abnormal Diastolic Function. Multiple segmental wall motion abnormalities. These segments of the LV are akinetic. No significant aortic stenosis or insufficiency. Aortic cusps appear mildly calcified. Mitral valve leaflets appear mildly thickened. Mild mitral annular calcification. Trace mitral regurgitation. Normal appearance of the tricuspid valve. Estimated peak PA systolic pressure 31 mmHg. There is trace to mild tricuspid regurgitation. Dilated IVC without respiratory collapse, however, patient on ventilator. CT of the chest done in the emergency room shows: 1. No evidence of central pulmonary emboli. Prominent central pulmonary arteries and rule out pulmonary arterial hypertension. Reflux of contrast into the distal inferior vena cava and rule out mild right heart strain/failure. 2. Mild aneurysmal dilatation of the ascending aorta maximal transverse diameter 4.3 cm. 3. Mild cardiomegaly. 4. Bilateral lower lobe consolidations with central air bronchograms consistent with atelectasis though aspiration and pneumonia cannot be excluded. Additional diffuse inhomogeneous ground-glass opacities bilaterally as above consistent with pulmonary edema/pneumonitis. 5. Bilateral tiny pleural effusions. 6. Right paratracheal and prevascular space lymphadenopathy as above. Follow-up is recommended. 7. Mild lobulation of the anterior margin of the liver and may represent cirrhosis. Objective Vitals Vital Signs Date Temp Pulse Resp B/P (MAP) Pulse Ox O2 O2 Flow FiO2 Time Delivery Rate 07/02/18 75 149/65 97 Mechanical 15:00 (93) Ventilator 07/02/18 9 14:00 07/02/18 99.9 12:00 07/02/18 40 10:55 Intake and Output 07/01/18 07/01/18 07/02/18 1515:00 23:00 07:00 IntakeIntake Total 480 ml 757.48 ml 1241.99 ml OutputOutput Total 785 ml 465 ml 720 ml BalanceBalance -305 ml 292.48 ml 521.99 ml Results/Medications Result Diagram: 07/02/18 0400 07/02/18 0400 Results 24 hrs Laboratory Tests Test 07/01/18 16:54 07/01/18 20:28 07/01/18 23:43 07/02/18 04:00 Bedside Glucose 193 199 233 H White Blood Count 8.0 # Red Blood Count 3.72 L Hemoglobin 10.3 L Hematocrit 33.8 L Mean Corpuscular 90.9 Volume Mean Corpuscular 27.7 L Hemoglobin Mean Corpuscular 30.5 L Hemoglobin Concent Red Cell 15.1 H Distribution Width Platelet Count 216 Mean Platelet Volume 11.4 H Immature 0.600 H Granulocytes % Neutrophils % 73.2 Lymphocytes % 14.4 L Monocytes % 8.4 Eosinophils % 3.1 Basophils % 0.3 Nucleated Red Blood 0.0 Cells % Immature 0.050 H Granulocytes # Neutrophils # 5.8 Lymphocytes # 1.2 Monocytes # 0.7 Eosinophils # 0.3 Basophils # 0.0 Nucleated Red Blood 0.0 Cells # Sodium Level 149 H Potassium Level 4.1 Chloride Level 114 H Carbon Dioxide Level 25 Anion Gap 10 Blood Urea Nitrogen 42 H Creatinine 2.27 H Est Glomerular Filtrat Rate mL/min Glucose Level 205 Calcium Level 9.0 Phosphorus Level 4.2 Magnesium Level 2.3 Test 07/02/18 05:25 07/02/18 08:16 07/02/18 12:34 Bedside Glucose 216 232 H 209 Home Meds Reported Medications Tamsulosin Hcl* (Flomax*) 0.4 Mg Cap.er.24h, 0.4 MG PO DAILY, CAP 07/01/18 Sotalol Hcl* (Betapace*) 80 Mg Tab, 80 MG PO BID, TAB 07/01/18 Levothyroxine Sodium* (Levoxyl*) 75 Mcg Tablet, 75 MCG PO BEFORE BREAKFAST, #30 TAB 07/01/18 Glimepiride* (Amaryl*) 4 Mg Tablet, 4 MG PO WITH BREAKFAST DINNE, TAB 07/01/18 Sitagliptin Phos/Metformin HCl (Janumet 50-1,000 mg Tablet) 1 Each Tablet, 1 EA CH PO BID, TAB 07/01/18 Doxazosin Mesylate* (Cardura*) 4 Mg Tablet, 4 MG PO BID, #60 TAB 07/01/18 Nifedipine (Procardia Xl) 60 Mg Tab.er.24, 60 MG PO DAILY, TAB 07/01/18 Metoprolol Succinate* (Toprol XL*) 100 Mg Tab.sr.24h, 100 MG PO BID, #30 TAB 07/01/18 Medications Current Medications Norepinephrine 250 ml @ 1.875 mls/ hr TITRATE IV Last administered on 06/25/18at 03:13; Admin Dose 3.75 MLS/HR; Start 06/25/18 at 03:00 Vancomycin HCl (Vanco Iv Per Pharmacy) VANCOMYCIN PER PHARMACY PER PROTOCOL XX ; Start 06/25/18 at 07:00 Insulin Aspart (Novolog Insulin Pen) NOVOLOG *MILD* ALGORI... Q4 SC Last administered on 07/02/18at 12:39; Admin Dose 2 UNIT; Start 06/25/18 at 09:00 Propofol 100 ml @ 5.1 mls/hr Q12H IV Last administered on 06/27/18at 09:10; Admin Dose 15.3 MLS/HR; Start 06/25/18 at 10:30 Famotidine (Pepcid Iv) 20 mg DAILY IV Last administered on 07/02/18at 08:17; Admin Dose 20 MG; Start 06/26/18 at 10:30 Atorvastatin Calcium (Lipitor) 40 mg HS NGT Last administered on 07/01/18at 20:25; Admin Dose 40 MG; Start 06/26/18 at 21:00 Acetaminophen (Tylenol Liquid) 650 mg Q4H PRN NGT MILD PAIN(1-3)OR ELEVATED TEMP Last administered on 07/02/18 06:23; Admin Dose 650 MG; Start 06/26/18 at 13:30 Albuterol (Ventolin Hfa) 4 puff Q6H RESP THERAPY INH Last administered on 07/02/18 14:54; Admin Dose 4 PUFF; Start 06/26/18 at 20:00 Aspirin (Aspirin) 81 mg DAILY NGT Last administered on 07/02/18 08:17; Admin Dose 81 MG; Start 06/27/18 at 09:00 Alteplase, Recombinant (Cathflo (Activase)) 2 mg MAY REPEAT X1 PRN CATHETER IF CATHETER REMAINS OCCULUDED; Start 06/27/18 at 09:30 Furosemide (Lasix) 40 mg DAILY IV Last administered on 06/30/18 09:19; Admin Dose 40 MG; Start 06/27/18 at 10:30; Status Hold Fentanyl 100 ml @ 2.5 mls/hr TITRATE PRN IV PAIN Last administered on 07/02/18 05:52; Admin Dose 5 MLS/HR; Start 06/27/18 at 11:30 Hydralazine HCl (Apresoline) 10 mg Q4H PRN IV ELEVATED BLOOD PRESSURE Last administered on 07/01/18 03:34; Admin Dose 10 MG; Start 06/27/18 at 20:30 Lorazepam (Ativan) 2 mg Q2H PRN IV AGITATION/ANXIETY Last administered on 06/29/18 14:46; Admin Dose 2 MG; Start 06/27/18 at 23:00 Zinc Sulfate (Zinc Sulfate) 220 mg DAILY NGT Last administered on 07/02/18 08:17; Admin Dose 220 MG; Start 06/28/18 at 11:30 Ascorbic Acid (Vitamin C) 500 mg DAILY NGT Last administered on 07/02/18 08:17; Admin Dose 500 MG; Start 06/28/18 at 11:30 Isosorbide Dinitrate (Isordil) 20 mg TID NGT Last administered on 07/02/18 12:02; Admin Dose 20 MG; Start 06/28/18 at 14:00 Insulin Glargine (Lantus) 15 units DAILY@0800 SC Last administered on 07/02/18 08:19; Admin Dose 15 UNITS; Start 06/28/18 at 14:00 Enoxaparin Sodium (Lovenox) 30 mg DAILY SC Last administered on 07/02/18 08:19; Admin Dose 30 MG; Start 06/29/18 at 09:00 Alteplase, Recombinant (Cathflo (Activase)) 2 mg MAY REPEAT X1 PRN CATHETER IF CATHETER REMAINS OCCULUDED; Start 06/29/18 at 04:30 Hydralazine HCl (Apresoline) 100 mg TID GTB Last administered on 07/02/18 12:02; Admin Dose 100 MG; Start 06/29/18 at 09:00 Fish Oil (Fish Oil) 2,000 mg BID PO Last administered on 07/02/18 08:17; Admin Dose 2,000 MG; Start 06/29/18 at 09:00 Dexmedetomidine HCl 200 mcg/ Sodium Chloride 50 ml @ 7.08 mls/hr TITRATE IV Last administered on 07/02/18 09:48; Admin Dose 14.15 MLS/HR; Start 06/30/18 at 09:00 Levofloxacin (Levaquin) 250 mg DAILY@06 NGT Last administered on 07/02/18 05:50; Admin Dose 250 MG; Start 07/01/18 at 06:00; Stop 07/08/18 at 05:59 Clindamycin HCl/ Dextrose 50 ml @ 100 mls/hr Q6 IVPB Last administered on 07/02/18 12:31; Admin Dose 100 MLS/HR; Start 06/30/18 at 13:30 Carvedilol (Coreg) 25 mg BID NGT Last administered on 07/02/18 08:18; Admin Dose 25 MG; Start 06/30/18 at 21:00 Vancomycin HCl 250 ml @ 125 mls/hr Q24H IVPB Last administered on 07/01/18 23:40; Admin Dose 125 MLS/HR; Start 07/01/18 at 23:00 Assessment/Plan Hospital Course (Demo Recall) 1. Status post cardiopulmonary arrest appears to be mostly related to respiratory failure 2. Hypoxemic respiratory failure status post intubation vent dependent now 3. hypertension 4. Cardiomyopathy :unclear acute versus chronic 5. Congestive heart failure probably acute on chronic secondary systolic heart failure 6. Renal insufficiency: Acute kidney injury now 7. Encephalopathy 8. Abnormal EKG with left bundle branch block 9. Incomplete data 10. Pneumonia Recommendation: Cardiac enzyme has been repeated and myocardial infarction was ruled out. View of the old chart also has shown that the patient has had normal coronaries in 2016 Continue with vent support. To be managed as per pulmonary recommendations Aspirin daily. Diuresis as per renal rec. Follow with RENAL CONSULT . GI and DVT prophylaxis Antibiotics management will be deferred to internal medicine cont Coreg We will cont hydralazine/Isordil combination. hold off on ARB./ DENNIS due to RICKI Continue with ICU care old records result was reviewed. Patient has had a coronary angiogram in December 10, 2015 which showed mild coronary artery disease with normal left ventricular systolic function. Review of the old study again shows that patient has had an abnormal stress test on prior to the angiogram on June 07, 2015 which showed ejection fraction of 47% and reversible inferior wall ischemia Thank you for his referral. We will continue to follow along with you MONIQUE SANDOVAL MD [facility] MONIQUE SANDOVAL MD Jul 02, 2018 16:05
[2018-07-02] MEDS: ATORVASTATIN 40 MG TAB NGT SCH (20:16)
[2018-07-03] VITALS (41 sets, daily range): BP systolic 82–183; BP diastolic 47–96; PULSE 60–67; RESP 14–30
[2018-07-03] MEDS: CLINDAMYCIN 300 MG/D5W (PMX) 50 ML IVPB SCH ×2 (00:02→04:55)
[2018-07-03] MEDS: DEXMEDETOMIDINE HCL 200 MCG in SOD CHLORIDE 0.9% 48 ML IV SCH ×12 (00:02→23:14)
[2018-07-03] MEDS: INSULIN ASPART [NOVOLOG] 3 ML PEN SC SCH ×6 (00:12→21:05)
[2018-07-03] MEDS: VANCOMYCIN 1 GM 250 ML IVPB SCH (00:14)
[2018-07-03] MEDS: ALBUTEROL HFA 8 GM INHALER INH SCH ×5 (01:28→19:58)
[2018-07-03] MEDS: LEVOFLOXACIN 250 MG TAB NGT SCH (04:55)
--- NOTE | 2018-07-03 07:28 | CONS ---
Consult Date/Type/Reason Admit Date/Time Jun 25, 2018 at 04:04 Initial Consult Date 06/25/18 Type of Consultation: cv Requesting Provider: DAMION KUMAR Date/Time of Note DATE: 07/03/18 TIME: 07:26 Subjective Interventional cardiology follow-up progress note Subjective: Discussed with the staff and telemetry was reviewed. Patient has remained sinus rhythm. Blood pressure has been stable/high now No report of any chest pain or pressure no more bleeding is reported events noted. 06/26: pt extubated but had to be reintubated same day for resp distress. Objective: General: Obese gentleman status post intubation on the vent HEENT: NC/AT. . Pupils are equal round reactive to light. s/p NG tube in place NECK: no stridor. CV: RRR. systolic murmur; no gallop or rubs. PULM: no wheezing. + rhonchi. GI: SOFT, NT, ND, no rebound or guarding Extremity: +trace B/L LE edema. no clubbing. neuro: awake and follows commands. Psych: calm rectal: deferred : normal EKG in ER was personally reviewed showed normal sinus rhythm left bundle branch block Echocardiogram was personally reviewed which shows: Normal left ventricular cavity size. Moderate concentric left ventricular hypertrophy. Moderate global left ventricular systolic dysfunction. Ejection fraction is visually estimated at 35 %. Abnormal Diastolic Function. Multiple segmental wall motion abnormalities. These segments of the LV are akinetic. No significant aortic stenosis or insufficiency. Aortic cusps appear mildly calcified. Mitral valve leaflets appear mildly thickened. Mild mitral annular calcification. Trace mitral regurgitation. Normal appearance of the tricuspid valve. Estimated peak PA systolic pressure 31 mmHg. There is trace to mild tricuspid regurgitation. Dilated IVC without respiratory collapse, however, patient on ventilator. CT of the chest done in the emergency room shows: 1. No evidence of central pulmonary emboli. Prominent central pulmonary arteries and rule out pulmonary arterial hypertension. Reflux of contrast into the distal inferior vena cava and rule out mild right heart strain/failure. 2. Mild aneurysmal dilatation of the ascending aorta maximal transverse diameter 4.3 cm. 3. Mild cardiomegaly. 4. Bilateral lower lobe consolidations with central air bronchograms consistent with atelectasis though aspiration and pneumonia cannot be excluded. Additional diffuse inhomogeneous ground-glass opacities bilaterally as above consistent with pulmonary edema/pneumonitis. 5. Bilateral tiny pleural effusions. 6. Right paratracheal and prevascular space lymphadenopathy as above. Follow-up is recommended. 7. Mild lobulation of the anterior margin of the liver and may represent cirrhosis. Objective Vitals Vital Signs Date Temp Pulse Resp B/P (MAP) Pulse Ox O2 O2 Flow FiO2 Time Delivery Rate 07/03/18 62 22 168/91 97 Mechanical 06:00 (116) Ventilator 07/03/18 40 05:48 07/03/18 99.1 04:00 Intake and Output 07/02/18 07/02/18 07/03/18 1515:00 23:00 07:00 IntakeIntake Total 388.30 ml 841.53 ml 1113.61 ml OutputOutput Total 650 ml 890 ml 860 ml BalanceBalance -261.70 ml -48.47 ml 253.61 ml Results/Medications Result Diagram: 07/03/18 0400 07/03/18 0400 Results 24 hrs Laboratory Tests Test 07/02/18 08:16 07/02/18 12:34 07/02/18 16:34 07/02/18 20:14 Bedside Glucose 232 H 209 202 180 Test 07/03/18 00:10 07/03/18 04:00 07/03/18 04:57 Bedside Glucose 195 241 H White Blood Count 7.0 Red Blood Count 3.84 L Hemoglobin 10.7 L Hematocrit 35.3 L Mean Corpuscular 91.9 Volume Mean Corpuscular 27.9 L Hemoglobin Mean Corpuscular 30.3 L Hemoglobin Concent Red Cell 14.9 H Distribution Width Platelet Count 205 Mean Platelet Volume 11.8 H Immature 1.000 H Granulocytes % Neutrophils % 68.6 Lymphocytes % 18.3 Monocytes % 9.1 Eosinophils % 2.6 Basophils % 0.4 Nucleated Red Blood 0.0 Cells % Immature 0.070 H Granulocytes # Neutrophils # 4.8 Lymphocytes # 1.3 Monocytes # 0.6 Eosinophils # 0.2 Basophils # 0.0 Nucleated Red Blood 0.0 Cells # Sodium Level 148 H Potassium Level 3.9 Chloride Level 113 H Carbon Dioxide Level 25 Anion Gap 10 Blood Urea Nitrogen 44 H Creatinine 2.13 H Est Glomerular Filtrat Rate mL/min Glucose Level 232 H Calcium Level 9.0 Phosphorus Level 4.0 Magnesium Level 2.3 Home Meds Reported Medications Tamsulosin Hcl* (Flomax*) 0.4 Mg Cap.er.24h, 0.4 MG PO DAILY, CAP 07/01/18 Sotalol Hcl* (Betapace*) 80 Mg Tab, 80 MG PO BID, TAB 07/01/18 Levothyroxine Sodium* (Levoxyl*) 75 Mcg Tablet, 75 MCG PO BEFORE BREAKFAST, #30 TAB 07/01/18 Glimepiride* (Amaryl*) 4 Mg Tablet, 4 MG PO WITH BREAKFAST DINNE, TAB 07/01/18 Sitagliptin Phos/Metformin HCl (Janumet 50-1,000 mg Tablet) 1 Each Tablet, 1 EACH PO BID, TAB 07/01/18 Doxazosin Mesylate* (Cardura*) 4 Mg Tablet, 4 MG PO BID, #60 TAB 07/01/18 Nifedipine (Procardia Xl) 60 Mg Tab.er.24, 60 MG PO DAILY, TAB 07/01/18 Metoprolol Succinate* (Toprol XL*) 100 Mg Tab.sr.24h, 100 MG PO BID, #30 TAB 07/01/18 Medications Current Medications Norepinephrine 250 ml @ 1.875 mls/ hr TITRATE IV Last administered on 06/25/18at 03:13; Admin Dose 3.75 MLS/HR; Start 06/25/18 at 03:00 Vancomycin HCl (Vanco Iv Per Pharmacy) VANCOMYCIN PER PHARMACY PER PROTOCOL XX ; Start 06/25/18 at 07:00 Insulin Aspart (Novolog Insulin Pen) NOVOLOG *MILD* ALGORI... Q4 SC Last administered on 07/03/18at 04:59; Admin Dose 3 UNIT; Start 06/25/18 at 09:00 Propofol 100 ml @ 5.1 mls/hr Q12H IV Last administered on 06/27/18at 09:10; Admin Dose 15.3 MLS/HR; Start 06/25/18 at 10:30 Famotidine (Pepcid Iv) 20 mg DAILY IV Last administered on 07/02/18at 08:17; Admin Dose 20 MG; Start 06/26/18 at 10:30 Atorvastatin Calcium (Lipitor) 40 mg HS NGT Last administered on 07/02/18at 20:16; Admin Dose 40 MG; Start 06/26/18 at 21:00 Acetaminophen (Tylenol Liquid) 650 mg Q4H PRN NGT MILD PAIN(1-3)OR ELEVATED TEMP Last administered on 07/02/18 06:23; Admin Dose 650 MG; Start 06/26/18 at 13:30 Albuterol (Ventolin Hfa) 4 puff Q6H RESP THERAPY INH Last administered on 07/03/18 02:45; Admin Dose 4 PUFF; Start 06/26/18 at 20:00 Aspirin (Aspirin) 81 mg DAILY NGT Last administered on 07/02/18 08:17; Admin Dose 81 MG; Start 06/27/18 at 09:00 Alteplase, Recombinant (Cathflo (Activase)) 2 mg MAY REPEAT X1 PRN CATHETER IF CATHETER REMAINS OCCULUDED; Start 06/27/18 at 09:30 Furosemide (Lasix) 40 mg DAILY IV Last administered on 06/30/18 09:19; Admin Dose 40 MG; Start 06/27/18 at 10:30; Status Hold Fentanyl 100 ml @ 2.5 mls/hr TITRATE PRN IV PAIN Last administered on 07/02/18 05:52; Admin Dose 5 MLS/HR; Start 06/27/18 at 11:30 Hydralazine HCl (Apresoline) 10 mg Q4H PRN IV ELEVATED BLOOD PRESSURE Last administered on 07/01/18 03:34; Admin Dose 10 MG; Start 06/27/18 at 20:30 Lorazepam (Ativan) 2 mg Q2H PRN IV AGITATION/ANXIETY Last administered on 06/29/18 14:46; Admin Dose 2 MG; Start 06/27/18 at 23:00 Zinc Sulfate (Zinc Sulfate) 220 mg DAILY NGT Last administered on 07/02/18 08:17; Admin Dose 220 MG; Start 06/28/18 at 11:30 Ascorbic Acid (Vitamin C) 500 mg DAILY NGT Last administered on 07/02/18 08:17; Admin Dose 500 MG; Start 06/28/18 at 11:30 Isosorbide Dinitrate (Isordil) 20 mg TID NGT Last administered on 07/02/18 20:15; Admin Dose 20 MG; Start 06/28/18 at 14:00 Insulin Glargine (Lantus) 15 units DAILY@0800 SC Last administered on 07/02/18 08:19; Admin Dose 15 UNITS; Start 06/28/18 at 14:00 Enoxaparin Sodium (Lovenox) 30 mg DAILY SC Last administered on 07/02/18at 08:19; Admin Dose 30 MG; Start 06/29/18 at 09:00; Status Hold Alteplase, Recombinant (Cathflo (Activase)) 2 mg MAY REPEAT X1 PRN CATHETER IF CATHETER REMAINS OCCULUDED; Start 06/29/18 at 04:30 Hydralazine HCl (Apresoline) 100 mg TID GTB Last administered on 07/02/18at 20:16; Admin Dose 100 MG; Start 06/29/18 at 09:00 Fish Oil (Fish Oil) 2,000 mg BID PO Last administered on 07/02/18 20:15; Admin Dose 2,000 MG; Start 06/29/18 at 09:00 Dexmedetomidine HCl 200 mcg/ Sodium Chloride 50 ml @ 7.08 mls/hr TITRATE IV Last administered on 07/03/18 06:24; Admin Dose 21.23 MLS/HR; Start 06/30/18 at 09:00 Levofloxacin (Levaquin) 250 mg DAILY@06 NGT Last administered on 07/03/18at 04:55; Admin Dose 250 MG; Start 07/01/18 at 06:00; Stop 07/08/18 at 05:59 Clindamycin HCl/ Dextrose 50 ml @ 100 mls/hr Q6 IVPB Last administered on 07/03/18 04:55; Admin Dose 100 MLS/HR; Start 06/30/18 at 13:30 Carvedilol (Coreg) 25 mg BID NGT Last administered on 07/02/18at 20:16; Admin Dose 25 MG; Start 06/30/18 at 21:00 Vancomycin HCl 250 ml @ 125 mls/hr Q24H IVPB Last administered on 07/03/18at 00:14; Admin Dose 125 MLS/HR; Start 07/01/18 at 23:00 Assessment/Plan Hospital Course (Demo Recall) 1. Status post cardiopulmonary arrest appears to be mostly related to respiratory failure 2. Hypoxemic respiratory failure status post intubation vent dependent now 3. hypertension 4. Cardiomyopathy :unclear acute versus chronic 5. Congestive heart failure probably acute on chronic secondary systolic heart failure 6. Renal insufficiency: Acute kidney injury now 7. Encephalopathy 8. Abnormal EKG with left bundle branch block 9. Incomplete data 10. Pneumonia Recommendation: Cardiac enzyme has been repeated and myocardial infarction was ruled out. Review of the old chart also has shown that the patient has had normal coronaries in 2016 Continue with vent support. To be managed as per pulmonary recommendations. weaning as tolerated. Aspirin daily. Diuresis as per renal rec. Follow with RENAL CONSULT . GI and DVT prophylaxis Antibiotics management will be deferred to internal medicine cont Coreg We will cont hydralazine/Isordil combination. hold off on ARB./ DENNIS due to RICKI Continue with ICU care consider removing the central line an place IV access. old records result was reviewed. Patient has had a coronary angiogram in December 10, 2015 which showed mild coronary artery disease with normal left ventricular systolic function. Review of the old study again shows that patient has had an abnormal stress test on prior to the angiogram on June 07, 2015 which showed ejection fraction of 47% and reversible inferior wall ischemia Thank you for his referral. We will continue to follow along with you MONIQUE SANDOVAL MD [facility] MONIQUE SANDOVAL MD Jul 03, 2018 07:28
--- NOTE | 2018-07-03 08:11 | CONS ---
Consult Date/Type/Reason Admit Date/Time Jun 25, 2018 at 04:04 Initial Consult Date 06/25/18 Type of Consult Pulmonary Requesting Provider: DAMION KUMAR Date/Time of Note DATE: 07/03/18 TIME: 08:08 Subjective Patient more alert this morning. Opens eyes follows commands no respiratory distress. Chest x-ray shows improvement in aeration. Currently hemodynamically stable. Objective Vital Signs Date Temp Pulse Resp B/P (MAP) Pulse Ox O2 O2 Flow FiO2 Time Delivery Rate 07/03/18 97.4 64 22 175/93 97 Mechanical 07:00 (120) Ventilator 07/03/18 40 05:48 Intake and Output 07/02/18 07/02/18 07/03/18 1414:59 22:59 06:59 IntakeIntake Total 407.45 ml 815.30 ml 1179.84 ml OutputOutput Total 790 ml 865 ml 970 ml BalanceBalance -382.55 ml -49.70 ml 209.84 ml Exam GENERAL: Elderly obese Telugu gentleman orally intubated VITAL SIGNS: per chart NECK: Supple. No JVD or lymphadenopathy. CARDIAC EXAM: S1, S2. No added sounds or murmurs. CHEST: Diminished air entry bilaterally with rales ABDOMEN: Soft, nontender. No guarding or rebound. EXTREMITIES: No cyanosis, clubbing edema +1 NEUROLOGIC: Generalized weakness. No focal deficits. Vent Setting Ventilator Support Mode: AC Fraction of Inspired Oxygen pe: 40 Positive End Expiratory Pressu: 5.0 Results/Medications Result Diagram: 07/03/18 0400 07/03/18 0400 Results 24 hrs Laboratory Tests Test 07/02/18 08:16 07/02/18 12:34 07/02/18 16:34 07/02/18 20:14 Bedside Glucose 232 H 209 202 180 Test 07/03/18 00:10 07/03/18 04:00 07/03/18 04:57 Bedside Glucose 195 241 H White Blood Count 7.0 Red Blood Count 3.84 L Hemoglobin 10.7 L Hematocrit 35.3 L Mean Corpuscular 91.9 Volume Mean Corpuscular 27.9 L Hemoglobin Mean Corpuscular 30.3 L Hemoglobin Concent Red Cell 14.9 H Distribution Width Platelet Count 205 Mean Platelet Volume 11.8 H Immature 1.000 H Granulocytes % Neutrophils % 68.6 Lymphocytes % 18.3 Monocytes % 9.1 Eosinophils % 2.6 Basophils % 0.4 Nucleated Red Blood 0.0 Cells % Immature 0.070 H Granulocytes # Neutrophils # 4.8 Lymphocytes # 1.3 Monocytes # 0.6 Eosinophils # 0.2 Basophils # 0.0 Nucleated Red Blood 0.0 Cells # Sodium Level 148 H Potassium Level 3.9 Chloride Level 113 H Carbon Dioxide Level 25 Anion Gap 10 Blood Urea Nitrogen 44 H Creatinine 2.13 H Est Glomerular Filtrat Rate mL/min Glucose Level 232 H Calcium Level 9.0 Phosphorus Level 4.0 Magnesium Level 2.3 Medications Current Medications Norepinephrine 250 ml @ 1.875 mls/ hr TITRATE IV Last administered on 06/25/18 03:13; Admin Dose 3.75 MLS/HR; Start 06/25/18 at 03:00 Vancomycin HCl (Vanco Iv Per Pharmacy) VANCOMYCIN PER PHARMACY PER PROTOCOL XX ; Start 06/25/18 at 07:00 Insulin Aspart (Novolog Insulin Pen) NOVOLOG *MILD* ALGORI... Q4 SC Last administered on 07/03/18 04:59; Admin Dose 3 UNIT; Start 06/25/18 at 09:00 Propofol 100 ml @ 5.1 mls/hr Q12H IV Last administered on 06/27/18 09:10; Admin Dose 15.3 MLS/HR; Start 06/25/18 at 10:30 Famotidine (Pepcid Iv) 20 mg DAILY IV Last administered on 07/02/18 08:17; Admin Dose 20 MG; Start 06/26/18 at 10:30 Atorvastatin Calcium (Lipitor) 40 mg HS NGT Last administered on 07/02/18 20:16; Admin Dose 40 MG; Start 06/26/18 at 21:00 Acetaminophen (Tylenol Liquid) 650 mg Q4H PRN NGT MILD PAIN(1-3)OR ELEVATED TEMP Last administered on 07/02/18 06:23; Admin Dose 650 MG; Start 06/26/18 at 13:30 Albuterol (Ventolin Hfa) 4 puff Q6H RESP THERAPY INH Last administered on 07/03/18 02:45; Admin Dose 4 PUFF; Start 06/26/18 at 20:00 Aspirin (Aspirin) 81 mg DAILY NGT Last administered on 07/02/18 08:17; Admin Dose 81 MG; Start 06/27/18 at 09:00 Alteplase, Recombinant (Cathflo (Activase)) 2 mg MAY REPEAT X1 PRN CATHETER IF CATHETER REMAINS OCCULUDED; Start 06/27/18 at 09:30 Furosemide (Lasix) 40 mg DAILY IV Last administered on 06/30/18 09:19; Admin Dose 40 MG; Start 06/27/18 at 10:30; Status Hold Fentanyl 100 ml @ 2.5 mls/hr TITRATE PRN IV PAIN Last administered on 07/02/18 05:52; Admin Dose 5 MLS/HR; Start 06/27/18 at 11:30 Hydralazine HCl (Apresoline) 10 mg Q4H PRN IV ELEVATED BLOOD PRESSURE Last administered on 07/01/18 03:34; Admin Dose 10 MG; Start 06/27/18 at 20:30 Lorazepam (Ativan) 2 mg Q2H PRN IV AGITATION/ANXIETY Last administered on 06/29/18 14:46; Admin Dose 2 MG; Start 06/27/18 at 23:00 Zinc Sulfate (Zinc Sulfate) 220 mg DAILY NGT Last administered on 07/02/18 08:17; Admin Dose 220 MG; Start 06/28/18 at 11:30 Ascorbic Acid (Vitamin C) 500 mg DAILY NGT Last administered on 07/02/18 08:17; Admin Dose 500 MG; Start 06/28/18 at 11:30 Isosorbide Dinitrate (Isordil) 20 mg TID NGT Last administered on 07/02/18 20:15; Admin Dose 20 MG; Start 06/28/18 at 14:00 Insulin Glargine (Lantus) 15 units DAILY@0800 SC Last administered on 07/02/18 08:19; Admin Dose 15 UNITS; Start 06/28/18 at 14:00 Enoxaparin Sodium (Lovenox) 30 mg DAILY SC Last administered on 07/02/18 08:19; Admin Dose 30 MG; Start 06/29/18 at 09:00; Status Hold Alteplase, Recombinant (Cathflo (Activase)) 2 mg MAY REPEAT X1 PRN CATHETER IF CATHETER REMAINS OCCULUDED; Start 06/29/18 at 04:30 Hydralazine HCl (Apresoline) 100 mg TID GTB Last administered on 07/02/18 20:16; Admin Dose 100 MG; Start 06/29/18 at 09:00 Fish Oil (Fish Oil) 2,000 mg BID PO Last administered on 07/02/18 20:15; Admin Dose 2,000 MG; Start 06/29/18 at 09:00 Dexmedetomidine HCl 200 mcg/ Sodium Chloride 50 ml @ 7.08 mls/hr TITRATE IV Last administered on 07/03/18 06:24; Admin Dose 21.23 MLS/HR; Start 06/30/18 at 09:00 Levofloxacin (Levaquin) 250 mg DAILY@06 NGT Last administered on 07/03/18 04:55; Admin Dose 250 MG; Start 07/01/18 at 06:00; Stop 07/08/18 at 05:59 Clindamycin HCl/ Dextrose 50 ml @ 100 mls/hr Q6 IVPB Last administered on 07/03/18 04:55; Admin Dose 100 MLS/HR; Start 06/30/18 at 13:30 Carvedilol (Coreg) 25 mg BID NGT Last administered on 07/02/18 20:16; Admin Dose 25 MG; Start 06/30/18 at 21:00 Vancomycin HCl 250 ml @ 125 mls/hr Q24H IVPB Last administered on 07/03/18at 0 0:14; Admin Dose 125 MLS/HR; Start 07/01/18 at 23:00 Assessment/Plan Hospital Course (Demo Recall) assessment 1. Acute hypoxemic respiratory failure likely secondary to congestive cardiac failure. Improved aeration today. No significant effusion noted. 2. Renal insufficiency 3. Probable underlying obstructive sleep apnea 4. Bilateral pneumonia probable community acquired Plan 1. Continue bronchodilators 2. Continue mechanical ventilation, CPAP trial this morning. Post extubation will require bilevel ventilation. 3. Transition to Precedex DC Versed. 4. DVT GI prophylaxis 5. Continue tube feeding, speech therapy evaluation post extubation. Critical care time 40 minutes Long discussion with family yesterday regarding goals of care. YARIEL DUTTA MD, [facility] Jul 03, 2018 08:10
--- NOTE | 2018-07-03 08:20 | PN ---
DATE: 07/03/2018 SUBJECTIVE: The patient is undergoing weaning trials. No other acute events noted overnight. The p atient is more alert. OBJECTIVE: VITAL SIGNS: Blood pressure is 175/93, respirations 22, pulse 64, temperature 97.4. HEENT: Head is normocephalic. NECK: Supple. HEART: Regular rate. LUNGS: Show diminished breath sounds at the base. ABDOMEN: Soft, nontender to palpation without rebound or guarding. EXTREMITIES: Negative for clubbing, cyanosis, no edema. DERMATOLOGIC: No rashes. MUSCULOSKELETAL: No joint effusion. NEUROLOGIC: No change in exam. MEDICATIONS: The patient's medications have been reviewed. LABORATORY DATA: From 07/03/2018 was reviewed. IMAGING STUDIES: Pending. ASSESSMENT AND PLAN: 1. Nonoliguric acute kidney injury with unknown baseline creatinine. Etiology of acute kidney injur y is secondary to acute tubular necrosis, hemodynamics, possible contrast-associated nephropathy. Th e patient's renal function has slowly been fluctuating but slowly improving. At this point, continue current treatment plan, supportive care, renally dose all medicines. 2. Volume overload. The patient currently appears euvolemic on exam. Chest x-rays does suggest pos sible pulmonary congestion. We will continue to monitor. Continue to give intermittent diuretic the rapy as needed. 3. Hypernatremia. We will increase free water flushes to 400 mL q.4h. 4. Hypokalemia. Continue to monitor and replete. 5. Mineral bone disorder, monitor calcium and phosphorus levels. 6. Anemia. The patient has completed a course of IV iron. Monitor hemoglobin and hematocrit levels . 7. Ventilatory-dependent respiratory failure. Vent settings and ABG was reviewed. Continue to addi tor. Continue weaning per pulmonary. 8. Status post cardiopulmonary arrest. Continue to monitor. 9. Sepsis secondary to pneumonia. Continue current antibiotic regimen. 10. Hypertension. Continue current blood pressure regimen. 11. Dyslipidemia. Continue statin therapy. 12. Diabetes. Continue current insulin regimen. 13. History of cirrhosis. 14. Cardiomyopathy. 15. History of possible cerebrovascular accident. Dictated By: ENA VIVAR DO NR/NTS Conf#: [id number] DID#: [id number] CC: LAURA MCDONALD MD; LILLY CLEMENS MD; YARIEL DUTTA MD;*[facility]*
[2018-07-03] MEDS: ZINC SULFATE 220 MG CAP NGT SCH (08:29)
[2018-07-03] MEDS: ISOSORBIDE DINITRATE 20 MG TAB NGT SCH ×3 (08:29→20:55)
[2018-07-03] MEDS: ASPIRIN 81 MG TAB NGT SCH (08:29)
[2018-07-03] MEDS: FISH OIL 1,000 MG CAP PO SCH ×2 (08:29→20:54)
[2018-07-03] MEDS: ASCORBIC ACID 500 MG TAB NGT SCH (08:29)
[2018-07-03] MEDS: BALSAM PERU/CASTOR OIL 60 GM TUBE TOP SCH ×2 (08:30→21:04)
[2018-07-03] MEDS: INSULIN GLARGINE [LANTus] (100 UNITS/ML) SYG SC SCH (08:34)
[2018-07-03] MEDS: FAMOTIDINE 20 MG INJ IV SCH (08:44)
[2018-07-03] MEDS: PROPOFOL 100 ML IV SCH ×2 (09:31→22:30)
[2018-07-03] MEDS: FENTAnyl (DRIP) 1000 mcg/100mL 100 ML IV PRN ×2 (13:31→23:08)
--- NOTE | 2018-07-03 15:16 | CONS ---
Assessment/Plan Assessment/Plan Hospital Course 78 yo M with multiple cerebrovascular risk factors who presents to ICU following a cardiac arrest. CTH was obtained, and notable for multifocal hypodensities concerning for stroke... for which neurology is consulted. MRI brain is presently unable to be performed d/t morbid obesity. On neurologic examination, he awakens and moves his limbs spontaneously, without obvious focal deficit. Recent echo is notable for depressed LV function with EF 35% and wall motion abnormalities NOS. P: Agree w/ ASA daily for stroke prevention for now; LDL is at goal. Cont to limit sedating medications where possible Other medical management and supportive care per primary WiIl follow clinically Consultation Date/Type/Reason Admit Date/Time Jun 25, 2018 at 04:04 Type of Consult Neurology Reason for Consultation eval for stroke Requesting Provider: DAMION KUMAR Date/Time of Note DATE: 07/03/18 TIME: 15:13 24 HR Interval Summary Free Text/Dictation Continues critical care. Completed a 4h CPAP trial today. Subjective hx not possible: pt non-verbal Exam Vital Signs Vitals Vital Signs Date Temp Pulse Resp B/P (MAP) Pulse Ox O2 O2 Flow FiO2 Time Delivery Rate 07/03/18 60 22 154/80 98 Mechanical 15:00 (104) Ventilator 07/03/18 97.5 12:00 07/03/18 40 11:40 Intake and Output 07/02/18 07/02/18 07/03/18 1515:00 23:00 07:00 IntakeIntake Total 388.30 ml 841.53 ml 1153.61 ml OutputOutput Total 650 ml 890 ml 1210 ml BalanceBalance -261.70 ml -48.47 ml -56.39 ml Exam PE: Gen Appearance: No Apparent Distress; obese HEENT: Intubated; on fentanyl/precedex gtt. Cardiovascular: Regular rate Abdomen: Soft Extremities: Dry NE: The patient was sedated though easily arousable. Nonverbal d/t ETT. Able to track and follow simple axial and appendicular commands. Cranial nerve examination was limited by mental status. Pupils were equal and reactive to light. There was no afferent pupillary defect. Funduscopic examination was limited. Face was grossly symmetric, w/ present corneal and cough reflexes. Tone was normal. Muscle bulk was normal. I did not see fasciculations. The patient had spontaneous movement of all extremities. Coordination and gait testing was limited by mental status. Arm and leg reflexes were within normal limits and symmetric. Gonzalez's sign was absent. Plantar responses were flexor. DESTINY ANDERSEN NP Jul 03, 2018 15:16
--- NOTE | 2018-07-03 15:27 | PN ---
Date/Time of Note Date/Time of Note DATE: 07/03/18 TIME: 15:22 Assessment/Plan VTE Prophylaxis Risk score (from Ns)>0 risk: 13 Pharmacological prophylaxis: NA/contraindicated Pharm contraindication: renal impairment Assessment/Plan Hospital Course 1. Cardiopulmonary arrest with return of circulation Patient had episode of PEA Mentation appears to be improving Continue to monitor off sedation 2. Respiratory failure secondary to cardiac arrest Pulmonology following, wean as able 3. Acute encephalopathy secondary to anoxic injury Continue to monitor Neurology consultation appreciated 4. Acute kidney injury secondary to hemodynamics Nephrology consultation appreciated 5. Suspected CAD dz status post outpatient stress cath EF worse Cardiac meds 6. Morbid obesity with fatty liver and likely KONG Lifestyle change 7. Diabetes Continue insulin 8. Hypertension-stable 9. Pneumonia possibly aspiration versus community acquired Continue Levaquin 10. History of aortic aneurysm 4.3 on surveillance Prophylaxis: SCDs Result Diagram: 07/03/18 0400 07/03/18 0400 Results 24hrs Laboratory Tests Test 07/02/18 16:34 07/02/18 20:14 07/03/18 00:10 07/03/18 04:00 Bedside Glucose 202 180 195 White Blood Count 7.0 Red Blood Count 3.84 L Hemoglobin 10.7 L Hematocrit 35.3 L Mean Corpuscular 91.9 Volume Mean Corpuscular 27.9 L Hemoglobin Mean Corpuscular 30.3 L Hemoglobin Concen t Red Cell 14.9 H Distribution Width Platelet Count 205 Mean Platelet 11.8 H Volume Immature 1.000 H Granulocytes % Neutrophils % 68.6 Lymphocytes % 18.3 Monocytes % 9.1 Eosinophils % 2.6 Basophils % 0.4 Nucleated Red 0.0 Blood Cells % Immature 0.070 H Granulocytes # Neutrophils # 4.8 Lymphocytes # 1.3 Monocytes # 0.6 Eosinophils # 0.2 Basophils # 0.0 Nucleated Red 0.0 Blood Cells # Sodium Level 148 H Potassium Level 3.9 Chloride Level 113 H Carbon Dioxide 25 Level Anion Gap 10 Blood Urea 44 H Nitrogen Creatinine 2.13 H Est Glomerular Filtrat Rate mL/min Glucose Level 232 H Calcium Level 9.0 Phosphorus Level 4.0 Magnesium Level 2.3 Test 07/03/18 04:57 07/03/18 08:31 07/03/18 10:20 07/03/18 12:26 Bedside Glucose 241 H 248 H 274 H Blood Gas Blood arterial Specimen Source Arterial Blood 07/03/2018 10:10: Date Drawn 19 AM Arterial Blood pH 7.313 L (Temp corrected) Arterial Blood 52.1 H pCO2 (Temp correct) Arterial Blood 93.3 H pO2 (Temp corrected) Arterial Blood 25.8 HCO3 Arterial Blood -1.0 Base Excess Arterial Blood 95.5 Oxygen Saturation Darío Test ACCEPTAB Arterial Blood Right Radial Gas Puncture Site Arterial 0.3 Blood Carboxyhemo globin Arterial Blood 0.4 Methemoglobin Blood Gas A-a O2 132.0 H Differential Oxyhemoglobin 94.8 Percent Blood Gas 37.0 Temperature Blood Gas Actual 28 Respiration Rate Blood Gas VENT - CPAP Modality FiO2 40.0 Blood Gas Low 5.0 PEEP Setting Blood Gas 10 Pressure Support Blood Gas TM Notified Whom Blood Gas 07/03/2018 10:29: Notified Time 56 AM Subjective 24 Hr Interval Summary Subjective hx not possible: pt non-verbal Exam/Review of Systems Exam Vitals Vital Signs Date Temp Pulse Resp B/P (MAP) Pulse Ox O2 O2 Flow FiO2 Time Delivery Rate 07/03/18 60 22 154/80 98 Mechanical 15:00 (104) Ventilator 07/03/18 97.5 12:00 07/03/18 40 11:40 Intake and Output 07/02/18 07/02/18 07/03/18 1515:00 23:00 07:00 IntakeIntake Total 388.30 ml 841.53 ml 1153.61 ml OutputOutput Total 650 ml 890 ml 1210 ml BalanceBalance -261.70 ml -48.47 ml -56.39 ml Constitutional: non-verbal ENMT: intubated Respiratory: clear to auscultation Cardiovascular: regular rate and rhythm Gastrointestinal: soft; No distended Musculoskeletal: nl extremities to inspection Results Results 24hrs Laboratory Tests Test 07/02/18 16:34 07/02/18 20:14 07/03/18 00:10 07/03/18 04:00 Bedside Glucose 202 180 195 White Blood Count 7.0 Red Blood Count 3.84 L Hemoglobin 10.7 L Hematocrit 35.3 L Mean Corpuscular 91.9 Volume Mean Corpuscular 27.9 L Hemoglobin Mean Corpuscular 30.3 L Hemoglobin Concen t Red Cell 14.9 H Distribution Width Platelet Count 205 Mean Platelet 11.8 H Volume Immature 1.000 H Granulocytes % Neutrophils % 68.6 Lymphocytes % 18.3 Monocytes % 9.1 Eosinophils % 2.6 Basophils % 0.4 Nucleated Red 0.0 Blood Cells % Immature 0.070 H Granulocytes # Neutrophils # 4.8 Lymphocytes # 1.3 Monocytes # 0.6 Eosinophils # 0.2 Basophils # 0.0 Nucleated Red 0.0 Blood Cells # Sodium Level 148 H Potassium Level 3.9 Chloride Level 113 H Carbon Dioxide 25 Level Anion Gap 10 Blood Urea 44 H Nitrogen Creatinine 2.13 H Est Glomerular Filtrat Rate mL/min Glucose Level 232 H Calcium Level 9.0 Phosphorus Level 4.0 Magnesium Level 2.3 Test 07/03/18 04:57 07/03/18 08:31 07/03/18 10:20 07/03/18 12:26 Bedside Glucose 241 H 248 H 274 H Blood Gas Blood arterial Specimen Source Arterial Blood 07/03/2018 10:10: Date Drawn 19 AM Arterial Blood pH 7.313 L (Temp corrected) Arterial Blood 52.1 H pCO2 (Temp correct) Arterial Blood 93.3 H pO2 (Temp corrected) Arterial Blood 25.8 HCO3 Arterial Blood -1.0 Base Excess Arterial Blood 95.5 Oxygen Saturation Darío Test ACCEPTAB Arterial Blood Right Radial Gas Puncture Site Arterial 0.3 Blood Carboxyhemo globin Arterial Blood 0.4 Methemoglobin Blood Gas A-a O2 132.0 H Differential Oxyhemoglobin 94.8 Percent Blood Gas 37.0 Temperature Blood Gas Actual 28 Respiration Rate Blood Gas VENT - CPAP Modality FiO2 40.0 Blood Gas Low 5.0 PEEP Setting Blood Gas 10 Pressure Support Blood Gas TM Notified Whom Blood Gas 07/03/2018 10:29: Notified Time 56 AM Medications Medication Current Medications Norepinephrine 250 ml @ 1.875 mls/ hr TITRATE IV Last administered on 06/25/18 03:13; Admin Dose 3.75 MLS/HR; Start 06/25/18 at 03:00 Insulin Aspart (Novolog Insulin Pen) NOVOLOG *MILD* ALGORI... Q4 SC Last administered on 07/03/18at 12:30; Admin Dose 4 UNIT; Start 06/25/18 at 09:00 Propofol 100 ml @ 5.1 mls/hr Q12H IV Last administered on 06/27/18 09:10; Adm in Dose 15.3 MLS/HR; Start 06/25/18 at 10:30 Famotidine (Pepcid Iv) 20 mg DAILY IV Last administered on 07/03/18 08:44; Admin Dose 20 MG; Start 06/26/18 at 10:30 Atorvastatin Calcium (Lipitor) 40 mg HS NGT Last administered on 07/02/18 20:16; Admin Dose 40 MG; Start 06/26/18 at 21:00 Acetaminophen (Tylenol Liquid) 650 mg Q4H PRN NGT MILD PAIN(1-3)OR ELEVATED TEMP Last administered on 07/02/18 06:23; Admin Dose 650 MG; Start 06/26/18 at 13:30 Albuterol (Ventolin Hfa) 4 puff Q6H RESP THERAPY INH Last administered on 07/03/18 13:13; Admin Dose 4 PUFF; Start 06/26/18 at 20:00 Aspirin (Aspirin) 81 mg DAILY NGT Last administered on 07/03/18 08:29; Admin Dose 81 MG; Start 06/27/18 at 09:00 Alteplase, Recombinant (Cathflo (Activase)) 2 mg MAY REPEAT X1 PRN CATHETER IF CATHETER REMAINS OCCULUDED; Start 06/27/18 at 09:30 Furosemide (Lasix) 40 mg DAILY IV Last administered on 06/30/18 09:19; Admin Dose 40 MG; Start 06/27/18 at 10:30; Status Hold Fentanyl 100 ml @ 2.5 mls/hr TITRATE PRN IV PAIN Last administered on 07/03/18 13:31; Admin Dose 10 MLS/HR; Start 06/27/18 at 11:30 Hydralazine HCl (Apresoline) 10 mg Q4H PRN IV ELEVATED BLOOD PRESSURE Last administered on 07/01/18 03:34; Admin Dose 10 MG; Start 06/27/18 at 20:30 Lorazepam (Ativan) 2 mg Q2H PRN IV AGITATION/ANXIETY Last administered on 06/29/18 14:46; Admin Dose 2 MG; Start 06/27/18 at 23:00 Zinc Sulfate (Zinc Sulfate) 220 mg DAILY NGT Last administered on 07/03/18 08:29; Admin Dose 220 MG; Start 06/28/18 at 11:30 Ascorbic Acid (Vitamin C) 500 mg DAILY NGT Last administered on 07/03/18 08:29; Admin Dose 500 MG; Start 06/28/18 at 11:30 Isosorbide Dinitrate (Isordil) 20 mg TID NGT Last administered on 07/03/18 12:33; Admin Dose 20 MG; Start 06/28/18 at 14:00 Insulin Glargine (Lantus) 15 units DAILY@0800 SC Last administered on 07/03/18 08:34; Admin Dose 15 UNITS; Start 06/28/18 at 14:00 Enoxaparin Sodium (Lovenox) 30 mg DAILY SC Last administered on 07/02/18 08:19; Admin Dose 30 MG; Start 06/29/18 at 09:00; Status Hold Alteplase, Recombinant (Cathflo (Activase)) 2 mg MAY REPEAT X1 PRN CATHETER IF CATHETER REMAINS OCCULUDED; Start 06/29/18 at 04:30 Hydralazine HCl (Apresoline) 100 mg TID GTB Last administered on 07/03/18 12:33; Admin Dose 100 MG; Start 06/29/18 at 09:00 Fish Oil (Fish Oil) 2,000 mg BID PO Last administered on 07/03/18 08:29; Admin Dose 2,000 MG; Start 06/29/18 at 09:00 Dexmedetomidine HCl 200 mcg/ Sodium Chloride 50 ml @ 7.08 mls/hr TITRATE IV Last administered on 07/03/18 13:27; Admin Dose 28.3 MLS/HR; Start 06/30/18 at 09:00 Levofloxacin (Levaquin) 250 mg DAILY@06 NGT Last administered on 07/03/18 04:55; Admin Dose 250 MG; Start 07/01/18 at 06:00; Stop 07/08/18 at 05:59 Carvedilol (Coreg) 25 mg BID NGT Last administered on 07/03/18 08:29; Admin Dose 25 MG; Start 06/30/18 at 21:00 LAURA MCDONALD Jul 03, 2018 15:27
--- NOTE | 2018-07-03 15:30 | PN ---
Date/Time of Note Date/Time of Note DATE: 07/02/18 TIME: 15:28 Assessment/Plan VTE Prophylaxis Risk score (from Ns)>0 risk: 13 [place]CD applied [place]from [facility] [place] Yes Pharmacological prophylaxis: NA/contraindicated Pharm contraindication: other Assessment/Plan Hospital Course 1. Cardiopulmonary arrest with return of circulation Patient had episode of PEA Mentation appears to be improving Continue to monitor off sedation 2. Respiratory failure secondary to cardiac arrest Pulmonology following, wean as able Insufficient fluid for thoracentesis 3. Acute encephalopathy secondary to anoxic injury Continue to monitor Neurology consultation appreciated 4. Acute kidney injury secondary to hemodynamics Nephrology consultation appreciated 5. Suspected CAD dz status post outpatient stress cath EF worse Cardiac meds 6. Morbid obesity with fatty liver and likely KONG Lifestyle change 7. Diabetes Continue insulin 8. Hypertension-stable 9. Pneumonia possibly aspiration versus community acquired Continue Levaquin 10. History of aortic aneurysm 4.3 on surveillance Prophylaxis: SCDs Result Diagram: 07/03/18 0400 07/03/18 0400 Results 24hrs Laboratory Tests Test 07/02/18 16:34 07/02/18 20:14 07/03/18 00:10 07/03/18 04:00 Bedside Glucose 202 180 195 White Blood Count 7.0 Red Blood Count 3.84 L Hemoglobin 10.7 L Hematocrit 35.3 L Mean Corpuscular 91.9 Volume Mean Corpuscular 27.9 L Hemoglobin Mean Corpuscular 30.3 L Hemoglobin Concen t Red Cell 14.9 H Distribution Width Platelet Count 205 Mean Platelet 11.8 H Volume Immature 1.000 H Granulocytes % Neutrophils % 68.6 Lymphocytes % 18.3 Monocytes % 9.1 Eosinophils % 2.6 Basophils % 0.4 Nucleated Red 0.0 Blood Cells % Immature 0.070 H Granulocytes # Neutrophils # 4.8 Lymphocytes # 1.3 Monocytes # 0.6 Eosinophils # 0.2 Basophils # 0.0 Nucleated Red 0.0 Blood Cells # Sodium Level 148 H Potassium Level 3.9 Chloride Level 113 H Carbon Dioxide 25 Level Anion Gap 10 Blood Urea 44 H Nitrogen Creatinine 2.13 H Est Glomerular Filtrat Rate mL/min Glucose Level 232 H Calcium Level 9.0 Phosphorus Level 4.0 Magnesium Level 2.3 Test 07/03/18 04:57 07/03/18 08:31 07/03/18 10:20 07/03/18 12:26 Bedside Glucose 241 H 248 H 274 H Blood Gas Blood arterial Specimen Source Arterial Blood 07/03/2018 10:10: Date Drawn 19 AM Arterial Blood pH 7.313 L (Temp corrected) Arterial Blood 52.1 H pCO2 (Temp correct) Arterial Blood 93.3 H pO2 (Temp corrected) Arterial Blood 25.8 HCO3 Arterial Blood -1.0 Base Excess Arterial Blood 95.5 Oxygen Saturation Darío Test ACCEPTAB Arterial Blood Right Radial Gas Puncture Site Arterial 0.3 Blood Carboxyhemo globin Arterial Blood 0.4 Methemoglobin Blood Gas A-a O2 132.0 H Differential Oxyhemoglobin 94.8 Percent Blood Gas 37.0 Temperature Blood Gas Actual 28 Respiration Rate Blood Gas VENT - CPAP Modality FiO2 40.0 Blood Gas Low 5.0 PEEP Setting Blood Gas 10 Pressure Support Blood Gas TM Notified Whom Blood Gas 07/03/2018 10:29: Notified Time 56 AM Subjective 24 Hr Interval Summary Free Text/Dictation Late entry for 07/02/2018 Subjective hx not possible: pt non-verbal Exam/Review of Systems Exam Vitals Vital Signs Date Temp Pulse Resp B/P (MAP) Pulse Ox O2 O2 Flow FiO2 Time Delivery Rate 07/03/18 60 22 154/80 98 Mechanical 15:00 (104) Ventilator 07/03/18 97.5 12:00 07/03/18 40 11:40 Intake and Output 07/02/18 07/02/18 07/03/18 1515:00 23:00 07:00 IntakeIntake Total 388.30 ml 841.53 ml 1153.61 ml OutputOutput Total 650 ml 890 ml 1210 ml BalanceBalance -261.70 ml -48.47 ml -56.39 ml Constitutional: non-verbal Respiratory: clear to auscultation Cardiovascular: regular rate and rhythm Gastrointestinal: soft; No distended Musculoskeletal: nl extremities to inspection Results Results 24hrs Laboratory Tests Test 07/02/18 16:34 07/02/18 20:14 07/03/18 00:10 07/03/18 04:00 Bedside Glucose 202 180 195 White Blood Count 7.0 Red Blood Count 3.84 L Hemoglobin 10.7 L Hematocrit 35.3 L Mean Corpuscular 91.9 Volume Mean Corpuscular 27.9 L Hemoglobin Mean Corpuscular 30.3 L Hemoglobin Concen t Red Cell 14.9 H Distribution Width Platelet Count 205 Mean Platelet 11.8 H Volume Immature 1.000 H Granulocytes % Neutrophils % 68.6 Lymphocytes % 18.3 Monocytes % 9.1 Eosinophils % 2.6 Basophils % 0.4 Nucleated Red 0.0 Blood Cells % Immature 0.070 H Granulocytes # Neutrophils # 4.8 Lymphocytes # 1.3 Monocytes # 0.6 Eosinophils # 0.2 Basophils # 0.0 Nucleated Red 0.0 Blood Cells # Sodium Level 148 H Potassium Level 3.9 Chloride Level 113 H Carbon Dioxide 25 Level Anion Gap 10 Blood Urea 44 H Nitrogen Creatinine 2.13 H Est Glomerular Filtrat Rate mL/min Glucose Level 232 H Calcium Level 9.0 Phosphorus Level 4.0 Magnesium Level 2.3 Test 07/03/18 04:57 07/03/18 08:31 07/03/18 10:20 07/03/18 12:26 Bedside Glucose 241 H 248 H 274 H Blood Gas Blood arterial Specimen Source Arterial Blood 07/03/2018 10:10: Date Drawn 19 AM Arterial Blood pH 7.313 L (Temp corrected) Arterial Blood 52.1 H pCO2 (Temp correct) Arterial Blood 93.3 H pO2 (Temp corrected) Arterial Blood 25.8 HCO3 Arterial Blood -1.0 Base Excess Arterial Blood 95.5 Oxygen Saturation Darío Test ACCEPTAB Arterial Blood Right Radial Gas Puncture Site Arterial 0.3 Blood Carboxyhemo globin Arterial Blood 0.4 Methemoglobin Blood Gas A-a O2 132.0 H Differential Oxyhemoglobin 94.8 Percent Blood Gas 37.0 Temperature Blood Gas Actual 28 Respiration Rate Blood Gas VENT - CPAP Modality FiO2 40.0 Blood Gas Low 5.0 PEEP Setting Blood Gas 10 Pressure Support Blood Gas TM Notified Whom Blood Gas 07/03/2018 10:29: Notified Time 56 AM Medications Medication Current Medications Norepinephrine 250 ml @ 1.875 mls/ hr TITRATE IV Last administered on 06/25/18at 03:13; Admin Dose 3.75 MLS/HR; Start 06/25/18 at 03:00 Insulin Aspart (Novolog Insulin Pen) NOVOLOG *MILD* ALGORI... Q4 SC Last administered on 07/03/18at 12:30; Admin Dose 4 UNIT; Start 06/25/18 at 09:00 Propofol 100 ml @ 5.1 mls/hr Q12H IV Last administered on 06/27/18at 09:10; Admin Dose 15.3 MLS/HR; Start 06/25/18 at 10:30 Famotidine (Pepcid Iv) 20 mg DAILY IV Last administered on 07/03/18 08:44; Admin Dose 20 MG; Start 06/26/18 at 10:30 Atorvastatin Calcium (Lipitor) 40 mg HS NGT Last administered on 07/02/18 20:16; Admin Dose 40 MG; Start 06/26/18 at 21:00 Acetaminophen (Tylenol Liquid) 650 mg Q4H PRN NGT MILD PAIN(1-3)OR ELEVATED TEMP Last administered on 07/02/18 06:23; Admin Dose 650 MG; Start 06/26/18 at 13:30 Albuterol (Ventolin Hfa) 4 puff Q6H RESP THERAPY INH Last administered on 07/03/18 13:13; Admin Dose 4 PUFF; Start 06/26/18 at 20:00 Aspirin (Aspirin) 81 mg DAILY NGT Last administered on 07/03/18 08:29; Admin Dose 81 MG; Start 06/27/18 at 09:00 Alteplase, Recombinant (Cathflo (Activase)) 2 mg MAY REPEAT X1 PRN CATHETER IF CATHETER REMAINS OCCULUDED; Start 06/27/18 at 09:30 Furosemide (Lasix) 40 mg DAILY IV Last administered on 06/30/18 09:19; Admin Dose 40 MG; Start 06/27/18 at 10:30; Status Hold Fentanyl 100 ml @ 2.5 mls/hr TITRATE PRN IV PAIN Last administered on 07/03/18 13:31; Admin Dose 10 MLS/HR; Start 06/27/18 at 11:30 Hydralazine HCl (Apresoline) 10 mg Q4H PRN IV ELEVATED BLOOD PRESSURE Last administered on 07/01/18 03:34; Admin Dose 10 MG; Start 06/27/18 at 20:30 Lorazepam (Ativan) 2 mg Q2H PRN IV AGITATION/ANXIETY Last administered on 06/29/18 14:46; Admin Dose 2 MG; Start 06/27/18 at 23:00 Zinc Sulfate (Zinc Sulfate) 220 mg DAILY NGT Last administered on 07/03/18 08:29; Admin Dose 220 MG; Start 06/28/18 at 11:30 Ascorbic Acid (Vitamin C) 500 mg DAILY NGT Last administered on 07/03/18 08:29; Admin Dose 500 MG; Start 06/28/18 at 11:30 Isosorbide Dinitrate (Isordil) 20 mg TID NGT Last administered on 07/03/18 12:33; Admin Dose 20 MG; Start 06/28/18 at 14:00 Insulin Glargine (Lantus) 15 units DAILY@0800 SC Last administered on 07/03/18 08:34; Admin Dose 15 UNITS; Start 06/28/18 at 14:00 Enoxaparin Sodium (Lovenox) 30 mg DAILY SC Last administered on 07/02/18 08:19; Admin Dose 30 MG; Start 06/29/18 at 09:00; Status Hold Alteplase, Recombinant (Cathflo (Activase)) 2 mg MAY REPEAT X1 PRN CATHETER IF CATHETER REMAINS OCCULUDED; Start 06/29/18 at 04:30 Hydralazine HCl (Apresoline) 100 mg TID GTB Last administered on 07/03/18 12:33; Admin Dose 100 MG; Start 06/29/18 at 09:00 Fish Oil (Fish Oil) 2,000 mg BID PO Last administered on 07/03/18 08:29; Admin Dose 2,000 MG; Start 06/29/18 at 09:00 Dexmedetomidine HCl 200 mcg/ Sodium Chloride 50 ml @ 7.08 mls/hr TITRATE IV Last administered on 07/03/18 13:27; Admin Dose 28.3 MLS/HR; Start 06/30/18 at 09:00 Levofloxacin (Levaquin) 250 mg DAILY@06 NGT Last administered on 07/03/18 04:55; Admin Dose 250 MG; Start 07/01/18 at 06:00; Stop 07/08/18 at 05:59 Carvedilol (Coreg) 25 mg BID NGT Last administered on 07/03/18 08:29; Admin Dose 25 MG; Start 06/30/18 at 21:00 LAURA MCDONALD Jul 03, 2018 15:30
[2018-07-03] MEDS: ATORVASTATIN 40 MG TAB NGT SCH (20:55)
[2018-07-04] VITALS (39 sets, daily range): BP systolic 104–156; BP diastolic 58–94; PULSE 58–72; RESP 0–24
[2018-07-04] MEDS: INSULIN ASPART [NOVOLOG] 3 ML PEN SC SCH ×6 (00:53→20:41)
[2018-07-04] MEDS: ALBUTEROL HFA 8 GM INHALER INH SCH ×4 (01:49→19:37)
[2018-07-04] MEDS: DEXMEDETOMIDINE HCL 200 MCG in SOD CHLORIDE 0.9% 48 ML IV SCH ×6 (02:02→23:42)
[2018-07-04] MEDS: LEVOFLOXACIN 250 MG TAB NGT SCH (05:36)
--- NOTE | 2018-07-04 07:28 | CONS ---
Consult Date/Type/Reason Admit Date/Time Jun 25, 2018 at 04:04 Initial Consult Date 06/25/18 Type of Consultation: cv Requesting Provider: DAMION KUMAR Date/Time of Note DATE: 07/04/18 TIME: 07:24 Subjective Interventional cardiology follow-up progress note Subjective: Discussed with the staff and telemetry was reviewed. Patient has remained sinus rhythm. Blood pressure has been stable No report of any chest pain or pressure no more bleeding is reported Patient failed weaning trial again yesterday events noted. 06/26: pt extubated but had to be reintubated same day for resp distress. Objective: General: Obese gentleman status post intubation on the vent HEENT: NC/AT. . Pupils are equal round reactive to light. s/p NG tube in place NECK: no stridor. CV: RRR. systolic murmur; no gallop or rubs. PULM: no wheezing. + mild rhonchi. GI: SOFT, NT, ND, no rebound or guarding Extremity: +trace B/L LE edema. no clubbing. neuro: awake and follows commands. Psych: calm rectal: deferred : normal EKG in ER was personally reviewed showed normal sinus rhythm left bundle branch block Echocardiogram was personally reviewed which shows: Normal left ventricular cavity size. Moderate concentric left ventricular hyper trophy. Moderate global left ventricular systolic dysfunction. Ejection fraction is visually estimated at 35 %. Abnormal Diastolic Function. Multiple segmental wall motion abnormalities. These segments of the LV are akinetic. No significant aortic stenosis or insufficiency. Aortic cusps appear mildly calcified. Mitral valve leaflets appear mildly thickened. Mild mitral annular calcification. Trace mitral regurgitation. Normal appearance of the tricuspid valve. Estimated peak PA systolic pressure 31 mmHg. There is trace to mild tricuspid regurgitation. Dilated IVC without respiratory collapse, however, patient on ventilator. CT of the chest done in the emergency room shows: 1. No evidence of central pulmonary emboli. Prominent central pulmonary arteries and rule out pulmonary arterial hypertension. Reflux of contrast into the distal inferior vena cava and rule out mild right heart strain/failure. 2. Mild aneurysmal dilatation of the ascending aorta maximal transverse diameter 4.3 cm. 3. Mild cardiomegaly. 4. Bilateral lower lobe consolidations with central air bronchograms consistent with atelectasis though aspiration and pneumonia cannot be excluded. Additional diffuse inhomogeneous ground-glass opacities bilaterally as above consistent with pulmonary edema/pneumonitis. 5. Bilateral tiny pleural effusions. 6. Right paratracheal and prevascular space lymphadenopathy as above. Follow-up is recommended. 7. Mild lobulation of the anterior margin of the liver and may represent cirrhosis. Objective Vitals Vital Signs Date Temp Pulse Resp B/P (MAP) Pulse Ox O2 O2 Flow FiO2 Time Delivery Rate 07/04/18 60 15 131/93 95 06:30 (106) 07/04/18 Mechanical 06:00 Ventilator 07/04/18 40 05:20 07/04/18 98.1 04:00 Intake and Output 07/03/18 07/03/18 07/04/18 1414:59 22:59 06:59 IntakeIntake Total 1188.59 ml 1028.1 ml 1359.41 ml OutputOutput Total 1115 ml 895 ml 750 ml BalanceBalance 73.59 ml 133.1 ml 609.41 ml Results/Medications Result Diagram: 07/04/18 0442 07/04/18 0442 Results 24 hrs Laboratory Tests Test 07/03/18 08:31 07/03/18 10:20 07/03/18 12:26 07/03/18 16:51 Bedside Glucose 248 H 274 H 216 Blood Gas Blood arterial Specimen Source Arterial Blood 07/03/2018 10:10 Date Drawn :19 AM Arterial Blood 7.313 L pH (Temp corrected) Arterial Blood 52.1 H pCO2 (Temp correct) Arterial Blood 93.3 H pO2 (Temp corrected) Arterial Blood 25.8 HCO3 Arterial Blood -1.0 Base Excess Arterial Blood 95.5 Oxygen Saturatio n Darío Test ACCEPTAB Arterial Blood Right Radial Gas Puncture Site Arterial 0.3 Blood Carboxyhem oglobin Arterial Blood 0.4 Methemoglobin Blood Gas A-a O2 132.0 H Differential Oxyhemoglobin 94.8 Percent Blood Gas 37.0 Temperature Blood Gas Actual 28 Respiration Rate Blood Gas VENT - CPAP Modality FiO2 40.0 Blood Gas Low 5.0 PEEP Setting Blood Gas 10 Pressure Support Blood Gas TM Notified Whom Blood Gas 07/03/2018 10:29 Notified Time :56 AM Test 07/03/18 20:57 07/04/18 00:49 07/04/18 04:42 07/04/18 05:33 Bedside Glucose 163 206 202 White Blood 8.4 Count Red Blood Count 4.08 L Hemoglobin 11.5 L Hematocrit 37.0 L Mean Corpuscular 90.7 Volume Mean Corpuscular 28.2 L Hemoglobin Mean Corpuscular 31.1 L Hemoglobin Noris nt Red Cell 14.7 H Distribution Width Platelet Count 224 Mean Platelet 11.7 H Volume Immature 1.100 H Granulocytes % Neutrophils % 77.0 Lymphocytes % 11.7 L Monocytes % 7.5 Eosinophils % 2.1 Basophils % 0.6 Nucleated Red 0.0 Blood Cells % Immature 0.090 H Granulocytes # Neutrophils # 6.5 Lymphocytes # 1.0 Monocytes # 0.6 Eosinophils # 0.2 Basophils # 0.1 Nucleated Red 0.0 Blood Cells # Sodium Level 146 H Potassium Level 4.0 Chloride Level 111 H Carbon Dioxide 25 Level Anion Gap 10 Blood Urea 51 H Nitrogen Creatinine 2.08 H Est Glomerular Filtrat Rate mL/min Glucose Level 218 Calcium Level 9.2 Phosphorus Level 5.2 H Magnesium Level 2.3 Test 07/04/18 07:00 Blood Gas Blood arterial Specimen Source Arterial Blood 07/04/2018 7:00: Date Drawn 22 AM Arterial Blood 7.498 H pH (Temp corrected) Arterial Blood 32.0 L pCO2 (Temp correct) Arterial Blood 82.4 pO2 (Temp corrected) Arterial Blood 24.3 HCO3 Arterial Blood 1.6 Base Excess Arterial Blood 95.8 Oxygen Saturatio n Darío Test ACCEPTAB Arterial Blood Right Radial Gas Puncture Site Arterial 0.3 Blood Carboxyhem oglobin Arterial Blood 0.2 Methemoglobin Blood Gas A-a O2 166.0 H Differential Oxyhemoglobin 95.3 Percent Blood Gas 37.0 Temperature Blood Gas 22.0 Respiration Rate Blood Gas Actual 22 Respiration Rate Blood Gas VENT - AC Modality FiO2 40.0 Blood Gas Tidal 650.0 Volume Blood Gas Low 5.0 PEEP Setting Blood Gas TM Notified Whom Blood Gas 07/04/2018 7:24: Notified Time 02 AM Home Meds Reported Medications Tamsulosin Hcl* (Flomax*) 0.4 Mg Cap.er.24h, 0.4 MG PO DAILY, CAP 07/01/18 Sotalol Hcl* (Betapace*) 80 Mg Tab, 80 MG PO BID, TAB 07/01/18 Levothyroxine Sodium* (Levoxyl*) 75 Mcg Tablet, 75 MCG PO BEFORE BREAKFAST, #30 TAB 07/01/18 Glimepiride* (Amaryl*) 4 Mg Tablet, 4 MG PO WITH BREAKFAST DINNE, TAB 07/01/18 Sitagliptin Phos/Metformin HCl (Janumet 50-1,000 mg Tablet) 1 Each Tablet, 1 EACH PO BID, TAB 07/01/18 Doxazosin Mesylate* (Cardura*) 4 Mg Tablet, 4 MG PO BID, #60 TAB 07/01/18 Nifedipine (Procardia Xl) 60 Mg Tab.er.24, 60 MG PO DAILY, TAB 07/01/18 Metoprolol Succinate* (Toprol XL*) 100 Mg Tab.sr.24h, 100 MG PO BID, #30 TAB 07/01/18 Medications Current Medications Norepinephrine 250 ml @ 1.875 mls/ hr TITRATE IV Last administered on 06/25/18 03:13; Admin Dose 3.75 MLS/HR; Start 06/25/18 at 03:00 Insulin Aspart (Novolog Insulin Pen) NOVOLOG *MILD* ALGORI... Q4 SC Last administered on 07/04/18 05:38; Admin Dose 2 UNIT; Start 06/25/18 at 09:00 Propofol 100 ml @ 5.1 mls/hr Q12H IV Last administered on 06/27/18 09:10; Admin Dose 15.3 MLS/HR; Start 06/25/18 at 10:30 Famotidine (Pepcid Iv) 20 mg DAILY IV Last administered on 07/03/18 08:44; Admin Dose 20 MG; Start 06/26/18 at 10:30 Atorvastatin Calcium (Lipitor) 40 mg HS NGT Last administered on 07/03/18 20:55; Admin Dose 40 MG; Start 06/26/18 at 21:00 Acetaminophen (Tylenol Liquid) 650 mg Q4H PRN NGT MILD PAIN(1-3)OR ELEVATED TEMP Last administered on 07/02/18 06:23; Admin Dose 650 MG; Start 06/26/18 at 13:30 Albuterol (Ventolin Hfa) 4 puff Q6H RESP THERAPY INH Last administered on 07/04/18 01:49; Admin Dose 4 PUFF; Start 06/26/18 at 20:00 Aspirin (Aspirin) 81 mg DAILY NGT Last administered on 07/03/18 08:29; Admin Dose 81 MG; Start 06/27/18 at 09:00 Alteplase, Recombinant (Cathflo (Activase)) 2 mg MAY REPEAT X1 PRN CATHETER IF CATHETER REMAINS OCCULUDED; Start 06/27/18 at 09:30 Furosemide (Lasix) 40 mg DAILY IV Last administered on 06/30/18 09:19; Admin Dose 40 MG; Start 06/27/18 at 10:30; Status Hold Fentanyl 100 ml @ 2.5 mls/hr TITRATE PRN IV PAIN Last administered on 07/03/18 23:08; Admin Dose 7.5 MLS/HR; Start 06/27/18 at 11:30 Hydralazine HCl (Apresoline) 10 mg Q4H PRN IV ELEVATED BLOOD PRESSURE Last administered on 07/01/18 03:34; Admin Dose 10 MG; Start 06/27/18 at 20:30 Lorazepam (Ativan) 2 mg Q2H PRN IV AGITATION/ANXIETY Last administered on 06/29/18 14:46; Admin Dose 2 MG; Start 06/27/18 at 23:00 Zinc Sulfate (Zinc Sulfate) 220 mg DAILY NGT Last administered on 07/03/18 08:29; Admin Dose 220 MG; Start 06/28/18 at 11:30 Ascorbic Acid (Vitamin C) 500 mg DAILY NGT Last administered on 07/03/18at 0 8:29; Admin Dose 500 MG; Start 06/28/18 at 11:30 Isosorbide Dinitrate (Isordil) 20 mg TID NGT Last administered on 07/03/18 20:55; Admin Dose 20 MG; Start 06/28/18 at 14:00 Insulin Glargine (Lantus) 15 units DAILY@0800 SC Last administered on 07/03/18 08:34; Admin Dose 15 UNITS; Start 06/28/18 at 14:00 Enoxaparin Sodium (Lovenox) 30 mg DAILY SC Last administered on 07/02/18 08:19; Admin Dose 30 MG; Start 06/29/18 at 09:00; Status Hold Alteplase, Recombinant (Cathflo (Activase)) 2 mg MAY REPEAT X1 PRN CATHETER IF CATHETER REMAINS OCCULUDED; Start 06/29/18 at 04:30 Hydralazine HCl (Apresoline) 100 mg TID GTB Last administered on 07/03/18 20:55; Admin Dose 100 MG; Start 06/29/18 at 09:00 Fish Oil (Fish Oil) 2,000 mg BID PO Last administered on 07/03/18 20:54; Admin Dose 2,000 MG; Start 06/29/18 at 09:00 Dexmedetomidine HCl 200 mcg/ Sodium Chloride 50 ml @ 7.08 mls/hr TITRATE IV Last administered on 07/04/18 06:41; Admin Dose 21.23 MLS/HR; Start 06/30/18 at 09:00 Levofloxacin (Levaquin) 250 mg DAILY@06 NGT Last administered on 07/04/18 05:36; Admin Dose 250 MG; Start 07/01/18 at 06:00; Stop 07/08/18 at 05:59 Carvedilol (Coreg) 25 mg BID NGT Last administered on 07/03/18 20:54; Admin Dose 25 MG; Start 06/30/18 at 21:00 Docusate Sodium (Colace Liquid Cup) 200 mg BID NGT ; Start 07/04/18 at 09:00; Status Hold Assessment/Plan Hospital Course (Demo Recall) 1. Status post cardiopulmonary arrest appears to be mostly related to respira tory failure 2. Hypoxemic respiratory failure status post intubation vent dependent now 3. hypertension 4. Cardiomyopathy :unclear acute versus chronic 5. Congestive heart failure probably acute on chronic secondary systolic heart failure 6. Renal insufficiency: Acute kidney injury now 7. Encephalopathy 8. Abnormal EKG with left bundle branch block 9. Incomplete data 10. Pneumonia 11. hyper Na Recommendation: Cardiac enzyme has been repeated and myocardial infarction was ruled out. Review of the old chart also has shown that the patient has had normal coronaries in 2016 Continue with vent support. To be managed as per pulmonary recommendations. weaning as tolerated. Aspirin daily. Diuresis/ fluid management as per renal rec. Follow with RENAL CONSULT . GI and DVT prophylaxis Antibiotics management will be deferred to internal medicine cont Coreg We will cont hydralazine/Isordil combination. hold off on ARB./ DENNIS due to RICKI Continue with ICU care Thank you for his referral. We will continue to follow along with you MONIQUE SANDOVAL MD [facility] MONIQUE SANDOVAL MD Jul 04, 2018 07:28
[2018-07-04] MEDS: INSULIN GLARGINE [LANTus] (100 UNITS/ML) SYG SC SCH (08:00)
--- NOTE | 2018-07-04 08:34 | PN ---
DATE: 07/04/2018 SUBJECTIVE: The patient remains in serious condition on full ventilatory support. The patient sacha nues to have excellent urinary output greater than 100 mL per hour. No other acute events noted. No hemoptysis, hematemesis, hematochezia. OBJECTIVE: VITAL SIGNS: Blood pressure is 131/93, respirations 15, pulse 60, temperature 98.6. HEENT: Head is normocephalic. NECK: Supple. HEART: Regular rate. LUNGS: Show diminished breath sounds at the base. ABDOMEN: Soft, nontender to palpation without rebound or guarding. EXTREMITIES: Negative for clubbing, cyanosis, no edema. DERMATOLOGIC: No rashes. MUSCULOSKELETAL: No joint effusion. NEUROLOGIC: No change in exam. MEDICATIONS: The patient's medications have been reviewed. LABORATORY DATA: Has been reviewed. ABG has been reviewed. IMAGING STUDIES: Have been reviewed. CULTURES: Cultures have been reviewed. ASSESSMENT AND PLAN: 1. Nonoliguric acute kidney injury with unknown baseline creatinine. Etiology of acute kidney injur y secondary to acute tubular necrosis due to multifactorial etiologies including hemodynamics, contra st associated nephropathy. The patient's renal function has been fluctuating but slowly improving. At this point, continue current treatment plan, supportive care, renally dose all medication. 2. Volume overload. The patient is clinically improving. Continue intermittent diuretic therapy as needed. The patient appears euvolemic on exam. 3. Hypernatremia, etiology is initially felt to be secondary to insensible losses with decreased betzy e water intake. The possibility of a partial diabetes insipidus due to acute kidney injury is a cons ideration. Plan is to check a urine sodium, urine osmolarity. Will continue aggressive free water f lushes 400 mL q.4 hours. Will monitor closely. 4. Hypokalemia. Continue to monitor and replete as needed. 5. Mineral bone disorder, monitor calcium and phosphorus levels. 6. Anemia. Monitor hemoglobin and hematocrit levels. 7. Ventilatory dependent respiratory failure. Vent settings and ABG was reviewed. Continue to addi tor. Continue weaning per pulmonary. 8. Status post cardiopulmonary arrest. Continue to monitor. 9. Sepsis secondary to pneumonia. The patient has completed antibiotic course. 10. Hypertension. Continue current blood pressure regimen. 11. Dyslipidemia. Continue statin therapy. 12. History of cirrhosis. 13. Cardiomyopathy. 14. Possible cerebrovascular accident. Continue current treatment plan. 15. Acute encephalopathy, etiology is toxic metabolic. Continue to monitor. 16. Dysphagia. Continue tube feeding. Dictated By: ENA VIVAR DO NR/RUTH Conf#: [id number] DID#: [id number] CC: LILLY CLEMENS MD; LAURA MCDONALD MD; YARIEL DUTTA MD;*EndCC*
[2018-07-04] MEDS ORDERED: DOCUSATE SODIUM 10 MG/ML (10ML CUP) NGT SCH (09:00)
--- NOTE | 2018-07-04 09:49 | CONS ---
Assessment/Plan Assessment/Plan Assessment/Plan (Daily) Chest x-ray was reviewed from today which is showing myocardial megaly without any acute infiltrative changes. Ventilator setting; patient currently is on CPAP support of 10, PEEP of 5, 40% FiO2. Patient also is on fentanyl 75 mics per hour, Precedex drip via protocol. Assessment and recommendations; 1P patient admitted with respiratory failure due to likely underlying COPD exacerbation failed extubation trial and had to be reintubated. Patient's condition however has improved significantly over the last 48 hours. 2. Bilateral pneumonia with interval resolution. Patient off antibiotics. 3. Chronic renal insufficiency. 4. Likely underlying sleep apnea. 5. Anemia. 6. History of diabetes and hypertension. Continue current supportive care. Patient is currently on CPAP mode, ABG will be performed and patient to be evaluated for possible extubation. Patient likely will need BiPAP with activation. 35 minutes of critical care time was spent evaluating the patient. Consultation Date/Type/Reason Admit Date/Time Jun 25, 2018 at 04:04 Initial Consult Date 06/25/18 Type of Consult Pulmonary/critical care Patient is a 78-year-old male who was brought into the hospital after sustaining a cardiac arrest event. CPR was done which was brief with revival of vital signs. Patient did not meet criteria for hypothermia protocol. By the time I saw him, patient is orally intubated and sedated. Patient however has remained hemodynamically stable. Past medical history; unknown. Medications; reviewed. Patient is currently on low-dose propofol at 3 mics per kilogram per minute. Allergies; none known. Family history, occupational history, social history is not available. Review of systems; unable to be obtained. General exam; elderly male, morbidly obese, orally intubated, sedated, currently in no distress. Requesting Provider: DAMION KUMAR Date/Time of Note DATE: 07/04/18 TIME: 09:46 24 HR Interval Summary Free Text/Dictation Patient's condition is critical. Still on invasive mechanical ventilation via endotracheal tube. General exam; elderly male, morbidly obese, awake and alert. Currently in no distress. Orally intubated. Exam/Review of Systems Exam Vitals Vital Signs Date Temp Pulse Resp B/P (MAP) Pulse Ox O2 O2 Flow FiO2 Time Delivery Rate 07/04/18 40 08:24 07/04/18 60 08:24 07/04/18 15 131/93 95 06:30 (106) 07/04/18 Mechanical 06:00 Ventilator 07/04/18 98.1 04:00 Intake and Output 07/03/18 07/03/18 07/04/18 1515:00 23:00 07:00 IntakeIntake Total 1226.89 ml 1428.1 ml 881.11 ml OutputOutput Total 865 ml 885 ml 660 ml BalanceBalance 361.89 ml 543.1 ml 221.11 ml Exam H EENT exam; supple neck, no lymphadenopathy. No JVD. Orally intubated. Alesha ent is edentulous. No neck masses. Pupils are small bilaterally. Chest exam; diminished but clear breath sounds. S1-S2 audible, no murmurs. Regular rhythm. Abdomen exam; soft, protuberant. Organomegaly difficult to assess. Bowel sounds audible. Extremity exam; trace edema. Pulses 1+. 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 Results Result Diagram: 07/04/18 0442 07/04/18 0442 Results 24hrs Laboratory Tests Test 07/03/18 10:20 07/03/18 12:26 07/03/18 16:51 07/03/18 20:57 Blood Gas Blood arterial Specimen Source Arterial Blood 07/03/2018 10:10 Date Drawn :19 AM Arterial Blood 7.313 L pH (Temp corrected) Arterial Blood 52.1 H pCO2 (Temp correct) Arterial Blood 93.3 H pO2 (Temp corrected) Arterial Blood 25.8 HCO3 Arterial Blood -1.0 Base Excess Arterial Blood 95.5 Oxygen Saturatio n Darío Test ACCEPTAB Arterial Blood Right Radial Gas Puncture Site Arterial 0.3 Blood Carboxyhem oglobin Arterial Blood 0.4 Methemoglobin Blood Gas A-a O2 132.0 H Differential Oxyhemoglobin 94.8 Percent Blood Gas 37.0 Temperature Blood Gas Actual 28 Respiration Rate Blood Gas VENT - CPAP Modality FiO2 40.0 Blood Gas Low 5.0 PEEP Setting Blood Gas 10 Pressure Support Blood Gas TM Notified Whom Blood Gas 07/03/2018 10:29 Notified Time :56 AM Bedside Glucose 274 H 216 163 Test 07/04/18 00:49 07/04/18 04:42 07/04/18 05:33 07/04/18 07:00 Bedside Glucose 206 202 White Blood 8.4 Count Red Blood Count 4.08 L Hemoglobin 11.5 L Hematocrit 37.0 L Mean Corpuscular 90.7 Volume Mean Corpuscular 28.2 L Hemoglobin Mean Corpuscular 31.1 L Hemoglobin Noris nt Red Cell 14.7 H Distribution Width Platelet Count 224 Mean Platelet 11.7 H Volume Immature 1.100 H Granulocytes % Neutrophils % 77.0 Lymphocytes % 11.7 L Monocytes % 7.5 Eosinophils % 2.1 Basophils % 0.6 Nucleated Red 0.0 Blood Cells % Immature 0.090 H Granulocytes # Neutrophils # 6.5 Lymphocytes # 1.0 Monocytes # 0.6 Eosinophils # 0.2 Basophils # 0.1 Nucleated Red 0.0 Blood Cells # Sodium Level 146 H Potassium Level 4.0 Chloride Level 111 H Carbon Dioxide 25 Level Anion Gap 10 Blood Urea 51 H Nitrogen Creatinine 2.08 H Est Glomerular Filtrat Rate mL/min Glucose Level 218 Calcium Level 9.2 Phosphorus Level 5.2 H Magnesium Level 2.3 Blood Gas Blood arterial Specimen Source Arterial Blood 07/04/2018 7:00: Date Drawn 00 AM Arterial Blood 7.498 H pH (Temp corrected) Arterial Blood 32.0 L pCO2 (Temp correct) Arterial Blood 82.4 pO2 (Temp corrected) Arterial Blood 24.3 HCO3 Arterial Blood 1.6 Base Excess Arterial Blood 95.8 Oxygen Saturatio n Darío Test ACCEPTAB Arterial Blood Right Radial Gas Puncture Site Arterial 0.3 Blood Carboxyhem oglobin Arterial Blood 0.2 Methemoglobin Blood Gas A-a O2 166.0 H Differential Oxyhemoglobin 95.3 Percent Blood Gas 37.0 Temperature Blood Gas 22.0 Respiration Rate Blood Gas Actual 22 Respiration Rate Blood Gas VENT - AC Modality FiO2 40.0 Blood Gas Tidal 650.0 Volume Blood Gas Low 5.0 PEEP Setting Blood Gas TM Notified Whom Blood Gas 07/04/2018 7:24: Notified Time 00 AM Medications Medication Current Medications Norepinephrine 250 ml @ 1.875 mls/ hr TITRATE IV Last administered on 06/25/18at 03:13; Admin Dose 3.75 MLS/HR; Start 06/25/18 at 03:00 Insulin Aspart (Novolog Insulin Pen) NOVOLOG *MILD* ALGORI... Q4 SC Last administered on 07/04/18at 05:38; Admin Dose 2 UNIT; Start 06/25/18 at 09:00 Propofol 100 ml @ 5.1 mls/hr Q12H IV Last administered on 06/27/18 09:10; Admin Dose 15.3 MLS/HR; Start 06/25/18 at 10:30 Famotidine (Pepcid Iv) 20 mg DAILY IV Last administered on 07/03/18 08:44; Admin Dose 20 MG; Start 06/26/18 at 10:30 Atorvastatin Calcium (Lipitor) 40 mg HS NGT Last administered on 07/03/18 20:55; Admin Dose 40 MG; Start 06/26/18 at 21:00 Acetaminophen (Tylenol Liquid) 650 mg Q4H PRN NGT MILD PAIN(1-3)OR ELEVATED TEMP Last administered on 07/02/18 06:23; Admin Dose 650 MG; Start 06/26/18 at 13:30 Albuterol (Ventolin Hfa) 4 puff Q6H RESP THERAPY INH Last administered on 07/04/18 08:40; Admin Dose 4 PUFF; Start 06/26/18 at 20:00 Aspirin (Aspirin) 81 mg DAILY NGT Last administered on 07/03/18 08:29; Admin Dose 81 MG; Start 06/27/18 at 09:00 Alteplase, Recombinant (Cathflo (Activase)) 2 mg MAY REPEAT X1 PRN CATHETER IF CATHETER REMAINS OCCULUDED; Start 06/27/18 at 09:30 Furosemide (Lasix) 40 mg DAILY IV Last administered on 06/30/18 09:19; Admin Dose 40 MG; Start 06/27/18 at 10:30; Status Hold Fentanyl 100 ml @ 2.5 mls/hr TITRATE PRN IV PAIN Last administered on 07/03/18 23:08; Admin Dose 7.5 MLS/HR; Start 06/27/18 at 11:30 Hydralazine HCl (Apresoline) 10 mg Q4H PRN IV ELEVATED BLOOD PRESSURE Last administered on 07/01/18 03:34; Admin Dose 10 MG; Start 06/27/18 at 20:30 Lorazepam (Ativan) 2 mg Q2H PRN IV AGITATION/ANXIETY Last administered on 06/29/18 14:46; Admin Dose 2 MG; Start 06/27/18 at 23:00 Zinc Sulfate (Zinc Sulfate) 220 mg DAILY NGT Last administered on 07/03/18 08:29; Admin Dose 220 MG; Start 06/28/18 at 11:30 Ascorbic Acid (Vitamin C) 500 mg DAILY NGT Last administered on 07/03/18 08:29 ; Admin Dose 500 MG; Start 06/28/18 at 11:30 Isosorbide Dinitrate (Isordil) 20 mg TID NGT Last administered on 07/03/18 20:55; Admin Dose 20 MG; Start 06/28/18 at 14:00 Insulin Glargine (Lantus) 15 units DAILY@0800 SC Last administered on 07/03/18 08:34; Admin Dose 15 UNITS; Start 06/28/18 at 14:00 Enoxaparin Sodium (Lovenox) 30 mg DAILY SC Last administered on 07/02/18 08:19; Admin Dose 30 MG; Start 06/29/18 at 09:00 Alteplase, Recombinant (Cathflo (Activase)) 2 mg MAY REPEAT X1 PRN CATHETER IF CATHETER REMAINS OCCULUDED; Start 06/29/18 at 04:30 Hydralazine HCl (Apresoline) 100 mg TID GTB Last administered on 07/03/18 20:55; Admin Dose 100 MG; Start 06/29/18 at 09:00 Fish Oil (Fish Oil) 2,000 mg BID PO Last administered on 07/03/18 20:54; Admin Dose 2,000 MG; Start 06/29/18 at 09:00 Dexmedetomidine HCl 200 mcg/ Sodium Chloride 50 ml @ 7.08 mls/hr TITRATE IV Last administered on 07/04/18 06:41; Admin Dose 21.23 MLS/HR; Start 06/30/18 at 09:00 Levofloxacin (Levaquin) 250 mg DAILY@06 NGT Last administered on 07/04/18 05:36; Admin Dose 250 MG; Start 07/01/18 at 06:00; Stop 07/08/18 at 05:59 Carvedilol (Coreg) 25 mg BID NGT Last administered on 07/03/18 20:54; Admin Do se 25 MG; Start 06/30/18 at 21:00 Docusate Sodium (Colace Liquid Cup) 200 mg BID NGT ; Start 07/04/18 at 09:00; Status Hold NANCY CARMICHAEL Jul 04, 2018 09:49
[2018-07-04] MEDS ORDERED: ONDANSETRON 4 MG INJ ONE (10:16)
[2018-07-04] MEDS: PROPOFOL 100 ML IV SCH ×2 (10:30→22:30)
[2018-07-04] MEDS: FISH OIL 1,000 MG CAP PO SCH ×2 (11:01→20:37)
[2018-07-04] MEDS: ASCORBIC ACID 500 MG TAB NGT SCH (11:01)
[2018-07-04] MEDS: ENOXAPARIN 30 MG/0.3 ML SYG SC SCH (11:03)
[2018-07-04] MEDS: BALSAM PERU/CASTOR OIL 60 GM TUBE TOP SCH ×2 (11:04→20:39)
[2018-07-04] MEDS: ISOSORBIDE DINITRATE 20 MG TAB NGT SCH ×3 (11:07→20:38)
[2018-07-04] MEDS: ASPIRIN 81 MG TAB NGT SCH (11:07)
[2018-07-04] MEDS: ZINC SULFATE 220 MG CAP NGT SCH (11:09)
[2018-07-04] MEDS: FAMOTIDINE 20 MG INJ IV SCH (11:10)
--- NOTE | 2018-07-04 13:53 | CONS ---
Assessment/Plan Assessment/Plan Hospital Course 78 yo M with multiple cerebrovascular risk factors who presents to ICU following a cardiac arrest. CTH was obtained, and notable for multifocal hypodensities concerning for stroke... for which neurology is consulted. MRI brain is presently unable to be performed d/t morbid obesity. On neurologic examination, he awakens and moves his limbs spontaneously, without obvious focal deficit. Recent echo is notable for depressed LV function with EF 35% and wall motion abnormalities NOS. P: Agree w/ ASA daily for stroke prevention for now; LDL is at goal. Cont to limit sedating medications where possible Other medical management and supportive care per primary WiIl follow clinically Consultation Date/Type/Reason Admit Date/Time Jun 25, 2018 at 04:04 Type of Consult Neurology Reason for Consultation eval for stroke Requesting Provider: DAMION KUMAR Date/Time of Note DATE: 07/04/18 TIME: 13:53 24 HR Interval Summary Free Text/Dictation Continues critical care. Off sedation. Reportedly failed his weaning trial. Subjective hx not possible: pt non-verbal, pt critical Exam Vital Signs Vitals Vital Signs Date Temp Pulse Resp B/P (MAP) Pulse Ox O2 O2 Flow FiO2 Time Delivery Rate 07/04/18 40 12:37 07/04/18 70 12:00 07/04/18 95 11:30 07/04/18 16 156/78 Mechanical 10:00 (104) Ventilator 07/04/18 98.1 04:00 Intake and Output 07/03/18 07/03/18 07/04/18 1515:00 23:00 07:00 IntakeIntake Total 1226.89 ml 1428.1 ml 881.11 ml OutputOutput Total 865 ml 885 ml 660 ml BalanceBalance 361.89 ml 543.1 ml 221.11 ml Exam PE: Gen Appearance: No Apparent Distress; obese HEENT: Intubated Cardiovascular: Regular rate Abdomen: Soft Extremities: Dry NE: The patient was awake and alert, though nonverbal d/t ETT. Able to track and nod appropriately to questions. Able to follow simple axial and appendicular commands. Pupils were equal and reactive to light. There was no afferent pupillary defect. Visual davila were normal. Funduscopic examination was limited. Extra-ocular movements were full. Ptosis was absent. There was no nystagmus. Facial sensation was normal. Face was symmetric with normal strength. Hearing was intact. Palate movements were normal. Neck strength was normal. There was normal tongue bulk and speed of movement. Tone was normal. Muscle bulk was normal. I did not see fasciculations. The patient spontaneously moved all extremities. Coordination and gait testing was limited by mental status. Arm and leg reflexes were within normal limits and symmetric. Gonzalez's sign was absent. Plantar responses were flexor. DESTINY ANDERSEN NP Jul 04, 2018 13:53
--- NOTE | 2018-07-04 15:23 | PN ---
Date/Time of Note Date/Time of Note DATE: 07/04/18 TIME: 15:22 Assessment/Plan VTE Prophylaxis Risk score (from Nsg)>0 risk: 12 Pharmacological prophylaxis: LMWH Assessment/Plan Hospital Course 1. Cardiopulmonary arrest with return of circulation Patient had episode of PEA Mentation is improving Continue to monitor off sedation 2. Respiratory failure secondary to cardiac arrest Pulmonology following, wean as able, anticipate extubation in 1 to 2 days Insufficient fluid for thoracentesis 3. 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 Acute kidney injury secondary to hemodynamics Nephrology consultation appreciated 5. Suspected CAD dz status post outpatient stress cath EF worse Cardiac meds 6. Morbid obesity with fatty liver and likely KONG Lifestyle changes 7. Diabetes Continue insulin 8. Hypertension-stable 9. Pneumonia possibly aspiration versus community acquired Continue Levaquin 10. History of aortic aneurysm 4.3 on surveillance Prophylaxis: Lovenox Result Diagram: 07/04/18 0442 07/04/18 0442 Results 24hrs Laboratory Tests Test 07/03/18 16:51 07/03/18 20:57 07/04/18 00:49 07/04/18 04:42 Bedside Glucose 216 163 206 White Blood 8.4 Count Red Blood Count 4.08 L Hemoglobin 11.5 L Hematocrit 37.0 L Mean Corpuscular 90.7 Volume Mean Corpuscular 28.2 L Hemoglobin Mean Corpuscular 31.1 L Hemoglobin Noris nt Red Cell 14.7 H Distribution Width Platelet Count 224 Mean Platelet 11.7 H Volume Immature 1.100 H Granulocytes % Neutrophils % 77.0 Lymphocytes % 11.7 L Monocytes % 7.5 Eosinophils % 2.1 Basophils % 0.6 Nucleated Red 0.0 Blood Cells % Immature 0.090 H Granulocytes # Neutrophils # 6.5 Lymphocytes # 1.0 Monocytes # 0.6 Eosinophils # 0.2 Basophils # 0.1 Nucleated Red 0.0 Blood Cells # Sodium Level 146 H Potassium Level 4.0 Chloride Level 111 H Carbon Dioxide 25 Level Anion Gap 10 Blood Urea 51 H Nitrogen Creatinine 2.08 H Est Glomerular Filtrat Rate mL/min Glucose Level 218 Calcium Level 9.2 Phosphorus Level 5.2 H Magnesium Level 2.3 Test 07/04/18 05:33 07/04/18 06:35 07/04/18 07:00 07/04/18 10:52 Bedside Glucose 202 217 Urine Osmolality 457 Urine Random 86 Sodium Blood Gas Blood arterial Specimen Source Arterial Blood 07/04/2018 7:00: Date Drawn 00 AM Arterial Blood 7.498 H pH (Temp corrected) Arterial Blood 32.0 L pCO2 (Temp correct) Arterial Blood 82.4 pO2 (Temp corrected) Arterial Blood 24.3 HCO3 Arterial Blood 1.6 Base Excess Arterial Blood 95.8 Oxygen Saturatio n Darío Test ACCEPTAB Arterial Blood Right Radial Gas Puncture Site Arterial 0.3 Blood Carboxyhem oglobin Arterial Blood 0.2 Methemoglobin Blood Gas A-a O2 166.0 H Differential Oxyhemoglobin 95.3 Percent Blood Gas 37.0 Temperature Blood Gas 22.0 Respiration Rate Blood Gas Actual 22 Respiration Rate Blood Gas VENT - AC Modality FiO2 40.0 Blood Gas Tidal 650.0 Volume Blood Gas Low 5.0 PEEP Setting Blood Gas TM Notified Whom Blood Gas 07/04/2018 7:24: Notified Time 00 AM Test 07/04/18 11:26 07/04/18 13:09 Blood Gas Blood arterial Specimen Source Arterial Blood 07/04/2018 12:13 Date Drawn :59 PM Arterial Blood 7.291 *L pH (Temp corrected) Arterial Blood 53.7 H pCO2 (Temp correct) Arterial Blood 79.8 L pO2 (Temp corrected) Arterial Blood 25.3 HCO3 Arterial Blood -2.0 Base Excess Arterial Blood 93.3 L Oxygen Saturatio n Darío Test ACCEPTAB Arterial Blood Right Radial Gas Puncture Site Arterial 0.1 Blood Carboxyhem oglobin Arterial Blood 0.3 Methemoglobin Blood Gas A-a O2 71.0 H Differential Oxyhemoglobin 92.9 L Percent Blood Gas 37.0 Temperature Blood Gas Actual 21 Respiration Rate Blood Gas VENT - CPAP Modality FiO2 30.0 Blood Gas Low 5.0 PEEP Setting Blood Gas 10 Pressure Support Blood Gas DEMETRIO SPIVEY Critical Value Read Back Blood Gas TM Notified Whom Blood Gas 07/04/2018 12:22 Notified Time :43 PM Bedside Glucose 228 H Subjective 24 Hr Interval Summary Subjective hx not possible: pt non-verbal Exam/Review of Systems Exam Vitals Vital Signs Date Temp Pulse Resp B/P (MAP) Pulse Ox O2 O2 Flow FiO2 Time Delivery Rate 07/04/18 40 12:37 07/04/18 70 12:00 07/04/18 95 11:30 07/04/18 16 156/78 Mechanical 10:00 (104) Ventilator 07/04/18 98.1 04:00 Intake and Output 07/03/18 07/03/18 07/04/18 1414:59 22:59 06:59 IntakeIntake Total 1188.59 ml 1028.1 ml 1359.41 ml OutputOutput Total 1115 ml 895 ml 750 ml BalanceBalance 73.59 ml 133.1 ml 609.41 ml Constitutional: non-verbal ENMT: intubated Respiratory: clear to auscultation Cardiovascular: regular rate and rhythm Gastrointestinal: soft; No distended Musculoskeletal: nl extremities to inspection Results Results 24hrs Laboratory Tests Test 07/03/18 16:51 07/03/18 20:57 07/04/18 00:49 07/04/18 04:42 Bedside Glucose 216 163 206 White Blood 8.4 Count Red Blood Count 4.08 L Hemoglobin 11.5 L Hematocrit 37.0 L Mean Corpuscular 90.7 Volume Mean Corpuscular 28.2 L Hemoglobin Mean Corpuscular 31.1 L Hemoglobin Noris nt Red Cell 14.7 H Distribution Width Platelet Count 224 Mean Platelet 11.7 H Volume Immature 1.100 H Granulocytes % Neutrophils % 77.0 Lymphocytes % 11.7 L Monocytes % 7.5 Eosinophils % 2.1 Basophils % 0.6 Nucleated Red 0.0 Blood Cells % Immature 0.090 H Granulocytes # Neutrophils # 6.5 Lymphocytes # 1.0 Monocytes # 0.6 Eosinophils # 0.2 Basophils # 0.1 Nucleated Red 0.0 Blood Cells # Sodium Level 146 H Potassium Level 4.0 Chloride Level 111 H Carbon Dioxide 25 Level Anion Gap 10 Blood Urea 51 H Nitrogen Creatinine 2.08 H Est Glomerular Filtrat Rate mL/min Glucose Level 218 Calcium Level 9.2 Phosphorus Level 5.2 H Magnesium Level 2.3 Test 07/04/18 05:33 07/04/18 06:35 07/04/18 07:00 07/04/18 10:52 Bedside Glucose 202 217 Urine Osmolality 457 Urine Random 86 Sodium Blood Gas Blood arterial Specimen Source Arterial Blood 07/04/2018 7:00: Date Drawn 00 AM Arterial Blood 7.498 H pH (Temp corrected) Arterial Blood 32.0 L pCO2 (Temp correct) Arterial Blood 82.4 pO2 (Temp corrected) Arterial Blood 24.3 HCO3 Arterial Blood 1.6 Base Excess Arterial Blood 95.8 Oxygen Saturatio n Darío Test ACCEPTAB Arterial Blood Right Radial Gas Puncture Site Arterial 0.3 Blood Carboxyhem oglobin Arterial Blood 0.2 Methemoglobin Blood Gas A-a O2 166.0 H Differential Oxyhemoglobin 95.3 Percent Blood Gas 37.0 Temperature Blood Gas 22.0 Respiration Rate Blood Gas Actual 22 Respiration Rate Blood Gas VENT - AC Modality FiO2 40.0 Blood Gas Tidal 650.0 Volume Blood Gas Low 5.0 PEEP Setting Blood Gas TM Notified Whom Blood Gas 07/04/2018 7:24: Notified Time 00 AM Test 07/04/18 11:26 07/04/18 13:09 Blood Gas Blood arterial Specimen Source Arterial Blood 07/04/2018 12:13 Date Drawn :59 PM Arterial Blood 7.291 *L pH (Temp corrected) Arterial Blood 53.7 H pCO2 (Temp correct) Arterial Blood 79.8 L pO2 (Temp corrected) Arterial Blood 25.3 HCO3 Arterial Blood -2.0 Base Excess Arterial Blood 93.3 L Oxygen Saturatio n Darío Test ACCEPTAB Arterial Blood Right Radial Gas Puncture Site Arterial 0.1 Blood Carboxyhem oglobin Arterial Blood 0.3 Methemoglobin Blood Gas A-a O2 71.0 H Differential Oxyhemoglobin 92.9 L Percent Blood Gas 37.0 Temperature Blood Gas Actual 21 Respiration Rate Blood Gas VENT - CPAP Modality FiO2 30.0 Blood Gas Low 5.0 PEEP Setting Blood Gas 10 Pressure Support Blood Gas DEMETRIO SPIVEY Critical Value Read Back Blood Gas TM Notified Whom Blood Gas 07/04/2018 12:22 Notified Time :43 PM Bedside Glucose 228 H Medications Medication Current Medications Norepinephrine 250 ml @ 1.875 mls/ hr TITRATE IV Last administered on 06/25/18 03:13; Admin Dose 3.75 MLS/HR; Start 06/25/18 at 03:00 Insulin Aspart (Novolog Insulin Pen) NOVOLOG *MILD* ALGORI... Q4 SC Last administered on 07/04/18 13:14; Admin Dose 3 UNIT; Start 06/25/18 at 09:00 Propofol 100 ml @ 5.1 mls/hr Q12H IV Last administered on 06/27/18 09:10; Admin Dose 15.3 MLS/HR; Start 06/25/18 at 10:30 Famotidine (Pepcid Iv) 20 mg DAILY IV Last administered on 07/04/18 11:10; Admin Dose 20 MG; Start 06/26/18 at 10:30 Atorvastatin Calcium (Lipitor) 40 mg HS NGT Last administered on 07/03/18 20:55; Admin Dose 40 MG; Start 06/26/18 at 21:00 Acetaminophen (Tylenol Liquid) 650 mg Q4H PRN NGT MILD PAIN(1-3)OR ELEVATED TEMP Last administered on 07/02/18 06:23; Admin Dose 650 MG; Start 06/26/18 at 13:30 Albuterol (Ventolin Hfa) 4 puff Q6H RESP THERAPY INH Last administered on 07/04/18 14:02; Admin Dose 4 PUFF; Start 06/26/18 at 20:00 Aspirin (Aspirin) 81 mg DAILY NGT Last administered on 07/04/18 11:07; Admin Dose 81 MG; Start 06/27/18 at 09:00 Alteplase, Recombinant (Cathflo (Activase)) 2 mg MAY REPEAT X1 PRN CATHETER IF CATHETER REMAINS OCCULUDED; Start 06/27/18 at 09:30 Furosemide (Lasix) 40 mg DAILY IV Last administered on 06/30/18 09:19; Admin Dose 40 MG; Start 06/27/18 at 10:30; Status Hold Fentanyl 100 ml @ 2.5 mls/hr TITRATE PRN IV PAIN Last administered on 07/03/18 23:08; Admin Dose 7.5 MLS/HR; Start 06/27/18 at 11:30 Hydralazine HCl (Apresoline) 10 mg Q4H PRN IV ELEVATED BLOOD PRESSURE Last administered on 07/01/18 03:34; Admin Dose 10 MG; Start 06/27/18 at 20:30 Lorazepam (Ativan) 2 mg Q2H PRN IV AGITATION/ANXIETY Last administered on 06/29/18 14:46; Admin Dose 2 MG; Start 06/27/18 at 23:00 Zinc Sulfate (Zinc Sulfate) 220 mg DAILY NGT Last administered on 07/04/18 11:09; Admin Dose 220 MG; Start 06/28/18 at 11:30 Ascorbic Acid (Vitamin C) 500 mg DAILY NGT Last administered on 07/04/18 11:01; Admin Dose 500 MG; Start 06/28/18 at 11:30 Isosorbide Dinitrate (Isordil) 20 mg TID NGT Last administered on 07/04/18 13:11; Admin Dose 20 MG; Start 06/28/18 at 14:00 Insulin Glargine (Lantus) 15 units DAILY@0800 SC Last administered on 07/04/18 08:00; Admin Dose 15 UNITS; Start 06/28/18 at 14:00 Enoxaparin Sodium (Lovenox) 30 mg DAILY SC Last administered on 07/04/18 11:03; Admin Dose 30 MG; Start 06/29/18 at 09:00 Alteplase, Recombinant (Cathflo (Activase)) 2 mg MAY REPEAT X1 PRN CATHETER IF CATHETER REMAINS OCCULUDED; Start 06/29/18 at 04:30 Hydralazine HCl (Apresoline) 100 mg TID GTB Last administered on 07/04/18 13:11; Admin Dose 100 MG; Start 06/29/18 at 09:00 Fish Oil (Fish Oil) 2,000 mg BID PO Last administered on 07/04/18 11:01; Admin Dose 2,000 MG; Start 06/29/18 at 09:00 Dexmedetomidine HCl 200 mcg/ Sodium Chloride 50 ml @ 7.08 mls/hr TITRATE IV Last administered on 07/04/18 14:43; Admin Dose 21.23 MLS/HR; Start 06/30/18 at 09:00 Levofloxacin (Levaquin) 250 mg DAILY@06 NGT Last administered on 07/04/18 05:36; Admin Dose 250 MG; Start 07/01/18 at 06:00; Stop 07/08/18 at 05:59 Carvedilol (Coreg) 25 mg BID NGT Last administered on 07/04/18 11:07; Admin Dose 25 MG; Start 06/30/18 at 21:00 Docusate Sodium (Colace Liquid Cup) 200 mg BID NGT ; Start 07/04/18 at 09:00; Status Hold Ondansetron HCl (Zofran Inj) 4 mg Q6H PRN IV NAUSEA AND/OR VOMITING; Start 07/04/18 at 11:00 LAURA MCDONALD Jul 04, 2018 15:23
[2018-07-04] MEDS: LORAZEPAM 2 MG INJ IV PRN (19:45)
[2018-07-04] MEDS: ATORVASTATIN 40 MG TAB NGT SCH (20:38)
[2018-07-05] VITALS (48 sets, daily range): BP systolic 81–213; BP diastolic 39–169; PULSE 54–79; RESP 15–28
[2018-07-05] MEDS: INSULIN ASPART [NOVOLOG] 3 ML PEN SC SCH ×6 (00:59→20:35)
[2018-07-05] MEDS: ALBUTEROL HFA 8 GM INHALER INH SCH ×4 (01:00→19:30)
[2018-07-05] MEDS: DEXMEDETOMIDINE HCL 200 MCG in SOD CHLORIDE 0.9% 48 ML IV SCH ×3 (02:35→06:37)
[2018-07-05] MEDS: LEVOFLOXACIN 250 MG TAB NGT SCH (05:16)
[2018-07-05] MEDS ORDERED: DEXTROSE 5% 1,000 ML IV ONE (08:00)
[2018-07-05] MEDS: FAMOTIDINE 20 MG INJ IV SCH (09:00)
--- NOTE | 2018-07-05 09:17 | PN ---
DATE: 07/05/2018 SUBJECTIVE: The patient remains stable, remains on ventilator support. The patient has excellent ur inary output. No other events noted. OBJECTIVE: VITAL SIGNS: Blood pressure is 139/77, respiration is 18, pulse 69, temperature 98.3. HEENT: Head is normocephalic. NECK: Supple. HEART: Regular rate. LUNGS: Show diminished breath sounds at the base. ABDOMEN: Soft, nontender to palpation without rebound or guarding. EXTREMITIES: Negative for clubbing, cyanosis, no edema. DERMATOLOGIC: No rashes. MUSCULOSKELETAL: No joint effusion. NEUROLOGIC: No change in exam. MEDICATIONS: Reviewed. LABORATORY DATA: From 07/05/2018 was reviewed. IMAGING STUDIES: Reviewed. CULTURES: Have been reviewed. ASSESSMENT AND PLAN: 1. Nonoliguric acute kidney injury with unknown baseline creatinine. Etiology of acute kidney injur y is secondary to acute tubular necrosis. Renal function appears to be stabilizing around a creatini ne of 2 to 2.2 mg/dL. At this point, continue current treatment plan, supportive care, renally dose all meds. 2. Volume overload, clinically improved. Continue current medical management. Continue intermitten t diuretic therapy as needed. 3. Hypernatremia. Etiology is secondary to insensible losses, decreased free water intake. Possibl e component of a partial diabetes insipidus, likely nephrogenic due to acute kidney injury. The ladi ent's urine osmolarity although elevated is inappropriately low for current level of hypernatremia. Will continue aggressive free water flushes. Will start the patient on hypertonic fluid if sodium le vels do not improve. Will monitor closely. 4. Hypokalemia. Continue to monitor and replete as needed. 5. Mineral bone disorder. Monitor calcium and phosphorus levels. 6. Anemia. Monitor hemoglobin and hematocrit levels. 7. Ventilatory-dependent respiratory failure. Vent settings and ABG was reviewed. Continue to [facility]. 8. Status post cardiopulmonary arrest. 9. Sepsis secondary to pneumonia. The patient is completing antibiotic course. 10. Hypertension. Continue current blood pressure regimen. 11. Dyslipidemia. Continue statin therapy. 12. History of cirrhosis. 13. History of cardiomyopathy. 14. Possible cerebrovascular accident. Continue medical management. 15. Acute encephalopathy. Etiology is toxic metabolic. 16. Dysphagia. Continue tube feeding. Dictated By: ENA CARTWRIGHT/RUTH Conf#: [id number] [facility]#: [id number] CC: LILLY CLEMENS MD;*[facility]*
[2018-07-05] MEDS: INSULIN GLARGINE [LANTus] (100 UNITS/ML) SYG SC SCH (09:28)
--- NOTE | 2018-07-05 09:37 | CONS ---
Assessment/Plan Assessment/Plan Assessment/Plan (Daily) Ventilator setting; AC of 22, tidal volume 650, PEEP of 5, 40% FiO2. Patient has been off sedation since yesterday morning. Assessment and recommendations; 1. patient admitted with cardiac arrest status post revival, patient did not meet hypothermia protocol criteria because of adequate mental status after undergoing CPR. 2. Underlying severe COPD precluding weaning from ventilator. Patient also failed one extubation trial. 3. Chronic renal insufficiency. 4. Hypertension. 5. Diabetes. 6. Anemia. Perform another CPAP trial. Will obtain ABG after 2 hours. Patient likely would need to have a tracheostomy performed. Consultation Date/Type/Reason Admit Date/Time Jun 25, 2018 at 04:04 Initial Consult Date 06/25/18 Type of Consult Pulmonary/critical care Patient is a 78-year-old male who was brought into the hospital after sustaining a cardiac arrest event. CPR was done which was brief with revival of vital signs. Patient did not meet criteria for hypothermia protocol. By the time I saw him, patient is orally intubated and sedated. Patient however has remained hemodynamically stable. Past medical history; unknown. Medications; reviewed. Patient is currently on low-dose propofol at 3 mics per kilogram per minute. Allergies; none known. Family history, occupational history, social history is not available. Review of systems; unable to be obtained. General exam; elderly male, morbidly obese, orally intubated, sedated, currently in no distress. Requesting Provider: DAMION KUMAR Date/Time of Note DATE: 07/05/18 TIME: 09:34 24 HR Interval Summary Free Text/Dictation Patient's condition is critical. Patient has failed multiple weaning trials from ventilator due to ensuing severe apnea on CPAP mode. Patient however has remained hemodynamically stable. General exam; elderly male, orally intubated, awake and alert. Appropriately responsive. Currently in no distress. Exam/Review of Systems Exam Vitals Vital Signs Date Temp Pulse Resp B/P (MAP) Pulse Ox O2 O2 Flow FiO2 Time Delivery Rate 07/05/18 59 08:00 07/05/18 40 08:00 07/05/18 18 139/77 96 Mechanical 06:00 (97) Ventilator 07/05/18 98.3 04:00 Intake and Output 07/04/18 07/04/18 07/05/18 1515:00 23:00 07:00 IntakeIntake Total 480 ml 122.4525 ml 129.06 ml OutputOutput Total 940 ml 465 ml 880 ml BalanceBalance -460 ml -342.5475 ml -750.94 ml Exam H ENT exam; supple neck, positive JVD. No lymphadenopathy. Midline trachea. No thyromegaly. Orally intubated. Patient is edentulous. No neck masses. Chest exam; diminished breath sounds throughout. S1-S2 audible, no murmurs. Regular rhythm. Abdomen exam; soft, protuberant. No organomegaly. Bowel sounds are audible. Extremity exam; no peripheral edema or clubbing. 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 Results Result Diagram: 07/05/18 0430 07/05/18 0430 Results 24hrs Laboratory Tests Test 07/04/18 10:52 07/04/18 11:26 07/04/18 13:09 07/04/18 17:55 Bedside Glucose 217 228 H 197 Blood Gas Blood arterial Specimen Source Arterial Blood 07/04/2018 12:13: Date Drawn 59 PM Arterial Blood pH 7.291 *L (Temp corrected) Arterial Blood 53.7 H pCO2 (Temp correct) Arterial Blood 79.8 L pO2 (Temp corrected) Arterial Blood 25.3 HCO3 Arterial Blood -2.0 Base Excess Arterial Blood 93.3 L Oxygen Saturation Darío Test ACCEPTAB Arterial Blood Right Radial Gas Puncture Site Arterial 0.1 Blood Carboxyhemo globin Arterial Blood 0.3 Methemoglobin Blood Gas A-a O2 71.0 H Differential Oxyhemoglobin 92.9 L Percent Blood Gas 37.0 Temperature Blood Gas Actual 21 Respiration Rate Blood Gas VENT - CPAP Modality FiO2 30.0 Blood Gas Low 5.0 PEEP Setting Blood Gas 10 Pressure Support Blood Gas DEMETRIO SPIVEY Critical Value Read Back Blood Gas TM Notified Whom Blood Gas 07/04/2018 12:22: Notified Time 43 PM Test 07/04/18 20:37 07/05/18 00:56 07/05/18 04:30 07/05/18 04:51 Bedside Glucose 171 174 175 White Blood Count 8.5 Red Blood Count 4.09 L Hemoglobin 11.3 L Hematocrit 36.3 L Mean Corpuscular 88.8 Volume Mean Corpuscular 27.6 L Hemoglobin Mean Corpuscular 31.1 L Hemoglobin Concen t Red Cell 14.6 H Distribution Width Platelet Count 249 Mean Platelet 11.9 H Volume Immature 0.700 H Granulocytes % Neutrophils % 76.7 Lymphocytes % 13.2 L Monocytes % 6.3 Eosinophils % 2.7 Basophils % 0.4 Nucleated Red 0.0 Blood Cells % Immature 0.060 H Granulocytes # Neutrophils # 6.6 Lymphocytes # 1.1 Monocytes # 0.5 Eosinophils # 0.2 Basophils # 0.0 Nucleated Red 0.0 Blood Cells # Sodium Level 148 H Potassium Level 3.6 Chloride Level 112 H Carbon Dioxide 25 Level Anion Gap 11 Blood Urea 58 H Nitrogen Creatinine 2.16 H Est Glomerular Filtrat Rate mL/min Glucose Level 184 Calcium Level 8.9 Phosphorus Level 5.4 H Magnesium Level 2.3 Test 07/05/18 09:00 Bedside Glucose 200 Medications Medication Current Medications Norepinephrine 250 ml @ 1.875 mls/ hr TITRATE IV Last administered on 06/25/18 03:13; Admin Dose 3.75 MLS/HR; Start 06/25/18 at 03:00 Insulin Aspart (Novolog Insulin Pen) NOVOLOG *MILD* ALGORI... Q4 SC Last administered on 07/05/18 09:29; Admin Dose 2 UNIT; Start 06/25/18 at 09:00 Propofol 100 ml @ 5.1 mls/hr Q12H IV Last administered on 06/27/18 09:10; Admin Dose 15.3 MLS/HR; Start 06/25/18 at 10:30 Famotidine (Pepcid Iv) 20 mg DAILY IV Last administered on 07/04/18 11:10; Admin Dose 20 MG; Start 06/26/18 at 10:30 Atorvastatin Calcium (Lipitor) 40 mg HS NGT Last administered on 07/04/18 20:38; Admin Dose 40 MG; Start 06/26/18 at 21:00 Acetaminophen (Tylenol Liquid) 650 mg Q4H PRN NGT MILD PAIN(1-3)OR ELEVATED TEMP Last administered on 07/02/18 06:23; Admin Dose 650 MG; Start 06/26/18 at 13:30 Albuterol (Ventolin Hfa) 4 puff Q6H RESP THERAPY INH Last administered on 07/05/18 08:31; Admin Dose 4 PUFF; Start 06/26/18 at 20:00 Aspirin (Aspirin) 81 mg DAILY NGT Last administered on 07/04/18 11:07; Admin Dose 81 MG; Start 06/27/18 at 09:00 Alteplase, Recombinant (Cathflo (Activase)) 2 mg MAY REPEAT X1 PRN CATHETER IF CATHETER REMAINS OCCULUDED; Start 06/27/18 at 09:30 Fentanyl 100 ml @ 2.5 mls/hr TITRATE PRN IV PAIN Last administered on 07/03/18 23:08; Admin Dose 7.5 MLS/HR; Start 06/27/18 at 11:30 Hydralazine HCl (Apresoline) 10 mg Q4H PRN IV ELEVATED BLOOD PRESSURE Last administered on 07/01/18 03:34; Admin Dose 10 MG; Start 06/27/18 at 20:30 Lorazepam (Ativan) 2 mg Q2H PRN IV AGITATION/ANXIETY Last administered on 07/04/18 19:45; Admin Dose 2 MG; Start 06/27/18 at 23:00 Zinc Sulfate (Zinc Sulfate) 220 mg DAILY NGT Last administered on 07/04/18 11:09; Admin Dose 220 MG; Start 06/28/18 at 11:30 Ascorbic Acid (Vitamin C) 500 mg DAILY NGT Last administered on 07/04/18 11:01; Admin Dose 500 MG; Start 06/28/18 at 11:30 Isosorbide Dinitrate (Isordil) 20 mg TID NGT Last administered on 07/04/18 20:38; Admin Dose 20 MG; Start 06/28/18 at 14:00 Insulin Glargine (Lantus) 15 units DAILY@0800 SC Last administered on 07/05/18 09:28; Admin Dose 15 UNITS; Start 06/28/18 at 14:00 Enoxaparin Sodium (Lovenox) 30 mg DAILY SC Last administered on 07/04/18 11:03; Admin Dose 30 MG; Start 06/29/18 at 09:00 Alteplase, Recombinant (Cathflo (Activase)) 2 mg MAY REPEAT X1 PRN CATHETER IF CATHETER REMAINS OCCULUDED; Start 06/29/18 at 04:30 Hydralazine HCl (Apresoline) 100 mg TID GTB Last administered on 07/04/18 20:38; Admin Dose 100 MG; Start 06/29/18 at 09:00 Fish Oil (Fish Oil) 2,000 mg BID PO Last administered on 07/04/18at 20:37; Admin Dose 2,000 MG; Start 06/29/18 at 09:00 Dexmedetomidine HCl 200 mcg/ Sodium Chloride 50 ml @ 7.08 mls/hr TITRATE IV Last administered on 07/05/18at 06:37; Admin Dose 35.38 MLS/HR; Start 06/30/18 at 09:00 Levofloxacin (Levaquin) 250 mg DAILY@06 NGT Last administered on 07/05/18at 05:16; Admin Dose 250 MG; Start 07/01/18 at 06:00; Stop 07/08/18 at 05:59 Carvedilol (Coreg) 25 mg BID NGT Last administered on 07/04/18at 20:38; Admin Dose 25 MG; Start 06/30/18 at 21:00 Docusate Sodium (Colace Liquid Cup) 200 mg BID NGT ; Start 07/04/18 at 09:00; Status Hold Ondansetron HCl (Zofran Inj) 4 mg Q6H PRN IV NAUSEA AND/OR VOMITING; Start 07/04/18 at 11:00 Dextrose 1,000 ml @ 50 mls/hr Q20H ONCE IV ; Start 07/05/18 at 08:00; Stop 07/06/18 at 03:59 NANCY CARMICHAEL Jul 05, 2018 09:37
[2018-07-05] MEDS: FISH OIL 1,000 MG CAP PO SCH ×2 (09:42→20:27)
[2018-07-05] MEDS: ASPIRIN 81 MG TAB NGT SCH (09:42)
[2018-07-05] MEDS: ASCORBIC ACID 500 MG TAB NGT SCH (09:42)
[2018-07-05] MEDS: ISOSORBIDE DINITRATE 20 MG TAB NGT SCH ×3 (09:43→20:32)
[2018-07-05] MEDS: ZINC SULFATE 220 MG CAP NGT SCH (09:43)
[2018-07-05] MEDS: ENOXAPARIN 30 MG/0.3 ML SYG SC SCH (09:44)
[2018-07-05] MEDS: BALSAM PERU/CASTOR OIL 60 GM TUBE TOP SCH ×2 (09:45→21:25)
[2018-07-05] MEDS: PROPOFOL 100 ML IV SCH ×2 (10:30→20:25)
[2018-07-05] MEDS: LORAZEPAM 2 MG INJ IV PRN (13:16)
[2018-07-05] MEDS ORDERED: LORAZEPAM 2 MG INJ IV PRN (14:30)
--- NOTE | 2018-07-05 14:38 | CONS ---
Assessment/Plan Assessment/Plan Hospital Course 78 yo M with multiple cerebrovascular risk factors who presents to ICU following a cardiac arrest. CTH was obtained, and notable for multifocal hypodensities concerning for stroke... for which neurology is consulted. MRI brain is presently unable to be performed d/t morbid obesity. On neurologic examination, he awakens and moves his limbs spontaneously, without obvious focal deficit. Recent echo is notable for depressed LV function with EF 35% and wall motion abnormalities NOS. P: Await ABG Agree w/ ASA daily for stroke prevention for now; LDL is at goal. Limit sedating medications where possible Other medical management and supportive care per primary WiIl follow clinically Consultation Date/Type/Reason Admit Date/Time Jun 25, 2018 at 04:04 Type of Consult Neurology Reason for Consultation eval for stroke Requesting Provider: DAMION KUMAR Date/Time of Note DATE: 07/05/18 TIME: 14:37 24 HR Interval Summary Free Text/Dictation On CPAP trial. Recently given ativan for agitation. Pt minimally responsive at this time. Subjective hx not possible: pt non-verbal, pt critical Exam Vital Signs Vitals Vital Signs Date Temp Pulse Resp B/P (MAP) Pulse Ox O2 O2 Flow FiO2 Time Delivery Rate 07/05/18 67 23 98 40 11:40 07/05/18 112/65 11:30 (81) 07/05/18 Mechanical 11:00 Ventilator 07/05/18 98.3 04:00 Intake and Output 07/04/18 07/04/18 07/05/18 1515:00 23:00 07:00 IntakeIntake Total 480 ml 122.4525 ml 129.06 ml OutputOutput Total 940 ml 465 ml 980 ml BalanceBalance -460 ml -342.5475 ml -850.94 ml Exam PE: Gen Appearance: No Apparent Distress HEENT: Intubated Cardiovascular: Regular rate Abdomen: Soft Extremities: Dry NE: The patient was obtunded and nonverbal. Briefly opens eyes to voice. Tracks. Does not follow any commands at this time. Cranial nerve examination was limited by mental status. Pupils were equal and reactive to light. There was no afferent pupillary defect. Funduscopic examination was limited. Face was grossly symmetric, w/ present corneal and cough reflexes. Tone was normal. Muscle bulk was normal. I did not see fasciculations. The patient withdrew to noxious stimulation x 4. Coordination and gait testing was limited by mental status. Arm and leg reflexes were within normal limits and symmetric. Gonzalez's sign was absent. Plantar responses were flexor. DESTINY ANDERSEN NP Jul 05, 2018 14:38
--- NOTE | 2018-07-05 15:44 | PN ---
Date/Time of Note Date/Time of Note DATE: 07/05/18 TIME: 15:41 Assessment/Plan VTE Prophylaxis Risk score (from Nsg)>0 risk: 6 Pharmacological prophylaxis: LMWH Assessment/Plan Hospital Course 1. Cardiopulmonary arrest with return of circulation Patient had episode of PEA Mentation is improving Continue to monitor off sedation 2. Respiratory failure secondary to cardiac arrest Pulmonology following, wean as able, anticipate extubation in 1 to 2 days Insufficient fluid for thoracentesis 3. 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 Acute kidney injury secondary to hemodynamics Nephrology consultation appreciated 5. Acute on chronic systolic heart failure Cardiology following Continue cardiac meds 6. Morbid obesity with fatty liver and likely KONG Lifestyle changes 7. Diabetes Continue insulin 8. Hypertension-stable 9. Pneumonia possibly aspiration versus community acquired Continue Levaquin 10. History of aortic aneurysm 4.3 on surveillance Prophylaxis: Lovenox Result Diagram: 07/05/18 0430 07/05/18 0430 Results 24hrs Laboratory Tests Test 07/04/18 17:55 07/04/18 20:37 07/05/18 00:56 07/05/18 04:30 Bedside Glucose 197 171 174 White Blood Count 8.5 Red Blood Count 4.09 L Hemoglobin 11.3 L Hematocrit 36.3 L Mean Corpuscular 88.8 Volume Mean Corpuscular 27.6 L Hemoglobin Mean Corpuscular 31.1 L Hemoglobin Concen t Red Cell 14.6 H Distribution Width Platelet Count 249 Mean Platelet 11.9 H Volume Immature 0.700 H Granulocytes % Neutrophils % 76.7 Lymphocytes % 13.2 L Monocytes % 6.3 Eosinophils % 2.7 Basophils % 0.4 Nucleated Red 0.0 Blood Cells % Immature 0.060 H Granulocytes # Neutrophils # 6.6 Lymphocytes # 1.1 Monocytes # 0.5 Eosinophils # 0.2 Basophils # 0.0 Nucleated Red 0.0 Blood Cells # Sodium Level 148 H Potassium Level 3.6 Chloride Level 112 H Carbon Dioxide 25 Level Anion Gap 11 Blood Urea 58 H Nitrogen Creatinine 2.16 H Est Glomerular Filtrat Rate mL/min Glucose Level 184 Calcium Level 8.9 Phosphorus Level 5.4 H Magnesium Level 2.3 Test 07/05/18 04:51 07/05/18 09:00 07/05/18 13:14 07/05/18 14:30 Bedside Glucose 175 200 254 H Blood Gas Blood arterial Specimen Source Arterial Blood 07/05/2018 2:35:5 Date Drawn 2 PM Arterial Blood pH 7.246 *L (Temp corrected) Arterial Blood 64.8 H pCO2 (Temp correct) Arterial Blood 73.5 L pO2 (Temp corrected) Arterial Blood 27.5 H HCO3 Arterial Blood -1.0 Base Excess Arterial Blood 90.7 L Oxygen Saturation Darío Test ACCEPTAB Arterial Blood Right Radial Gas Puncture Site Arterial 0.3 Blood Carboxyhemo globin Arterial Blood 0.4 Methemoglobin Blood Gas A-a O2 64.3 H Differential Oxyhemoglobin 90.1 L Percent Blood Gas 37.0 Temperature Blood Gas Actual 25 Respiration Rate Blood Gas VENT - CPAP Modality FiO2 30.0 Blood Gas Low 5.0 PEEP Setting Blood Gas 10 Pressure Support Blood Gas Brijesh NAVAS RN Critical Value Read Back Blood Gas Angelia Notified Whom Blood Gas 07/05/2018 2:46:2 Notified Time 6 PM Subjective 24 Hr Interval Summary Subjective hx not possible: pt non-verbal Exam/Review of Systems Exam Vitals Vital Signs Date Temp Pulse Resp B/P (MAP) Pulse Ox O2 O2 Flow FiO2 Time Delivery Rate 07/05/18 68 12:00 07/05/18 23 98 40 11:40 07/05/18 112/65 11:30 (81) 07/05/18 Mechanical 11:00 Ventilator 07/05/18 98.3 04:00 Intake and Output 07/04/18 07/04/18 07/05/18 1515:00 23:00 07:00 IntakeIntake Total 480 ml 122.4525 ml 129.06 ml OutputOutput Total 940 ml 465 ml 980 ml BalanceBalance -460 ml -342.5475 ml -850.94 ml Constitutional: non-verbal ENMT: intubated Respiratory: clear to auscultation Cardiovascular: regular rate and rhythm Gastrointestinal: soft; No distended Musculoskeletal: nl extremities to inspection Results Results 24hrs Laboratory Tests Test 07/04/18 17:55 07/04/18 20:37 07/05/18 00:56 07/05/18 04:30 Bedside Glucose 197 171 174 White Blood Count 8.5 Red Blood Count 4.09 L Hemoglobin 11.3 L Hematocrit 36.3 L Mean Corpuscular 88.8 Volume Mean Corpuscular 27.6 L Hemoglobin Mean Corpuscular 31.1 L Hemoglobin Concen t Red Cell 14.6 H Distribution Width Platelet Count 249 Mean Platelet 11.9 H Volume Immature 0.700 H Granulocytes % Neutrophils % 76.7 Lymphocytes % 13.2 L Monocytes % 6.3 Eosinophils % 2.7 Basophils % 0.4 Nucleated Red 0.0 Blood Cells % Immature 0.060 H Granulocytes # Neutrophils # 6.6 Lymphocytes # 1.1 Monocytes # 0.5 Eosinophils # 0.2 Basophils # 0.0 Nucleated Red 0.0 Blood Cells # Sodium Level 148 H Potassium Level 3.6 Chloride Level 112 H Carbon Dioxide 25 Level Anion Gap 11 Blood Urea 58 H Nitrogen Creatinine 2.16 H Est Glomerular Filtrat Rate mL/min Glucose Level 184 Calcium Level 8.9 Phosphorus Level 5.4 H Magnesium Level 2.3 Test 07/05/18 04:51 07/05/18 09:00 07/05/18 13:14 07/05/18 14:30 Bedside Glucose 175 200 254 H Blood Gas Blood arterial Specimen Source Arterial Blood 07/05/2018 2:35:5 Date Drawn 2 PM Arterial Blood pH 7.246 *L (Temp corrected) Arterial Blood 64.8 H pCO2 (Temp correct) Arterial Blood 73.5 L pO2 (Temp corrected) Arterial Blood 27.5 H HCO3 Arterial Blood -1.0 Base Excess Arterial Blood 90.7 L Oxygen Saturation Darío Test ACCEPTAB Arterial Blood Right Radial Gas Puncture Site Arterial 0.3 Blood Carboxyhemo globin Arterial Blood 0.4 Methemoglobin Blood Gas A-a O2 64.3 H Differential Oxyhemoglobin 90.1 L Percent Blood Gas 37.0 Temperature Blood Gas Actual 25 Respiration Rate Blood Gas VENT - CPAP Modality FiO2 30.0 Blood Gas Low 5.0 PEEP Setting Blood Gas 10 Pressure Support Blood Gas Brijesh NAVAS RN Critical Value Read Back Blood Gas M.DAllegra Notified Whom Blood Gas 07/05/2018 2:46:2 Notified Time 6 PM Medications Medication Current Medications Norepinephrine 250 ml @ 1.875 mls/ hr TITRATE IV Last administered on 06/25/18at 03:13; Admin Dose 3.75 MLS/HR; Start 06/25/18 at 03:00 Insulin Aspart (Novolog Insulin Pen) NOVOLOG *MILD* ALGORI... Q4 SC Last administered on 07/05/18at 13:26; Admin Dose 3 UNIT; Start 06/25/18 at 09:00 Propofol 100 ml @ 5.1 mls/hr Q12H IV Last administered on 06/27/18 09:10; Admin Dose 15.3 MLS/HR; Start 06/25/18 at 10:30 Famotidine (Pepcid Iv) 20 mg DAILY IV Last administered on 07/04/18 11:10; Ad min Dose 20 MG; Start 06/26/18 at 10:30 Atorvastatin Calcium (Lipitor) 40 mg HS NGT Last administered on 07/04/18 20:38; Admin Dose 40 MG; Start 06/26/18 at 21:00 Acetaminophen (Tylenol Liquid) 650 mg Q4H PRN NGT MILD PAIN(1-3)OR ELEVATED TEMP Last administered on 07/02/18 06:23; Admin Dose 650 MG; Start 06/26/18 at 13:30 Albuterol (Ventolin Hfa) 4 puff Q6H RESP THERAPY INH Last administered on 07/05/18 08:31; Admin Dose 4 PUFF; Start 06/26/18 at 20:00 Aspirin (Aspirin) 81 mg DAILY NGT Last administered on 07/05/18 09:42; Admin Dose 81 MG; Start 06/27/18 at 09:00 Alteplase, Recombinant (Cathflo (Activase)) 2 mg MAY REPEAT X1 PRN CATHETER IF CATHETER REMAINS OCCULUDED; Start 06/27/18 at 09:30 Fentanyl 100 ml @ 2.5 mls/hr TITRATE PRN IV PAIN Last administered on 07/03/18 23:08; Admin Dose 7.5 MLS/HR; Start 06/27/18 at 11:30 Hydralazine HCl (Apresoline) 10 mg Q4H PRN IV ELEVATED BLOOD PRESSURE Last administered on 07/01/18 03:34; Admin Dose 10 MG; Start 06/27/18 at 20:30 Zinc Sulfate (Zinc Sulfate) 220 mg DAILY NGT Last administered on 07/05/18 09:43; Admin Dose 220 MG; Start 06/28/18 at 11:30 Ascorbic Acid (Vitamin C) 500 mg DAILY NGT Last administered on 07/05/18 0 9:42; Admin Dose 500 MG; Start 06/28/18 at 11:30 Isosorbide Dinitrate (Isordil) 20 mg TID NGT Last administered on 07/05/18 13:24; Admin Dose 20 MG; Start 06/28/18 at 14:00 Insulin Glargine (Lantus) 15 units DAILY@0800 SC Last administered on 07/05/18 09:28; Admin Dose 15 UNITS; Start 06/28/18 at 14:00 Enoxaparin Sodium (Lovenox) 30 mg DAILY SC Last administered on 07/05/18 09:44; Admin Dose 30 MG; Start 06/29/18 at 09:00 Alteplase, Recombinant (Cathflo (Activase)) 2 mg MAY REPEAT X1 PRN CATHETER IF CATHETER REMAINS OCCULUDED; Start 06/29/18 at 04:30 Hydralazine HCl (Apresoline) 100 mg TID GTB Last administered on 07/05/18 13:24; Admin Dose 100 MG; Start 06/29/18 at 09:00 Fish Oil (Fish Oil) 2,000 mg BID PO Last administered on 07/05/18 09:42; Admin Dose 2,000 MG; Start 06/29/18 at 09:00 Levofloxacin (Levaquin) 250 mg DAILY@06 NGT Last administered on 07/05/18 05:16; Admin Dose 250 MG; Start 07/01/18 at 06:00; Stop 07/08/18 at 05:59 Carvedilol (Coreg) 25 mg BID NGT Last administered on 07/04/18at 20:38; Admin Dose 25 MG; Start 06/30/18 at 21:00 Docusate Sodium (Colace Liquid Cup) 200 mg BID NGT ; Start 07/04/18 at 09:00; Status Hold Ondansetron HCl (Zofran Inj) 4 mg Q6H PRN IV NAUSEA AND/OR VOMITING; Start 07/04/18 at 11:00 Dextrose 1,000 ml @ 50 mls/hr Q20H ONCE IV Last administered on 07/05/18 09:47; Admin Dose 50 MLS/HR; Start 07/05/18 at 08:00; Stop 07/06/18 at 03:59 Lorazepam (Ativan) 0.5 mg Q6H PRN IV agitation; Start 07/05/18 at 14:30 LAURA MCDONALD Jul 05, 2018 15:44
--- NOTE | 2018-07-05 16:21 | CONS ---
Consult Date/Type/Reason Admit Date/Time Jun 25, 2018 at 04:04 Initial Consult Date 06/25/18 Type of Consultation: cv Requesting Provider: DAMION KUMAR Date/Time of Note DATE: 07/05/18 TIME: 16:17 Subjective Interventional cardiology follow-up progress note Subjective: Discussed with the staff and telemetry was reviewed. Patient has remained sinus rhythm/sinus kathi Blood pressure has been elevated but with low HR coreg was held. No report of any chest pain or pressure no more bleeding is reported Patient failed weaning trial again d/w events noted. 06/26: pt extubated but had to be reintubated same day for resp distress. Objective: General: Obese gentleman status post intubation on the vent HEENT: NC/AT. . Pupils are equal round reactive to light. s/p NG tube in place NECK: no stridor. CV: RRR. systolic murmur; no gallop or rubs. PULM: no wheezing. + mild rhonchi. GI: SOFT, NT, ND, no rebound or guarding Extremity: +trace B/L LE edema. no clubbing. neuro: awake and follows commands. Psych: calm rectal: deferred : normal EKG in ER was personally reviewed showed normal sinus rhythm left bundle branch block Echocardiogram was personally reviewed which shows: Normal left ventricular cavity size. Moderate concentric left ventricular hypertrophy. Moderate global left ventricular systolic dysfunction. Ejection fraction is visually estimated at 35 %. Abnormal Diastolic Function. Multiple se gmental wall motion abnormalities. These segments of the LV are akinetic. No significant aortic stenosis or insufficiency. Aortic cusps appear mildly calcified. Mitral valve leaflets appear mildly thickened. Mild mitral annular calcification. Trace mitral regurgitation. Normal appearance of the tricuspid valve. Estimated peak PA systolic pressure 31 mmHg. There is trace to mild tricuspid regurgitation. Dilated IVC without respiratory collapse, however, patient on ventilator. CT of the chest done in the emergency room shows: 1. No evidence of central pulmonary emboli. Prominent central pulmonary arteries and rule out pulmonary arterial hypertension. Reflux of contrast into t he distal inferior vena cava and rule out mild right heart strain/failure. 2. Mild aneurysmal dilatation of the ascending aorta maximal transverse diameter 4.3 cm. 3. Mild cardiomegaly. 4. Bilateral lower lobe consolidations with central air bronchograms consistent with atelectasis though aspiration and pneumonia cannot be excluded. Additional diffuse inhomogeneous ground-glass opacities bilaterally as above consistent with pulmonary edema/pneumonitis. 5. Bilateral tiny pleural effusions. 6. Right paratracheal and prevascular space lymphadenopathy as above. Follow-up is recommended. 7. Mild lobulation of the anterior margin of the liver and may represent cirrhosis. Objective Vitals Vital Signs Date Temp Pulse Resp B/P (MAP) Pulse Ox O2 O2 Flow FiO2 Time Delivery Rate 07/05/18 68 12:00 07/05/18 23 98 40 11:40 07/05/18 112/65 11:30 (81) 07/05/18 Mechanical 11:00 Ventilator 07/05/18 98.3 04:00 Intake and Output 07/04/18 07/04/18 07/05/18 1515:00 23:00 07:00 IntakeIntake Total 480 ml 122.4525 ml 129.06 ml OutputOutput Total 940 ml 465 ml 980 ml BalanceBalance -460 ml -342.5475 ml -850.94 ml Results/Medications Result Diagram: 07/05/18 0430 07/05/18 0430 Results 24 hrs Laboratory Tests Test 07/04/18 17:55 07/04/18 20:37 07/05/18 00:56 07/05/18 04:30 Bedside Glucose 197 171 174 White Blood Count 8.5 Red Blood Count 4.09 L Hemoglobin 11.3 L Hematocrit 36.3 L Mean Corpuscular 88.8 Volume Mean Corpuscular 27.6 L Hemoglobin Mean Corpuscular 31.1 L Hemoglobin Concen t Red Cell 14.6 H Distribution Width Platelet Count 249 Mean Platelet 11.9 H Volume Immature 0.700 H Granulocytes % Neutrophils % 76.7 Lymphocytes % 13.2 L Monocytes % 6.3 Eosinophils % 2.7 Basophils % 0.4 Nucleated Red 0.0 Blood Cells % Immature 0.060 H Granulocytes # Neutrophils # 6.6 Lymphocytes # 1.1 Monocytes # 0.5 Eosinophils # 0.2 Basophils # 0.0 Nucleated Red 0.0 Blood Cells # Sodium Level 148 H Potassium Level 3.6 Chloride Level 112 H Carbon Dioxide 25 Level Anion Gap 11 Blood Urea 58 H Nitrogen Creatinine 2.16 H Est Glomerular Filtrat Rate mL/min Glucose Level 184 Calcium Level 8.9 Phosphorus Level 5.4 H Magnesium Level 2.3 Test 07/05/18 04:51 07/05/18 09:00 07/05/18 13:14 07/05/18 14:30 Bedside Glucose 175 200 254 H Blood Gas Blood arterial Specimen Source Arterial Blood 07/05/2018 2:35:5 Date Drawn 2 PM Arterial Blood pH 7.246 *L (Temp corrected) Arterial Blood 64.8 H pCO2 (Temp correct) Arterial Blood 73.5 L pO2 (Temp corrected) Arterial Blood 27.5 H HCO3 Arterial Blood -1.0 Base Excess Arterial Blood 90.7 L Oxygen Saturation Darío Test ACCEPTAB Arterial Blood Right Radial Gas Puncture Site Arterial 0.3 Blood Carboxyhemo globin Arterial Blood 0.4 Methemoglobin Blood Gas A-a O2 64.3 H Differential Oxyhemoglobin 90.1 L Percent Blood Gas 37.0 Temperature Blood Gas Actual 25 Respiration Rate Blood Gas VENT - CPAP Modality FiO2 30.0 Blood Gas Low 5.0 PEEP Setting Blood Gas 10 Pressure Support Blood Gas Brijesh NAVAS RN Critical Value Read Back Blood Gas M.DAllegra Notified Whom Blood Gas 07/05/2018 2:46:2 Notified Time 6 PM Home Meds Reported Medications Tamsulosin Hcl* (Flomax*) 0.4 Mg Cap.er.24h, 0.4 MG PO DAILY, CAP 07/01/18 Sotalol Hcl* (Betapace*) 80 Mg Tab, 80 MG PO BID, TAB 07/01/18 Levothyroxine Sodium* (Levoxyl*) 75 Mcg Tablet, 75 MCG PO BEFORE BREAKFAST, #30 TAB 07/01/18 Glimepiride* (Amaryl*) 4 Mg Tablet, 4 MG PO WITH BREAKFAST DINNE, TAB 07/01/18 Sitagliptin Phos/Metformin HCl (Janumet 50-1,000 mg Tablet) 1 Each Tablet, 1 EACH PO BID, TAB 07/01/18 Doxazosin Mesylate* (Cardura*) 4 Mg Tablet, 4 MG PO BID, #60 TAB 07/01/18 Nifedipine (Procardia Xl) 60 Mg Tab.er.24, 60 MG PO DAILY, TAB 07/01/18 Metoprolol Succinate* (Toprol XL*) 100 Mg Tab.sr.24h, 100 MG PO BID, #30 TAB 07/01/18 Medications Current Medications Norepinephrine 250 ml @ 1.875 mls/ hr TITRATE IV Last administered on 06/25/18 03:13; Admin Dose 3.75 MLS/HR; Start 06/25/18 at 03:00 Insulin Aspart (Novolog Insulin Pen) NOVOLOG *MILD* ALGORI... Q4 SC Last administered on 07/05/18 13:26; Admin Dose 3 UNIT; Start 06/25/18 at 09:00 Propofol 100 ml @ 5.1 mls/hr Q12H IV Last administered on 06/27/18 09:10; Admin Dose 15.3 MLS/HR; Start 06/25/18 at 10:30 Famotidine (Pepcid Iv) 20 mg DAILY IV Last administered on 07/04/18 11:10; Admin Dose 20 MG; Start 06/26/18 at 10:30 Atorvastatin Calcium (Lipitor) 40 mg HS NGT Last administered on 07/04/18 20:38; Admin Dose 40 MG; Start 06/26/18 at 21:00 Acetaminophen (Tylenol Liquid) 650 mg Q4H PRN NGT MILD PAIN(1-3)OR ELEVATED TEMP Last administered on 07/02/18 06:23; Admin Dose 650 MG; Start 06/26/18 at 13:30 Albuterol (Ventolin Hfa) 4 puff Q6H RESP THERAPY INH Last administered on 07/05/18 16:00; Admin Dose 4 PUFF; Start 06/26/18 at 20:00 Aspirin (Aspirin) 81 mg DAILY NGT Last administered on 07/05/18 09:42; Admin Dose 81 MG; Start 06/27/18 at 09:00 Alteplase, Recombinant (Cathflo (Activase)) 2 mg MAY REPEAT X1 PRN CATHETER IF CATHETER REMAINS OCCULUDED; Start 06/27/18 at 09:30 Fentanyl 100 ml @ 2.5 mls/hr TITRATE PRN IV PAIN Last administered on 07/03/18 23:08; Admin Dose 7.5 MLS/HR; Start 06/27/18 at 11:30 Hydralazine HCl (Apresoline) 10 mg Q4H PRN IV ELEVATED BLOOD PRESSURE Last administered on 07/01/18 03:34; Admin Dose 10 MG; Start 06/27/18 at 20:30 Zinc Sulfate (Zinc Sulfate) 220 mg DAILY NGT Last administered on 07/05/18 09:43; Admin Dose 220 MG; Start 06/28/18 at 11:30 Ascorbic Acid (Vitamin C) 500 mg DAILY NGT Last administered on 07/05/18 09:42; Admin Dose 500 MG; Start 06/28/18 at 11:30 Isosorbide Dinitrate (Isordil) 20 mg TID NGT Last administered on 07/05/18 1 3:24; Admin Dose 20 MG; Start 06/28/18 at 14:00 Insulin Glargine (Lantus) 15 units DAILY@0800 SC Last administered on 07/05/18 09:28; Admin Dose 15 UNITS; Start 06/28/18 at 14:00 Enoxaparin Sodium (Lovenox) 30 mg DAILY SC Last administered on 07/05/18 09:44; Admin Dose 30 MG; Start 06/29/18 at 09:00 Alteplase, Recombinant (Cathflo (Activase)) 2 mg MAY REPEAT X1 PRN CATHETER IF CATHETER REMAINS OCCULUDED; Start 06/29/18 at 04:30 Hydralazine HCl (Apresoline) 100 mg TID GTB Last administered on 07/05/18 13:24; Admin Dose 100 MG; Start 06/29/18 at 09:00 Fish Oil (Fish Oil) 2,000 mg BID PO Last administered on 07/05/18 09:42; Admin Dose 2,000 MG; Start 06/29/18 at 09:00 Levofloxacin (Levaquin) 250 mg DAILY@06 NGT Last administered on 07/05/18 05:16; Admin Dose 250 MG; Start 07/01/18 at 06:00; Stop 07/08/18 at 05:59 Carvedilol (Coreg) 25 mg BID NGT Last administered on 07/04/18 20:38; Admin Dose 25 MG; Start 06/30/18 at 21:00 Docusate Sodium (Colace Liquid Cup) 200 mg BID NGT ; Start 07/04/18 at 09:00; Status Hold Ondansetron HCl (Zofran Inj) 4 mg Q6H PRN IV NAUSEA AND/OR VOMITING; Start 07/04/18 at 11:00 Dextrose 1,000 ml @ 50 mls/hr Q20H ONCE IV Last administered on 4/26/19at 09:47; Admin Dose 50 MLS/HR; Start 07/05/18 at 08:00; Stop 07/06/18 at 03:59 Lorazepam (Ativan) 0.5 mg Q6H PRN IV agitation; Start 07/05/18 at 14:30 Assessment/Plan Hospital Course (Demo Recall) 1. Status post cardiopulmonary arrest appears to be mostly related to respiratory failure 2. Hypoxemic respiratory failure status post intubation vent dependent now 3. hypertension 4. Cardiomyopathy :unclear acute versus chronic 5. Congestive heart failure probably acute on chronic secondary systolic heart failure 6. Renal insufficiency: Acute kidney injury now 7. Encephalopathy 8. Abnormal EKG with left bundle branch block 9. Incomplete data 10. Pneumonia 11. hyper Na Recommendation: Cardiac enzyme has been repeated and myocardial infarction was ruled out. Review of the old chart also has shown that the patient has had normal coronaries in 2016 Continue with vent support. To be managed as per pulmonary recommendations. weaning as tolerated. Aspirin daily. Diuresis/ fluid management as per renal rec. Follow with RENAL CONSULT . GI and DVT prophylaxis Antibiotics management will be deferred to internal medicine dec Coreg to avoid bradycardia. We will cont hydralazine/Isordil combination. hold off on ARB./ DENNIS due to RICKI Continue with ICU care Thank you for his referral. We will continue to follow along with you MONIQUE SANDOVAL MD [facility] MONIQUE SANDOVAL MD Jul 05, 2018 16:21
[2018-07-05] MEDS: ATORVASTATIN 40 MG TAB NGT SCH (20:27)
[2018-07-06] VITALS (60 sets, daily range): BP systolic 115–191; BP diastolic 57–100; PULSE 63–98; RESP 12–27
[2018-07-06] MEDS: PROPOFOL 100 ML IV SCH ×2 (01:01→05:37)
[2018-07-06] MEDS: INSULIN ASPART [NOVOLOG] 3 ML PEN SC SCH ×6 (01:02→21:10)
[2018-07-06] MEDS: ALBUTEROL HFA 8 GM INHALER INH SCH ×3 (02:24→13:31)
[2018-07-06] MEDS ORDERED: POTASSIUM CHLORIDE 20 MEQ POWDER FOR ORAL SOLN GTB ONE (08:00)
[2018-07-06] MEDS: INSULIN GLARGINE [LANTus] (100 UNITS/ML) SYG SC SCH (08:07)
[2018-07-06] MEDS: LEVOFLOXACIN 250 MG TAB NGT SCH (08:12)
[2018-07-06] MEDS: DEXTROSE 5% 1,000 ML IV SCH (08:13)
--- NOTE | 2018-07-06 08:41 | CONS ---
Assessment/Plan Assessment/Plan Hospital Course 78 yo M with multiple cerebrovascular risk factors who presents to ICU following a cardiac arrest. CTH was obtained, and notable for multifocal hypodensities concerning for stroke... for which neurology is consulted. MRI brain is presently unable to be performed d/t morbid obesity. On neurologic examination, he awakens and moves his limbs spontaneously, without obvious focal deficit. Recent echo is notable for depressed LV function with EF 35% and wall motion abnormalities NOS. P: Agree w/ ASA daily for stroke prevention for now; LDL is at goal. Limit sedating medications where possible Other medical management and supportive care per primary WiIl follow clinically Consultation Date/Type/Reason Admit Date/Time Jun 25, 2018 at 04:04 Type of Consult Neurology Reason for Consultation eval for stroke Requesting Provider: DAMION KUMAR Date/Time of Note DATE: 07/06/18 TIME: 08:40 24 HR Interval Summary Free Text/Dictation Continues critical care. On propofol gtt. Subjective hx not possible: pt non-verbal, pt critical Exam Vital Signs Vitals Vital Signs Date Temp Pulse Resp B/P (MAP) Pulse Ox O2 O2 Flow FiO2 Time Delivery Rate 07/06/18 67 22 131/65 94 Mechanical 06:00 (87) Ventilator 07/06/18 30 05:03 07/05/18 98.4 20:00 Intake and Output 07/05/18 07/05/18 07/06/18 1515:00 23:00 07:00 IntakeIntake Total 350 ml 445 ml 290 ml OutputOutput Total 845 ml 730 ml 620 ml BalanceBalance -495 ml -285 ml -330 ml Exam PE: Gen Appearance: No Apparent Distress HEENT: Intubated Cardiovascular: Regular rate Abdomen: Soft Extremities: Dry NE: The patient was sedated and nonverbal. Briefly opens eyes to voice. Tracks. Unable to follow commands. . Cranial nerve examination was limited by mental status. Pupils were equal and reactive to light. There was no afferent pupillary defect. Funduscopic examination was limited. Face was grossly symmetric, w/ present corneal and cough reflexes. Tone was normal. Muscle bulk was normal. I did not see fasciculations. The patient withdrew to noxious stimulation x 4. Coordination and gait testing was limited by mental status. Arm and leg reflexes were within normal limits and symmetric. Gonzalez's sign was absent. Plantar responses were flexor. DESTINY ANDERSEN NP Jul 06, 2018 08:41
--- NOTE | 2018-07-06 08:54 | PN ---
DATE: 07/06/2018 SUBJECTIVE: The patient is stable. The patient continues to have copious amount of urinary output. No other events noted. No hemoptysis, hematemesis, hematochezia. OBJECTIVE: VITAL SIGNS: Blood pressure is 131/65, respirations 22, pulse 67, temperature 98.6. HEENT: Head is normocephalic. NECK: Supple. HEART: Regular rate. LUNGS: Show diminished breath sounds at the base. ABDOMEN: Soft, nontender to palpation without rebound or guarding. EXTREMITIES: Negative for clubbing, cyanosis, no edema. DERMATOLOGIC: No rashes. MUSCULOSKELETAL: No joint effusion. NEUROLOGIC: No change in exam. MEDICATIONS: The patient's medications have been reviewed. LABORATORY DATA: Has been reviewed. ABG was reviewed. Cultures have been reviewed. IMAGING STUDIES: Have been reviewed. ASSESSMENT AND PLAN: 1. Nonoliguric acute kidney injury with unknown baseline creatinine. Etiology of acute kidney injur y is secondary to acute tubular necrosis. Renal function appears to be stabilizing around a creatini ne 2.3 mg/dL. At this point, continue current treatment plans, supportive care, renally dose all med icines. 2. Volume overload, improved. The patient is status post diuretic therapy. Continue to monitor. W ill give intermittent diuretics as needed. 3. Hypernatremia. 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 The patient's urine osmolarity although elevated, is inappropriately low for current level of hype rnatremia. Continue aggressive free water flushes. Sodium levels have been high but stable. We bandar l monitor closely. 4. Hypokalemia. We will replete and monitor as needed. 5. Mineral bone disorder, monitor calcium and phosphorus levels. 6. Anemia. Monitor hemoglobin and hematocrit levels. 7. Ventilator-dependent respiratory failure. Vent settings and ABG was reviewed. Continue to monit or. 8. Sepsis secondary to pneumonia. The patient is completing an antibiotic course. 9. Hypertension. Continue current blood pressure regimen. 10. Dyslipidemia. Continue statin therapy. 11. Status post cardiopulmonary arrest. 12. History of cardiomyopathy. 13. History of cirrhosis. 14. Acute encephalopathy, etiology is toxic metabolic. 15. Dysphagia. Continue tube feeding. Dictated By: ENA CARTWRIGHT/RUTH Conf#: [id number] DID#: [id number] CC: LILLY CLEMENS MD; YARIEL DUTTA MD; LAURA MCDONALD MD;*End*
[2018-07-06] MEDS: FAMOTIDINE 20 MG INJ IV SCH (09:00)
[2018-07-06] MEDS: BALSAM PERU/CASTOR OIL 60 GM TUBE TOP SCH ×2 (09:38→21:16)
[2018-07-06] MEDS: ENOXAPARIN 30 MG/0.3 ML SYG SC SCH (09:39)
[2018-07-06] MEDS: FISH OIL 1,000 MG CAP PO SCH ×2 (09:40→21:03)
[2018-07-06] MEDS: ASCORBIC ACID 500 MG TAB NGT SCH (09:40)
[2018-07-06] MEDS: ZINC SULFATE 220 MG CAP NGT SCH (09:40)
[2018-07-06] MEDS: ASPIRIN 81 MG TAB NGT SCH (09:41)
[2018-07-06] MEDS: ISOSORBIDE DINITRATE 20 MG TAB NGT SCH ×3 (09:42→21:02)
--- NOTE | 2018-07-06 12:03 | PN ---
Date/Time of Note Date/Time of Note DATE: 07/06/18 TIME: 12:03 Assessment/Plan VTE Prophylaxis Risk score (from Nsg)>0 risk: 14 Pharmacological prophylaxis: LMWH Assessment/Plan Hospital Course 1. Cardiopulmonary arrest with return of circulation Patient had episode of PEA Mentation is improving Continue to monitor off sedation 2. Respiratory failure secondary to cardiac arrest Pulmonology following, wean as able, anticipate extubation in 1 to 2 days Insufficient fluid for thoracentesis 3. 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 Acute kidney injury secondary to hemodynamics Nephrology consultation appreciated 5. Acute on chronic systolic heart failure Cardiology following Continue cardiac meds 6. Morbid obesity with fatty liver and likely KONG Lifestyle changes 7. Diabetes Continue insulin 8. Hypertension-stable 9. Pneumonia possibly aspiration versus community acquired Continue Levaquin 10. History of aortic aneurysm 4.3 on surveillance Prophylaxis: Lovenox Result Diagram: 07/06/18 0514 07/06/18 0514 Results 24hrs Laboratory Tests Test 07/05/18 13:14 07/05/18 14:30 07/05/18 18:03 07/05/18 20:34 Bedside Glucose 254 H 188 179 Blood Gas Blood arterial Specimen Source Arterial Blood 07/05/2018 2:35:5 Date Drawn 2 PM Arterial Blood pH 7.246 *L (Temp corrected) Arterial Blood 64.8 H pCO2 (Temp correct) Arterial Blood 73.5 L pO2 (Temp corrected) Arterial Blood 27.5 H HCO3 Arterial Blood -1.0 Base Excess Arterial Blood 90.7 L Oxygen Saturation Darío Test ACCEPTAB Arterial Blood Right Radial Gas Puncture Site Arterial 0.3 Blood Carboxyhemo globin Arterial Blood 0.4 Methemoglobin Blood Gas A-a O2 64.3 H Differential Oxyhemoglobin 90.1 L Percent Blood Gas 37.0 Temperature Blood Gas Actual 25 Respiration Rate Blood Gas VENT - CPAP Modality FiO2 30.0 Blood Gas Low 5.0 PEEP Setting Blood Gas 10 Pressure Support Blood Gas Brijesh NAVAS RN Critical Value Read Back Blood Gas Angelia Notified Whom Blood Gas 07/05/2018 2:46:2 Notified Time 6 PM Test 07/06/18 00:59 07/06/18 05:14 07/06/18 05:36 07/06/18 08:02 Bedside Glucose 163 159 142 White Blood Count 9.7 Red Blood Count 3.83 L Hemoglobin 10.4 L Hematocrit 33.9 L Mean Corpuscular 88.5 Volume Mean Corpuscular 27.2 L Hemoglobin Mean Corpuscular 30.7 L Hemoglobin Concen t Red Cell 14.6 H Distribution Width Platelet Count 271 Mean Platelet 12.2 H Volume Immature 0.900 H Granulocytes % Neutrophils % 80.0 H Lymphocytes % 10.6 L Monocytes % 5.8 Eosinophils % 2.3 Basophils % 0.4 Nucleated Red 0.0 Blood Cells % Immature 0.090 H Granulocytes # Neutrophils # 7.8 H Lymphocytes # 1.0 Monocytes # 0.6 Eosinophils # 0.2 Basophils # 0.0 Nucleated Red 0.0 Blood Cells # Sodium Level 148 H Potassium Level 3.2 L Chloride Level 112 H Carbon Dioxide 24 Level Anion Gap 12 Blood Urea 57 H Nitrogen Creatinine 2.28 H Est Glomerular Filtrat Rate mL/min Glucose Level 140 # Calcium Level 8.9 Phosphorus Level 4.3 Magnesium Level 2.4 B-Type 1630 H Natriuretic Peptide Test 07/06/18 09:35 Bedside Glucose 165 Subjective 24 Hr Interval Summary Subjective hx not possible: pt non-verbal Exam/Review of Systems Exam Vitals Vital Signs Date Temp Pulse Resp B/P (MAP) Pulse Ox O2 O2 Flow FiO2 Time Delivery Rate 07/06/18 30 08:36 07/06/18 68 19 152/70 98 08:30 (97) 07/06/18 Mechanical 08:00 Ventilator 07/05/18 98.4 20:00 Intake and Output 07/05/18 07/05/18 07/06/18 1515:00 23:00 07:00 IntakeIntake Total 350 ml 445 ml 290 ml OutputOutput Total 845 ml 730 ml 620 ml BalanceBalance -495 ml -285 ml -330 ml Constitutional: non-verbal ENMT: intubated Respiratory: clear to auscultation Cardiovascular: regular rate and rhythm Gastrointestinal: soft; No distended Musculoskeletal: nl extremities to inspection Results Results 24hrs Laboratory Tests Test 07/05/18 13:14 07/05/18 14:30 07/05/18 18:03 07/05/18 20:34 Bedside Glucose 254 H 188 179 Blood Gas Blood arterial Specimen Source Arterial Blood 07/05/2018 2:35:5 Date Drawn 2 PM Arterial Blood pH 7.246 *L (Temp corrected) Arterial Blood 64.8 H pCO2 (Temp correct) Arterial Blood 73.5 L pO2 (Temp corrected) Arterial Blood 27.5 H HCO3 Arterial Blood -1.0 Base Excess Arterial Blood 90.7 L Oxygen Saturation Darío Test ACCEPTAB Arterial Blood Right Radial Gas Puncture Site Arterial 0.3 Blood Carboxyhemo globin Arterial Blood 0.4 Methemoglobin Blood Gas A-a O2 64.3 H Differential Oxyhemoglobin 90.1 L Percent Blood Gas 37.0 Temperature Blood Gas Actual 25 Respiration Rate Blood Gas VENT - CPAP Modality FiO2 30.0 Blood Gas Low 5.0 PEEP Setting Blood Gas 10 Pressure Support Blood Gas Brijesh NAVAS RN Critical Value Read Back Blood Gas M.DAllegra Notified Whom Blood Gas 07/05/2018 2:46:2 Notified Time 6 PM Test 07/06/18 00:59 07/06/18 05:14 07/06/18 05:36 07/06/18 08:02 Bedside Glucose 163 159 142 White Blood Count 9.7 Red Blood Count 3.83 L Hemoglobin 10.4 L Hematocrit 33.9 L Mean Corpuscular 88.5 Volume Mean Corpuscular 27.2 L Hemoglobin Mean Corpuscular 30.7 L Hemoglobin Concen t Red Cell 14.6 H Distribution Width Platelet Count 271 Mean Platelet 12.2 H Volume Immature 0.900 H Granulocytes % Neutrophils % 80.0 H Lymphocytes % 10.6 L Monocytes % 5.8 Eosinophils % 2.3 Basophils % 0.4 Nucleated Red 0.0 Blood Cells % Immature 0.090 H Granulocytes # Neutrophils # 7.8 H Lymphocytes # 1.0 Monocytes # 0.6 Eosinophils # 0.2 Basophils # 0.0 Nucleated Red 0.0 Blood Cells # Sodium Level 148 H Potassium Level 3.2 L Chloride Level 112 H Carbon Dioxide 24 Level Anion Gap 12 Blood Urea 57 H Nitrogen Creatinine 2.28 H Est Glomerular Filtrat Rate mL/min Glucose Level 140 # Calcium Level 8.9 Phosphorus Level 4.3 Magnesium Level 2.4 B-Type 1630 H Natriuretic Peptide Test 07/06/18 09:35 Bedside Glucose 165 Medications Medication Current Medications Norepinephrine 250 ml @ 1.875 mls/ hr TITRATE IV Last administered on 06/25/18at 03:13; Admin Dose 3.75 MLS/HR; Start 06/25/18 at 03:00 Insulin Aspart (Novolog Insulin Pen) NOVOLOG *MILD* ALGORI... Q4 SC Last administered on 07/06/18 09:43; Admin Dose 1 UNIT; Start 06/25/18 at 09:00 Propofol 100 ml @ 5.1 mls/hr Q12H IV Last administered on 07/06/18 05:37; Admin Dose 20.4 MLS/HR; Start 06/25/18 at 10:30 Famotidine (Pepcid Iv) 20 mg DAILY IV Last administered on 07/06/18 09:00; Admin Dose 20 MG; Start 06/26/18 at 10:30 Atorvastatin Calcium (Lipitor) 40 mg HS NGT Last administered on 07/05/18 20:27; Admin Dose 40 MG; Start 06/26/18 at 21:00 Acetaminophen (Tylenol Liquid) 650 mg Q4H PRN NGT MILD PAIN(1-3)OR ELEVATED T EMP Last administered on 07/02/18 06:23; Admin Dose 650 MG; Start 06/26/18 at 13:30 Albuterol (Ventolin Hfa) 4 puff Q6H RESP THERAPY INH Last administered on 07/06/18 08:18; Admin Dose 4 PUFF; Start 06/26/18 at 20:00 Aspirin (Aspirin) 81 mg DAILY NGT Last administered on 07/06/18 09:41; Admin Dose 81 MG; Start 06/27/18 at 09:00 Alteplase, Recombinant (Cathflo (Activase)) 2 mg MAY REPEAT X1 PRN CATHETER IF CATHETER REMAINS OCCULUDED; Start 06/27/18 at 09:30 Fentanyl 100 ml @ 2.5 mls/hr TITRATE PRN IV PAIN Last administered on 07/03/18 23:08; Admin Dose 7.5 MLS/HR; Start 06/27/18 at 11:30 Hydralazine HCl (Apresoline) 10 mg Q4H PRN IV ELEVATED BLOOD PRESSURE Last administered on 07/01/18 03:34; Admin Dose 10 MG; Start 06/27/18 at 20:30 Zinc Sulfate (Zinc Sulfate) 220 mg DAILY NGT Last administered on 07/06/18 09:40; Admin Dose 220 MG; Start 06/28/18 at 11:30 Ascorbic Acid (Vitamin C) 500 mg DAILY NGT Last administered on 07/06/18 09:40; Admin Dose 500 MG; Start 06/28/18 at 11:30 Isosorbide Dinitrate (Isordil) 20 mg TID NGT Last administered on 07/06/18 09:42; Admin Dose 20 MG; Start 06/28/18 at 14:00 Insulin Glargine (Lantus) 15 units DAILY@0800 SC Last administered on 07/06/18 08:07; Admin Dose 15 UNITS; Start 06/28/18 at 14:00 Enoxaparin Sodium (Lovenox) 30 mg DAILY SC Last administered on 07/06/18 09:39; Admin Dose 30 MG; Start 06/29/18 at 09:00 Alteplase, Recombinant (Cathflo (Activase)) 2 mg MAY REPEAT X1 PRN CATHETER IF CATHETER REMAINS OCCULUDED; Start 06/29/18 at 04:30 Hydralazine HCl (Apresoline) 100 mg TID GTB Last administered on 07/06/18 09:4 1; Admin Dose 100 MG; Start 06/29/18 at 09:00 Fish Oil (Fish Oil) 2,000 mg BID PO Last administered on 07/06/18 09:40; Admin Dose 2,000 MG; Start 06/29/18 at 09:00 Levofloxacin (Levaquin) 250 mg DAILY@06 NGT Last administered on 07/06/18 08:12; Admin Dose 250 MG; Start 07/01/18 at 06:00; Stop 07/08/18 at 05:59 Docusate Sodium (Colace Liquid Cup) 200 mg BID NGT ; Start 07/04/18 at 09:00; Status Hold Ondansetron HCl (Zofran Inj) 4 mg Q6H PRN IV NAUSEA AND/OR VOMITING; Start 07/04/18 at 11:00 Lorazepam (Ativan) 0.5 mg Q6H PRN IV agitation; Start 07/05/18 at 14:30 Carvedilol (Coreg) 12.5 mg BID NGT Last administered on 07/06/18 09:41; Admin Dose 12.5 MG; Start 07/05/18 at 21:00 Dextrose 1,000 ml @ 50 mls/hr Q20H IV Last administered on 4/27/19at 08:13; Admin Dose 50 MLS/HR; Start 07/06/18 at 08:00 LAURA MCDONALD Jul 06, 2018 12:03
--- NOTE | 2018-07-06 12:53 | CONS ---
Consult Date/Type/Reason Admit Date/Time Jun 25, 2018 at 04:04 Initial Consult Date 06/25/18 Type of Consultation: Pulm/CCM Requesting Provider: DAMION KUMAR Date/Time of Note DATE: 07/06/18 TIME: 12:46 Subjective Anxious and awake on the ventilator. Objective Vitals Vital Signs Date Temp Pulse Resp B/P (MAP) Pulse Ox O2 O2 Flow FiO2 Time Delivery Rate 07/06/18 30 08:36 07/06/18 68 19 152/70 98 08:30 (97) 07/06/18 Mechanical 08:00 Ventilator 07/05/18 98.4 20:00 Intake and Output 07/05/18 07/05/18 07/06/18 1515:00 23:00 07:00 IntakeIntake Total 350 ml 445 ml 290 ml OutputOutput Total 845 ml 730 ml 620 ml BalanceBalance -495 ml -285 ml -330 ml Exam HEENT: Neck supple; no JVD; no LAD; + ET tube CVS: RRR, S1 and S2 CHEST: Bibasilar rales ABD: Obese, NT, + BS EXT: No c/c: + edema Results/Medications Result Diagram: 07/06/18 0514 07/06/18 0514 Results 24 hrs Laboratory Tests Test 07/05/18 13:14 07/05/18 14:30 07/05/18 18:03 07/05/18 20:34 Bedside Glucose 254 H 188 179 Blood Gas Blood arterial Specimen Source Arterial Blood 07/05/2018 2:35:5 Date Drawn 2 PM Arterial Blood pH 7.246 *L (Temp corrected) Arterial Blood 64.8 H pCO2 (Temp correct) Arterial Blood 73.5 L pO2 (Temp corrected) Arterial Blood 27.5 H HCO3 Arterial Blood -1.0 Base Excess Arterial Blood 90.7 L Oxygen Saturation Darío Test ACCEPTAB Arterial Blood Right Radial Gas Puncture Site Arterial 0.3 Blood Carboxyhemo globin Arterial Blood 0.4 Methemoglobin Blood Gas A-a O2 64.3 H Differential Oxyhemoglobin 90.1 L Percent Blood Gas 37.0 Temperature Blood Gas Actual 25 Respiration Rate Blood Gas VENT - CPAP Modality FiO2 30.0 Blood Gas Low 5.0 PEEP Setting Blood Gas 10 Pressure Support Blood Gas Brijesh NAVAS RN Critical Value Read Back Blood Gas Angelia Notified Whom Blood Gas 07/05/2018 2:46:2 Notified Time 6 PM Test 07/06/18 00:59 07/06/18 05:14 07/06/18 05:36 07/06/18 08:02 Bedside Glucose 163 159 142 White Blood Count 9.7 Red Blood Count 3.83 L Hemoglobin 10.4 L Hematocrit 33.9 L Mean Corpuscular 88.5 Volume Mean Corpuscular 27.2 L Hemoglobin Mean Corpuscular 30.7 L Hemoglobin Concen t Red Cell 14.6 H Distribution Width Platelet Count 271 Mean Platelet 12.2 H Volume Immature 0.900 H Granulocytes % Neutrophils % 80.0 H Lymphocytes % 10.6 L Monocytes % 5.8 Eosinophils % 2.3 Basophils % 0.4 Nucleated Red 0.0 Blood Cells % Immature 0.090 H Granulocytes # Neutrophils # 7.8 H Lymphocytes # 1.0 Monocytes # 0.6 Eosinophils # 0.2 Basophils # 0.0 Nucleated Red 0.0 Blood Cells # Sodium Level 148 H Potassium Level 3.2 L Chloride Level 112 H Carbon Dioxide 24 Level Anion Gap 12 Blood Urea 57 H Nitrogen Creatinine 2.28 H Est Glomerular Filtrat Rate mL/min Glucose Level 140 # Calcium Level 8.9 Phosphorus Level 4.3 Magnesium Level 2.4 B-Type 1630 H Natriuretic Peptide Test 07/06/18 09:35 Bedside Glucose 165 Home Meds Reported Medications Tamsulosin Hcl* (Flomax*) 0.4 Mg Cap.er.24h, 0.4 MG PO DAILY, CAP 07/01/18 Sotalol Hcl* (Betapace*) 80 Mg Tab, 80 MG PO BID, TAB 07/01/18 Levothyroxine Sodium* (Levoxyl*) 75 Mcg Tablet, 75 MCG PO BEFORE BREAKFAST, #30 TAB 07/01/18 Glimepiride* (Amaryl*) 4 Mg Tablet, 4 MG PO WITH BREAKFAST DINNE, TAB 07/01/18 Sitagliptin Phos/Metformin HCl (Janumet 50-1,000 mg Tablet) 1 Each Tablet, 1 EACH PO BID, TAB 07/01/18 Doxazosin Mesylate* (Cardura*) 4 Mg Tablet, 4 MG PO BID, #60 TAB 07/01/18 Nifedipine (Procardia Xl) 60 Mg Tab.er.24, 60 MG PO DAILY, TAB 07/01/18 Metoprolol Succinate* (Toprol XL*) 100 Mg Tab.sr.24h, 100 MG PO BID, #30 TAB 07/01/18 Medications Current Medications Norepinephrine 250 ml @ 1.875 mls/ hr TITRATE IV Last administered on 06/25/18 03:13; Admin Dose 3.75 MLS/HR; Start 06/25/18 at 03:00 Insulin Aspart (Novolog Insulin Pen) NOVOLOG *MILD* ALGORI... Q4 SC Last administered on 07/06/18 09:43; Admin Dose 1 UNIT; Start 06/25/18 at 09:00 Propofol 100 ml @ 5.1 mls/hr Q12H IV Last administered on 07/06/18 05:37; Admin Dose 20.4 MLS/HR; Start 06/25/18 at 10:30 Famotidine (Pepcid Iv) 20 mg DAILY IV Last administered on 07/06/18 09:00; Admin Dose 20 MG; Start 06/26/18 at 10:30 Atorvastatin Calcium (Lipitor) 40 mg HS NGT Last administered on 07/05/18 20:27; Admin Dose 40 MG; Start 06/26/18 at 21:00 Acetaminophen (Tylenol Liquid) 650 mg Q4H PRN NGT MILD PAIN(1-3)OR ELEVATED TEMP Last administered on 07/02/18 06:23; Admin Dose 650 MG; Start 06/26/18 at 13:30 Albuterol (Ventolin Hfa) 4 puff Q6H RESP THERAPY INH Last administered on 07/06/18 08:18; Admin Dose 4 PUFF; Start 06/26/18 at 20:00 Aspirin (Aspirin) 81 mg DAILY NGT Last administered on 07/06/18 09:41; Admin Dose 81 MG; Start 06/27/18 at 09:00 Alteplase, Recombinant (Cathflo (Activase)) 2 mg MAY REPEAT X1 PRN CATHETER IF CATHETER REMAINS OCCULUDED; Start 06/27/18 at 09:30 Fentanyl 100 ml @ 2.5 mls/hr TITRATE PRN IV PAIN Last administered on 07/03/18 23:08; Admin Dose 7.5 MLS/HR; Start 06/27/18 at 11:30 Hydralazine HCl (Apresoline) 10 mg Q4H PRN IV ELEVATED BLOOD PRESSURE Last administered on 07/01/18 03:34; Admin Dose 10 MG; Start 06/27/18 at 20:30 Zinc Sulfate (Zinc Sulfate) 220 mg DAILY NGT Last administered on 07/06/18 09:40; Admin Dose 220 MG; Start 06/28/18 at 11:30 Ascorbic Acid (Vitamin C) 500 mg DAILY NGT Last administered on 07/06/18 09:40; Admin Dose 500 MG; Start 06/28/18 at 11:30 Isosorbide Dinitrate (Isordil) 20 mg TID NGT Last administered on 07/06/18 09:42; Admin Dose 20 MG; Start 06/28/18 at 14:00 Insulin Glargine (Lantus) 15 units DAILY@0800 SC Last administered on 07/06/18 08:07; Admin Dose 15 UNITS; Start 06/28/18 at 14:00 Enoxaparin Sodium (Lovenox) 30 mg DAILY SC Last administered on 07/06/18 09:39; Admin Dose 30 MG; Start 06/29/18 at 09:00 Alteplase, Recombinant (Cathflo (Activase)) 2 mg MAY REPEAT X1 PRN CATHETER IF CATHETER REMAINS OCCULUDED; Start 06/29/18 at 04:30 Hydralazine HCl (Apresoline) 100 mg TID GTB Last administered on 07/06/18 09:41; Admin Dose 100 MG; Start 06/29/18 at 09:00 Fish Oil (Fish Oil) 2,000 mg BID PO Last administered on 07/06/18 09:40; Admin Dose 2,000 MG; Start 06/29/18 at 09:00 Levofloxacin (Levaquin) 250 mg DAILY@06 NGT Last administered on 07/06/18 08:12; Admin Dose 250 MG; Start 07/01/18 at 06:00; Stop 07/08/18 at 05:59 Docusate Sodium (Colace Liquid Cup) 200 mg BID NGT ; Start 07/04/18 at 09:00; Status Hold Ondansetron HCl (Zofran Inj) 4 mg Q6H PRN IV NAUSEA AND/OR VOMITING; Start 07/04/18 at 11:00 Lorazepam (Ativan) 0.5 mg Q6H PRN IV agitation; Start 07/05/18 at 14:30 Carvedilol (Coreg) 12.5 mg BID NGT Last administered on 07/06/18at 09:41; Admin Dose 12.5 MG; Start 07/05/18 at 21:00 Dextrose 1,000 ml @ 50 mls/hr Q20H IV Last administered on 07/06/18at 08:13; Admin Dose 50 MLS/HR; Start 07/06/18 at 08:00 Assessment/Plan Assessment/Plan (Daily) IMP: 1. Hypoxemic/Hypercapnic Resp Failure 2. CHF 3. Multifocal pneumonia 4. RICKI 5. KONG RECS: 1. Start precedex gtt now 2. CPAP 5 PS 10; check ABG in 2 hours 3. Continue abx 4. Follow UO 5. Spoke with family extensively about his readiness for extubation. He clearly has failed last week and has had acute resp acidosis on prior weaning attempts. I informed them that I will reassess his readiness for liberation today. 40 min cc time MARLEE MALDONADO MD Jul 06, 2018 12:53
[2018-07-06] MEDS ORDERED: DEXMEDETOMIDINE HCL 200 MCG in SOD CHLORIDE 0.9% 48 ML IV SCH (13:00)
--- NOTE | 2018-07-06 16:28 | CONS ---
Consult Date/Type/Reason Admit Date/Time Jun 25, 2018 at 04:04 Initial Consult Date 06/25/18 Type of Consultation: cv Requesting Provider: DAMION KUMAR Date/Time of Note DATE: 07/06/18 TIME: 16:26 Subjective Interventional cardiology follow-up progress note Subjective: Discussed with the staff and telemetry was reviewed. Patient has remained sinus rhythm/sinus kathi No report of any chest pain or pressure no more bleeding is reported Patient failed weaning trial again d/w events noted. 06/26: pt extubated but had to be reintubated same day for resp distress. 07/06/18: Patient was extubated again Objective: General: Obese gentleman HEENT: NC/AT. . Pupils are equal round reactive to light. s/p NG tube in place NECK: no stridor. CV: RRR. systolic murmur; no gallop or rubs. PULM: no wheezing. + mild rhonchi. GI: SOFT, NT, ND, no rebound or guarding Extremity: +trace B/L LE edema. no clubbing. neuro: Drowsy but arousable Psych: calm rectal: deferred : normal EKG in ER was personally reviewed showed normal sinus rhythm left bundle branch block Echocardiogram was personally reviewed which shows: Normal left ventricular cavity size. Moderate concentric left ventricular hypertrophy. Moderate global left ventricular systolic dysfunction. Ejection fraction is visually estimated at 35 %. Abnormal Diastolic Function. Multiple segmental wall motion abnormalities. These segments of the LV are akinetic. No significant aortic stenosis or insufficiency. Aortic cusps appear mildly calcified. Mitral valve leaflets appear mildly thickened. Mild mitral annular calcification. Trace mitral regurgitation. Normal appearance of the tricuspid valve. Estimated peak PA systolic pressure 31 mmHg. There is trace to mild tricuspid regurgitation. Dilated IVC without respiratory collapse, however, patient on ventilator. CT of the chest done in the emergency room shows: 1. No evidence of central pulmonary emboli. Prominent central pulmonary arteries and rule out pulmonary arterial hypertension. Reflux of contrast into the distal inferior vena cava and rule out mild right heart strain/failure. 2. Mild aneurysmal dilatation of the ascending aorta maximal transverse diameter 4.3 cm. 3. Mild cardiomegaly. 4. Bilateral lower lobe consolidations with central air bronchograms consistent with atelectasis though aspiration and pneumonia cannot be excluded. Additional diffuse inhomogeneous ground-glass opacities bilaterally as above consistent with pulmonary edema/pneumonitis. 5. Bilateral tiny pleural effusions. 6. Right paratracheal and prevascular space lymphadenopathy as above. Follow-up is recommended. 7. Mild lobulation of the anterior margin of the liver and may represent cirrho sis. Objective Vitals Vital Signs Date Temp Pulse Resp B/P (MAP) Pulse Ox O2 O2 Flow FiO2 Time Delivery Rate 07/06/18 96 4.0 14:54 07/06/18 69 19 14:45 07/06/18 146/78 14:30 (100) 07/06/18 Mechanical 14:00 Ventilator 07/06/18 30 13:25 07/06/18 99.1 12:00 Intake and Output 07/05/18 07/05/18 07/06/18 1515:00 23:00 07:00 IntakeIntake Total 350 ml 445 ml 290 ml OutputOutput Total 845 ml 730 ml 720 ml BalanceBalance -495 ml -285 ml -430 ml Results/Medications Result Diagram: 07/06/18 0514 07/06/18 0514 Results 24 hrs Laboratory Tests Test 07/05/18 18:03 07/05/18 20:34 07/06/18 00:59 07/06/18 05:14 Bedside Glucose 188 179 163 White Blood Count 9.7 Red Blood Count 3.83 L Hemoglobin 10.4 L Hematocrit 33.9 L Mean Corpuscular 88.5 Volume Mean Corpuscular 27.2 L Hemoglobin Mean Corpuscular 30.7 L Hemoglobin Concen t Red Cell 14.6 H Distribution Width Platelet Count 271 Mean Platelet 12.2 H Volume Immature 0.900 H Granulocytes % Neutrophils % 80.0 H Lymphocytes % 10.6 L Monocytes % 5.8 Eosinophils % 2.3 Basophils % 0.4 Nucleated Red 0.0 Blood Cells % Immature 0.090 H Granulocytes # Neutrophils # 7.8 H Lymphocytes # 1.0 Monocytes # 0.6 Eosinophils # 0.2 Basophils # 0.0 Nucleated Red 0.0 Blood Cells # Sodium Level 148 H Potassium Level 3.2 L Chloride Level 112 H Carbon Dioxide 24 Level Anion Gap 12 Blood Urea 57 H Nitrogen Creatinine 2.28 H Est Glomerular Filtrat Rate mL/min Glucose Level 140 # Calcium Level 8.9 Phosphorus Level 4.3 Magnesium Level 2.4 B-Type 1630 H Natriuretic Peptide Test 07/06/18 05:36 07/06/18 08:02 07/06/18 09:35 07/06/18 13:25 Bedside Glucose 159 142 165 183 Test 07/06/18 14:30 Blood Gas Blood arterial Specimen Source Arterial Blood 07/06/2018 2:25:0 Date Drawn 5 PM Arterial Blood pH 7.420 (Temp corrected) Arterial Blood 39.9 pCO2 (Temp correct) Arterial Blood 90.2 H pO2 (Temp corrected) Arterial Blood 25.3 HCO3 Arterial Blood 0.8 Base Excess Arterial Blood 96.4 Oxygen Saturation Darío Test ACCEPTAB Arterial Blood Right Radial Gas Puncture Site Arterial 0.5 Blood Carboxyhemo globin Arterial Blood 0.2 Methemoglobin Blood Gas A-a O2 76.8 H Differential Oxyhemoglobin 95.7 Percent Blood Gas 37.0 Temperature Blood Gas Actual 19 Respiration Rate Blood Gas VENT - CPAP Modality FiO2 30.0 Blood Gas Low 5.0 PEEP Setting Blood Gas 10 Pressure Support Blood Gas A BRIAN Notified Whom Blood Gas 07/06/2018 2:38:2 Notified Time 2 PM Home Meds Reported Medications Tamsulosin Hcl* (Flomax*) 0.4 Mg Cap.er.24h, 0.4 MG PO DAILY, CAP 07/01/18 Sotalol Hcl* (Betapace*) 80 Mg Tab, 80 MG PO BID, TAB 07/01/18 Levothyroxine Sodium* (Levoxyl*) 75 Mcg Tablet, 75 MCG PO BEFORE BREAKFAST, #30 TAB 07/01/18 Glimepiride* (Amaryl*) 4 Mg Tablet, 4 MG PO WITH BREAKFAST DINNE, TAB 07/01/18 Sitagliptin Phos/Metformin HCl (Janumet 50-1,000 mg Tablet) 1 Each Tablet, 1 EACH PO BID, TAB 07/01/18 Doxazosin Mesylate* (Cardura*) 4 Mg Tablet, 4 MG PO BID, #60 TAB 07/01/18 Nifedipine (Procardia Xl) 60 Mg Tab.er.24, 60 MG PO DAILY, TAB 07/01/18 Metoprolol Succinate* (Toprol XL*) 100 Mg Tab.sr.24h, 100 MG PO BID, #30 TAB 07/01/18 Medications Current Medications Norepinephrine 250 ml @ 1.875 mls/ hr TITRATE IV Last administered on 06/25/18at 03:13; Admin Dose 3.75 MLS/HR; Start 06/25/18 at 03:00 Insulin Aspart (Novolog Insulin Pen) NOVOLOG *MILD* ALGORI... Q4 SC Last administered on 07/06/18 13:28; Admin Dose 2 UNIT; Start 06/25/18 at 09:00 Famotidine (Pepcid Iv) 20 mg DAILY IV Last administered on 07/06/18 09:00; Admin Dose 20 MG; Start 06/26/18 at 10:30 Atorvastatin Calcium (Lipitor) 40 mg HS NGT Last administered on 07/05/18 20:27; Admin Dose 40 MG; Start 06/26/18 at 21:00 Acetaminophen (Tylenol Liquid) 650 mg Q4H PRN NGT MILD PAIN(1-3)OR ELEVATED TEMP Last administered on 07/02/18 06:23; Admin Dose 650 MG; Start 06/26/18 at 13:30 Aspirin (Aspirin) 81 mg DAILY NGT Last administered on 07/06/18 09:41; Admin Dose 81 MG; Start 06/27/18 at 09:00 Alteplase, Recombinant (Cathflo (Activase)) 2 mg MAY REPEAT X1 PRN CATHETER IF CATHETER REMAINS OCCULUDED; Start 06/27/18 at 09:30 Fentanyl 100 ml @ 2.5 mls/hr TITRATE PRN IV PAIN Last administered on 07/03/18 23:08; Admin Dose 7.5 MLS/HR; Start 06/27/18 at 11:30 Hydralazine HCl (Apresoline) 10 mg Q4H PRN IV ELEVATED BLOOD PRESSURE Last administered on 07/01/18 03:34; Admin Dose 10 MG; Start 06/27/18 at 20:30 Zinc Sulfate (Zinc Sulfate) 220 mg DAILY NGT Last administered on 07/06/18 09:40; Admin Dose 220 MG; Start 06/28/18 at 11:30 Ascorbic Acid (Vitamin C) 500 mg DAILY NGT Last administered on 07/06/18 09:40; Admin Dose 500 MG; Start 06/28/18 at 11:30 Isosorbide Dinitrate (Isordil) 20 mg TID NGT Last administered on 07/06/18 13:27; Admin Dose 20 MG; Start 06/28/18 at 14:00 Insulin Glargine (Lantus) 15 units DAILY@0800 SC Last administered on 07/06/18 08:07; Admin Dose 15 UNITS; Start 06/28/18 at 14:00 Enoxaparin Sodium (Lovenox) 30 mg DAILY SC Last administered on 07/06/18 09:39; Admin Dose 30 MG; Start 06/29/18 at 09:00 Alteplase, Recombinant (Cathflo (Activase)) 2 mg MAY REPEAT X1 PRN CATHETER IF CATHETER REMAINS OCCULUDED; Start 06/29/18 at 04:30 Hydralazine HCl (Apresoline) 100 mg TID GTB Last administered on 07/06/18 13:26; Admin Dose 100 MG; Start 06/29/18 at 09:00 Fish Oil (Fish Oil) 2,000 mg BID PO Last administered on 07/06/18at 09:40; Admin Dose 2,000 MG; Start 06/29/18 at 09:00 Levofloxacin (Levaquin) 250 mg DAILY@06 NGT Last administered on 07/06/18at 08:12; Admin Dose 250 MG; Start 07/01/18 at 06:00; Stop 07/08/18 at 05:59 Docusate Sodium (Colace Liquid Cup) 200 mg BID NGT ; Start 07/04/18 at 09:00; Status Hold Ondansetron HCl (Zofran Inj) 4 mg Q6H PRN IV NAUSEA AND/OR VOMITING; Start 07/04/18 at 11:00 Lorazepam (Ativan) 0.5 mg Q6H PRN IV agitation; Start 07/05/18 at 14:30 Carvedilol (Coreg) 12.5 mg BID NGT Last administered on 07/06/18 09:41; Admin Dose 12.5 MG; Start 07/05/18 at 21:00 Dextrose 1,000 ml @ 50 mls/hr Q20H IV Last administered on 07/06/18 08:13; Admin Dose 50 MLS/HR; Start 07/06/18 at 08:00 Dexmedetomidine HCl 200 mcg/ Sodium Chloride 50 ml @ 849 mls/hr TITRATE IV Last administered on 07/06/18at 13:37; Admin Dose 849 MLS/HR; Start 07/06/18 at 13:00 Albuterol (Proventil 0.083% (Neb)) 2.5 mg Q6H RESP THERAPY HHN ; Start 07/06/18 at 20:00 Assessment/Plan Hospital Course (Demo Recall) 1. Status post cardiopulmonary arrest appears to be mostly related to respiratory failure 2. Hypoxemic respiratory failure status post intubation: Was able to be extubated 07/06/2018 3. hypertension 4. Cardiomyopathy :unclear acute versus chronic 5. Congestive heart failure probably acute on chronic secondary systolic heart failure 6. Renal insufficiency: Acute kidney injury now 7. Encephalopathy 8. Abnormal EKG with left bundle branch block 9. Incomplete data 10. Pneumonia 11. hyper Na Recommendation: Cardiac enzyme has been repeated and myocardial infarction was ruled out. 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 Diuresis/ fluid management as per renal rec. Follow with RENAL CONSULT . GI and DVT prophylaxis Antibiotics management will be deferred to internal medicine Continue with Coreg as tolerated We will cont hydralazine/Isordil combination. hold off on ARB./ DENNIS due to RICKI Continue with ICU care Thank you for his referral. We will continue to follow along with you MONIQUE SANDOVAL MD [facility] MONIQUE SANDOVAL MD Jul 06, 2018 16:28
[2018-07-06] MEDS: hydrALAzine 20 MG INJ IV PRN (19:04)
[2018-07-06] MEDS: ALBUTEROL 0.083% (NEB) 2.5 MG/3 ML AMP HHN SCH (20:15)
[2018-07-06] MEDS: ATORVASTATIN 40 MG TAB NGT SCH (21:02)
[2018-07-06] MEDS: ONDANSETRON 4 MG INJ IV PRN (21:54)
[2018-07-07] VITALS (26 sets, daily range): BP systolic 102–175; BP diastolic 55–128; PULSE 68–85; RESP 11–27
[2018-07-07] MEDS: INSULIN ASPART [NOVOLOG] 3 ML PEN SC SCH ×6 (00:49→20:48)
[2018-07-07] MEDS: ACETAMINOPHEN 650MG/20.3ML CUP NGT PRN (01:04)
[2018-07-07] MEDS: DEXTROSE 5% 1,000 ML IV SCH ×3 (02:00→20:43)
[2018-07-07] MEDS: ALBUTEROL 0.083% (NEB) 2.5 MG/3 ML AMP HHN SCH ×4 (02:02→20:15)
[2018-07-07] MEDS: LEVOFLOXACIN 250 MG TAB NGT SCH (05:07)
--- NOTE | 2018-07-07 08:16 | PN ---
DATE: 07/07/2018 SUBJECTIVE: The patient is stable, was extubated yesterday. Currently, stable on nasal cannula. No other acute events noted. No hemoptysis, hematemesis, or hematochezia. OBJECTIVE: VITAL SIGNS: Blood pressure is 155/68, respirations 13, pulse 76, temperature 97.4. HEENT: Head is normocephalic. NECK: Supple. HEART: Regular rate. LUNGS: Show diminished breath sounds at the base. ABDOMEN: Soft, nontender to palpation without rebound or guarding. EXTREMITIES: Negative for clubbing, cyanosis, no edema. DERMATOLOGIC: No rashes. MUSCULOSKELETAL: No joint effusion. NEUROLOGIC: No change in exam. MEDICATIONS: The patient's medications have been reviewed. LABORATORY DATA: From 07/07/2018 was reviewed. ASSESSMENT AND PLAN: 1. Nonoliguric acute kidney injury with unknown baseline creatinine. Etiology of acute kidney injur y is secondary to acute tubular necrosis. Renal function is improving. Continue current treatment p lans, supportive care, renally dose all medicines. 2. Volume overload, improved. Continue to monitor volume status closely. We will give intermittent diuretic therapy as needed. 3. Hypernatremia. Etiology is secondary to insensible losses, decreased oral intake. We will incre ase D5 water at 75 mL an hour. We would encourage free water intake once the patient has passed spee ch evaluation. 4. Hypokalemia. Continue to monitor and replete as needed. 5. Mineral bone disorder, monitor calcium and phosphorus levels. 6. Anemia. Continue to monitor hemoglobin and hematocrit levels. 7. Ventilator-dependent respiratory failure. Vent settings and ABG was reviewed. Continue to monit or. 8. Sepsis secondary to pneumonia. The patient is completing antibiotic course. 9. Hypertension. Continue current blood pressure regimen. 10. Dyslipidemia. Continue statin therapy. 11. Status post cardiopulmonary arrest. 12. History of cardiomyopathy. 13. History of cirrhosis. 14. Acute encephalopathy, etiology is toxic metabolic. 15. Dysphagia. Pending speech evaluation. Dictated By: ENA VIVAR DO NR/NTS Conf#: [id number] DID#: [id number] CC: YARIEL DUTTA MD; LAURA MCDONALD MD; LILLY CLEMENS MD;*EndCC*
[2018-07-07] MEDS: FISH OIL 1,000 MG CAP PO SCH ×2 (08:24→20:44)
[2018-07-07] MEDS: ASCORBIC ACID 500 MG TAB NGT SCH (08:24)
[2018-07-07] MEDS: ASPIRIN 81 MG TAB NGT SCH (08:24)
[2018-07-07] MEDS: ZINC SULFATE 220 MG CAP NGT SCH (08:24)
[2018-07-07] MEDS: ISOSORBIDE DINITRATE 20 MG TAB NGT SCH ×3 (08:25→20:44)
[2018-07-07] MEDS: ENOXAPARIN 30 MG/0.3 ML SYG SC SCH (08:27)
[2018-07-07] MEDS: INSULIN GLARGINE [LANTus] (100 UNITS/ML) SYG SC SCH (08:28)
[2018-07-07] MEDS: BALSAM PERU/CASTOR OIL 60 GM TUBE TOP SCH ×2 (08:29→20:46)
--- NOTE | 2018-07-07 10:15 | CONS ---
Assessment/Plan Assessment/Plan Hospital Course 78 yo M with multiple cerebrovascular risk factors who presents to ICU following a cardiac arrest. CTH was obtained, and notable for multifocal hypodensities concerning for stroke... for which neurology is consulted. MRI brain is presently unable to be performed d/t morbid obesity. On neurologic examination, he awakens and moves his limbs spontaneously, without obvious focal deficit. Recent echo is notable for depressed LV function with EF 35% and wall motion abnormalities NOS. P: Agree w/ ASA daily for stroke prevention for now; LDL is at goal. Limit sedating medications where possible Other medical management and supportive care per primary WiIl follow clinically Consultation Date/Type/Reason Admit Date/Time Jun 25, 2018 at 04:04 Type of Consult Neurology Reason for Consultation eval for stroke Requesting Provider: DAMION KUMAR Date/Time of Note DATE: 07/07/18 TIME: 10:14 24 HR Interval Summary Free Text/Dictation Continues critical care. Recently extubated. Pt states he's doing fine. Exam Vital Signs Vitals Vital Signs Date Temp Pulse Resp B/P (MAP) Pulse Ox O2 O2 Flow FiO2 Time Delivery Rate 07/07/18 77 18 96 Nasal 2.0 08:09 Cannula 07/07/18 155/68 07:00 (97) 07/07/18 97.4 04:00 07/07/18 28 02:02 Intake and Output 07/06/18 07/06/18 07/07/18 1515:00 23:00 07:00 IntakeIntake Total 400 ml 1000 ml 400 ml OutputOutput Total 835 ml 1645 ml 1610 ml BalanceBalance -435 ml -645 ml -1210 ml Exam PE: Gen Appearance: No Apparent Distress HEENT: Normocephalic. Cardiovascular: Regular rate Abdomen: Soft Extremities: Dry NE: The patient was awake and alert. Oriented to self and hospital only. Speech normal. Able to follow simple axial and appendicular commands. Cranial nerve examination was limited by mental status. Pupils were equal and reactive to light. There was no afferent pupillary defect. Funduscopic examination was limited. Face was grossly symmetric, w/ present corneal and cough reflexes. Tone was normal. Muscle bulk was normal. I did not see fasciculations. The patient was generally weak. Coordination and gait testing was limited by mental status. Arm and leg reflexes were within normal limits and symmetric. Gonzalez's sign was absent. Plantar responses were flexor. DESTINY ANDERSEN NP Jul 07, 2018 10:15
--- NOTE | 2018-07-07 10:22 | CONS ---
Consult Date/Type/Reason Admit Date/Time Jun 25, 2018 at 04:04 Initial Consult Date 06/25/18 Type of Consultation: cv Requesting Provider: DAMION KUMAR Date/Time of Note DATE: 07/07/18 TIME: 10:18 Subjective Interventional cardiology follow-up progress note Subjective: Discussed with the staff and telemetry was reviewed. Patient has remained sinus rhythm/sinus kathi No report of any chest pain or pressure no more bleeding is reported PT HAS been extubated and remains off thevent no chestpain events noted. 06/26: pt extubated but had to be reintubated same day for resp distress. 07/06/18: Patient was extubated again Objective: General: Obese gentleman HEENT: NC/AT. . Pupils are equal round reactive to light. NECK: no stridor. CV: RRR. systolic murmur; no gallop or rubs. PULM: no wheezing. + mild rhonchi. GI: SOFT, NT, ND, no rebound or guarding Extremity: +trace B/L LE edema. no clubbing. neuro: Drowsy but arousable Psych: calm rectal: deferred : normal EKG in ER was personally reviewed showed normal sinus rhythm left bundle branch block Echocardiogram was personally reviewed which shows: Normal left ventricular cavity size. Moderate concentric left ventricular hypertrophy. Moderate global left ventricular systolic dysfunction. Ejection fraction is visually estimated at 35 %. Abnormal Diastolic Function. Multiple segmental wall motion abnormalities. These segments of the LV are akinetic. No significant aortic stenosis or insufficiency. Aortic cusps appear mildly calcified. Mitral valve leaflets appear mildly thickened. Mild mitral annular calcification. Trace mitral regurgitation. Normal appearance of the tricuspid valve. Estimated peak PA systolic pressure 31 mmHg. There is trace to mild tricuspid regurgitation. Dilated IVC without respiratory collapse, however, patient on ventilator. CT of the chest done in the emergency room shows: 1. No evidence of central pulmonary emboli. Prominent central pulmonary arteries and rule out pulmonary arterial hypertension. Reflux of contrast into the distal inferior vena cava and rule out mild right heart strain/failure. 2. Mild aneurysmal dilatation of the ascending aorta maximal transverse diameter 4.3 cm. 3. Mild cardiomegaly. 4. Bilateral lower lobe consolidations with central air bronchograms consistent with atelectasis though aspiration and pneumonia cannot be excluded. Additional diffuse inhomogeneous ground-glass opacities bilaterally as above consistent with pulmonary edema/pneumonitis. 5. Bilateral tiny pleural effusions. 6. Right paratracheal and prevascular space lymphadenopathy as above. Follow-up is recommended. 7. Mild lobulation of the anterior margin of the liver and may represent cirrhosis. Objective Vitals Vital Signs Date Temp Pulse Resp B/P (MAP) Pulse Ox O2 O2 Flow FiO2 Time Delivery Rate 07/07/18 77 18 96 Nasal 2.0 08:09 Cannula 07/07/18 155/68 07:00 (97) 07/07/18 97.4 04:00 07/07/18 02:02 Intake and Output 07/06/18 07/06/18 07/07/18 1414:59 22:59 06:59 IntakeIntake Total 350 ml 1000 ml 400 ml OutputOutput Total 825 ml 1675 ml 1690 ml BalanceBalance -475 ml -675 ml -1290 ml Results/Medications Result Diagram: 07/07/18 0430 07/07/18 0430 Results 24 hrs Laboratory Tests Test 07/06/18 13:25 07/06/18 14:30 07/06/18 17:42 07/06/18 21:02 Bedside Glucose 183 164 165 Blood Gas Blood arterial Specimen Source Arterial Blood 07/06/2018 2:25: Date Drawn 05 PM Arterial Blood 7.420 pH (Temp corrected) Arterial Blood 39.9 pCO2 (Temp correct) Arterial Blood 90.2 H pO2 (Temp corrected) Arterial Blood 25.3 HCO3 Arterial Blood 0.8 Base Excess Arterial Blood 96.4 Oxygen Saturatio n Darío Test ACCEPTAB Arterial Blood Right Radial Gas Puncture Site Arterial 0.5 Blood Carboxyhem oglobin Arterial Blood 0.2 Methemoglobin Blood Gas A-a O2 76.8 H Differential Oxyhemoglobin 95.7 Percent Blood Gas 37.0 Temperature Blood Gas Actual 19 Respiration Rate Blood Gas VENT - CPAP Modality FiO2 30.0 Blood Gas Low 5.0 PEEP Setting Blood Gas 10 Pressure Support Blood Gas A BRIAN Notified Whom Blood Gas 07/06/2018 2:38: Notified Time 22 PM Test 07/07/18 00:46 07/07/18 04:05 07/07/18 04:30 07/07/18 05:00 Bedside Glucose 165 166 White Blood 11.3 H Count Red Blood Count 4.13 L Hemoglobin 11.3 L Hematocrit 38.0 L Mean Corpuscular 92.0 Volume Mean Corpuscular 27.4 L Hemoglobin Mean Corpuscular 29.7 L Hemoglobin Noris nt Red Cell 14.5 Distribution Width Platelet Count 314 Mean Platelet 12.0 H Volume Immature 0.900 H Granulocytes % Neutrophils % 83.6 H Lymphocytes % 7.6 L Monocytes % 6.5 Eosinophils % 0.9 Basophils % 0.5 Nucleated Red 0.0 Blood Cells % Immature 0.100 H Granulocytes # Neutrophils # 9.4 H Lymphocytes # 0.9 Monocytes # 0.7 Eosinophils # 0.1 Basophils # 0.1 Nucleated Red 0.0 Blood Cells # Sodium Level 149 H Potassium Level 3.7 Chloride Level 110 Carbon Dioxide 26 Level Anion Gap 13 Blood Urea 49 H Nitrogen Creatinine 2.00 H Est Glomerular Filtrat Rate mL/min Glucose Level 181 Calcium Level 8.8 Blood Gas Blood arterial Specimen Source Arterial Blood 07/07/2018 4:30: Date Drawn 19 AM Arterial Blood 7.375 pH (Temp corrected) Arterial Blood 42.2 pCO2 (Temp correct) Arterial Blood 80.8 pO2 (Temp corrected) Arterial Blood 24.1 HCO3 Arterial Blood -1.1 Base Excess Arterial Blood 95.1 Oxygen Saturatio n Darío Test ACCEPTAB Arterial Blood Left Radial Gas Puncture Site Arterial 0.6 Blood Carboxyhem oglobin Arterial Blood 0.3 Methemoglobin Blood Gas A-a O2 61.8 H Differential Oxyhemoglobin 94.2 Percent Blood Gas 37.0 Temperature Blood Gas NASAL CANNULA Modality FiO2 27.0 Blood Gas UP Notified Whom Blood Gas 07/07/2018 4:46: Notified Time 26 AM Test 07/07/18 08:23 Bedside Glucose 169 Home Meds Reported Medications Tamsulosin Hcl* (Flomax*) 0.4 Mg Cap.er.24h, 0.4 MG PO DAILY, CAP 07/01/18 Sotalol Hcl* (Betapace*) 80 Mg Tab, 80 MG PO BID, TAB 07/01/18 Levothyroxine Sodium* (Levoxyl*) 75 Mcg Tablet, 75 MCG PO BEFORE BREAKFAST, #30 TAB 07/01/18 Glimepiride* (Amaryl*) 4 Mg Tablet, 4 MG PO WITH BREAKFAST DINNE, TAB 07/01/18 Sitagliptin Phos/Metformin HCl (Janumet 50-1,000 mg Tablet) 1 Each Tablet, 1 EACH PO BID, TAB 07/01/18 Doxazosin Mesylate* (Cardura*) 4 Mg Tablet, 4 MG PO BID, #60 TAB 07/01/18 Nifedipine (Procardia Xl) 60 Mg Tab.er.24, 60 MG PO DAILY, TAB 07/01/18 Metoprolol Succinate* (Toprol XL*) 100 Mg Tab.sr.24h, 100 MG PO BID, #30 TAB 07/01/18 Medications Current Medications Norepinephrine 250 ml @ 1.875 mls/ hr TITRATE IV Last administered on 06/25/18 03:13; Admin Dose 3.75 MLS/HR; Start 06/25/18 at 03:00 Famotidine (Pepcid Iv) 20 mg DAILY IV Last administered on 07/06/18 09:00; Admin Dose 20 MG; Start 06/26/18 at 10:30 Atorvastatin Calcium (Lipitor) 40 mg HS NGT Last administered on 07/06/18 21:02; Admin Dose 40 MG; Start 06/26/18 at 21:00 Acetaminophen (Tylenol Liquid) 650 mg Q4H PRN NGT MILD PAIN(1-3)OR ELEVATED TEMP Last administered on 07/07/18 01:04; Admin Dose 650 MG; Start 06/26/18 at 13:30 Aspirin (Aspirin) 81 mg DAILY NGT Last administered on 07/07/18 08:24; Admin Dose 81 MG; Start 06/27/18 at 09:00 Alteplase, Recombinant (Cathflo (Activase)) 2 mg MAY REPEAT X1 PRN CATHETER IF CATHETER REMAINS OCCULUDED; Start 06/27/18 at 09:30 Fentanyl 100 ml @ 2.5 mls/hr TITRATE PRN IV PAIN Last administered on 07/03/18 23:08; Admin Dose 7.5 MLS/HR; Start 06/27/18 at 11:30 Hydralazine HCl (Apresoline) 10 mg Q4H PRN IV ELEVATED BLOOD PRESSURE Last administered on 07/06/18at 19:04; Admin Dose 10 MG; Start 06/27/18 at 20:30 Zinc Sulfate (Zinc Sulfate) 220 mg DAILY NGT Last administered on 07/07/18 08:24; Admin Dose 220 MG; Start 06/28/18 at 11:30 Ascorbic Acid (Vitamin C) 500 mg DAILY NGT Last administered on 07/07/18 08:24; Admin Dose 500 MG; Start 06/28/18 at 11:30 Isosorbide Dinitrate (Isordil) 20 mg TID NGT Last administered on 07/07/18 08:25; Admin Dose 20 MG; Start 06/28/18 at 14:00 Insulin Glargine (Lantus) 15 units DAILY@0800 SC Last administered on 07/07/18 08:28; Admin Dose 15 UNITS; Start 06/28/18 at 14:00 Enoxaparin Sodium (Lovenox) 30 mg DAILY SC Last administered on 07/07/18 08:27; Admin Dose 30 MG; Start 06/29/18 at 09:00 Alteplase, Recombinant (Cathflo (Activase)) 2 mg MAY REPEAT X1 PRN CATHETER IF CATHETER REMAINS OCCULUDED; Start 06/29/18 at 04:30 Hydralazine HCl (Apresoline) 100 mg TID GTB Last administered on 07/07/18 08:26; Admin Dose 100 MG; Start 06/29/18 at 09:00 Fish Oil (Fish Oil) 2,000 mg BID PO Last administered on 07/07/18 08:24; Admin Dose 2,000 MG; Start 06/29/18 at 09:00 Levofloxacin (Levaquin) 250 mg DAILY@06 NGT Last administered on 07/07/18 05:07; Admin Dose 250 MG; Start 07/01/18 at 06:00; Stop 07/08/18 at 05:59 Docusate Sodium (Colace Liquid Cup) 200 mg BID NGT ; Start 07/04/18 at 09:00; Status Hold Ondansetron HCl (Zofran Inj) 4 mg Q6H PRN IV NAUSEA AND/OR VOMITING Last administered on 07/06/18 21:54; Admin Dose 4 MG; Start 07/04/18 at 11:00 Lorazepam (Ativan) 0.5 mg Q6H PRN IV agitation; Start 07/05/18 at 14:30 Carvedilol (Coreg) 12.5 mg BID NGT Last administered on 07/07/18 08:25; Admin Dose 12.5 MG; Start 4/26/19 at 21:00 Dextrose 1,000 ml @ 75 mls/hr [id number] IV Last administered on 07/07/18 02:00; Admin Dose 50 MLS/HR; Start 07/06/18 at 08:00 Dexmedetomidine HCl 200 mcg/ Sodium Chloride 50 ml @ 849 mls/hr TITRATE IV Last administered on 07/06/18 13:37; Admin Dose 849 MLS/HR; Start 07/06/18 at 13:00 Albuterol (Proventil 0.083% (Neb)) 2.5 mg Q6H RESP THERAPY HHN Last administered on 07/07/18 08:09; Admin Dose 2.5 MG; Start 07/06/18 at 20:00 Insulin Aspart (Novolog Insulin Pen) NOVOLOG *MODERATE* ALGORI... Q4 SC Last administered on 07/07/18 08:29; Admin Dose 2 UNIT; Start 07/07/18 at 09:00 Assessment/Plan Hospital Course (Demo Recall) 1. Status post cardiopulmonary arrest appears to be mostly related to respiratory failure 2. Hypoxemic respiratory failure status post intubation: Was able to be extubated 07/06/2018 3. hypertension 4. Cardiomyopathy :unclear acute versus chronic 5. Congestive heart failure probably acute on chronic secondary systolic heart failure 6. Renal insufficiency: Acute kidney injury now 7. Encephalopathy 8. Abnormal EKG with left bundle branch block 9. Incomplete data 10. Pneumonia 11. hyper Na Recommendation: Cardiac enzyme has been repeated and myocardial infarction was ruled out. 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 Diuresis/ fluid management as per renal rec. Follow with RENAL CONSULT . GI and DVT prophylaxis Antibiotics management will be deferred to internal medicine Continue with Coreg as tolerated We will cont hydralazine/Isordil combination. hold off on ARB./ DENNIS due to RICKI Thank you for his referral. We will continue to follow along with you MONIQUE SANDOVAL MD [facility] MONIQUE SANDOVAL MD Jul 07, 2018 10:22
[2018-07-07] MEDS: FAMOTIDINE 20 MG INJ IV SCH (11:07)
--- NOTE | 2018-07-07 12:40 | PN ---
Date/Time of Note Date/Time of Note DATE: 07/07/18 TIME: 12:35 Assessment/Plan VTE Prophylaxis Risk score (from Ns)>0 risk: 14 SCD applied (from Ns): Yes Pharmacological prophylaxis: LMWH Assessment/Plan Hospital Course 1. Cardiopulmonary arrest with return of circulation Patient had episode of PEA Mentation has improved Continue cardiac meds Cardiology following 2. Respiratory failure secondary to cardiac arrest Patient extubated last night and doing well, patient also tolerating an oral diet Downgrade to telemetry 3. 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 Acute kidney injury secondary to hemodynamics Nephrology consultation appreciated Creatinine is trending down 5. Acute on chronic systolic heart failure Cardiology following Continue cardiac meds 6. Morbid obesity with fatty liver and likely KONG Lifestyle changes 7. Diabetes-sugars currently controlled Continue insulin regimen A1c is 7.4 8. Hypertension-stable Continue meds 9. Pneumonia possibly aspiration versus community acquired Continue Levaquin x7 days, last dose is tomorrow 10. History of aortic aneurysm 4.3 on surveillance Prophylaxis: Lovenox DC planning: Patient extubated last night and doing well today, downgrade to telemetry anticipate DC in the next several days Result Diagram: 07/07/18 0430 07/07/18 0430 Results 24hrs Laboratory Tests Test 07/06/18 13:25 07/06/18 14:30 07/06/18 17:42 07/06/18 21:02 Bedside Glucose 183 164 165 Blood Gas Blood arterial Specimen Source Arterial Blood 07/06/2018 2:25: Date Drawn 05 PM Arterial Blood 7.420 pH (Temp corrected) Arterial Blood 39.9 pCO2 (Temp correct) Arterial Blood 90.2 H pO2 (Temp corrected) Arterial Blood 25.3 HCO3 Arterial Blood 0.8 Base Excess Arterial Blood 96.4 Oxygen Saturatio n Darío Test ACCEPTAB Arterial Blood Right Radial Gas Puncture Site Arterial 0.5 Blood Carboxyhem oglobin Arterial Blood 0.2 Methemoglobin Blood Gas A-a O2 76.8 H Differential Oxyhemoglobin 95.7 Percent Blood Gas 37.0 Temperature Blood Gas Actual 19 Respiration Rate Blood Gas VENT - CPAP Modality FiO2 30.0 Blood Gas Low 5.0 PEEP Setting Blood Gas 10 Pressure Support Blood Gas A BRIAN Notified Whom Blood Gas 07/06/2018 2:38: Notified Time 22 PM Test 07/07/18 00:46 07/07/18 04:05 07/07/18 04:30 07/07/18 05:00 Bedside Glucose 165 166 White Blood 11.3 H Count Red Blood Count 4.13 L Hemoglobin 11.3 L Hematocrit 38.0 L Mean Corpuscular 92.0 Volume Mean Corpuscular 27.4 L Hemoglobin Mean Corpuscular 29.7 L Hemoglobin Noris nt Red Cell 14.5 Distribution Width Platelet Count 314 Mean Platelet 12.0 H Volume Immature 0.900 H Granulocytes % Neutrophils % 83.6 H Lymphocytes % 7.6 L Monocytes % 6.5 Eosinophils % 0.9 Basophils % 0.5 Nucleated Red 0.0 Blood Cells % Immature 0.100 H Granulocytes # Neutrophils # 9.4 H Lymphocytes # 0.9 Monocytes # 0.7 Eosinophils # 0.1 Basophils # 0.1 Nucleated Red 0.0 Blood Cells # Sodium Level 149 H Potassium Level 3.7 Chloride Level 110 Carbon Dioxide 26 Level Anion Gap 13 Blood Urea 49 H Nitrogen Creatinine 2.00 H Est Glomerular Filtrat Rate mL/min Glucose Level 181 Calcium Level 8.8 Blood Gas Blood arterial Specimen Source Arterial Blood 07/07/2018 4:30: Date Drawn 19 AM Arterial Blood 7.375 pH (Temp corrected) Arterial Blood 42.2 pCO2 (Temp correct) Arterial Blood 80.8 pO2 (Temp corrected) Arterial Blood 24.1 HCO3 Arterial Blood -1.1 Base Excess Arterial Blood 95.1 Oxygen Saturatio n Darío Test ACCEPTAB Arterial Blood Left Radial Gas Puncture Site Arterial 0.6 Blood Carboxyhem oglobin Arterial Blood 0.3 Methemoglobin Blood Gas A-a O2 61.8 H Differential Oxyhemoglobin 94.2 Percent Blood Gas 37.0 Temperature Blood Gas NASAL CANNULA Modality FiO2 27.0 Blood Gas UP Notified Whom Blood Gas 07/07/2018 4:46: Notified Time 26 AM Test 07/07/18 08:23 Bedside Glucose 169 Subjective 24 Hr Interval Summary Constitutional: no complaints Exam/Review of Systems Exam Vitals Vital Signs Date Temp Pulse Resp B/P (MAP) Pulse Ox O2 O2 Flow FiO2 Time Delivery Rate 07/07/18 69 18 108/62 98 10:00 (77) 07/07/18 Nasal 2.0 08:09 Cannula 07/07/18 98.0 08:00 07/07/18 28 02:02 Intake and Output 07/06/18 07/06/18 07/07/18 1515:00 23:00 07:00 IntakeIntake Total 400 ml 1000 ml 400 ml OutputOutput Total 835 ml 1645 ml 1760 ml BalanceBalance -435 ml -645 ml -1360 ml Constitutional: alert Respiratory: clear to auscultation Cardiovascular: regular rate and rhythm Gastrointestinal: soft; No distended Musculoskeletal: nl extremities to inspection Results Results 24hrs Laboratory Tests Test 07/06/18 13:25 07/06/18 14:30 07/06/18 17:42 07/06/18 21:02 Bedside Glucose 183 164 165 Blood Gas Blood arterial Specimen Source Arterial Blood 07/06/2018 2:25: Date Drawn 05 PM Arterial Blood 7.420 pH (Temp corrected) Arterial Blood 39.9 pCO2 (Temp correct) Arterial Blood 90.2 H pO2 (Temp corrected) Arterial Blood 25.3 HCO3 Arterial Blood 0.8 Base Excess Arterial Blood 96.4 Oxygen Saturatio n Darío Test ACCEPTAB Arterial Blood Right Radial Gas Puncture Site Arterial 0.5 Blood Carboxyhem oglobin Arterial Blood 0.2 Methemoglobin Blood Gas A-a O2 76.8 H Differential Oxyhemoglobin 95.7 Percent Blood Gas 37.0 Temperature Blood Gas Actual 19 Respiration Rate Blood Gas VENT - CPAP Modality FiO2 30.0 Blood Gas Low 5.0 PEEP Setting Blood Gas 10 Pressure Support Blood Gas A PEDROSAV Notified Whom Blood Gas 07/06/2018 2:38: Notified Time 22 PM Test 07/07/18 00:46 07/07/18 04:05 07/07/18 04:30 07/07/18 05:00 Bedside Glucose 165 166 White Blood 11.3 H Count Red Blood Count 4.13 L Hemoglobin 11.3 L Hematocrit 38.0 L Mean Corpuscular 92.0 Volume Mean Corpuscular 27.4 L Hemoglobin Mean Corpuscular 29.7 L Hemoglobin Noris nt Red Cell 14.5 Distribution Width Platelet Count 314 Mean Platelet 12.0 H Volume Immature 0.900 H Granulocytes % Neutrophils % 83.6 H Lymphocytes % 7.6 L Monocytes % 6.5 Eosinophils % 0.9 Basophils % 0.5 Nucleated Red 0.0 Blood Cells % Immature 0.100 H Granulocytes # Neutrophils # 9.4 H Lymphocytes # 0.9 Monocytes # 0.7 Eosinophils # 0.1 Basophils # 0.1 Nucleated Red 0.0 Blood Cells # Sodium Level 149 H Potassium Level 3.7 Chloride Level 110 Carbon Dioxide 26 Level Anion Gap 13 Blood Urea 49 H Nitrogen Creatinine 2.00 H Est Glomerular Filtrat Rate mL/min Glucose Level 181 Calcium Level 8.8 Blood Gas Blood arterial Specimen Source Arterial Blood 07/07/2018 4:30: Date Drawn 19 AM Arterial Blood 7.375 pH (Temp corrected) Arterial Blood 42.2 pCO2 (Temp correct) Arterial Blood 80.8 pO2 (Temp corrected) Arterial Blood 24.1 HCO3 Arterial Blood -1.1 Base Excess Arterial Blood 95.1 Oxygen Saturatio n Darío Test ACCEPTAB Arterial Blood Left Radial Gas Puncture Site Arterial 0.6 Blood Carboxyhem oglobin Arterial Blood 0.3 Methemoglobin Blood Gas A-a O2 61.8 H Differential Oxyhemoglobin 94.2 Percent Blood Gas 37.0 Temperature Blood Gas NASAL CANNULA Modality FiO2 27.0 Blood Gas UP Notified Whom Blood Gas 07/07/2018 4:46: Notified Time 26 AM Test 07/07/18 08:23 Bedside Glucose 169 Medications Medication Current Medications Norepinephrine 250 ml @ 1.875 mls/ hr TITRATE IV Last administered on 06/25/18 03:13; Admin Dose 3.75 MLS/HR; Start 06/25/18 at 03:00 Famotidine (Pepcid Iv) 20 mg DAILY IV Last administered on 07/07/18at 11:07; Admin Dose 20 MG; Start 06/26/18 at 10:30 Atorvastatin Calcium (Lipitor) 40 mg HS NGT Last administered on 07/06/18at 21:02; Admin Dose 40 MG; Start 06/26/18 at 21:00 Acetaminophen (Tylenol Liquid) 650 mg Q4H PRN NGT MILD PAIN(1-3)OR ELEVATED TEMP Last administered on 07/07/18at 01:04; Admin Dose 650 MG; Start 06/26/18 at 13:30 Aspirin (Aspirin) 81 mg DAILY NGT Last administered on 07/07/18at 08:24; Admin Dose 81 MG; Start 06/27/18 at 09:00 Alteplase, Recombinant (Cathflo (Activase)) 2 mg MAY REPEAT X1 PRN CATHETER IF CATHETER REMAINS OCCULUDED; Start 06/27/18 at 09:30 Fentanyl 100 ml @ 2.5 mls/hr TITRATE PRN IV PAIN Last administered on 07/03/18 23:08; Admin Dose 7.5 MLS/HR; Start 06/27/18 at 11:30 Hydralazine HCl (Apresoline) 10 mg Q4H PRN IV ELEVATED BLOOD PRESSURE Last administered on 07/06/18 19:04; Admin Dose 10 MG; Start 06/27/18 at 20:30 Zinc Sulfate (Zinc Sulfate) 220 mg DAILY NGT Last administered on 07/07/18 08:24; Admin Dose 220 MG; Start 06/28/18 at 11:30 Ascorbic Acid (Vitamin C) 500 mg DAILY NGT Last administered on 07/07/18 08:24; Admin Dose 500 MG; Start 06/28/18 at 11:30 Isosorbide Dinitrate (Isordil) 20 mg TID NGT Last administered on 07/07/18 08:25; Admin Dose 20 MG; Start 06/28/18 at 14:00 Insulin Glargine (Lantus) 15 units DAILY@0800 SC Last administered on 07/07/18 08:28; Admin Dose 15 UNITS; Start 06/28/18 at 14:00 Enoxaparin Sodium (Lovenox) 30 mg DAILY SC Last administered on 07/07/18 08:27; Admin Dose 30 MG; Start 06/29/18 at 09:00 Alteplase, Recombinant (Cathflo (Activase)) 2 mg MAY REPEAT X1 PRN CATHETER IF CATHETER REMAINS OCCULUDED; Start 06/29/18 at 04:30 Hydralazine HCl (Apresoline) 100 mg TID GTB Last administered on 07/07/18 08:26; Admin Dose 100 MG; Start 06/29/18 at 09:00 Fish Oil (Fish Oil) 2,000 mg BID PO Last administered on 07/07/18 08:24; Admin Dose 2,000 MG; Start 06/29/18 at 09:00 Levofloxacin (Levaquin) 250 mg DAILY@06 NGT Last administered on 07/07/18 05:07; Admin Dose 250 MG; Start 07/01/18 at 06:00; Stop 07/08/18 at 05:59 Docusate Sodium (Colace Liquid Cup) 200 mg BID NGT ; Start 07/04/18 at 09:00; Status Hold Ondansetron HCl (Zofran Inj) 4 mg Q6H PRN IV NAUSEA AND/OR VOMITING Last administered on 07/06/18 21:54; Admin Dose 4 MG; Start 07/04/18 at 11:00 Lorazepam (Ativan) 0.5 mg Q6H PRN IV agitation; Start 07/05/18 at 14:30 Carvedilol (Coreg) 12.5 mg BID NGT Last administered on 07/07/18 08:25; Admin Dose 12.5 MG; Start 07/05/18 at 21:00 Dextrose 1,000 ml @ 75 mls/hr [id number] IV Last administered on 07/07/18 02:00; Admin Dose 50 MLS/HR; Start 07/06/18 at 08:00 Dexmedetomidine HCl 200 mcg/ Sodium Chloride 50 ml @ 849 mls/hr TITRATE IV Last administered on 07/06/18 13:37; Admin Dose 849 MLS/HR; Start 07/06/18 at 13:00 Albuterol (Proventil 0.083% (Neb)) 2.5 mg Q6H RESP THERAPY HHN Last administered on 07/07/18 08:09; Admin Dose 2.5 MG; Start 07/06/18 at 20:00 Insulin Aspart (Novolog Insulin Pen) NOVOLOG *MODERATE* ALGORI... Q4 SC Last administered on 07/07/18 08:29; Admin Dose 2 UNIT; Start 07/07/18 at 09:00 LAURA MCDONALD Jul 07, 2018 12:40
--- NOTE | 2018-07-07 14:47 | CONS ---
Consult Date/Type/Reason Admit Date/Time Jun 25, 2018 at 04:04 Initial Consult Date 06/25/18 Type of Consultation: Pulm/CCM Requesting Provider: DAMION KUMAR Date/Time of Note DATE: 07/07/18 TIME: 14:45 Subjective Tolerated extubation. Now alert and awake. Objective Vitals Vital Signs Date Temp Pulse Resp B/P (MAP) Pulse Ox O2 O2 Flow FiO2 Time Delivery Rate 07/07/18 71 18 92 21 14:11 07/07/18 108/62 10:00 (77) 07/07/18 Nasal 2.0 08:09 Cannula 07/07/18 98.0 08:00 Intake and Output 07/06/18 07/06/18 07/07/18 1515:00 23:00 07:00 IntakeIntake Total 400 ml 1000 ml 400 ml OutputOutput Total 835 ml 1645 ml 1760 ml BalanceBalance -435 ml -645 ml -1360 ml Exam HEENT: Neck supple; no JVD; no LAD; + ET tube CVS: RRR, S1 and S2 CHEST: Bibasilar rales ABD: Obese, NT, + BS EXT: No c/c: + edema Results/Medications Result Diagram: 07/07/18 0430 07/07/18 0430 Results 24 hrs Laboratory Tests Test 07/06/18 17:42 07/06/18 21:02 07/07/18 00:46 07/07/18 04:05 Bedside Glucose 164 165 165 166 Test 07/07/18 04:30 07/07/18 05:00 07/07/18 08:23 07/07/18 13:36 White Blood Count 11.3 H Red Blood Count 4.13 L Hemoglobin 11.3 L Hematocrit 38.0 L Mean Corpuscular 92.0 Volume Mean Corpuscular 27.4 L Hemoglobin Mean Corpuscular 29.7 L Hemoglobin Concen t Red Cell 14.5 Distribution Width Platelet Count 314 Mean Platelet 12.0 H Volume Immature 0.900 H Granulocytes % Neutrophils % 83.6 H Lymphocytes % 7.6 L Monocytes % 6.5 Eosinophils % 0.9 Basophils % 0.5 Nucleated Red 0.0 Blood Cells % Immature 0.100 H Granulocytes # Neutrophils # 9.4 H Lymphocytes # 0.9 Monocytes # 0.7 Eosinophils # 0.1 Basophils # 0.1 Nucleated Red 0.0 Blood Cells # Sodium Level 149 H Potassium Level 3.7 Chloride Level 110 Carbon Dioxide 26 Level Anion Gap 13 Blood Urea 49 H Nitrogen Creatinine 2.00 H Est Glomerular Filtrat Rate mL/min Glucose Level 181 Calcium Level 8.8 Blood Gas Blood arterial Specimen Source Arterial Blood 07/07/2018 4:30:1 Date Drawn 9 AM Arterial Blood pH 7.375 (Temp corrected) Arterial Blood 42.2 pCO2 (Temp correct) Arterial Blood 80.8 pO2 (Temp corrected) Arterial Blood 24.1 HCO3 Arterial Blood -1.1 Base Excess Arterial Blood 95.1 Oxygen Saturation Darío Test ACCEPTAB Arterial Blood Left Radial Gas Puncture Site Arterial 0.6 Blood Carboxyhemo globin Arterial Blood 0.3 Methemoglobin Blood Gas A-a O2 61.8 H Differential Oxyhemoglobin 94.2 Percent Blood Gas 37.0 Temperature Blood Gas NASAL CANNULA Modality FiO2 27.0 Blood Gas UP Notified Whom Blood Gas 07/07/2018 4:46:2 Notified Time 6 AM Bedside Glucose 169 168 Home Meds Reported Medications Tamsulosin Hcl* (Flomax*) 0.4 Mg Cap.er.24h, 0.4 MG PO DAILY, CAP 07/01/18 Sotalol Hcl* (Betapace*) 80 Mg Tab, 80 MG PO BID, TAB 07/01/18 Levothyroxine Sodium* (Levoxyl*) 75 Mcg Tablet, 75 MCG PO BEFORE BREAKFAST, #30 TAB 07/01/18 Glimepiride* (Amaryl*) 4 Mg Tablet, 4 MG PO WITH BREAKFAST DINNE, TAB 07/01/18 Sitagliptin Phos/Metformin HCl (Janumet 50-1,000 mg Tablet) 1 Each Tablet, 1 EACH PO BID, TAB 07/01/18 Doxazosin Mesylate* (Cardura*) 4 Mg Tablet, 4 MG PO BID, #60 TAB 07/01/18 Nifedipine (Procardia Xl) 60 Mg Tab.er.24, 60 MG PO DAILY, TAB 07/01/18 Metoprolol Succinate* (Toprol XL*) 100 Mg Tab.sr.24h, 100 MG PO BID, #30 TAB 07/01/18 Medications Current Medications Norepinephrine 250 ml @ 1.875 mls/ hr TITRATE IV Last administered on 06/25/18at 03:13; Admin Dose 3.75 MLS/HR; Start 06/25/18 at 03:00 Famotidine (Pepcid Iv) 20 mg DAILY IV Last administered on 07/07/18 11:07; Admin Dose 20 MG; Start 06/26/18 at 10:30 Atorvastatin Calcium (Lipitor) 40 mg HS NGT Last administered on 07/06/18 21:02; Admin Dose 40 MG; Start 06/26/18 at 21:00 Acetaminophen (Tylenol Liquid) 650 mg Q4H PRN NGT MILD PAIN(1-3)OR ELEVATED TEMP Last administered on 07/07/18 01:04; Admin Dose 650 MG; Start 06/26/18 at 13:30 Aspirin (Aspirin) 81 mg DAILY NGT Last administered on 07/07/18 08:24; Admin Dose 81 MG; Start 06/27/18 at 09:00 Alteplase, Recombinant (Cathflo (Activase)) 2 mg MAY REPEAT X1 PRN CATHETER IF CATHETER REMAINS OCCULUDED; Start 06/27/18 at 09:30 Fentanyl 100 ml @ 2.5 mls/hr TITRATE PRN IV PAIN Last administered on 07/03/18 23:08; Admin Dose 7.5 MLS/HR; Start 06/27/18 at 11:30 Hydralazine HCl (Apresoline) 10 mg Q4H PRN IV ELEVATED BLOOD PRESSURE Last administered on 07/06/18 19:04; Admin Dose 10 MG; Start 06/27/18 at 20:30 Zinc Sulfate (Zinc Sulfate) 220 mg DAILY NGT Last administered on 07/07/18 08:24; Admin Dose 220 MG; Start 06/28/18 at 11:30 Ascorbic Acid (Vitamin C) 500 mg DAILY NGT Last administered on 07/07/18 08:24; Admin Dose 500 MG; Start 06/28/18 at 11:30 Isosorbide Dinitrate (Isordil) 20 mg TID NGT Last administered on 07/07/18 13:39; Admin Dose 20 MG; Start 06/28/18 at 14:00 Insulin Glargine (Lantus) 15 units DAILY@0800 SC Last administered on 07/07/18 08:28; Admin Dose 15 UNITS; Start 06/28/18 at 14:00 Enoxaparin Sodium (Lovenox) 30 mg DAILY SC Last administered on 07/07/18 08:27; Admin Dose 30 MG; Start 06/29/18 at 09:00 Alteplase, Recombinant (Cathflo (Activase)) 2 mg MAY REPEAT X1 PRN CATHETER IF CATHETER REMAINS OCCULUDED; Start 06/29/18 at 04:30 Hydralazine HCl (Apresoline) 100 mg TID GTB Last administered on 07/07/18 13:39; Admin Dose 100 MG; Start 06/29/18 at 09:00 Fish Oil (Fish Oil) 2,000 mg BID PO Last administered on 07/07/18 08:24; Admin Dose 2,000 MG; Start 06/29/18 at 09:00 Levofloxacin (Levaquin) 250 mg DAILY@06 NGT Last administered on 07/07/18 05:07; Admin Dose 250 MG; Start 07/01/18 at 06:00; Stop 07/08/18 at 05:59 Docusate Sodium (Colace Liquid Cup) 200 mg BID NGT ; Start 07/04/18 at 09:00; Status Hold Ondansetron HCl (Zofran Inj) 4 mg Q6H PRN IV NAUSEA AND/OR VOMITING Last administered on 07/06/18 21:54; Admin Dose 4 MG; Start 07/04/18 at 11:00 Lorazepam (Ativan) 0.5 mg Q6H PRN IV agitation; Start 07/05/18 at 14:30 Carvedilol (Coreg) 12.5 mg BID NGT Last administered on 07/07/18 08:25; Admin Dose 12.5 MG; Start 07/05/18 at 21:00 Dextrose 1,000 ml @ 75 mls/hr [id number] IV Last administered on 07/07/18 02:00; Admin Dose 50 MLS/HR; Start 07/06/18 at 08:00 Dexmedetomidine HCl 200 mcg/ Sodium Chloride 50 ml @ 849 mls/hr TITRATE IV Last administered on 07/06/18 13:37; Admin Dose 849 MLS/HR; Start 07/06/18 at 13:00 Albuterol (Proventil 0.083% (Neb)) 2.5 mg Q6H RESP THERAPY HHN Last administered on 4/28/19at 14:11; Admin Dose 2.5 MG; Start 07/06/18 at 20:00 Insulin Aspart (Novolog Insulin Pen) NOVOLOG *MODERATE* ALGORI... Q4 SC Last administered on 07/07/18at 13:47; Admin Dose 2 UNIT; Start 07/07/18 at 09:00 Assessment/Plan Assessment/Plan (Daily) IMP: 1. Hypoxemic/Hypercapnic Resp Failure--> extubated 2. CHF 3. Multifocal pneumonia 4. RICKI 5. KONG RECS: 1. Nocturnal CPAP 2. PT/OT consult; mobilize OOB 3. Continue abx 4. Follow UO 5. Tele should be okay 40 min cc time MARLEE MALDONADO MD Jul 07, 2018 14:47
[2018-07-07] MEDS: ATORVASTATIN 40 MG TAB NGT SCH (20:43)
[2018-07-07] MEDS ORDERED: GLUCOSE GEL 15 GRAM TUBE PO PRN ×2 (22:30)
[2018-07-07] MEDS ORDERED: DEXTROSE 50% 50 ML SYRINGE IV PRN ×2 (22:30)
[2018-07-07] MEDS ORDERED: GLUCAGON 1 MG INJ IM PRN (22:30)
[2018-07-07] MEDS ORDERED: GLUCOSE GEL 15 GRAM TUBE BUCCAL PRN (22:30)
[2018-07-08] VITALS (12 sets, daily range): BP systolic 119–190; BP diastolic 58–89; PULSE 73–87; RESP 18–20
[2018-07-08] MEDS ORDERED: ACETAMINOPHEN 650MG/20.3ML CUP PO PRN (01:30)
[2018-07-08] MEDS ORDERED: ACCU-CHEK XX SCH (02:00)
[2018-07-08] MEDS: ALBUTEROL 0.083% (NEB) 2.5 MG/3 ML AMP HHN SCH ×4 (02:00→20:49)
[2018-07-08] MEDS: LEVOFLOXACIN 250 MG TAB PO SCH (05:17)
[2018-07-08] MEDS: DEXTROSE 5% 1,000 ML IV SCH (05:20)
[2018-07-08] MEDS: ZINC SULFATE 220 MG CAP PO SCH (08:24)
[2018-07-08] MEDS: ASCORBIC ACID 500 MG TAB PO SCH (08:24)
[2018-07-08] MEDS: FISH OIL 1,000 MG CAP PO SCH ×2 (08:24→20:06)
[2018-07-08] MEDS: ASPIRIN 81 MG TAB PO SCH (08:24)
[2018-07-08] MEDS: FAMOTIDINE 20 MG INJ IV SCH (08:26)
[2018-07-08] MEDS: INSULIN ASPART [NOVOLOG] 3 ML PEN SC SCH ×4 (08:59→20:14)
[2018-07-08] MEDS: ISOSORBIDE DINITRATE 20 MG TAB PO SCH ×3 (09:00→20:06)
[2018-07-08] MEDS: BALSAM PERU/CASTOR OIL 60 GM TUBE TOP SCH ×2 (09:00→21:25)
[2018-07-08] MEDS: INSULIN GLARGINE [LANTus] (100 UNITS/ML) SYG SC SCH (09:02)
[2018-07-08] MEDS: ENOXAPARIN 30 MG/0.3 ML SYG SC SCH (09:06)
--- NOTE | 2018-07-08 09:25 | PN ---
DATE: 07/08/2018 SUBJECTIVE: The patient is stable, currently on telemetry, transferred from ICU. No other events no stone. OBJECTIVE: VITAL SIGNS: Blood pressure is 149/73, pulse 78, respiration 18, temperature is 98.3. HEENT: Head is normocephalic. NECK: Supple. HEART: Regular rate. LUNGS: Show diminished breath sounds at the base. ABDOMEN: Soft, nontender to palpation. No rebound or guarding. EXTREMITIES: Negative for clubbing, cyanosis, no edema. DERMATOLOGIC: No rashes. MUSCULOSKELETAL: No joint effusion. NEUROLOGIC: No change in exam. MEDICATIONS: Reviewed. LABORATORY DATA: Has been reviewed. ASSESSMENT AND PLAN: 1. Nonoliguric acute kidney injury with unknown baseline creatinine. Etiology of acute kidney injur y is secondary to acute tubular necrosis. Renal function is improving. Continue current treatment p jammie, supportive care, renally dose all meds. 2. Volume overload, improved. Continue to watch volume status closely. We will give intermittent d iuretic therapy as needed. 3. Hypernatremia, etiology secondary to insensible loss, decreased oral intake. The patient's sodiu m level is slowly improving. Continue to encourage free water intake. 4. Hypokalemia, improved. Continue to monitor and replete as needed. 5. Mineral bone disorder, monitor calcium and phosphorus levels. 6. Anemia. Monitor hemoglobin and hematocrit levels. 7. Respiratory failure. The patient is status post extubation. Continue to monitor. 8. Sepsis secondary to pneumonia. The patient is completing antibiotic course. 9. Hypertension. Continue current blood pressure regimen. 10. Dyslipidemia. Continue statin therapy. 11. Acute encephalopathy, etiology is toxic metabolic, improving. 12. Dysphagia. Continue modified diet. 13. History of cardiomyopathy. 14. History of cirrhosis. 15. Status post cardiopulmonary arrest. Dictated By: ENA VIVAR DO NR/NTS Conf#: [id number] DID#: [id number] CC: LILLY CLEMENS MD;*EndCC*
--- NOTE | 2018-07-08 11:44 | CONS ---
Consult Date/Type/Reason Admit Date/Time Jun 25, 2018 at 04:04 Initial Consult Date 06/25/18 Type of Consult Pulmonary Requesting Provider: DAMION KUMAR Date/Time of Note DATE: 07/08/18 TIME: 11:42 Subjective Patient appears comfortable this morning no respiratory distress. Objective Vital Signs Date Temp Pulse Resp B/P (MAP) Pulse Ox O2 O2 Flow FiO2 Time Delivery Rate 07/08/18 80 08:01 07/08/18 Nasal 2.0 08:00 Cannula 07/08/18 98.3 18 149/73 97 07:33 (98) 07/07/18 21 14:11 Intake and Output 07/07/18 07/07/18 07/08/18 1515:00 23:00 07:00 IntakeIntake Total 880 ml 760 ml 1050 ml OutputOutput Total 681 ml 875 ml 1400 ml BalanceBalance 199 ml -115 ml -350 ml Exam GENERAL: Obese gentleman comfortable at rest no acute distress VITAL SIGNS: per chart NECK: Supple. No JVD or lymphadenopathy. CARDIAC EXAM: S1, S2. No added sounds or murmurs. CHEST: Diminished air entry at bases. ABDOMEN: Soft, nontender. No guarding or rebound. EXTREMITIES: No cyanosis, clubbing or edema. NEUROLOGIC: Generalized weakness. No focal deficits. Vent Setting Ventilator Support Mode: CPAP, PS, SPONT Fraction of Inspired Oxygen pe: 21 Positive End Expiratory Pressu: 5.0 Results/Medications Result Diagram: 07/08/18 0457 07/08/18 0457 Results 24 hrs Laboratory Tests Test 07/07/18 13:36 07/07/18 17:38 07/07/18 20:46 07/08/18 04:57 Bedside Glucose 168 170 175 White Blood Count 10.3 Red Blood Count 4.11 L Hemoglobin 11.3 L Hematocrit 37.4 L Mean Corpuscular 91.0 Volume Mean Corpuscular 27.5 L Hemoglobin Mean Corpuscular 30.2 L Hemoglobin Concent Red Cell 14.1 Distribution Width Platelet Count 306 Mean Platelet Volume 11.5 H Immature 0.800 H Granulocytes % Neutrophils % 82.8 H Lymphocytes % 9.0 L Monocytes % 5.5 Eosinophils % 1.5 Basophils % 0.4 Nucleated Red Blood 0.0 Cells % Immature 0.080 H Granulocytes # Neutrophils # 8.6 H Lymphocytes # 0.9 Monocytes # 0.6 Eosinophils # 0.2 Basophils # 0.0 Nucleated Red Blood 0.0 Cells # Sodium Level 145 H Potassium Level 3.9 Chloride Level 108 Carbon Dioxide Level 28 Anion Gap 9 Blood Urea Nitrogen 39 H Creatinine 1.76 H Est Glomerular Filtrat Rate mL/min Glucose Level 206 Calcium Level 8.9 Phosphorus Level 3.6 Magnesium Level 2.3 Test 07/08/18 07:50 Bedside Glucose 185 Medications Current Medications Norepinephrine 250 ml @ 1.875 mls/ hr TITRATE IV Last administered on 06/25/18 03:13; Admin Dose 3.75 MLS/HR; Start 06/25/18 at 03:00 Famotidine (Pepcid Iv) 20 mg DAILY IV Last administered on 07/08/18 08:26; Admin Dose 20 MG; Start 06/26/18 at 10:30 Alteplase, Recombinant (Cathflo (Activase)) 2 mg MAY REPEAT X1 PRN CATHETER IF CATHETER REMAINS OCCULUDED; Start 06/27/18 at 09:30 Fentanyl 100 ml @ 2.5 mls/hr TITRATE PRN IV PAIN Last administered on 07/03/18 23:08; Admin Dose 7.5 MLS/HR; Start 06/27/18 at 11:30 Hydralazine HCl (Apresoline) 10 mg Q4H PRN IV ELEVATED BLOOD PRESSURE Last administered on 07/06/18 19:04; Admin Dose 10 MG; Start 06/27/18 at 20:30 Insulin Glargine (Lantus) 15 units DAILY@0800 SC Last administered on 07/08/18 09:02; Admin Dose 15 UNITS; Start 06/28/18 at 14:00 Enoxaparin Sodium (Lovenox) 30 mg DAILY SC Last administered on 07/08/18 09:06; Admin Dose 30 MG; Start 06/29/18 at 09:00 Alteplase, Recombinant (Cathflo (Activase)) 2 mg MAY REPEAT X1 PRN CATHETER IF CATHETER REMAINS OCCULUDED; Start 06/29/18 at 04:30 Fish Oil (Fish Oil) 2,000 mg BID PO Last administered on 07/08/18 08:24; Admin Dose 2,000 MG; Start 06/29/18 at 09:00 Docusate Sodium (Colace Liquid Cup) 200 mg BID NGT ; Start 07/04/18 at 09:00; Status Hold Ondansetron HCl (Zofran Inj) 4 mg Q6H PRN IV NAUSEA AND/OR VOMITING Last administered on 07/06/18 21:54; Admin Dose 4 MG; Start 07/04/18 at 11:00 Lorazepam (Ativan) 0.5 mg Q6H PRN IV agitation Last administered on 07/08/18 08:47; Admin Dose 0.5 MG; Start 07/05/18 at 14:30 Dextrose 1,000 ml @ 75 mls/hr [id number] IV Last administered on 07/08/18 05:20; Admin Dose 75 MLS/HR; Start 07/06/18 at 08:00 Dexmedetomidine HCl 200 mcg/ Sodium Chloride 50 ml @ 849 mls/hr TITRATE IV Last administered on 07/06/18 13:37; Admin Dose 849 MLS/HR; Start 07/06/18 at 13:00 Albuterol (Proventil 0.083% (Neb)) 2.5 mg Q6H RESP THERAPY HHN Last administered on 07/08/18 09:03; Admin Dose 2.5 MG; Start 07/06/18 at 20:00 Acetaminophen (Tylenol Liquid) 650 mg Q4H PRN PO MILD PAIN(1-3)OR ELEVATED TEMP; Start 07/08/18 at 01:30 Ascorbic Acid (Vitamin C) 500 mg DAILY PO Last administered on 07/08/18 08:24; Admin Dose 500 MG; Start 07/08/18 at 09:00 Aspirin (Aspirin) 81 mg DAILY PO Last administered on 07/08/18 08:24; Admin Dose 81 MG; Start 07/08/18 at 09:00 Atorvastatin Calcium (Lipitor) 40 mg HS PO ; Start 07/08/18 at 21:00 Carvedilol (Coreg) 12.5 mg BID PO Last administered on 07/08/18 08:26; Admin Dose 12.5 MG; Start 07/08/18 at 09:00 Hydralazine HCl (Apresoline) 100 mg TID PO Last administered on 07/08/18 08:25; Admin Dose 100 MG; Start 07/08/18 at 09:00 Isosorbide Dinitrate (Isordil) 20 mg TID PO ; Start 07/08/18 at 09:00 Levofloxacin (Levaquin) 250 mg DAILY@06 PO Last administered on 07/08/18at 05:17; Admin Dose 250 MG; Start 07/08/18 at 06:00 Zinc Sulfate (Zinc Sulfate) 220 mg DAILY PO Last administered on 07/08/18at 08:24; Admin Dose 220 MG; Start 07/08/18 at 09:00 Diagnostic Test (Pha) (Accu-Chek) 1 ea 02 XX ; Start 07/08/18 at 02:00 Insulin Aspart (Novolog Insulin Pen) NOVOLOG *MODERATE* ALGORITHM WITH MEALS BEDTIME SC Last administered on 07/08/18at 08:59; Admin Dose 4 UNIT; Start 07/08/18 at 07:35 Miscellaneous Information 1 ea NOTE XX ; Start 07/07/18 at 22:30 Glucose (Glutose) 15 gm Q15M PRN PO DECREASED GLUCOSE; Start 07/07/18 at 22:30 Glucose (Glutose) 22.5 gm Q15M PRN PO DECREASED GLUCOSE; Start 07/07/18 at 22:30 Dextrose (D50w Syringe) 25 ml Q15M PRN IV DECREASED GLUCOSE; Start 07/07/18 at 22:30 Dextrose (D50w Syringe) 50 ml Q15M PRN IV DECREASED GLUCOSE; Start 07/07/18 at 22:30 Glucagon (Glucagen) 1 mg Q15M PRN IM DECREASED GLUCOSE; Start 07/07/18 at 22:30 Glucose (Glutose) 15 gm Q15M PRN BUCCAL DECREASED GLUCOSE; Start 07/07/18 at 22:30 Assessment/Plan Hospital Course (Demo Recall) IMP: 1. Hypoxemic/Hypercapnic Resp Failure--> extubated 2. CHF 3. Multifocal pneumonia 4. RICKI 5. KONG RECS: 1. Nocturnal CPAP 2. PT/OT consult; mobilize OOB 3. Continue abx 4. Follow UO 5. Outpatient sleep study and pulmonary function testing YARIEL DUTTA MD, [facility] Jul 08, 2018 11:44
--- NOTE | 2018-07-08 12:17 | CONS ---
Assessment/Plan Assessment/Plan Hospital Course 78 yo M with multiple cerebrovascular risk factors who presents to ICU following a cardiac arrest. CTH was obtained, and notable for multifocal hypodensities concerning for stroke... for which neurology is consulted. MRI brain is presently unable to be performed d/t morbid obesity. On neurologic examination, he awakens and moves his limbs spontaneously, without obvious focal deficit. Recent echo is notable for depressed LV function with EF 35% and wall motion abnormalities NOS. P: Agree w/ ASA daily for stroke prevention for now; LDL is at goal. Limit sedating medications where possible Other medical management and supportive care per primary WiIl follow clinically Consultation Date/Type/Reason Admit Date/Time Jun 25, 2018 at 04:04 Type of Consult Neurology Reason for Consultation eval for stroke Requesting Provider: DAMION KUMAR Date/Time of Note DATE: 07/08/18 TIME: 12:17 24 HR Interval Summary Free Text/Dictation Continues acute care. Exam Vital Signs Vitals Vital Signs Date Temp Pulse Resp B/P (MAP) Pulse Ox O2 O2 Flow FiO2 Time Delivery Rate 07/08/18 98.0 83 18 190/89 96 11:48 (122) 07/08/18 Nasal 2.0 08:00 Cannula 07/07/18 21 14:11 Intake and Output 07/07/18 07/07/18 07/08/18 1515:00 23:00 07:00 IntakeIntake Total 880 ml 760 ml 1050 ml OutputOutput Total 681 ml 875 ml 1400 ml BalanceBalance 199 ml -115 ml -350 ml Exam PE: Gen Appearance: No Apparent Distress HEENT: Normocephalic. Cardiovascular: Regular rate Abdomen: Soft Extremities: Dry NE: The patient was awake and alert. Oriented to self and hospital only. Speech normal. Able to follow simple axial and appendicular commands. Cranial nerve examination was limited by mental status. Pupils were equal and reactive to light. There was no afferent pupillary defect. Funduscopic examination was limited. Face was grossly symmetric, w/ present corneal and cough reflexes. Tone was normal. Muscle bulk was normal. I did not see fasciculations. The patient was generally weak. Coordination and gait testing was limited by mental status. Arm and leg reflexes were within normal limits and symmetric. Gonzalez's sign was absent. Plantar responses were flexor. DESTINY ANDERSEN NP Jul 08, 2018 12:17
--- NOTE | 2018-07-08 14:47 | PN ---
Date/Time of Note Date/Time of Note DATE: 07/08/18 TIME: 14:45 Assessment/Plan VTE Prophylaxis Risk score (from Nsg)>0 risk: 11 SCD applied (from Nsg): Yes Pharmacological prophylaxis: heparin Lines/Catheters IV Catheter Type (from Nrsg): Central Line Central line still needed: Yes Urinary Cath still in place: Yes Reason Cath still needed: urinary retention Assessment/Plan Hospital Course EXAM Obese male Resting comfortably Mild tachypnea, no accessories Clear lungs + JVD Abdomen obese, soft Ext without edema 1. Cardiopulmonary arrest with return of circulation Patient had episode of PEA Mentation has improved Continue cardiac meds Cardiology following 2. Respiratory failure secondary to cardiac arrest Patient extubated last night and doing well, patient also tolerating an oral diet Downgrade to telemetry 3. 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 Acute kidney injury secondary to hemodynamics Nephrology consultation appreciated Creatinine is trending down 5. Acute on chronic systolic heart failure Cardiology following Continue cardiac meds 6. Morbid obesity with fatty liver and likely KONG Lifestyle changes 7. Diabetes-sugars currently controlled Continue insulin regimen A1c is 7.4 8. Hypertension-stable Continue meds 9. Pneumonia possibly aspiration versus community acquired Continue Levaquin x7 days, last dose is tomorrow 10. History of aortic aneurysm 4.3 on surveillance Prophylaxis: Lovenox DC planning: Dc to SNF Result Diagram: 07/08/1845607/08/187 Results 24hrs Laboratory Tests Test 07/07/18 17:38 07/07/18 20:46 07/08/18 04:57 07/08/18 07:50 Bedside Glucose 170 175 185 White Blood Count 10.3 Red Blood Count 4.11 L Hemoglobin 11.3 L Hematocrit 37.4 L Mean Corpuscular 91.0 Volume Mean Corpuscular 27.5 L Hemoglobin Mean Corpuscular 30.2 L Hemoglobin Concent Red Cell 14.1 Distribution Width Platelet Count 306 Mean Platelet Volume 11.5 H Immature 0.800 H Granulocytes % Neutrophils % 82.8 H Lymphocytes % 9.0 L Monocytes % 5.5 Eosinophils % 1.5 Basophils % 0.4 Nucleated Red Blood 0.0 Cells % Immature 0.080 H Granulocytes # Neutrophils # 8.6 H Lymphocytes # 0.9 Monocytes # 0.6 Eosinophils # 0.2 Basophils # 0.0 Nucleated Red Blood 0.0 Cells # Sodium Level 145 H Potassium Level 3.9 Chloride Level 108 Carbon Dioxide Level 28 Anion Gap 9 Blood Urea Nitrogen 39 H Creatinine 1.76 H Est Glomerular Filtrat Rate mL/min Glucose Level 206 Calcium Level 8.9 Phosphorus Level 3.6 Magnesium Level 2.3 Test 07/08/18 11:46 Bedside Glucose 219 Subjective 24 Hr Interval Summary Free Text/Dictation Breathing is comfortable on RA Feels very weak Exam/Review of Systems Exam Vitals Vital Signs Date Temp Pulse Resp B/P (MAP) Pulse Ox O2 O2 Flow FiO2 Time Delivery Rate 07/08/18 74 20 119/58 91 4.0 13:54 (78) 07/08/18 98.0 11:48 07/08/18 Nasal 08:00 Cannula 07/07/18 21 14:11 Intake and Output 07/07/18 07/07/18 07/08/18 1515:00 23:00 07:00 IntakeIntake Total 880 ml 760 ml 1050 ml OutputOutput Total 681 ml 875 ml 1400 ml BalanceBalance 199 ml -115 ml -350 ml Results Results 24hrs Laboratory Tests Test 07/07/18 17:38 07/07/18 20:46 07/08/18 04:57 07/08/18 07:50 Bedside Glucose 170 175 185 White Blood Count 10.3 Red Blood Count 4.11 L Hemoglobin 11.3 L Hematocrit 37.4 L Mean Corpuscular 91.0 Volume Mean Corpuscular 27.5 L Hemoglobin Mean Corpuscular 30.2 L Hemoglobin Concent Red Cell 14.1 Distribution Width Platelet Count 306 Mean Platelet Volume 11.5 H Immature 0.800 H Granulocytes % Neutrophils % 82.8 H Lymphocytes % 9.0 L Monocytes % 5.5 Eosinophils % 1.5 Basophils % 0.4 Nucleated Red Blood 0.0 Cells % Immature 0.080 H Granulocytes # Neutrophils # 8.6 H Lymphocytes # 0.9 Monocytes # 0.6 Eosinophils # 0.2 Basophils # 0.0 Nucleated Red Blood 0.0 Cells # Sodium Level 145 H Potassium Level 3.9 Chloride Level 108 Carbon Dioxide Level 28 Anion Gap 9 Blood Urea Nitrogen 39 H Creatinine 1.76 H Est Glomerular Filtrat Rate mL/min Glucose Level 206 Calcium Level 8.9 Phosphorus Level 3.6 Magnesium Level 2.3 Test 07/08/18 11:46 Bedside Glucose 219 Medications Medication Current Medications Norepinephrine 250 ml @ 1.875 mls/ hr TITRATE IV Last administered on 06/25/18 03:13; Admin Dose 3.75 MLS/HR; Start 06/25/18 at 03:00 Famotidine (Pepcid Iv) 20 mg DAILY IV Last administered on 07/08/18 08:26; Admin Dose 20 MG; Start 06/26/18 at 10:30 Alteplase, Recombinant (Cathflo (Activase)) 2 mg MAY REPEAT X1 PRN CATHETER IF CATHETER REMAINS OCCULUDED; Start 06/27/18 at 09:30 Fentanyl 100 ml @ 2.5 mls/hr TITRATE PRN IV PAIN Last administered on 07/03/18 23:08; Admin Dose 7.5 MLS/HR; Start 06/27/18 at 11:30 Hydralazine HCl (Apresoline) 10 mg Q4H PRN IV ELEVATED BLOOD PRESSURE Last administered on 07/06/18 19:04; Admin Dose 10 MG; Start 06/27/18 at 20:30 Insulin Glargine (Lantus) 15 units DAILY@0800 SC Last administered on 07/08/18 09:02; Admin Dose 15 UNITS; Start 06/28/18 at 14:00 Enoxaparin Sodium (Lovenox) 30 mg DAILY SC Last administered on 07/08/18 09:06; Admin Dose 30 MG; Start 06/29/18 at 09:00 Alteplase, Recombinant (Cathflo (Activase)) 2 mg MAY REPEAT X1 PRN CATHETER IF CATHETER REMAINS OCCULUDED; Start 06/29/18 at 04:30 Fish Oil (Fish Oil) 2,000 mg BID PO Last administered on 07/08/18 08:24; Admin Dose 2,000 MG; Start 06/29/18 at 09:00 Docusate Sodium (Colace Liquid Cup) 200 mg BID NGT ; Start 07/04/18 at 09:00; Status Hold Ondansetron HCl (Zofran Inj) 4 mg Q6H PRN IV NAUSEA AND/OR VOMITING Last a dministered on 07/06/18at 21:54; Admin Dose 4 MG; Start 07/04/18 at 11:00 Lorazepam (Ativan) 0.5 mg Q6H PRN IV agitation Last administered on 07/08/18 08:47; Admin Dose 0.5 MG; Start 07/05/18 at 14:30 Dextrose 1,000 ml @ 75 mls/hr [id number] IV Last administered on 07/08/18 05:20; Admin Dose 75 MLS/HR; Start 07/06/18 at 08:00 Dexmedetomidine HCl 200 mcg/ Sodium Chloride 50 ml @ 849 mls/hr TITRATE IV Last administered on 07/06/18 13:37; Admin Dose 849 MLS/HR; Start 07/06/18 at 13:00 Albuterol (Proventil 0.083% (Neb)) 2.5 mg Q6H RESP THERAPY HHN Last administered on 07/08/18 09:03; Admin Dose 2.5 MG; Start 07/06/18 at 20:00 Acetaminophen (Tylenol Liquid) 650 mg Q4H PRN PO MILD PAIN(1-3)OR ELEVATED TEMP; Start 07/08/18 at 01:30 Ascorbic Acid (Vitamin C) 500 mg DAILY PO Last administered on 07/08/18 08:24; Admin Dose 500 MG; Start 07/08/18 at 09:00 Aspirin (Aspirin) 81 mg DAILY PO Last administered on 07/08/18 08:24; Admin Dose 81 MG; Start 07/08/18 at 09:00 Atorvastatin Calcium (Lipitor) 40 mg HS PO ; Start 07/08/18 at 21:00 Carvedilol (Coreg) 12.5 mg BID PO Last administered on 07/08/18 08:26; Admin Dose 12.5 MG; Start 07/08/18 at 09:00 Hydralazine HCl (Apresoline) 100 mg TID PO Last administered on 07/08/18 12:11; Admin Dose 100 MG; Start 07/08/18 at 09:00 Isosorbide Dinitrate (Isordil) 20 mg TID PO Last administered on 07/08/18 12:10; Admin Dose 20 MG; Start 07/08/18 at 09:00 Levofloxacin (Levaquin) 250 mg DAILY@06 PO Last administered on 07/08/18 05:17; Admin Dose 250 MG; Start 07/08/18 at 06:00 Zinc Sulfate (Zinc Sulfate) 220 mg DAILY PO Last administered on 07/08/18at 08:24; Admin Dose 220 MG; Start 07/08/18 at 09:00 Insulin Aspart (Novolog Insulin Pen) NOVOLOG *MODERATE* ALGORITHM WITH MEALS BEDTIME SC Last administered on 07/08/18at 12:39; Admin Dose 4 UNIT; Start 07/08/18 at 07:35 Miscellaneous Information 1 ea NOTE XX ; Start 07/07/18 at 22:30 Glucose (Glutose) 15 gm Q15M PRN PO DECREASED GLUCOSE; Start 07/07/18 at 22:30 Glucose (Glutose) 22.5 gm Q15M PRN PO DECREASED GLUCOSE; Start 07/07/18 at 22:30 Dextrose (D50w Syringe) 25 ml Q15M PRN IV DECREASED GLUCOSE; Start 07/07/18 at 22:30 Dextrose (D50w Syringe) 50 ml Q15M PRN IV DECREASED GLUCOSE; Start 07/07/18 at 22:30 Glucagon (Glucagen) 1 mg Q15M PRN IM DECREASED GLUCOSE; Start 07/07/18 at 22:30 Glucose (Glutose) 15 gm Q15M PRN BUCCAL DECREASED GLUCOSE; Start 07/07/18 at 22:30 CHARANJIT OCHOA MD Jul 08, 2018 14:47
[2018-07-08] MEDS ORDERED: FUROSEMIDE 20 MG INJ IV ONE (15:00)
--- NOTE | 2018-07-08 17:55 | CONS ---
Consult Date/Type/Reason Admit Date/Time Jun 25, 2018 at 04:04 Initial Consult Date 06/25/18 Type of Consultation: cv Requesting Provider: DAMION KUMAR Date/Time of Note DATE: 07/08/18 TIME: 17:54 Subjective Interventional cardiology follow-up progress note Subjective: Discussed with the staff and telemetry was reviewed. Patient has remained sinus rhythm/sinus kathi d/w No report of any chest pain or pressure no more bleeding is reported PT HAS been extubated and remains off the ICU on tele now events noted. 06/26: pt extubated but had to be reintubated same day for resp distress. 07/06/18: Patient was extubated again Objective: General: Obese gentleman HEENT: NC/AT. . Pupils are equal round reactive to light. NECK: no stridor. CV: RRR. systolic murmur; no gallop or rubs. PULM: no wheezing. + mild rhonchi. GI: SOFT, NT, ND, no rebound or guarding Extremity: +trace B/L LE edema. no clubbing. neuro: Drowsy but arousable Psych: calm rectal: deferred : normal EKG in ER was personally reviewed showed normal sinus rhythm left bundle branch block Echocardiogram was personally reviewed which shows: Normal left ventricular cavity size. Moderate concentric left ventricular hypertrophy. Moderate global left ventricular systolic dysfunction. Ejection fraction is visually estimated at 35 %. Abnormal Diastolic Function. Multiple segmental wall motion abnormalities. These segments of the LV are akinetic. No significant aortic stenosis or insufficiency. Aortic cusps appear mildly calcified. Mitral valve leaflets appear mildly thickened. Mild mitral annular calcification. Trace mitral regurgitation. Normal appearance of the tricuspid valve. Estimated peak PA systolic pressure 31 mmHg. There is trace to mild tricuspid regurgitation. Dilated IVC without respiratory collapse, however, patient on ventilator. CT of the chest done in the emergency room shows: 1. No evidence of central pulmonary emboli. Prominent central pulmonary arteries and rule out pulmonary arterial hypertension. Reflux of contrast into the distal inferior vena cava and rule out mild right heart strain/failure. 2. Mild aneurysmal dilatation of the ascending aorta maximal transverse diameter 4.3 cm. 3. Mild cardiomegaly. 4. Bilateral lower lobe consolidations with central air bronchograms consistent with atelectasis though aspiration and pneumonia cannot be excluded. Additional diffuse inhomogeneous ground-glass opacities bilaterally as above consistent with pulmonary edema/pneumonitis. 5. Bilateral tiny pleural effusions. 6. Right paratracheal and prevascular space lymphadenopathy as above. Follow-up is recommended. 7. Mild lobulation of the anterior margin of the liver and may represent c irrhosis. Objective Vitals Vital Signs Date Temp Pulse Resp B/P (MAP) Pulse Ox O2 O2 Flow FiO2 Time Delivery Rate 07/08/18 98.0 87 18 157/80 98 16:42 (105) 07/08/18 4.0 13:54 07/08/18 Nasal 08:00 Cannula 07/07/18 21 14:11 Intake and Output 07/07/18 07/07/18 07/08/18 1515:00 23:00 07:00 IntakeIntake Total 880 ml 760 ml 1050 ml OutputOutput Total 681 ml 875 ml 1400 ml BalanceBalance 199 ml -115 ml -350 ml Results/Medications Result Diagram: 07/08/18 0457 07/08/18 0457 Results 24 hrs Laboratory Tests Test 07/07/18 20:46 07/08/18 04:57 07/08/18 07:50 07/08/18 11:46 Bedside Glucose 175 185 219 White Blood Count 10.3 Red Blood Count 4.11 L Hemoglobin 11.3 L Hematocrit 37.4 L Mean Corpuscular 91.0 Volume Mean Corpuscular 27.5 L Hemoglobin Mean Corpuscular 30.2 L Hemoglobin Concent Red Cell 14.1 Distribution Width Platelet Count 306 Mean Platelet Volume 11.5 H Immature 0.800 H Granulocytes % Neutrophils % 82.8 H Lymphocytes % 9.0 L Monocytes % 5.5 Eosinophils % 1.5 Basophils % 0.4 Nucleated Red Blood 0.0 Cells % Immature 0.080 H Granulocytes # Neutrophils # 8.6 H Lymphocytes # 0.9 Monocytes # 0.6 Eosinophils # 0.2 Basophils # 0.0 Nucleated Red Blood 0.0 Cells # Sodium Level 145 H Potassium Level 3.9 Chloride Level 108 Carbon Dioxide Level 28 Anion Gap 9 Blood Urea Nitrogen 39 H Creatinine 1.76 H Est Glomerular Filtrat Rate mL/min Glucose Level 206 Calcium Level 8.9 Phosphorus Level 3.6 Magnesium Level 2.3 Home Meds Reported Medications Tamsulosin Hcl* (Flomax*) 0.4 Mg Cap.er.24h, 0.4 MG PO DAILY, CAP 4/22/19 Sotalol Hcl* (Betapace*) 80 Mg Tab, 80 MG PO BID, TAB 07/01/18 Levothyroxine Sodium* (Levoxyl*) 75 Mcg Tablet, 75 MCG PO BEFORE BREAKFAST, #30 TAB 07/01/18 Glimepiride* (Amaryl*) 4 Mg Tablet, 4 MG PO WITH BREAKFAST DINNE, TAB 07/01/18 Sitagliptin Phos/Metformin HCl (Janumet 50-1,000 mg Tablet) 1 Each Tablet, 1 EACH PO BID, TAB 07/01/18 Doxazosin Mesylate* (Cardura*) 4 Mg Tablet, 4 MG PO BID, #60 TAB 07/01/18 Nifedipine (Procardia Xl) 60 Mg Tab.er.24, 60 MG PO DAILY, TAB 07/01/18 Metoprolol Succinate* (Toprol XL*) 100 Mg Tab.sr.24h, 100 MG PO BID, #30 TAB 07/01/18 Medications Current Medications Norepinephrine 250 ml @ 1.875 mls/ hr TITRATE IV Last administered on 06/25/18at 03:13; Admin Dose 3.75 MLS/HR; Start 06/25/18 at 03:00 Famotidine (Pepcid Iv) 20 mg DAILY IV Last administered on 07/08/18at 08:26; Admin Dose 20 MG; Start 06/26/18 at 10:30 Alteplase, Recombinant (Cathflo (Activase)) 2 mg MAY REPEAT X1 PRN CATHETER IF CATHETER REMAINS OCCULUDED; Start 06/27/18 at 09:30 Fentanyl 100 ml @ 2.5 mls/hr TITRATE PRN IV PAIN Last administered on 07/03/18at 23:08; Admin Dose 7.5 MLS/HR; Start 06/27/18 at 11:30 Hydralazine HCl (Apresoline) 10 mg Q4H PRN IV ELEVATED BLOOD PRESSURE Last administered on 07/06/18at 19:04; Admin Dose 10 MG; Start 06/27/18 at 20:30 Insulin Glargine (Lantus) 15 units DAILY@0800 SC Last administered on 07/08/18at 09:02; Admin Dose 15 UNITS; Start 06/28/18 at 14:00 Enoxaparin Sodium (Lovenox) 30 mg DAILY SC Last administered on 07/08/18 09:06; Admin Dose 30 MG; Start 06/29/18 at 09:00 Alteplase, Recombinant (Cathflo (Activase)) 2 mg MAY REPEAT X1 PRN CATHETER IF CATHETER REMAINS OCCULUDED; Start 06/29/18 at 04:30 Fish Oil (Fish Oil) 2,000 mg BID PO Last administered on 07/08/18 08:24; Admin Dose 2,000 MG; Start 06/29/18 at 09:00 Docusate Sodium (Colace Liquid Cup) 200 mg BID NGT ; Start 07/04/18 at 09:00; Status Hold Ondansetron HCl (Zofran Inj) 4 mg Q6H PRN IV NAUSEA AND/OR VOMITING Last administered on 07/06/18 21:54; Admin Dose 4 MG; Start 07/04/18 at 11:00 Lorazepam (Ativan) 0.5 mg Q6H PRN IV agitation Last administered on 07/08/18 08:47; Admin Dose 0.5 MG; Start 07/05/18 at 14:30 Dexmedetomidine HCl 200 mcg/ Sodium Chloride 50 ml @ 849 mls/hr TITRATE IV Last administered on 07/06/18 13:37; Admin Dose 849 MLS/HR; Start 07/06/18 at 13:00 Albuterol (Proventil 0.083% (Neb)) 2.5 mg Q6H RESP THERAPY HHN Last administered on 07/08/18 15:30; Admin Dose 2.5 MG; Start 07/06/18 at 20:00 Acetaminophen (Tylenol Liquid) 650 mg Q4H PRN PO MILD PAIN(1-3)OR ELEVATED TEMP; Start 07/08/18 at 01:30 Ascorbic Acid (Vitamin C) 500 mg DAILY PO Last administered on 07/08/18 08:24; Admin Dose 500 MG; Start 07/08/18 at 09:00 Aspirin (Aspirin) 81 mg DAILY PO Last administered on 07/08/18 08:24; Admin Dose 81 MG; Start 07/08/18 at 09:00 Atorvastatin Calcium (Lipitor) 40 mg HS PO ; Start 07/08/18 at 21:00 Carvedilol (Coreg) 12.5 mg BID PO Last administered on 07/08/18 08:26; Admin Dose 12.5 MG; Start 07/08/18 at 09:00 Hydralazine HCl (Apresoline) 100 mg TID PO Last administered on 07/08/18at 12:11; Admin Dose 100 MG; Start 07/08/18 at 09:00 Isosorbide Dinitrate (Isordil) 20 mg TID PO Last administered on 07/08/18at 12:10; Admin Dose 20 MG; Start 07/08/18 at 09:00 Levofloxacin (Levaquin) 250 mg DAILY@06 PO Last administered on 07/08/18 05:17; Admin Dose 250 MG; Start 07/08/18 at 06:00 Zinc Sulfate (Zinc Sulfate) 220 mg DAILY PO Last administered on 07/08/18 08:24; Admin Dose 220 MG; Start 07/08/18 at 09:00 Insulin Aspart (Novolog Insulin Pen) NOVOLOG *MODERATE* ALGORITHM WITH MEALS BEDTIME SC Last administered on 07/08/18 12:39; Admin Dose 4 UNIT; Start 07/08/18 at 07:35 Miscellaneous Information 1 ea NOTE XX ; Start 07/07/18 at 22:30 Glucose (Glutose) 15 gm Q15M PRN PO DECREASED GLUCOSE; Start 07/07/18 at 22:30 Glucose (Glutose) 22.5 gm Q15M PRN PO DECREASED GLUCOSE; Start 07/07/18 at 22:30 Dextrose (D50w Syringe) 25 ml Q15M PRN IV DECREASED GLUCOSE; Start 07/07/18 at 22:30 Dextrose (D50w Syringe) 50 ml Q15M PRN IV DECREASED GLUCOSE; Start 07/07/18 at 22:30 Glucagon (Glucagen) 1 mg Q15M PRN IM DECREASED GLUCOSE; Start 07/07/18 at 22:30 Glucose (Glutose) 15 gm Q15M PRN BUCCAL DECREASED GLUCOSE; Start 07/07/18 at 22:30 Assessment/Plan Hospital Course (Demo Recall) 1. Status post cardiopulmonary arrest appears to be mostly related to respiratory failure 2. Hypoxemic respiratory failure status post intubation: Was able to be extubated 07/06/2018 3. hypertension 4. Cardiomyopathy :unclear acute versus chronic 5. Congestive heart failure probably acute on chronic secondary systolic heart failure 6. Renal insufficiency: Acute kidney injury now 7. Encephalopathy 8. Abnormal EKG with left bundle branch block 9. Incomplete data 10. Pneumonia 11. hyper Na Recommendation: Cardiac enzyme has been repeated and myocardial infarction was ruled out. Review of the old chart also has shown that the patient has had normal coronaries in 2016 Respiratory care as per scanning coordinator Aspirin daily. Diuresis/ fluid management as per renal rec. Follow with RENAL CONSULT rec . GI and DVT prophylaxis Antibiotics management will be deferred to internal medicine Continue with Coreg as tolerated We will cont hydralazine/Isordil combination. hold off on ARB./ DENNIS due to RICKI Thank you for his referral. We will continue to follow along with you MONIQUE SANDOVAL MD [facility] MONIQUE SANDOVAL MD Jul 08, 2018 17:55
[2018-07-08] MEDS ORDERED: ATORVASTATIN 40 MG TAB PO SCH (21:00)
[2018-07-09] VITALS: BP 153/75; PULSE 77; RESP 19
[2018-07-09 00:34] VITALS: PULSE 81
[2018-07-09] MEDS: ALBUTEROL 0.083% (NEB) 2.5 MG/3 ML AMP HHN SCH ×3 (02:00→13:21)
[2018-07-09 03:09] VITALS: BP 173/80; PULSE 79; RESP 16
[2018-07-09] MEDS: hydrALAzine 20 MG INJ IV PRN (03:57)
[2018-07-09] MEDS ORDERED: PENDING SANTYL ORDER FOR WOUND CARE XX PRN (05:30)
[2018-07-09] MEDS: LEVOFLOXACIN 250 MG TAB PO SCH (05:39)
[2018-07-09] MEDS: INSULIN ASPART [NOVOLOG] 3 ML PEN SC SCH ×3 (08:27→17:40)
[2018-07-09 08:29] VITALS: BP 184/88; PULSE 79; PULSE 93; RESP 18
[2018-07-09] MEDS: INSULIN GLARGINE [LANTus] (100 UNITS/ML) SYG SC SCH (08:29)
[2018-07-09] MEDS: ENOXAPARIN 30 MG/0.3 ML SYG SC SCH (08:30)
[2018-07-09] MEDS: ZINC SULFATE 220 MG CAP PO SCH (08:36)
[2018-07-09] MEDS: ISOSORBIDE DINITRATE 20 MG TAB PO SCH ×2 (08:36→12:37)
[2018-07-09] MEDS: ASCORBIC ACID 500 MG TAB PO SCH (08:36)
[2018-07-09] MEDS: ASPIRIN 81 MG TAB PO SCH (08:37)
[2018-07-09] MEDS: FISH OIL 1,000 MG CAP PO SCH (08:37)
--- NOTE | 2018-07-09 08:54 | PN ---
DATE: 07/09/2018 SUBJECTIVE: The patient was transferred from telemetry to med/surg. No other events noted. OBJECTIVE: VITAL SIGNS: Blood pressure is 173/80, respirations 16, pulse 79, temperature is 98.4. HEENT: Head is normocephalic. NECK: Supple. HEART: Regular rate. LUNGS: Show diminished breath sounds at the base. ABDOMEN: Soft, nontender to palpation without rebound or guarding. EXTREMITIES: Negative for clubbing, cyanosis, no edema. DERMATOLOGIC: No rashes. MUSCULOSKELETAL: No joint effusion. NEUROLOGIC: No change in exam. MEDICATIONS: Reviewed. LABORATORY DATA: Reviewed. ASSESSMENT AND PLAN: 1. Nonoliguric acute kidney injury with unknown baseline creatinine. Etiology of acute kidney injur y is secondary to acute tubular necrosis. Renal function is improving. Continue current treatment p lans, supportive care, renally dose all medications. 2. Volume overload, improving. Continue to monitor closely. We will give intermittent diuretic the rapy as needed. 3. Hypernatremia, resolved. We will deescalate hypertonic fluids, encourage free water intake. 4. Hypokalemia, improved. 5. Mineral bone disorder, monitor calcium and phosphorus levels. 6. Anemia. Monitor hemoglobin and hematocrit levels. 7. Status post respiratory failure. The patient is status post extubation. Continue to monitor. 8. Sepsis secondary to pneumonia. The patient is completing antibiotic course. 9. Hypertension. Continue current blood pressure regimen, adjust as needed. Defer DENNIS inhibitor or ARB at this time. 10. Dyslipidemia. Continue statin therapy. 11. Acute encephalopathy, etiology is toxic metabolic. 12. Dysphagia. Continue modified diet. 13. History of cardiomyopathy. 14. History of cirrhosis. 15. Status post cardiopulmonary arrest. Dictated By: ENA VIVAR DO NR/NTS Conf#: [id number] DID#: [id number] CC: YARIEL DUTTA MD; LILLY CLEMENS MD; CHARANJIT OCHOA MD;*End*
[2018-07-09 09:00] VITALS: BP 141/79; PULSE 75; RESP 19
[2018-07-09] MEDS: BALSAM PERU/CASTOR OIL 60 GM TUBE TOP SCH (09:00)
[2018-07-09] MEDS: FAMOTIDINE 20 MG INJ IV SCH (09:41)
[2018-07-09] MEDS: FUROSEMIDE 20 MG INJ IV SCH ×2 (09:41→17:39)
[2018-07-09] MEDS: ONDANSETRON 4 MG INJ IV PRN (11:38)
[2018-07-09 11:52] VITALS: BP 155/74; PULSE 73; RESP 16
--- NOTE | 2018-07-09 12:16 | CONS ---
Assessment/Plan Assessment/Plan Hospital Course 78 yo M with multiple cerebrovascular risk factors who presents to ICU following a cardiac arrest. CTH was obtained, and notable for multifocal hypodensities concerning for stroke... for which neurology is consulted. MRI brain is presently unable to be performed d/t morbid obesity. On neurologic examination, he awakens and moves his limbs spontaneously, without obvious focal deficit. Recent echo is notable for depressed LV function with EF 35% and wall motion abnormalities NOS. P: Agree w/ ASA daily for stroke prevention for now; LDL is at goal. Limit sedating medications where possible Other medical management and supportive care per primary WiIl follow clinically Consultation Date/Type/Reason Admit Date/Time Jun 25, 2018 at 04:04 Type of Consult Neurology Reason for Consultation eval for stroke Requesting Provider: DAMION KUMAR Date/Time of Note DATE: 07/09/18 TIME: 12:15 24 HR Interval Summary Free Text/Dictation Continues acute care. Transferred to med/surg. Pt has complaints of nausea and vomiting today. Exam Vital Signs Vitals Vital Signs Date Temp Pulse Resp B/P (MAP) Pulse Ox O2 O2 Flow FiO2 Time Delivery Rate 07/09/18 73 16 155/74 92 Room Air 11:52 (101) 07/09/18 97.6 08:29 07/09/18 3.0 08:24 07/07/18 21 14:11 Intake and Output 07/08/18 07/08/18 07/09/18 1515:00 23:00 07:00 IntakeIntake Total 750 ml 560 ml OutputOutput Total 1800 ml BalanceBalance -1050 ml 560 ml Exam PE: Gen Appearance: No Apparent Distress HEENT: Normocephalic. Cardiovascular: Regular rate Abdomen: Soft Extremities: Dry NE: The patient was awake and alert. Oriented to self and hospital only. Speech normal. Able to follow simple axial and appendicular commands. Cranial nerve examination was limited by mental status. Pupils were equal and reactive to light. There was no afferent pupillary defect. Funduscopic examination was limited. Face was grossly symmetric, w/ present corneal and co ugh reflexes. Tone was normal. Muscle bulk was normal. I did not see fasciculations. The patient was generally weak. Coordination and gait testing was limited by mental status. Arm and leg reflexes were within normal limits and symmetric. Gonzalez's sign was absent. Plantar responses were flexor. DESTINY ANDERSEN NP Jul 09, 2018 12:16
[2018-07-09] MEDS ORDERED: ISOS20TA19 PO (12:25)
[2018-07-09] MEDS ORDERED: CARV12.579 PO (12:25)
[2018-07-09] MEDS ORDERED: ATOR40TA68 PO (12:25)
[2018-07-09] MEDS ORDERED: ASPI-831 PO (12:25)
--- NOTE | 2018-07-09 15:44 | DS ---
Date/Time of Note Date/Time of Note DATE: 07/09/18 TIME: 15:42 Discharge Summary Admission/Discharge Info Admit Date/Time Jun 25, 2018 at 04:04 Discharge Date/Time Discharge Diagnosis Cardiac arrest Acute respiratory failure Acute systolci CHF Patient Condition: Stable Hospital Course Cardiopulmonary arrest was suffered in the ED. CPR was performed with return of circulation. He was emergently intubated. Cause of arrest was determined to be acute CHF exacerbation leading to hypoxia. He did not undergo therapeutic hypothermia as he was moving spotnatneously. He was given diuretics. He was e ventually able to be extubated. He was given a course of antibiotics for pneumoina. He had an RICKI which resolved. Respiratory status improved nicely. Following extubation neurologic status was normal. He continues to require PT/OT and is now being transferred to SNF 2. Respiratory failure secondary to cardiac arrest Patient extubated last night and doing well, patient also tolerating an oral diet Downgrade to telemetry 3. 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 Acute kidney injury secondary to hemodynamics Nephrology consultation appreciated Creatinine is trending down 5. Acute on chronic systolic heart failure Cardiology following Continue cardiac meds 6. Morbid obesity with fatty liver and likely KONG Lifestyle changes 7. Diabetes-sugars currently controlled Continue insulin regimen A1c is 7.4 8. Hypertension-stable Continue meds 9. Pneumonia possibly aspiration versus community acquired Continue Levaquin x7 days, last dose is tomorrow 10. History of aortic aneurysm 4.3 on surveillance Prophylaxis: Lovenox DC planning: Dc to SNF Home Meds Reported Medications Tamsulosin Hcl* (Flomax*) 0.4 Mg Cap.er.24h, 0.4 MG PO DAILY, CAP 07/01/18 Sotalol Hcl* (Betapace*) 80 Mg Tab, 80 MG PO BID, TAB 07/01/18 Levothyroxine Sodium* (Levoxyl*) 75 Mcg Tablet, 75 MCG PO BEFORE BREAKFAST, #30 TAB 07/01/18 Glimepiride* (Amaryl*) 4 Mg Tablet, 4 MG PO WITH BREAKFAST DINNE, TAB 07/01/18 Sitagliptin Phos/Metformin HCl (Janumet 50-1,000 mg Tablet) 1 Each Tablet, 1 EACH PO BID, TAB 07/01/18 Doxazosin Mesylate* (Cardura*) 4 Mg Tablet, 4 MG PO BID, #60 TAB 07/01/18 Nifedipine (Procardia Xl) 60 Mg Tab.er.24, 60 MG PO DAILY, TAB 07/01/18 Metoprolol Succinate* (Toprol XL*) 100 Mg Tab.sr.24h, 100 MG PO BID, #30 TAB 07/01/18 Primary Care Provider Care Physician No Primary Pending Labs Laboratory Tests Test 07/08/18 17:54 07/08/18 20:13 07/09/18 05:45 07/09/18 08:24 Bedside 170 150 151 Glucose mg/dL (70-220) mg/dL (70-220) mg/dL (70-220) Sodium Level 144 mmol/L (135-14 4) Potassium 3.9 Level mmol/L (3.5-5. 1) Chloride Level 107 mmol/L (97-110 ) Carbon Dioxide 28 Level mmol/L (21-31) Anion Gap 9 (5-13) Blood Urea 35 Nitrogen mg/dl (7-20) Creatinine 1.57 mg/dl (0.61-1. 24) Est Glomerular mL/min (>60) Filtrat Rate mL/min Glucose Level 176 mg/dl (70-220) Calcium Level 9.0 mg/dl (8.4-10. 2) Phosphorus 3.6 Level mg/dl (2.5-4.9 ) Magnesium 2.1 Level mg/dl (1.7-2.5 ) Test 07/09/18 11:34 Bedside 167 Glucose mg/dL (70-220) CHARANJIT OCHOA MD Jul 09, 2018 15:44
== END 2018-07-09 18:34 | DRG 207 ==
LOC: E/R 01:53 → ICU 04:04 → 6WM 07-07 22:39 → PP2 07-09 02:20
PROVIDERS: ADMIT Family Medicine; ATTEND Internal Medicine
PROC: 5A1945Z Respiratory Ventilation, 24-96 Consecutive Hours (ICD-10-PCS; 2018-06-25)
PROC: 5A12012 Performance of Cardiac Output, Single, Manual (ICD-10-PCS; 2018-06-25)
PROC: 0BH18EZ Insertion of Endotracheal Airway into Trachea, Via Natural or Artificial Opening Endoscopic (ICD-10-PCS; 2018-06-25)
PROC: 02HV33Z Insertion of Infusion Device into Superior Vena Cava, Percutaneous Approach (ICD-10-PCS; 2018-06-25)
PROC: 5A1955Z Respiratory Ventilation, Greater than 96 Consecutive Hours (ICD-10-PCS; principal; 2018-06-26)
PROC: 0BH18EZ Insertion of Endotracheal Airway into Trachea, Via Natural or Artificial Opening Endoscopic (ICD-10-PCS; 2018-06-26)
DX: J96.02 Acute respiratory failure with hypercapnia (principal); J69.0 Pneumonitis due to inhalation of food and vomit; I50.23 Acute on chronic systolic (congestive) heart failure; I46.2 Cardiac arrest due to underlying cardiac condition; N17.0 Acute kidney failure with tubular necrosis; G93.1 Anoxic brain damage, not elsewhere classified; Z68.41 Body mass index [BMI] 40.0-44.9, adult; I42.9 Cardiomyopathy, unspecified; E87.0 Hyperosmolality and hypernatremia; I11.0 Hypertensive heart disease with heart failure; E66.01 Morbid (severe) obesity due to excess calories; J96.01 Acute respiratory failure with hypoxia; I16.0 Hypertensive urgency; E11.9 Type 2 diabetes mellitus without complications; E83.42 Hypomagnesemia; I27.20 Pulmonary hypertension, unspecified; E78.5 Hyperlipidemia, unspecified; E87.6 Hypokalemia; R13.10 Dysphagia, unspecified; I71.9 Aortic aneurysm of unspecified site, without rupture
CPT/HCPCS: 31500; 36415; 36600; 70450; 71045; 71275; 74018; 76700; 76775; 80048; 80053; 80061; 80202; 81001; 81003; 82043; 82550; 82553; 82803; 82962; 83036; 83540; 83735; 83880; 83935; 84100; 84145; 84155; 84300; 84439; 84443; 84484; 85025; 85610; 85730; 87070; 87081; 87086; 87103; 89220; 92610; 92950; 93005; 93306; 94002; 94003; 94640; 94664; 94770; 96365; 97162; J0360; J1650; J1815; J1940; J2060; J2250; J2405; J2543; J2916; J3010; J3370; J3475; J3480; J7030; J7040; J7050; J7070; Q9967